=== PATIENT | male | born 1945 | race Caucasian/White ===

== ENCOUNTER → 2024-01-24 | Outpatient (CLI) | payer MEDICARE, BC, OTHER, SELFPAY ==
--- NOTE | 2024-01-24 13:00 | XR_ITS ---
Examination: CT chest, without intravenous contrast. Sagittal and coronal 2-D reconstructions. Exam date and time: January 24, 2024 1226 hours INDICATIONS: CT chest September 26, 2023 subcentimeter pulmonary nodules CTDI:vol (mGy) 14.9 DLP: (mGycm) 574 Technique: Multiple 3.0 mm axial sections of the chest to been obtained. Bone and lung density settings are obtained. Sagittal and coronal 2-D reconstructions have been obtained. Low dose protocols were performed. One or more of the following dose reduction techniques were used; automated exposure control, adjustment of the mA and/or KV according to patient size, use of iterative reconstruction technique. Findings: Thoracic aortic calcification no aneurysmal dilatation Prosthetic aortic cage Mild enlargement cardiac contour No paratracheal tracheobronchial or bronchopulmonary adenopathy No change in subcentimeter bilateral pulmonary nodules, no new pulmonary nodules No pneumonia or pulmonary edema No visualized liver or splenic lesion Absent gallbladder No pancreatic mass 21 mm indeterminate left adrenal nodule IMPRESSION: Stable bilateral subcentimeter pulmonary nodules, no new pulmonary nodules 21 mm indeterminate left adrenal mass, recommend 6 month follow-up CT scanning abdomen postcontrast
== END | disposition home or self-care (01) ==
LOC: CCTX 12:10
PROVIDERS: PCP Nurse Practitioner Family; Referring Provider Nurse Practitioner Family; Visit Provider Nurse Practitioner Family
DX: R91.8 Other nonspecific abnormal finding of lung field (principal)
CPT/HCPCS: 71250

== ENCOUNTER 2024-02-12 07:30 | Emergency (ER) | payer MEDICARE, BC, OTHER, SELFPAY ==
[2024-02-12 07:35] VITALS: BP 169/70; PULSE 90; RESP 18; TEMP 37; O2SAT 97
[2024-02-12 07:37] VITALS: BMI 31.1
--- NOTE | 2024-02-12 08:03 | XR_ITS ---
Examination: CT brain head without contrast. 2-D sagittal coronal reconstructions Date and time of exam:February 12, 2024 0832 hrs. Indications: Patient fell today with injury to the back of the head, head pain CTDI: vol (mGy):57.9 DLP: (mGycm):1269 Technique: Multiple CT axial sections of the brain have been obtained, 5 mm slice thickness. Contrast has not been administered. 2-D sagittal, coronal reconstructions have been obtained Low dose protocols were performed. One or more of the following dose reduction techniques were used; automated exposure control, adjustment of the mA and/or KV according to patient size, use of iterative reconstruction technique. Findings: No significant ventricular enlargement. Intra-axial or extra-axial hemorrhage density is not seen. No mass effect or midline shift Basal cisterns are not remarkable. Fourth ventricle is midline. Cranial vault intact. Impression: Negative for acute hemorrhage, mass effect or midline shift
--- NOTE | 2024-02-12 08:03 | XR_ITS ---
Examination: CT cervical spine without contrast 2-D sagittal reconstructions 2-D coronal reconstructions 3-D reconstructions. Exam date and time:February 12, 2024 at 0832 hrs. Indications: Patient fell this morning with injury to the neck, neck pain CTDI:vol (mGy) 10 DLP: (mGycm) 217 Technique: Multiple 2 mm axial sections of the cervical spine have been obtained. The coronal and sagittal reconstructions have been obtained. 3-D reconstructions have been obtained. Low dose protocols were performed. One or more of the following dose reduction techniques were used; automated exposure control, adjustment of the mA and/or KV according to patient size, use of iterative reconstruction technique. Findings: Axial sections demonstrate intact base of the skull. Extensive cervical fusion with satisfactory alignment C1 exhibit satisfactory relationship to the odontoid. No acute cervical vertebral body fracture seen. Alignment posterior spinous processes satisfactory. Impression: No acute cervical fracture.
[2024-02-12 08:31] LABS: Basophils # (Auto) 0.1 Thou/mm3 (0.0-0.2); Basophils % (Auto) 1 % (0-2.5); Eosinophils # (Auto) 0.2 Thou/mm3 (0.0-0.5); Eosinophils % (Auto) 2 % (0-10); Hematocrit 33.8 % (41.0-53.0); Hemoglobin 10.8 g/dL (13.5-16.0); Immature Granulocytes % (Auto) 0 % (0-0); Immature Granulocytes Auto 0.04 Thou/mm3 (0.00-0.00); Lymphocytes # (Auto) 2.4 Thou/mm3 (1.0-4.8); Lymphocytes % (Auto) 25 % (10-50); Mean Corpuscular Hemoglobin 26.8 pg (25.0-35.0); Mean Corpuscular Volume 84 fL (80-100); Monocytes # (Auto) 0.7 Thou/mm3 (0.0-0.8); Monocytes % (Auto) 7 % (0-12); Neutrophils # (Auto) 6.1 Thou/mm3 (1.8-7.7); Neutrophils % (Auto) 65 % (37-80); Nucleated Red Blood Cell % 0 /100 WBC (0); Platelet Count 158 Thou/mm3 (140-440); RDW Standard Deviation 42.9 fL (35.1-43.9); Red Blood Count 4.03 Miln/mm3 (4.50-5.90); White Blood Count 9.5 Thou/mm3 (3.8-10.6)
[2024-02-12 08:55] VITALS: BP 165/74; PULSE 87; RESP 16; TEMP 36.3; O2SAT 98
[2024-02-12 09:01] LABS: Alanine Aminotransferase 9 U/L (10-49); Albumin, Serum 4.2 gm/dL (3.4-4.8); Albumin/Globulin Ratio 1.8 (1.2-2.2); Alkaline Phosphatase 109 U/L (46-116); Anion Gap 8 (7-16); Aspartate Amino Transferase < 8 U/L (0-34); BUN/Creatinine Ratio 18 Ratio (12-20); Bilirubin,Total 0.4 mg/dL (0.3-1.2); Blood Urea Nitrogen 21 mg/dL (9-23); Calcium 8.8 mg/dL (8.3-10.6); Calcium (Corrected) 8.8 mg/dL (8.5-10.1); Carbon Dioxide 28.1 mMol/L (20.0-31.0); Chloride 104 mMol/L (98-107); Creatinine (Component) 1.2 mg/dL (0.6-1.3); Estimated Creatinine Clearance 64.4 mL/min (>60); Globulin 2.3 gm/dL (2.3-3.5); Glucose 275 mg/dL (74-106); Osmolality,Calculated 292 (275-295); Potassium 4.3 mMol/L (3.4-5.1); Sodium 140 mMol/L (136-145); Total Protein 6.5 gm/dL (5.7-8.2); eGFR > 60 See Note
[2024-02-12 12:23] VITALS: BP 189/81; PULSE 79; RESP 19; TEMP 36.4; O2SAT 96
--- NOTE | 2024-02-12 12:54 | PD.EDADULT ---
ED General RME/HPI General Chief complaint: Fall Stated complaint: FALL WITH NECK PAIN X 0600 Time Seen by Provider: 02/12/24 07:47 Arrival date/time: 02/12/24 07:30 RME / HPI RME / HPI narrative: Discharge the patient presented to the emergency department complaining of rolling out of bed this morning. No LOC. No headache. He has chronic neck pain secondary to spinal fusion years ago. No chest pain. No abdominal pain. No vomiting. No diarrhea. No abnormal bleeding. And no painful hips Related Data Home Medications ?Medication ?Instructions ?Recorded ?Confirmed gabapentin 300 mg capsule 300 mg PO TID ##60 10/10/13 08/02/23 allopurinol 100 mg tablet 100 mg PO QDAY Gout 05/02/18 08/02/23 ropinirole 0.5 mg tablet 0.5 mg PO QDAY 07/15/18 08/02/23 sitagliptin phosphate 100 mg 100 mg PO QDAY 03/10/21 08/02/23 tablet (Januvia) duloxetine 30 mg capsule,delayed 30 mg PO BID 01/11/22 08/02/23 release pantoprazole 40 mg tablet,delayed 40 mg PO QDAY 01/11/22 08/02/23 release atorvastatin 80 mg tablet 80 mg PO QDAY 04/16/22 08/02/23 metoprolol succinate 50 mg capsule 100 mg PO QDAY 06/04/22 08/02/23 sprinkle, ext. release 24 hr apixaban 5 mg tablet (Eliquis) 5 mg PO BID 08/19/22 08/02/23 folic acid 1 mg tablet 1 mg PO QDAY 08/19/22 08/02/23 trospium 20 mg tablet 20 mg PO BID 08/19/22 08/02/23 insulin glargine 100 unit/mL (3 8 unit subcut HS 01/01/23 08/02/23 mL) subcutaneous pen (Lantus Solostar U-100 Insulin) Previous Rx's ?Medication ?Instructions ?Recorded metformin 1,000 mg tablet 1,000 mg PO BID 30 days #60 tabs 08/20/22 midodrine 5 mg tablet 5 mg PO TID PRN SBP<100 30 days 08/20/22 #90 tabs sacubitril 24 mg-valsartan 26 mg 0.5 tab PO BID 30 days #15 tabs 08/20/22 tablet (Entresto) Allergies Allergy/AdvReac Type Severity Reaction Status Date / Time empagliflozin Allergy Intermediate rash Verified 08/02/23 14:02 [From Jardiance] Penicillins Allergy Unknown Verified 08/02/23 14:02 Review of Systems Review of Systems Narrative Review of Systems: REVIEW OF SYSTEM: GEN:? negative except mentioned in HPI HEENT:? negative except mentioned in HPI NECK:? negative except mentioned in HPI PULM:? negative except mentioned in HPI CARD:? negative except mentioned in HPI GI:? negative except mentioned in HPI MUSCULO/SKET: negative except mentioned in HPI SKIN:? negative except mentioned in HPI NEURO:? negative except mentioned in HPI PSYCH:? negative except mentioned in HPI Past Medical History Past Medical History NEUROLOGIC: Positive Dementia and Alzheimer's Disease; Negative Neurological Disorders, Seizures or Migraine CARDIAC: Positive Heart Murmur, Coronary Artery Disease, Atherosclerotic Heart Disease, Peripheral Vascular Disease, Hypercholesterolemia, Valvular Heart Disease and Hypertension; Negative Congestive Heart Failure RESPIRATORY: Positive Asthma, Tuberculosis and Sleep Apnea; Negative Chronic Obstructive Pulmonary Disease (COPD), Emphysema or Pneumonia GASTROINTESTINAL: Positive Gastrointestinal Disorders, Gall Bladder Disease, Hiatal Hernia, Gastroesophageal Reflux Disease and Obesity; Negative Cirrhosis or Hemorrhoids GENITOURINARY: Positive Genitourinary Disorders, Kidney Stones and Prostate Cancer; Negative Renal Disease MUSCULOSKELETAL: Positive Musculoskeletal Disorders, Arthritis, Gout and Fibromyalgia ENT: Positive Cataracts, Blind and Macular Degeneration; Negative Glaucoma ENDOCRINE: Positive Endocrine Disorders and Diabetes Mellitus Type 2; Negative Diabetes Mellitus Type 1 HEMATOLOGIC: Positive Clotting Problems; Negative Blood Disorders or Sickle Cell Disease PSYCHO/SOCIAL: Positive Depression and Anxiety OTHER HISTORY: Positive Hospitalization, Chicken Pox, Measles, Cancer and Prostate Cancer; Negative Autoimmune Disease, Blood Transfusions, MRSA, VRSA or Vancomycin-Resistant Enterococci Family History FAMILY HISTORY: Positive Family Cardiac Disorders and Family Cancer; Negative Family Psychiatric Problems, Family Respiratory Disorders, Family Gastrointestinal Problems, Family Surgery or Family Anesthesia Reaction Surgical History SURGICAL: Positive Cardiac Surgery, Coronary Artery Bypass Graft, Valve Replacement, Cardiac Catheterization, Pacemaker, Auto Implanted Cardiovert Defib, Abdominal Surgery and Bowel Surgery Social History SMOKING STATUS: Former smoker SECOND HAND EXPOSURE: No SUBSTANCE USE: does not use OCCUPATION: [employer] ED Exam Narrative Physical exam: Aaox4. No acute distress O2 saturation is normal Heent:? perra. Eomi. No icteric. Neck: full rom.? No mass.? No jvd.? No lymphadenopathy Lungs:? clear, full, equal Heart:? s1s2.? Rrr.? No murmur, gallop or rub. Abd: soft, nondistended, nontender, no mass, no rebound or guarding, no flank tender.? No incarcerated? hernia Ext:? full rom.? No deformity.? Normal csm. Hips are normal. Back examinations: Full range of motion. No deformity. No tenderness. No ecchymosis. No crepitus. Neuro:?? intact cn2 to 12.? No facial droop.? No slurred speech.? No focal deficit.? Moves all 4ext Skin:? no rash.? No cellulitis.? No lesion.? No laceration Psychiatrical: no suicidal.? No homicidal.? No delusion.? No hallucinating Course Quality Measures none Orders Category Date Time Status Saline [Insert IV] STAT Care 02/12/24 08:[address] cervical spine wo con Stat Exams 02/12/24 08:[address] head/brain wo con Stat Exams 02/12/24 08:03 Completed CBC Stat Lab 02/12/24 08:21 Completed CMP [Comprehensive Metabolic Panel] Stat Lab 02/12/24 08:21 Completed Vital Signs Vital signs: Vital Signs Temperature 98.6 F 02/12/24 07:35 Pulse Rate 90 02/12/24 07:35 Respiratory Rate 18 02/12/24 07:35 Blood Pressure 169/70 H 02/12/24 07:35 Pulse Oximetry (%) 97 02/12/24 07:35 Oxygen Delivery Method Room Air 02/12/24 07:35 [facility] Patient data External records reviewed:: [facility] previous records Clinical information provided by:: patient Social determinants that could affect healthcare access:: none Patient has the following chronic illnesses:: Bedridden to wheelchair How is presenting disease/condition affected by chronic disease/condition?: caused by Evaluation data The following diagnostics were reviewed and interpreted by me:: lab results and radiology exam(s) Lab and/or radiology exams considered but not ordered:: None Interpretation Summary: See [facility] Medications Medications considered but not ordered:: None Medication administrations:: See [facility] Consultations Consultation(s) initiated? (list below): No Diagnosis Differential Diagnosis ED Complaint MDM: Fall. Syncope. LOC. Fractured hips Most likely diagnosis given after review of the tests above:: Fall., Mechanical Admission Indicated Admission indicated?: not indicated Explain why admission is indicated or not indicated:: Patient doing well. No fracture bone. No bleeding. Admission Request Was there a request for admission?: No Disposition Plan Disposition Plan: Discharge Discharge Attestation Discharge Attestation: The patient and all family members were given an opportunity to ask questions and understood the discharge instructions. Discharge instructions specifically effects, indications for sooner follow up or return to the emergency department, and the expected course of current diagnosis. Patient condition: Stable Medical Decision Making MDM Narrative MDM Narrative: CBC unremarkable. CMP remarkable for a blood sugar of 275. The patient is diabetic. CT head was reviewed by and interpreted by me: No bleed. No mass. No shifting. No swelling. Normal ventricle. Normal skull. CT cervical spine was reviewed by and interpreted by me as follow: No fracture. No dislocation. Hardware from previous neck surgery are present. Severe arthritis. [address] [place] [address] [facility] Report Signed Patient: IVAN GARCÍA. Record#: [id number] Birthdate: 1945 Age/Sex: 78 / M Location: [facility] Attending Dr: Ordering Physician: Maurice Anderson MD Date of Service: 02/12/24 Procedure(s): CT head/brain wo con Accession Number(s): [id number] cc: Anibal Blum MD; Maurice Anderson MD~ Examination: CT brain head without contrast. 2-D sagittal coronal reconstructions Date and time of exam:February 12, 2024 0832 hrs. Indications: Patient fell today with injury to the back of the head, head pain CTDI: vol (mGy):57.9 DLP: (mGycm):1269 Technique: Multiple CT axial sections of the brain have been obtained, 5 mm slice thickness. Contrast has not been administered. 2-D sagittal, coronal reconstructions have been obtained Low dose protocols were performed. One or more of the following dose reduction techniques were used; automated exposure control, adjustment of the mA and/or KV according to patient size, use of iterative reconstruction technique. Findings: No significant ventricular enlargement. Intra-axial or extra-axial hemorrhage density is not seen. No mass effect or midline shift Basal cisterns are not remarkable. Fourth ventricle is midline. Cranial vault intact. Impression: Negative for acute hemorrhage, mass effect or midline shift Dictated By: Anibal Blum MD Signed By: <Electronically signed by Anibal Blum MD in OV> 02/12/24 0845 DD/ 3 TD/TT: 02/12/24843 Line Palletizer: REYES [facility] [address] [place] [address] [facility] Report Signed Patient: IVAN GARCÍA Record#: [id number] Birthdate: 1945 Age/Sex: 78 / M Location: [facility] Attending Dr: Ordering Physician: Maurice Anderson MD Date of Service: 02/12/24 Procedure(s): CT cervical spine wo con Accession Number(s): [id number] cc: Anibal Blum MD; Maurice Anderson MD~ Examination: CT cervical spine without contrast 2-D sagittal reconstructions 2-D coronal reconstructions 3-D reconstructions. Exam date and time:February 12, 2024 at 0832 hrs. Indications: Patient fell this morning with injury to the neck, neck pain CTDI:vol (mGy) 10 DLP: (mGycm) 217 Technique: Multiple 2 mm axial sections of the cervical spine have been obtained. The coronal and sagittal reconstructions have been obtained. 3-D reconstructions have been obtained. Low dose protocols were performed. One or more of the following dose reduction techniques were used; automated exposure control, adjustment of the mA and/or KV according to patient size, use of iterative reconstruction technique. Findings: Axial sections demonstrate intact base of the skull. Extensive cervical fusion with satisfactory alignment C1 exhibit satisfactory relationship to the odontoid. No acute cervical vertebral body fracture seen. Alignment posterior spinous processes satisfactory. Impression: No acute cervical fracture. Dictated By: Anibal Blum MD Signed By: <Electronically signed by Anibal Blum MD in OV> 02/12/24 0844 DD/ TD/TT: 02/12/2443 Line Palletizer: REYES Patient have no new neurological deficit. The patient is chronically bedridden to wheelchair. Differential Diagnosis Differential Diagnosis: Fall. Syncope. LOC. Fractured hips Lab Data 02/12/24 08:21 02/12/24 08:21 Labs: Lab Results 02/12/24 Range/Units 08:21 WBC 9.5 (3.8-10.6) Thou/mm3 RBC 4.03 L (4.50-5.90) Miln/mm3 Hgb 10.8 L (13.5-16.0) g/dL Hct 33.8 L (41.0-53.0) % MCV 84 (80-100) fL MCH 26.8 (25.0-35.0) pg MCHC 32.0 (31.0-37.0) g/dl RDW Std Deviation 42.9 (35.1-43.9) fL Plt Count 158 (140-440) Thou/mm3 Neut % (Auto) 65 (37-80) % Lymph % (Auto) 25 (10-50) % [place] % (Auto) 7 (0-12) % Eos % (Auto) 2 (0-10) % Baso % (Auto) 1 (0-2.5) % Neut # (Auto) 6.1 (1.8-7.7) Thou/mm3 Lymph # (Auto) 2.4 (1.0-4.8) Thou/mm3 [place] # (Auto) 0.7 (0.0-0.8) Thou/mm3 Eos # (Auto) 0.2 (0.0-0.5) Thou/mm3 Baso # (Auto) 0.1 (0.0-0.2) Thou/mm3 Immature Gran # (Auto) 0.04 H (0.00-0.00) Thou/mm3 Absolute Nucleated RBC 0.00 (0.00-0.00) Thou/mm3 Immature Gran % 0 (0-0) % Nucleated RBC % 0 (0) /100 WBC Sodium 140 (136-145) mMol/L Potassium 4.3 (3.4-5.1) mMol/L Chloride 104 (98-107) mMol/L Carbon Dioxide 28.1 (20.0-31.0) mMol/L Anion Gap 8 (7-16) BUN 21 (9-23) mg/dL Creatinine 1.2 (0.6-1.3) mg/dL Estim Creat Clear Calc 64.4 (>60) mL/min eGFR > 60 (60 - ) See Note BUN/Creatinine Ratio 18 (12-20) Ratio Glucose 275 H (74-106) mg/dL Calculated Osmolality 292 (275-295) Calcium 8.8 (8.3-10.6) mg/dL Corrected Calcium 8.8 (8.5-10.1) mg/dL Total Bilirubin 0.4 (0.3-1.2) mg/dL AST < 8 (0-34) U/L ALT 9 L (10-49) U/L Alkaline Phosphatase 109 (46-116) U/L Total Protein 6.5 (5.7-8.2) gm/dL Albumin 4.2 (3.4-4.8) gm/dL Globulin 2.3 (2.3-3.5) gm/dL Albumin/Globulin Ratio 1.8 (1.2-2.2) Discharge Plan Plan Patient Disposition: HOME (Self Care) Disposition Comment: Stable to go home Prescriptions/Referrals Prescriptions/Med Rec: No Action ropinirole 0.5 mg tablet 0.5 mg PO QDAY gabapentin 300 MG capsule 300 mg PO TID Qty: 60 allopurinol 100 mg tablet 100 mg PO QDAY Patient Comments: TK 1 T PO QD Januvia 100 mg tablet 100 mg PO QDAY Patient Comments: TAKE 1 TABLET BY MOUTH EVERY DAY atorvastatin 80 mg Tablet 80 mg PO QDAY metoprolol succinate 50 mg Capsule,Sprinkle,Er 24hr 100 mg PO QDAY insulin glargine [Lantus Solostar U-100 Insulin] 100 unit/mL (3 mL) insulin pen 8 unit SUBCUT HS Patient Comments: ADMINISTER 55 UNITS UNDER THE SKIN DAILY pantoprazole 40 mg tablet,delayed release (DR/EC) 40 mg PO QDAY Patient Comments: TAKE 1 TABLET BY MOUTH EVERY DAY duloxetine 30 mg capsule,delayed release(DR/EC) 30 mg PO BID Patient Comments: TAKE 1 CAPSULE BY MOUTH FOR ONE WEEK THEN TWICE DAILY trospium 20 mg Tablet 20 mg PO BID Eliquis 5 mg tablet 5 mg PO BID Patient Comments: TAKE 1 TABLET BY MOUTH TWICE DAILY folic acid 1 mg Tablet 1 mg PO QDAY midodrine 5 mg Tablet 5 mg PO TID PRN (Reason: SBP<100) 30 Days Qty: 90 0RF Rx Instructions: do not give last dose of day after 6PM or within 4 hrs of bedtime Entresto 24-26 mg Tablet 0.5 tab PO BID 30 Days Qty: 15 0RF metformin 1,000 mg tablet 1,000 mg PO BID 30 Days Qty: 60 0RF Referrals: Gladis Shipman WINDOW MACHINE OPERATOR [Primary Care Provider] - In 1 week Problem List Clinical Impression: Diabetes, Fall Patient/Caregiver Discharge Instructions Education Materials: Fall Prevention Assessing Risk, ED Diet: Diabetes Additional Instructions: Please follow-up with your medical doctor in 3 days. Return to the emergency department if any problem. Print Language: Persian Stand Alone Forms: Ofe Award Info., Patient Portal Info Letter
[2024-02-12 14:25] VITALS: BP 170/71; PULSE 76; RESP 18; TEMP 36.4; O2SAT 98
== END 2024-02-12 14:57 | disposition home or self-care (01) ==
PROVIDERS: Emergency Provider Emergency Medicine; PCP Nurse Practitioner Family; Referring Provider Emergency Medicine
DX: S19.9XXA Unspecified injury of neck, initial encounter (principal); S09.90XA Unspecified injury of head, initial encounter; E11.51 Type 2 diabetes mellitus with diabetic peripheral angiopathy without gangrene; E11.36 Type 2 diabetes mellitus with diabetic cataract; M19.90 Unspecified osteoarthritis, unspecified site; W06.XXXA Fall from bed, initial encounter; Z79.84 Long term (current) use of oral hypoglycemic drugs; Z79.4 Long term (current) use of insulin
CPT/HCPCS: 36415; 70450; 72125; 80053; 85025; 99284

== ENCOUNTER 2024-04-30 11:05 | Day surgery (SDC) | payer MEDICARE, BC, OTHER, SELFPAY ==
--- NOTE | 2024-04-27 10:57 | EKG_ITS ---
[facility] Test Date: 2024-04-27 Pat Name: IVAN GARCÍA Department: Room: - Gender: Male Rn Intern: RT STUDENT : 1945 Requested By: Jaimee Villa Order Number: [id number] Reading MD: Jaimee Villa Measurements Intervals Murray Rate: 70 P: 63 ND: 198 QRS: -37 QRSD: 161 T: 99 QT: 449 QTc: 486 Interpretive Statements ELECTRONIC VENTRICULAR PACEMAKER ABNORMAL RHYTHM ECG WARNING: DATA QUALITY MAY AFFECT INTERPRETATION Compared to ECG 10/04/2023 19:45:49 No significant changes /store/S0/[id number]
[2024-04-27 11:17] LABS: Partial Thromboplastin Time 29.5 Seconds (22.0-36.0); Prothrombin Time 11.4 Seconds (9.0-12.2)
[2024-04-27 11:43] LABS: Alanine Aminotransferase 12 U/L (10-49); Albumin, Serum 4.1 gm/dL (3.4-4.8); Albumin/Globulin Ratio 1.6 (1.2-2.2); Alkaline Phosphatase 109 U/L (46-116); Anion Gap 6 (7-16); Aspartate Amino Transferase 11 U/L (0-34); BUN/Creatinine Ratio 18 Ratio (12-20); Bilirubin,Total 0.5 mg/dL (0.3-1.2); Blood Urea Nitrogen 16 mg/dL (9-23); Calcium 9.3 mg/dL (8.3-10.6); Calcium (Corrected) 9.3 mg/dL (8.5-10.1); Carbon Dioxide 26.7 mMol/L (20.0-31.0); Chloride 107 mMol/L (98-107); Creatinine (Component) 0.9 mg/dL (0.6-1.3); Globulin 2.5 gm/dL (2.3-3.5); Glucose 279 mg/dL (74-106); Osmolality,Calculated 290 (275-295); Potassium 4.7 mMol/L (3.4-5.1); Sodium 140 mMol/L (136-145); Total Protein 6.6 gm/dL (5.7-8.2); eGFR > 60 See Note
[2024-04-30 11:53] VITALS: BMI 31.8
[2024-04-30 11:55] VITALS: BP 167/76; PULSE 72; RESP 18; TEMP 36.7; O2SAT 95
[2024-04-30 12:01] VITALS: TEMP 36.7
[2024-04-30] MEDS: Vancomycin Inj 1,000 MG in SODIUM CHLORIDE 0.9% 500 ML 500 ML 300 MG IV (12:30)
[2024-04-30] MEDS: RINGERS LACTATED 1000 ML 1,000 ML 125 ML IV (12:30)
[2024-04-30 14:15] VITALS: BP 95/57; PULSE 89; RESP 16; TEMP 37.2; O2SAT 91
[2024-04-30 14:25] VITALS: BP 100/58; PULSE 87; RESP 16; O2SAT 93
[2024-04-30 14:35] VITALS: BP 109/61; PULSE 85; RESP 19; O2SAT 93
[2024-04-30 14:45] VITALS: BP 150/71; PULSE 81; RESP 19; O2SAT 92
== END 2024-04-30 15:20 | disposition home or self-care (01) ==
PROVIDERS: PCP Nurse Practitioner Family; Referring Provider Specialist; Visit Provider Specialist
PROC: 0DBE8ZX Excision of Large Intestine, Via Natural or Artificial Opening Endoscopic, Diagnostic (ICD-10-PCS; CPT 45380; principal; 2024-04-30 13:15)
DX: K64.9 Unspecified hemorrhoids (principal); K57.30 Diverticulosis of large intestine without perforation or abscess without bleeding; Z01.810 Encounter for preprocedural cardiovascular examination
CPT/HCPCS: 45378; 36415; 80053; 85610; 85730; 93005; J3371; J7040; J7120

== ENCOUNTER → 2024-07-03 | Outpatient (BNVA) | payer MEDICARE, BC, OTHER, SELFPAY | END | disposition home or self-care (01) | PROVIDERS: PCP Nurse Practitioner Family; Referring Provider Nurse Practitioner Family; Visit Provider Urology | DX: C61 Malignant neoplasm of prostate (principal); N39.46 Mixed incontinence; F03.90 Unspecified dementia, unspecified severity, without behavioral disturbance, psychotic disturbance, mood disturbance, and anxiety; Z99.3 Dependence on wheelchair; I11.0 Hypertensive heart disease with heart failure; I50.9 Heart failure, unspecified; E11.9 Type 2 diabetes mellitus without complications; I25.10 Atherosclerotic heart disease of native coronary artery without angina pectoris; Z95.5 Presence of coronary angioplasty implant and graft; Z87.891 Personal history of nicotine dependence; E78.00 Pure hypercholesterolemia, unspecified; K21.9 Gastro-esophageal reflux disease without esophagitis; Z95.0 Presence of cardiac pacemaker | CPT/HCPCS: 99212; G0463 ==

== ENCOUNTER 2024-07-27 20:37 | Inpatient (IN) | payer OTHER, SELFPAY ==
[2024-07-27 20:38] VITALS: BP 128/69; PULSE 88; RESP 22; TEMP 36.7; O2SAT 92
[2024-07-27 20:39] VITALS: O2SAT 93
--- NOTE | 2024-07-27 20:55 | PD.EDSOB ---
ED SOB =RME/HPI General Chief Complaint: Shortness of Breath/Dyspnea Stated Complaint: SOB Time Seen by Provider: 07/27/24 21:45 Arrival date/time: 07/27/24 20:37 RME / HPI RME / HPI Narrative: This section includes all my notes and documentations, including HPI, PE, and ED course. Julio Edmonds MD HPI: 79 y/o male with Hx of Pacemaker, Dementia, Alzheimer's Disease, Heart Murmur, Coronary Artery Disease, Atherosclerotic Heart Disease, Peripheral Vascular Disease, Valvular Heart Disease, Hypertension, Asthma, Tuberculosis, and Prostate Cancer BIBA from [facility] c/o shortness of breath and hypoxia just prior to arrival. Neb treatment given by EMS. Patient reports no fever or chest pain or cough. But history from the patient may be inaccurate due to severe dementia. ROS: Unable to obtain from the patient due to dementia. Physical Exam: General: Alert. In moderate respiratory distress. Hypoxia noted. Eyes: Conjunctivae and lids clear. ENT: No nasal congestion. Neck: Supple. No JVD. Heart: RRR. Lungs: Moderate respiratory distress. Moderately decreased air movement with severe rales. Abdomen: Soft with diffuse tenderness, difficult to localize. Normal bowel sounds. No distension. No rebound or guarding. Back: No CVA tenderness. Skin: Warm and dry. Neuro: Alert and oriented X 1. I reviewed EMS and assisted notes. I reviewed all diagnostic test results. My interpretation of the EKG: Paced rhythm (87 bpm) with no ST-T changes. My interpretation of the chest x-ray is increased vascular congestion. My review of the Gall Bladder US report is NAD. My review of the Abdomen/Pelvis CT report is distended bladder. My review of the Chest CTA report is: Prominent vascular congestion. Bibasilar pneumonia. Blood tests and urine tests remarkable for WBC 25, ESR 32, D-dimer 1050, Cr 5.8, LA 4.9, Mg 1.4, CRP 2.4, BNP 167. ABG showed pH 7.29, pCO2 24, pHCO3 12. COVID/influenza negative. At this point, diagnoses include Acute Renal Failure, Pneumonia, Acute Respiratory Failure with Hypoxia, Acute CHF, Hypomagnesemia. Treatment here included Oxygen, Rocephin, Lasix, Morphine, topical nitroglycerin, and MgSO4 2 gram IV. Significant improvement not noted. I discussed the case with our Dermatology Specialist, Dr. Meyers. About the presentation and exam and diagnostics and treatments here. And need of further care in the hospital. Recommend admission for further care. I discussed the case with our hospitalist. About the presentation and exam and diagnostics and treatments here. And need of further care in the hospital. Will accept the patient. Julio Edmonds MD Related Data Home Medications ?Medication ?Instructions ?Recorded ?Confirmed gabapentin 300 mg capsule 300 mg PO TID ##60 10/10/13 07/20/24 allopurinol 100 mg tablet 100 mg PO QDAY Gout 05/02/18 07/20/24 ropinirole 0.5 mg tablet 0.5 mg PO QDAY 07/15/18 07/20/24 duloxetine 30 mg capsule,delayed 30 mg PO BID 01/11/22 07/20/24 release pantoprazole 40 mg tablet,delayed 40 mg PO QDAY 01/11/22 07/20/24 release atorvastatin 80 mg tablet 80 mg PO QDAY 04/16/22 07/20/24 apixaban 5 mg tablet (Eliquis) 5 mg PO BID 08/19/22 07/20/24 folic acid 1 mg tablet 1 mg PO QDAY 08/19/22 07/20/24 trospium 20 mg tablet 20 mg PO BID 08/19/22 07/20/24 insulin glargine 100 unit/mL (3 22 unit subcut HS 01/01/23 07/20/24 mL) subcutaneous pen (Lantus Solostar U-100 Insulin) insulin lispro 100 unit/mL 1 sliding scale dose subcut 04/30/24 07/20/24 subcutaneous pen USEASDIRECTD melatonin 3 mg capsule 6 mg PO QDAY 04/30/24 07/20/24 memantine 5 mg tablet 5 mg PO BID 04/30/24 07/20/24 metoprolol succinate 100 mg 100 mg PO QDAY 04/30/24 07/20/24 capsule sprinkle, ext. release 24 hr mirabegron 50 mg tablet,extended 50 mg PO QDAY 04/30/24 07/20/24 release 24 hr (Myrbetriq) metoprolol succinate 50 mg 100 mg PO .i tab daily Hypertension 07/20/24 07/20/24 tablet,extended release 24 hr Previous Rx's ?Medication ?Instructions ?Recorded metformin 1,000 mg tablet 1,000 mg PO BID 30 days #60 tabs 08/20/22 midodrine 5 mg tablet 5 mg PO TID PRN SBP<100 30 days 08/20/22 #90 tabs sacubitril 24 mg-valsartan 26 mg 0.5 tab PO BID 30 days #15 tabs 08/20/22 tablet (Entresto) Allergies Allergy/AdvReac Type Severity Reaction Status Date / Time empagliflozin (From Allergy Intermediate rash Verified 07/03/24 10:28 Jardiance) Penicillins Allergy Unknown Verified 07/03/24 10:28 Review of Systems Review of Systems Systems Reviewed: All systems reviewed, normal except as documented Past Medical History Past Medical History NEUROLOGIC: Positive Dementia and Alzheimer's Disease CARDIAC: Positive Heart Murmur, Coronary Artery Disease, Atherosclerotic Heart Disease, Peripheral Vascular Disease, Hypercholesterolemia, Valvular Heart Disease and Hypertension RESPIRATORY: Positive Asthma, Tuberculosis and Sleep Apnea GASTROINTESTINAL: Positive Gastrointestinal Disorders, Hiatal Hernia, Gastroesophageal Reflux Disease and Obesity GENITOURINARY: Positive Genitourinary Disorders, Kidney Stones and Prostate Cancer MUSCULOSKELETAL: Positive Musculoskeletal Disorders, Arthritis, Gout and Fibromyalgia ENT: Positive Cataracts, Blind and Macular Degeneration ENDOCRINE: Positive Endocrine Disorders and Diabetes Mellitus Type 2 HEMATOLOGIC: Positive Clotting Problems PSYCHO/SOCIAL: Positive Depression and Anxiety OTHER HISTORY: Positive Hospitalization, Anesthesia Reactions (waking up aggressive fighting the staff), Chicken Pox, Measles, Cancer and Prostate Cancer Family History FAMILY HISTORY: Positive Family Cardiac Disorders and Family Cancer Surgical History SURGICAL: Positive Cardiac Surgery, Coronary Artery Bypass Graft, Valve Replacement, Cardiac Catheterization, Pacemaker, Auto Implanted Cardiovert Defib, Abdominal Surgery and Bowel Surgery ED Exam Narrative Physical exam: Refer to HPI above Course Course Course Narrative: CXR is ordered for determining the etiology of shortness of breath. Quality Measures none Orders Category Date Time Status Bedside COVID-19 Antigen Test NOW Care 07/27/24 20:55 Active Bedside Influenza A&B Antigen Test NOW Care 07/27/24 20:55 Completed COVID-19 Screening Questionnaire NOW Care 07/28/24 00:[address] Screening NOW Care 07/27/24 20:57 Active Decision to Admit X1 Care 07/28/24 00:19 Completed EKG (ED ONLY) *Do not use* NOW Care 07/27/24 20:57 Completed Ruth to Onida Routine Care 07/28/24 00:41 Ordered Saline [Insert IV] NOW Care 07/27/24 20:55 Active Straight [In and Out Catheter] X1 Care 07/27/24 20:55 Completed Consult to Nephrology Stat Cons 07/27/24 23:[address] abdomen pelvis w con Stat Exams 07/27/24 20:[address] angio chest Stat Exams 07/27/24 20:57 Completed EKG (ED Only) Stat Exams 07/27/24 20:57 Ordered US gall bladder Stat Exams 07/27/24 20:57 Completed XR chest 1V portable Stat Exams 07/27/24 20:57 Completed ABG [Arterial Blood Gas] Stat Lab 07/27/24 23:05 Completed Amylase Stat Lab 07/27/24 22:05 Completed BNP [B-Type Natriuretic Peptide] Stat Lab 07/27/24 22:05 Completed Bilirubin,Direct Stat Lab 07/27/24 22:05 Completed Blood Culture (Lab) Stat Lab 07/27/24 22:04 Received CBC Stat Lab 07/27/24 22:05 Completed CMP [Comprehensive Metabolic Panel] Stat Lab 07/27/24 22:05 Completed CRP [C-Reactive Protein] Stat Lab 07/27/24 22:05 Completed D-Dimer Stat Lab 07/27/24 22:05 Completed ESR [Sed Rate (ESR)] Stat Lab 07/27/24 22:05 Completed Free T4 (Free Thyroxine) Stat Lab 07/27/24 22:05 Completed Lactate (Lactic Acid) Stat Lab 07/27/24 22:00 Completed Lipase Stat Lab 07/27/24 22:05 Completed Magnesium Stat Lab 07/27/24 22:05 Completed PT [Prothrombin Time with INR] Stat Lab 07/27/24 22:05 Completed PTT [Partial Thromboplastin Time] Stat Lab 07/27/24 22:05 Completed Procalcitonin Stat Lab 07/27/24 22:05 Completed TSH [Thyroid Stimulating Hormone] Stat Lab 07/27/24 22:05 Completed Troponin I Stat Lab 07/27/24 22:05 Completed UA, C/S IF [Urinalysis, C/S if Indicated] Stat Lab 07/27/24 23:07 Completed Furosemide Inj [Lasix Inj] Med 07/27/24 20:55 Discontinued 40 mg IVP X1 ONE Magnesium Sulfate 2 GM Ivpb [Magnesium Sulfate Ivpb] Med 07/27/24 23:28 Discontinued 2 gm in 50 ml IV X1 Morphine Inj Med 07/27/24 20:55 Discontinued 2 mg IVP X1 ONE Nitroglycerin Oint 2% [Nitro-paste Oint 2%] Med 07/27/24 20:55 Discontinued 1 inch TOP X1 ONE cefTRIAXone/D5w 1gm IV premix [Rocephin/D5w 1gm IV Med 07/27/24 20:55 Discontinued premix] 1 gm in 50 ml IV X1 BiPAP / CPAP NOW RT 07/27/24 20:55 Active Vital Signs Vital signs: Vital Signs Temperature 98.1 F 07/27/24 20:38 Pulse Rate 88 07/27/24 20:38 Respiratory Rate 22 H 07/27/24 20:38 Blood Pressure 128/69 07/27/24 20:38 Pulse Oximetry (%) 92 L 07/27/24 20:38 Oxygen Delivery Method Aerosol Mask 07/27/24 20:38 Shortness of Breath / Dyspnea MDM Narrative MDM Narrative:: Scribe Attestation: Radha Ross, rinku scribing for and in the presence of Dr. Edmonds. Provider Notation: Although this document has been carefully reviewed, there may still be some phonetic and other typographical errors.? These errors are purely grammatical due to imperfections in the software program and should not be construed in any way to? compromise the substance of the patient's medical care during this visit. 79 y/o male with Hx of Pacemaker, Dementia, Alzheimer's Disease, Heart Murmur, Coronary Artery Disease, Atherosclerotic Heart Disease, Peripheral Vascular Disease, Valvular Heart Disease, Hypertension, Asthma, Tuberculosis, and Prostate Cancer BIBA from [facility] c/o shortness of breath and low O2 sats x approximately 1 hour ago. Patient was reported to have O2 sats in the 80's, then up as high as 93% with O2 treatment via non-rebreather mask. Denies cough or abdominal pain. Patient is allergic to Penicillin. No other complaints. Patient data External records reviewed:: [facility] previous records (Reviewed prior ED records from 07/21/24. Patient was seen for Fall.), EMS form and Longterm records Clinical information provided by:: patient and EMS Social determinants that could affect healthcare access:: housing (SNF) Patient has the following chronic illnesses:: Dementia, Alzheimer's Disease, Heart Murmur, Coronary Artery Disease, Atherosclerotic Heart Disease, Peripheral Vascular Disease, Hypercholesterolemia, Valvular Heart Disease, Hypertension, Asthma, Tuberculosis, Sleep Apnea, Hiatal Hernia, Gastroesophageal Reflux Disease, Obesity, Kidney Stones, Prostate Cancer, Arthritis, Gout, Fibromyalgia, Cataracts, Blind, Macular Degeneration, Diabetes Mellitus Type 2, Clotting, Depression and Anxiety How is presenting disease/condition affected by chronic disease/condition?: exacerbated by Evaluation data The following diagnostics were reviewed and interpreted by me:: EKG tracing(s) (My interpretation of the EKG: Paced rhythm (87 bpm) with no ST-T changes. Julio Edmonds MD) Lab and/or radiology exams considered but not ordered:: None Interpretation Summary: I reviewed all diagnostic test results. My interpretation of the EKG: Paced rhythm (87 bpm) with no ST-T changes. My interpretation of the chest x-ray is increased vascular congestion. My review of the Gall Bladder US report is NAD. My review of the Abdomen/Pelvis CT report is distended bladder. My review of the Chest CTA report is: Prominent vascular congestion. Bibasilar pneumonia. Blood tests and urine tests remarkable for WBC 25, ESR 32, D-dimer 1050, Cr 5.8, LA 4.9, Mg 1.4, CRP 2.4, BNP 167. ABG showed pH 7.29, pCO2 24, pHCO3 12. COVID/influenza negative. Medications / Prescriptions Medications or Prescriptions considered but not ordered:: None Medication administrations:: Medication Administration History Acetaminophen (Acetaminophen 325 Mg Tablet) 650 mg PO Q6H PRN PRN Reason: Fever >100.4 or pain Stop: 08/27/24 01:00 Albuterol/Ipratropium (Albuterol/Ipratropium (Duoneb) Rt Ivanna 3 Ml Nebu) 3 ml INH Q2HR PRN PRN Reason: SHORTNESS OF BREATH OR WHEEZE Stop: 08/27/24 02:26 Dextrose (Dextrose 50%-Water Inj 50 Ml Syringe) 25 ml IV Q15MIN PRN PRN Reason: BG 50-70 responsive npo pt Stop: 08/27/24 01:13 Dextrose (Dextrose 50%-Water Inj 50 Ml Syringe) 50 ml IV Q15MIN PRN PRN Reason: BG <50 OR BG <70 & pt unresponsive Stop: 08/27/24 01:13 Docusate Sodium (Docusate Sod 100 Mg Capsule) 100 mg PO QDAY PRN; Protocol PRN Reason: CONSTIPATION Stop: 08/27/24 01:00 Glucagon (Glucagon Inj 1 Mg Vial) 1 mg IM Q15MIN PRN PRN Reason: BG <70, and no IV access Lactated Ringer's (Lactated Ringers) 1,000 mls @ 75 mls/hr IV .[id number] ONE Stop: 07/28/24 14:22 Last Admin: 07/28/24 01:53 Dose: 75 mls/hr Documented By: DANNI Ceftriaxone Sodium 1 gm/ (Sodium Chloride) 50 mls @ 100 mls/hr IV QDAY CARLEEN Stop: 08/04/24 08:59 Insulin Human Lispro (Insulin Lispro (Admelog) 1 Unit/0.01 Ml Unit) 0 unit SC AC [facility]; Protocol Stop: 08/27/24 07:29 Ondansetron HCl (Ondansetron Inj 2 Mg/Ml Inj 2 Ml) 4 mg IVP Q6H PRN; Protocol PRN Reason: NAUSEA OR VOMITING Stop: 08/27/24 01:00 Pharmacy Consult (Pharmacy Renal Dose Adjustment 1 Ea) 1 each XX PRN PRN PRN Reason: CONSULT Stop: 08/27/24 01:05 Sennosides (Senna Tablet) 1 tab PO QDAY PRN; Protocol PRN Reason: constipation Stop: 08/27/24 01:00 Discontinued Medications Furosemide (Furosemide Inj 10 Mg/Ml 4ml Vial) 40 mg IVP X1 ONE Stop: 07/27/24 20:56 Last Admin: 07/27/24 22:03 Dose: 40 mg Documented By: EE Ceftriaxone Sodium/Dextrose (Rocephin/D5w 1gm Iv Premix) 1 gm in 50 mls @ 100 mls/hr IV X1 ONE Stop: 07/27/24 21:24 Last Infusion: 07/27/24 22:35 Dose: Infused Documented By: Admin: 07/27/24 22:05 Dose: 100 mls/hr Documented By: DANNI Magnesium Sulfate (Magnesium Sulfate Ivpb) 2 gm in 50 mls @ 25 mls/hr IV X1 ONE Stop: 07/28/24 01:27 Last Infusion: 07/28/24 02:53 Dose: Infused Documented By: Admin: 07/28/24 00:24 Dose: 25 mls/hr Documented By: EE Sodium Chloride (Ns) 500 mls @ 999 mls/hr IV .Q31M ONE Stop: 07/28/24 01:50 Last Infusion: 07/28/24 02:10 Dose: Infused Documented By: Admin: 07/28/24 01:30 Dose: 999 mls/hr Documented By: EE Sodium Chloride (Ns) 500 mls @ 999 mls/hr IV .Q31M ONE Stop: 07/28/24 02:28 Last Infusion: 07/28/24 03:50 Dose: Infused Documented By: Admin: 07/28/24 02:53 Dose: 999 mls/hr Documented By: EE Morphine Sulfate (Morphine Sulf Inj 10 Mg/Ml Vial) 2 mg IVP X1 ONE Stop: 07/27/24 20:56 Last Admin: 07/27/24 22:03 Dose: 2 mg Documented By: DANNI Nitroglycerin (Nitroglycerin Oint 2% 1 Inch Packet) 1 inch TOP X1 ONE Stop: 07/27/24 20:56 Last Admin: 07/27/24 22:04 Dose: 1 inch Documented By: DANNI Treatment here from me included Oxygen, Rocephin, Lasix, Morphine, topical nitroglycerin, and MgSO4 2 gram IV. Consultations Consultation(s) initiated? (list below): Yes Consultation #1 (Physician, Specialty, Details): I discussed the case with our Dermatology Specialist, Dr. Meyers. About the presentation and exam and diagnostics and treatments here. And need of further care in the hospital. Recommended admission for further care. Time: 23:53 Diagnosis Shortness of Breath Differential Diagnosis: acute exacerbation of chronic obstructive airways disease, congestive heart failure, community acquired pneumonia, asthma with exacerbation, pulmonary embolism and other (CA, UTI, sepsis, renal failure) Most likely diagnosis given after review of the tests above:: Acute Renal Failure, Pneumonia, Acute Respiratory Failure with Hypoxia, Acute CHF. Admission Indicated Admission indicated?: indicated Explain why admission is indicated or not indicated:: Acute Renal Failure, Acute Respiratory Failure with Hypoxia Admission Request Was there a request for admission?: Yes Admission Attestation Admission request attestation: Discussed case with Hospitalist service regarding admission. Discussed patients ED course, exam findings, labs, and radiology results. The Hospitalist [agrees] to accept the patient for admission. Disposition Plan Disposition Plan: Admit Critical Care Time Critical Care Time Critical Care Time: Yes Total Critical Care Time (min.): 42 Attestation: Julio Edmonds MD Discharge Plan Plan Patient Disposition: Admit Acute Care w/in Hospital Problem List Clinical Impression: Acute respiratory failure with hypoxia, Pneumonia, Acute CHF, Acute renal failure, Hypomagnesemia
--- NOTE | 2024-07-27 20:57 | XR_ITS ---
Examination: CTA chest with intravenous contrast 2-D reconstructions 3-D reconstructions, vascular Date and time of exam: July 27, 2024 at 16 hours INDICATIONS: Chest pain shortness of breath this week CTDI: vol (mGy) 101 DLP: (mGycm) 2007 and 68 Technique: Multiple axial sections of the thorax have been obtained. 3 mm slice thickness, from below the hemidiaphragms to above the apices of the lungs. Mediastinal and lung density settings have been obtained. 2-D sagittal and coronal reconstructions. 3-D angiographic renderings, 3-D volume renderings, 3D post processing, vascular maximum intensity projections obtained. Contrast administered is 95 cc Isovue-370. Low dose protocols were performed. One or more of the following dose reduction techniques were used; automated exposure control, adjustment of the mA and/or KV according to patient size, use of iterative reconstruction technique. Findings: No thoracic aortic aneurysm dilatation No pulmonary artery filling defects Heavy calcification left anterior descending coronary artery Prominent vascular congestion Bibasilar pneumonia Minimal bilateral pleural disease IMPRESSION: Negative for pulmonary artery emboli Prominent vascular congestion Bibasilar pneumonia with minimal bilateral pleural disease
--- NOTE | 2024-07-27 20:57 | XR_ITS ---
Examination: CT abdomen with intravenous contrast CT pelvis with intravenous contrast 2-D coronal reconstructions 2-D sagittal reconstructions Date and time of exam:July 27, 2024 11:16 PM INDICATIONS: Shortness of breath today. CTDI: vol (mGy) 101 DLP: (mGycm) 2768 Technique: Multiple axial sections of the abdomen and pelvis have been obtained. 64 slice high-resolution scanner used. 3 mm axial sections have been obtained, post intravenous injection 95 cc Isovue 370 2-D sagittal, coronal reconstructions obtained. Low dose protocols were performed. One or more of the following dose reduction techniques were used; automated exposure control, adjustment of the mA and/or KV according to patient size, use of iterative reconstruction technique. Findings: No focal liver or splenic lesions Absent gallbladder No common bile duct stones No pancreatic or adrenal mass Aorta normal size Mild bilateral hydronephrosis which may relate to distended urinary bladder No bowel obstruction Normal appendix No diverticulitis The urinary bladder is distended, artifacts are generated from the patient's left hip arthroplasty TURP type defect in the prostate Prominent degenerative changes thoracic and lumbar spine with extensive lumbar fusion Urinary Ruth catheter projects in the patient's urethra, junction penile and prostatic urethra IMPRESSION: Mild bilateral hydronephrosis, likely related to distended urinary bladder Normal appendix No bowel obstruction No diverticulitis Prostate is difficult to visualize because of artifact from the patient's left hip arthroplasty The patient's urinary Ruth catheter balloon projects in the urethra at the junction of the penile and prostatic urethra
--- NOTE | 2024-07-27 20:57 | XR_ITS ---
Examination: Abdomen sonogram, Limited Date and time of exam: July 27, 2024 2126 hours INDICATIONS: Right upper abdomen tenderness today Technique: Real-time brito scale transabdominal sonographic images of the upper abdomen obtained. Findings: Absent gallbladder Normal common bile duct Normal pancreatic head 3.4 cm Liver 14.3 cm fatty infiltration lobular contour Normal little finger portal venous flow Patent IVC IMPRESSION: Absent gallbladder Normal common bile duct Fatty liver
--- NOTE | 2024-07-27 20:57 | XR_ITS ---
Examination: AP chest single view Technique one AP portable upright chest single view Date and time: 10/27/2024 2142 hours INDICATIONS: Shortness of breath chest pain today FINDINGS: Mild prominence left ventricle Aortic valve replacement Cardiac leads satisfactory position Mild vascular congestion No pneumonia or pulmonary edema IMPRESSION: Mild vascular congestion
[2024-07-27 22:03] VITALS: BP 125/63; PULSE 86
[2024-07-27] MEDS: FUROSEMIDE INJ 10 MG/ML 4ML VIAL 40 MG IVP (22:03)
[2024-07-27] MEDS: MORPHINE SULF INJ 10 MG/ML VIAL 2 MG IVP (22:03)
[2024-07-27 22:04] VITALS: BP 125/63; PULSE 86
[2024-07-27] MEDS: NITROGLYCERIN OINT 2% 1 INCH PACKET TOP (22:04)
[2024-07-27] MEDS: cefTRIAXone/D5w 1gm IV premix 1 GM/50 ML BAG IV (22:05)
[2024-07-27 22:24] LABS: Basophils # (Auto) 0.1 Thou/mm3 (0.0-0.2); Basophils % (Auto) 0 % (0-2.5); Eosinophils % (Auto) 0 % (0-10); Hematocrit 43.1 % (41.0-53.0); Hemoglobin 14.7 g/dL (13.5-16.0); Immature Granulocytes % (Auto) 1 % (0-0); Immature Granulocytes Auto 0.14 Thou/mm3 (0.00-0.00); Lymphocytes # (Auto) 2.4 Thou/mm3 (1.0-4.8); Lymphocytes % (Auto) 10 % (10-50); Mean Corpuscular HGB Conc 34.1 g/dl (31.0-37.0); Mean Corpuscular Hemoglobin 27.9 pg (25.0-35.0); Mean Corpuscular Volume 82 fL (80-100); Monocytes # (Auto) 1.4 Thou/mm3 (0.0-0.8); Monocytes % (Auto) 6 % (0-12); Neutrophils % (Auto) 84 % (37-80); Nucleated Red Blood Cell % 0 /100 WBC (0); Platelet Count 240 Thou/mm3 (140-440); RDW Standard Deviation 46.1 fL (35.1-43.9); Red Blood Count 5.27 Miln/mm3 (4.50-5.90)
[2024-07-27 22:34] LABS: Lactate (Lactic Acid) 4.9 mMol/L (0.4-2.0)
[2024-07-27 22:35] LABS: Sed Rate (ESR) 32 mm/hr (0-20)
[2024-07-27 22:44] LABS: D-Dimer 1050 ng/mL (<600)
[2024-07-27 22:58] LABS: B-Type Natriuretic Peptide 167 pg/mL (0-100)
[2024-07-27 23:17] LABS: Base Excess -13 (-3-3); HCO3 12 mEq/L (20-26); Inspired O2, VO2 Liters 10 L/min; Inspired Oxygen, FIO2 21 %; O2 Saturation 95 % (91-98); PCO2 24 mmHg (32.0-48.0); PO2 80 mmHg (83-108); pH, Arterial 7.29 (7.35-7.45)
[2024-07-27 23:18] LABS: Collection Type, Urine Clean Catch
[2024-07-27 23:18] LABS: Allen Test Performed/OK; Puncture Site Left Radial
[2024-07-27 23:19] LABS: Anion Gap 23 (7-16); Blood Urea Nitrogen 79 mg/dL (9-23); Chloride 106 mMol/L (98-107); Creatinine (Component) 5.8 mg/dL (0.6-1.3); Potassium 4.4 mMol/L (3.4-5.1); Sodium 143 mMol/L (136-145)
[2024-07-27 23:20] LABS: Alanine Aminotransferase 7 U/L (10-49); Albumin, Serum 4.1 gm/dL (3.4-4.8); Albumin/Globulin Ratio 1.5 (1.2-2.2); Alkaline Phosphatase 110 U/L (46-116); Amylase < 20 U/L (30-118); Aspartate Amino Transferase 11 U/L (0-34); BUN/Creatinine Ratio 14 Ratio (12-20); Bilirubin,Direct 0.2 mg/dL (0.0-0.3); Bilirubin,Total 0.6 mg/dL (0.3-1.2); C-Reactive Protein 2.4 mg/dL (0.0-0.9); Calcium 8.3 mg/dL (8.3-10.6); Calcium (Corrected) 8.3 mg/dL (8.5-10.1); Free T4 (Free Thyroxine) 1.48 ng/dL (0.89-1.76); Globulin 2.7 gm/dL (2.3-3.5); Glucose 152 mg/dL (74-106); Lipase 23 U/L (12-53); Magnesium 1.4 mg/dL (1.6-2.6); Osmolality,Calculated 311 (275-295); Procalcitonin 0.63 ng/ml (0.0-0.49); Thyroid Stimulating Hormone 1.24 uIU/mL (0.55-4.78); Total Protein 6.8 gm/dL (5.7-8.2); Troponin I 0.043 ng/mL (0.0-0.045); eGFR 9 See Note
[2024-07-27 23:22] LABS: Carbon Dioxide 14.4 mMol/L (20.0-31.0)
[2024-07-27 23:28] LABS: INR 1.2 (0.9-1.3); Partial Thromboplastin Time 32.2 Seconds (22.0-36.0); Prothrombin Time 12.6 Seconds (9.0-12.2)
[2024-07-27 23:30] LABS: Bilirubin,Urine Negative (Negative); Blood,Urine Negative (Negative); Clarity,Urine Clear (Clear/Hazy); Color,Urine Yellow (Lt Yel-Yel); Culture Indicated,Urine Not Indicated; Glucose, Urine Negative (Negative); Ketones,Urine Negative (Negative); Leukocyte Esterase,Urine Negative (Negative); Nitrite,Urine Negative (Negative); Protein,Urine Trace (Neg - Trace); RBC,Urine 1 /hpf (0-3); Specific Gravity,Urine 1.018 (1.001-1.035); Squamous Epithelial Cell,Urine 5 /hpf (0-5); Urobilinogen,Urine Negative mg/dL (0.0-1.0); WBC,Urine 1 /hpf (0-5)
[2024-07-28] VITALS (42 sets, daily range): BP systolic 59–139; BP diastolic 32–76; PULSE 64–93; RESP 16–88; TEMP 36–37.2; O2SAT 74–100; BMI 30.5
[2024-07-28] MEDS: Magnesium Sulfate 2 GM Ivpb 2 GM/50 ML BAG IV (00:24)
[2024-07-28 01:14] LABS: Reflex Lactate? Y
[2024-07-28] MEDS: SODIUM CHLORIDE 0.9% 500 ML 500 ML 999 ML IV ×2 (01:30→02:53)
[2024-07-28 01:38] LABS: Lactate (Lactic Acid) 5.3 mMol/L (0.4-2.0)
--- NOTE | 2024-07-28 01:49 | PC.NURSE ---
CALLED DR. DEL ANGEL PATIENT BP IS 72/39 AFTER 500 LR BOLUS.
[2024-07-28] MEDS: RINGERS LACTATED 1000 ML 1,000 ML 75 ML IV (01:53)
--- NOTE | 2024-07-28 02:00 | PD.RESHP ---
Documentation for date of: 07/28/24 [facility] History of Present Illness Chief complaint: Hypoxia History of present illness: 79 y/o M with PMHx significant for Alzheimer's dementia, CAD, CHF, PVD, hypertension, asthma, prostate cancer, diabetes presents from [facility] with chief complaint of hypoxia. Patient is a poor historian, history taken from chart review and EMS. Patient was in usual state of health when he was noted to be hypoxic, reportedly complaining of shortness of breath. Saturations low as 80s, needed to be placed on nonrebreather mask. Patient denied fever, chills, chest pain, nausea, vomiting, shortness of breath. However patient did endorse abdominal pain, was noted to have suprapubic mass/tenderness. Ruth catheter was placed with 1 L dark urine immediately drained. ED COURSE: Labs significant for: WBC 25, hemoglobin 14.7, BUN 79, creatinine 5.8, EGFR 9, lactic acid 4.9 up trended to 5.3. Magnesium 1.4. Troponin negative, CRP 2.4, Pro-Rey 0.63. BNP 167. Anion gap 23. ABG showed pH 7.29, pCO2 24, bicarb 12. Imaging significant for: CT A/P showing mild bilateral hydronephrosis, bladder distention. CTA chest showed vascular congestion, bilateral pneumonia. Patient received Lasix 40 x 1, nitroglycerin, Rocephin in the ED. Patient had decrease in blood pressure, received multiple small boluses due to concern for CHF with improvement in blood pressure. Nephrology is consulted for acute renal failure, recommend admission, will evaluate for possible dialysis tomorrow. PMH: Alzheimer's dementia, coronary artery disease, CHF, PVD, hypertension, asthma, prostate cancer, diabetes PSH: Radical prostatectomy, left hip arthroplasty SH: Unobtainable Allergies:?Jardiance, penicillins Medications: Allopurinol, atorvastatin, duloxetine, Eliquis, Entresto, gabapentin, insulin, memantine, metformin, metoprolol succinate, midodrine, ropinirole, trospium Review of Systems Review of Systems Systems Reviewed: All systems reviewed, normal except as documented Past Medical History Past Medical History Comments PMH COMMENT: PMH: Alzheimer's dementia, coronary artery disease, CHF, PVD, hypertension, asthma, prostate cancer, diabetes PSH: Radical prostatectomy, left hip arthroplasty SH: Unobtainable Allergies:?Jardiance, penicillins Medications: Allopurinol, atorvastatin, duloxetine, Eliquis, Entresto, gabapentin, insulin, memantine, metformin, metoprolol succinate, midodrine, ropinirole, trospium Exam Vital Signs Temp Pulse Resp BP Pulse Ox O2 Del Method O2 Flow Rate 98.9 F 71 21 H 91/39 L 93 L Oxy Mask 4 07/28/24 01:00 07/28/24 01:32 07/28/24 01:32 07/28/24 01:26 07/28/24 01:32 07/28/24 01:26 07/28/24 01:32 Narrative Exam PE: Gen: Well-developed and well-nourished. Lethargic. HEENT: NCAT, PERRLA, EOMI, anicteric conjunctivae. Dry mucous membranes. CVS: Paced rhythm. Resp: Bibasilar rhonchi, mild. No crackles. Abd: soft, non-tender, non-distended. BS+ in all 4 quadrants. MSK: Good ROM in BUE & BLE. No edema or rash. Neuro: CN II-XII grossly intact. Strength 5/5 in BUE & BLE. A&O x 1. Lethargic. Results: Labs 07/27/24 22:05 07/27/24 22:05 Labs: Short CBC 07/27/24 Range/Units 22:05 WBC 25.0 H (3.8-10.6) Thou/mm3 Hgb 14.7 (13.5-16.0) g/dL Hct 43.1 (41.0-53.0) % Plt Count 240 D (140-440) Thou/mm3 BMP 07/27/24 22:05 Sodium 143 Potassium 4.4 Chloride 106 Carbon Dioxide 14.4 L* BUN 79 H Creatinine 5.8 H* Glucose 152 H Calcium 8.3 Cardiac Enzymes 07/27/24 Range/Units 22:05 Troponin I 0.043 (0.0-0.045) ng/mL Liver Function 07/27/24 Range/Units 22:05 Total Bilirubin 0.6 (0.3-1.2) mg/dL Direct Bilirubin 0.2 (0.0-0.3) mg/dL AST 11 (0-34) U/L ALT 7 L (10-49) U/L Alkaline Phosphatase 110 (46-116) U/L Albumin 4.1 (3.4-4.8) gm/dL Urine 07/27/24 Range/Units 23:07 Urine Color Yellow (Lt Yel-Yel) Urine Clarity Clear (Clear/Hazy) Urine pH 5.0 (5.0-7.0) Ur Specific [place] 1.018 (1.001-1.035) Urine Protein Trace (Neg - Trace) Urine Glucose (UA) Negative (Negative) ABG Interpretation ABG results: 07/27/24 23:05 ABG pH 7.29 L ABG pCO2 24 L ABG pO2 80 L ABG HCO3 12 L ABG O2 Saturation 95 ABG Base Excess -13 L Quality Measures Quality Measures VTE prophylaxis Advance care planning discussed with:: patient Medications Home Medications and Allergies Home Medications ?Medication ?Instructions ?Recorded ?Confirmed ?Type gabapentin 300 mg capsule 300 mg PO TID ##60 10/10/13 07/20/24 History allopurinol 100 mg tablet 100 mg PO QDAY Gout 05/02/18 07/20/24 History ropinirole 0.5 mg tablet 0.5 mg PO QDAY 07/15/18 07/20/24 History duloxetine 30 mg capsule,delayed 30 mg PO BID 01/11/22 07/20/24 History release pantoprazole 40 mg tablet,delayed 40 mg PO QDAY 01/11/22 07/20/24 History release atorvastatin 80 mg tablet 80 mg PO QDAY 04/16/22 07/20/24 History apixaban 5 mg tablet (Eliquis) 5 mg PO BID 08/19/22 07/20/24 History folic acid 1 mg tablet 1 mg PO QDAY 08/19/22 07/20/24 History trospium 20 mg tablet 20 mg PO BID 08/19/22 07/20/24 History insulin glargine 100 unit/mL (3 22 unit subcut HS 01/01/23 07/20/24 History mL) subcutaneous pen (Lantus Solostar U-100 Insulin) insulin lispro 100 unit/mL 1 sliding scale dose subcut 04/30/24 07/20/24 History subcutaneous pen USEASDIRECTD melatonin 3 mg capsule 6 mg PO QDAY 04/30/24 07/20/24 History memantine 5 mg tablet 5 mg PO BID 04/30/24 07/20/24 History metoprolol succinate 100 mg 100 mg PO QDAY 04/30/24 07/20/24 History capsule sprinkle, ext. release 24 hr mirabegron 50 mg tablet,extended 50 mg PO QDAY 04/30/24 07/20/24 History release 24 hr (Myrbetriq) metoprolol succinate 50 mg 100 mg PO .i tab daily Hypertension 07/20/24 07/20/24 History tablet,extended release 24 hr Allergies Allergy/AdvReac Type Severity Reaction Status Date / Time empagliflozin (From Allergy Intermediate rash Verified 07/03/24 10:28 Jardiance) Penicillins Allergy Unknown Verified 07/03/24 10:28 Visit Medications Acetaminophen (Acetaminophen 325 Mg Tablet) 650 mg PO Q6H PRN PRN Reason: Fever >100.4 or pain Stop: 08/27/24 01:00 Dextrose (Dextrose 50%-Water Inj 50 Ml Syringe) 25 ml IV Q15MIN PRN PRN Reason: BG 50-70 responsive npo pt Stop: 08/27/24 01:13 Dextrose (Dextrose 50%-Water Inj 50 Ml Syringe) 50 ml IV Q15MIN PRN PRN Reason: BG <50 OR BG <70 & pt unresponsive Stop: 08/27/24 01:13 Docusate Sodium (Docusate Sod 100 Mg Capsule) 100 mg PO QDAY PRN; Protocol PRN Reason: CONSTIPATION Stop: 08/27/24 01:00 Glucagon (Glucagon Inj 1 Mg Vial) 1 mg IM Q15MIN PRN PRN Reason: BG <70, and no IV access Lactated Ringer's (Lactated Ringers) 1,000 mls @ 75 mls/hr IV .[id number] ONE Stop: 07/28/24 14:22 Last Admin: 07/28/24 01:53 Dose: 75 mls/hr Ceftriaxone Sodium 1 gm/ (Sodium Chloride) 50 mls @ 100 mls/hr IV QDAY CARLEEN Stop: 08/04/24 08:59 Sodium Chloride (Ns) 500 mls @ 999 mls/hr IV .Q31M ONE Stop: 07/28/24 02:28 Insulin Human Lispro (Insulin Lispro (Admelog) 1 Unit/0.01 Ml Unit) 0 unit SC AC CARLEEN; Protocol Stop: 08/27/24 07:29 Ondansetron HCl (Ondansetron Inj 2 Mg/Ml Inj 2 Ml) 4 mg IVP Q6H PRN; Protocol PRN Reason: NAUSEA OR VOMITING Stop: 08/27/24 01:00 Pharmacy Consult (Pharmacy Renal Dose Adjustment 1 Ea) 1 each XX PRN PRN PRN Reason: CONSULT Stop: 08/27/24 01:05 Sennosides (Senna Tablet) 1 tab PO QDAY PRN; Protocol PRN Reason: constipation Stop: 08/27/24 01:00 Discontinued Medications Furosemide (Furosemide Inj 10 Mg/Ml 4ml Vial) 40 mg IVP X1 ONE Stop: 07/27/24 20:56 Last Admin: 07/27/24 22:03 Dose: 40 mg Ceftriaxone Sodium/Dextrose (Rocephin/D5w 1gm Iv Premix) 1 gm in 50 mls @ 100 mls/hr IV X1 ONE Stop: 07/27/24 21:24 Last Infusion: 07/27/24 22:35 Dose: Infused Magnesium Sulfate (Magnesium Sulfate Ivpb) 2 gm in 50 mls @ 25 mls/hr IV X1 ONE Stop: 07/28/24 01:27 Last Admin: 07/28/24 00:24 Dose: 25 mls/hr Sodium Chloride (Ns) 500 mls @ 999 mls/hr IV .Q31M ONE Stop: 07/28/24 01:50 Last Admin: 07/28/24 01:30 Dose: 999 mls/hr Morphine Sulfate (Morphine Sulf Inj 10 Mg/Ml Vial) 2 mg IVP X1 ONE Stop: 07/27/24 20:56 Last Admin: 07/27/24 22:03 Dose: 2 mg Nitroglycerin (Nitroglycerin Oint 2% 1 Inch Packet) 1 inch TOP X1 ONE Stop: 07/27/24 20:56 Last Admin: 07/27/24 22:04 Dose: 1 inch Assessment & Plan Plan 79 y/o M with PMHx significant for Alzheimer's dementia, CAD, CHF, PVD, hypertension, asthma, prostate cancer, diabetes presents from [facility] with chief complaint of hypoxia, admitted for acute renal failure. #Acute renal failure #High anion gap metabolic acidosis with respiratory alkalosis #Lactic acidosis Patient found on presentation to have BUN 79, creatinine 5.8, EGFR 9. Lactic acid 4.9. ABG showed pH 7.29, pCO2 24, bicarb 12. Patient is no history of chronic kidney disease, previous renal function WNL. Patient appears to be dehydrated on exam, no edema, no crackles in lungs, dry mucous membrane. Patient received 40 mg Lasix x [address] A/P showed distended bladder with mild bilateral hydronephrosis. Patient received Ruth catheter, put out 1 L of dark urine. Nephrology consulted, recommended admission, will eval for potential dialysis tomorrow. Patient given 500 mL bolus normal saline, x 2. - Trend lactate - IVF: LR at 75 mL/h x 1 L - Renally dose meds - Strict I's and O's - Daily renal function - Avoid nephrotoxins - Nephrology consulted, appreciate recommendations #Acute hypoxic respiratory failure, resolved #Community-acquired pneumonia #Asthma Patient presented with complaint of hypoxia, saturation as low as 80% at the [facility]. Patient needing nonrebreather, at time exam had been titrated down to 4 L via nonrebreather, saturating 95% and above. Will maintain nonrebreather because patient is a mouth breather. CTA chest showed bilateral pneumonia. On exam bibasilar rhonchi. Patient has history of asthma. Patient denies shortness of breath, cough, chest pain, fever, chills. WBC 25, Pro-Rey 0.63. - Titrate O2 as tolerated - Rocephin 1 g IV daily (started 07/27) - DuoNebs as needed #CHF, patient history Patient has history of CHF. Received Lasix 40 mg IV in the ED. Patient appears clinically dry on exam, dry mucous membranes, no crackles or JVD, no edema. Patient appears to be low on fluid, receiving maintenance fluids as above. Echo in 2021 showed ejection fraction 25-30%. - IVF as above - Strict I's and O's - Med rec's pending, consider resuming home meds as appropriate #Diabetes, patient history Patient history of diabetes. A1c 8.4% as of February 2023. - ISS - A1c pending, follow-up #HTN, patient history #CAD, patient history #PVD, patient history #Alzheimer's dementia, patient history Patient has history as stated. Med rec's pending. Patient hypotensive after receiving nitroglycerin and Lasix in the ED, current receiving IVF as above. Holding hypertensive meds. - Hold hypertensive meds due to soft BP - Consider resuming meds as appropriate following med rec DVT prophylaxis: SCDs GI prophylaxis: None Diet: Cardiac, renal Lines: Peripheral IV Code status: Full code Attending Provider Attestation/Addendum I have examined the patient, reviewed labs and imaging findings, discussed the case with the resident(s), and reviewed entered orders. I agree with the plan of care as outlined in this note, with these additional summaries/recommendations: After examination of the patient and review of the clinical data, I feel that this patient needs admission to the hospital for further treatment and evaluation. Patient is a 79-year-old male with a medical history of dementia, sleep apnea, gout, Prostate cancer s/p radical prostatectomy, HFrEF (EF 25-30%), CAD, aortic stenosis status post TAVR followed by Dr. Eason, PAD, diabetes mellitus type 2, and primary hypertension who presents to [facility] emergency department with chief complaint of shortness of breath. Patient seen at bedside. He does have underlying dementia although he appears to have acute encephalopathy at this time. Most likely secondary to acute urinary retention and possibly infectious component from pneumonia. Patient diagnosed with acute renal failure. On admission creatinine 5.8 and BUN 79 with renal function within normal limits 8 days ago. Most likely etiology is postrenal from prostate disease and BL minimal hydronephrosis noted on CT. Follows urology Dr. Funes. Ruth catheter was placed in the ED with immediate return of large volume dark yellow urine approximately 500 to 600 cc. We will continue Ruth catheter and monitor urine output closely. Nephrology consulted, recommendations appreciated. Patient unfortunately was suspected of having CHF exacerbation in the ED and received Lasix although he appears clinically dry to me. Patient also diagnosed with acute hypoxic respiratory failure likely secondary to bibasilar pneumonia. Start IV antibiotics and follow-up cultures. Significant lactic acidosis present with LA 4.9 on admission. We will attempt to give cautious fluids given patient's underlying history of severe CHF. Continue fluids and trend lactic acid. Patient does not appear to be in CHF exacerbation and has developed hypotension in the ED and we will hold goal-directed medical therapy for now and resume when able. Start insulin sliding scale for diabetes mellitus type 2 with Accu-Cheks. Target blood sugar of 140-180 while hospitalized. Patient has sleep apnea and order CPAP at night. Hypomagnesia and hypocalcemia present, replacement given and repeat level in AM. Please see residents note for additional details of management. Dr. Lucas MD
[2024-07-28 03:55] LABS: Lactate (Lactic Acid) 4.7 mMol/L (0.4-2.0)
[2024-07-28 04:32] LABS: Reflex Lactate? Y
--- NOTE | 2024-07-28 06:47 | PC.NURSE ---
Med rec pending [facility] to fax med list.
[2024-07-28 06:52] LABS: Reflex Lactate? Y
[2024-07-28 07:39] LABS: Lactic Acid, 3 HR 5.9 mMol/L (0.4-2.0)
[2024-07-28 07:56] LABS: Basophils # (Auto) 0.1 Thou/mm3 (0.0-0.2); Basophils % (Auto) 0 % (0-2.5); Eosinophils % (Auto) 0 % (0-10); Hematocrit 36.9 % (41.0-53.0); Immature Granulocytes % (Auto) 1 % (0-0); Immature Granulocytes Auto 0.13 Thou/mm3 (0.00-0.00); Lymphocytes # (Auto) 2.9 Thou/mm3 (1.0-4.8); Lymphocytes % (Auto) 13 % (10-50); Mean Corpuscular HGB Conc 32.5 g/dl (31.0-37.0); Mean Corpuscular Hemoglobin 28.2 pg (25.0-35.0); Mean Corpuscular Volume 87 fL (80-100); Monocytes # (Auto) 1.5 Thou/mm3 (0.0-0.8); Monocytes % (Auto) 7 % (0-12); Neutrophils # (Auto) 17.8 Thou/mm3 (1.8-7.7); Neutrophils % (Auto) 79 % (37-80); Nucleated Red Blood Cell % 0 /100 WBC (0); Platelet Count 193 Thou/mm3 (140-440); RDW Standard Deviation 48.2 fL (35.1-43.9); Red Blood Count 4.26 Miln/mm3 (4.50-5.90); White Blood Count 22.4 Thou/mm3 (3.8-10.6)
[2024-07-28 08:12] LABS: Alanine Aminotransferase < 7 U/L (10-49); Albumin, Serum 3.4 gm/dL (3.4-4.8); Albumin/Globulin Ratio 1.5 (1.2-2.2); Alkaline Phosphatase 88 U/L (46-116); Anion Gap 22 (7-16); Aspartate Amino Transferase 11 U/L (0-34); BUN/Creatinine Ratio 13 Ratio (12-20); Bilirubin,Total 0.3 mg/dL (0.3-1.2); Blood Urea Nitrogen 85 mg/dL (9-23); Calcium 7.4 mg/dL (8.3-10.6); Calcium (Corrected) 7.9 mg/dL (8.5-10.1); Chloride 108 mMol/L (98-107); Creatinine (Component) 6.4 mg/dL (0.6-1.3); Estimated Creatinine Clearance 11.8 mL/min (>60); Globulin 2.2 gm/dL (2.3-3.5); Glucose 134 mg/dL (74-106); Osmolality,Calculated 314 (275-295); Potassium 5.2 mMol/L (3.4-5.1); Sodium 144 mMol/L (136-145); Total Protein 5.6 gm/dL (5.7-8.2); eGFR 8 See Note
[2024-07-28 08:13] LABS: Carbon Dioxide 14.2 mMol/L (20.0-31.0); Phosphorous 10.2 mg/dL (2.4-5.1)
[2024-07-28 08:21] LABS: Glucose Estimated Average 169 mg/dL (80-131); Hemoglobin A1C 7.5 % Hgb (4.8-6.0)
[2024-07-28] MEDS: cefTRIAXone/D5w 1gm IV premix 1 GM/50 ML BAG IV (09:31)
--- NOTE | 2024-07-28 09:33 | ECHO_ITS ---
Transthoracic Echo Report Ht (in): 72 Wt (lb): 225 Exam Location: Echo Lab Status: Inpatient Nurse Practitioner Physician Assistant: Lou Roth Indications: Procedure Performed: BP: 177 / 55 HR: 92 Technical Quality: Technically difficult study MEASUREMENTS (Male / Female) Normal Values 2D ECHO LV Diastolic Diameter PLAX 6.0 cm 4.2 - 5.9 / 3.9 - 5.3 cm LV Systolic Diameter PLAX 3.8 cm IVS Diastolic Thickness 1.0 cm 0.6 - 1.0 / 0.6 - 0.9 cm LVPW Diastolic Thickness 1.0 cm 0.6 - 1.0 / 0.6 - 0.9 cm LV Relative Wall Thickness 0.3 LA Systolic Diameter LX 3.3 cm 3.0 - 4.0 / 2.7 - 3.8 cm LV Ejection Fraction MOD BP 35.7 % >= 55 % LV Cardiac Index MOD BP 1970.5 cm?/min?m? LV Ejection Fraction MOD 4C 33.5 % LV Cardiac Index MOD 4C 1618.8 cm?/min?m? LV Ejection Fraction 4C AL 34.9 % LV Cardiac Index 4C AL 1741.7 cm?/min?m? LV Ejection Fraction MOD 2C 42.0 % LV Cardiac Index MOD 2C 2486.1 cm?/min?m? LV Ejection Fraction 2C AL 43.2 % LV Cardiac Index 2C AL 2583.9 cm?/min?m? LA Volume Index 19.9 cm?/m? 16 - 28 cm?/m? M-MODE Aortic Root Diameter MM 2.0 cm LA Systolic Diameter MM 3.7 cm LA Ao Ratio MM 1.9 AV Cusp Separation MM 1.6 cm DOPPLER AV Peak Velocity 366.7 cm/s AV Peak Gradient 53.8 mmHg AV Mean Gradient 26.0 mmHg AV Velocity Time Integral 71.3 cm AI Peak Velocity 176.0 cm/s AI Peak Gradient 12.4 mmHg AI Pressure Half Time 523.0 ms LVOT Peak Velocity 156.0 cm/s LVOT Peak Gradient 9.7 mmHg LVOT Velocity Time Integral 28.5 cm MV Area PHT 4.8 cm? Mitral E Point Velocity 66.9 cm/s Mitral A Point Velocity 102.0 cm/s Mitral E to A Ratio 0.7 LV E' Lateral Velocity 5.9 cm/s Mitral E to LV E' Lateral Ratio 11.4 LV E' Septal Velocity 6.4 cm/s Mitral E to LV E' Septal Ratio 10.4 TR Peak Velocity 243.0 cm/s TR Peak Gradient 23.6 mmHg PV Peak Velocity 141.0 cm/s PV Peak Gradient 8.0 mmHg FINDINGS Left Ventricle Normal left ventricular size, wall thickness. Normal left ventricular diastolic filling pattern for age. The ejection fraction is visually estimated at 40-45%. Global left ventricular systolic function is mildly decreased. There is grade I diastolic dysfunction of the left ventricle (impaired relaxation pattern). Right Ventricle The right ventricle is normal in size and systolic function. Left Atrium The left atrium is normal by two-dimensional, color flow and Doppler imaging with no structural abnormalities, no thrombus formation present. Right Atrium The right atrium is normal by two-dimensional imaging, color flow and Doppler imaging with no structural abnormalities, no thrombus formation present. Atrial Septum The interatrial septum appears normal with no evidence of a shunt. Aorta The aorta is normal by two-dimensional, color flow and Doppler interrogation. Mitral Valve The mitral valve is normal by two-dimensional, color flow and Doppler interrogation. Trace mitral regurgitation. Aortic Valve Mild aortic valve regurgitation. Moderate aortic valve stenosis. Mild thickening of the aortic valve leaflets. Tricuspid Valve The tricuspid valve is normal by two-dimensional, color flow and Doppler interrogation. There is trace tricuspid valve regurgitation. Pulmonic Valve The pulmonic valve is not well visualized. There is no significant pulmonic valve regurgitation. Vessels The pulmonary artery appears normal. The inferior vena cava pulmonary and hepatic veins appear normal. Pericardium The pericardium is normal by two-dimensional imaging. There is no significant pericardial effusion. CONCLUSIONS Indication: hx of HFrEF Normal LV size, wall thickness. Estimated EF 40-45%. Global LV systolic function is mildly decreased. Diastolic dysfunction present but cannot grade. The RV is normal in size and systolic function. Pacer wire noted in RV and RA Normal functioning Bioprostehtic arotic valve. Max PG is 22 mm hg. V max is 3.1 m/s Consider Patinet prosthesis mismatch. Trace MR and mild TR. Trace AI. Zacarias Reyez (Electronically Signed) Final Date: 29 July 2024 13:56
--- NOTE | 2024-07-28 09:51 | ESPR_ITS ---
Documentation for date of: 07/28/24 Subjective Subjective Interval history: Patient examined at bedside today. No acute overnight events. Patient reports that he is doing okay. Patient's family says that he has a special procedure called AUS in which he needs for him to pee. Does not see a medical records manager before this. Has a pacemaker as well. No complaints at this time. Exam Vital Signs Temp Pulse Resp BP Pulse Ox O2 Del Method O2 Flow Rate 97.8 F 64 19 108/52 L 96 Nasal Cannula 11 07/28/24 08:00 07/28/24 08:00 07/28/24 08:00 07/28/24 08:00 07/28/24 08:00 07/28/24 08:00 07/28/24 08:00 Narrative Exam GENERAL APPEARANCE: Patient currently seen medical floor. On nasal mask. Mild shortness of breath noted NECK: Neck supple, no JVD or bruit CARDIOVASCULAR: Heart regular, no murmurs LUNGS/CHEST: Chest clear to auscultation. No rales, rhonchi, wheezing ABDOMEN: Soft, nontender, nondistended. No masses. Normal bowel sounds. EXTREMITIES: No edema, clubbing or cyanosis. SKIN: Skin exam normal without any rashes MUSCULOSKELETAL: in bed NEUROLOGICAL : Able to move his extremities, patient has memory lapses. Objective Labs 07/28/24 07:24 07/28/24 13:02 Labs: Laboratory Results - last 24 hr 07/27/24 07/27/24 07/27/24 22:00 22:05 23:05 WBC 25.0 H RBC 5.27 Hgb 14.7 Hct 43.1 MCV 82 MCH 27.9 MCHC 34.1 RDW Std Deviation 46.1 H Plt Count 240 D Neut % (Auto) 84 H Lymph % (Auto) 10 [place] % (Auto) 6 Eos % (Auto) 0 Baso % (Auto) 0 Neut # (Auto) 21.0 H Lymph # (Auto) 2.4 [place] # (Auto) 1.4 H Eos # (Auto) 0.0 Baso # (Auto) 0.1 Immature Gran # (Auto) 0.14 H Absolute Nucleated RBC 0.00 Immature Gran % 1 H Nucleated RBC % 0 ESR 32 H PT 12.6 H INR 1.2 APTT 32.2 D-Dimer 1050 H Puncture Site Left Radial ABG pH 7.29 L ABG pCO2 24 L ABG pO2 80 L ABG HCO3 12 L ABG O2 Saturation 95 ABG Base Excess -13 L Oxygen Liter Flow 10 FiO2 21 Sodium 143 Potassium 4.4 Chloride 106 Carbon Dioxide 14.4 L* Anion Gap 23 H BUN 79 H Creatinine 5.8 H* Estim Creat Clear Calc Not Performed. eGFR 9 L* BUN/Creatinine Ratio [address] Glu mg/dL Hemoglobin A1c Calculated Osmolality 311 H Lactic Acid 4.9 H* Calcium 8.3 Corrected Calcium 8.3 L Phosphorus Magnesium 1.4 L Total Bilirubin 0.6 Direct Bilirubin 0.2 AST 11 ALT 7 L Alkaline Phosphatase 110 Troponin I 0.043 C-Reactive Prot, Quant 2.4 H B-Natriuretic Peptide 167 H Total Protein 6.8 Albumin 4.1 Globulin 2.7 Albumin/Globulin Ratio 1.5 Amylase < 20 L Lipase 23 Procalcitonin 0.63 H TSH 1.24 Free T4 1.48 Ur Collection Type Urine Color Urine Clarity Urine pH Ur Specific [place] Urine Protein Urine Glucose (UA) Urine Ketones Urine Blood Urine Nitrite Urine Bilirubin Urine Urobilinogen (Auto) Ur Leukocyte Esterase Urine RBC Urine WBC Ur Squamous Epith Cells Urine Bacteria Ur Culture Indicated? 07/27/24 07/28/24 07/28/24 23:07 01:30 03:47 WBC RBC Hgb Hct MCV MCH MCHC RDW Std Deviation Plt Count Neut % (Auto) Lymph % (Auto) [place] % (Auto) Eos % (Auto) Baso % (Auto) Neut # (Auto) Lymph # (Auto) [place] # (Auto) Eos # (Auto) Baso # (Auto) Immature Gran # (Auto) Absolute Nucleated RBC Immature Gran % Nucleated RBC % ESR PT INR APTT D-Dimer Puncture Site ABG pH ABG pCO2 ABG pO2 ABG HCO3 ABG O2 Saturation ABG Base Excess Oxygen Liter Flow FiO2 Sodium Potassium Chloride Carbon Dioxide Anion Gap BUN Creatinine Estim Creat Clear Calc eGFR BUN/Creatinine Ratio Glucose Estimated Ave Glu mg/dL Hemoglobin A1c Calculated Osmolality Lactic Acid 5.3 H* 4.7 H* Calcium Corrected Calcium Phosphorus Magnesium Total Bilirubin Direct Bilirubin AST ALT Alkaline Phosphatase Troponin I C-Reactive Prot, Quant B-Natriuretic Peptide Total Protein Albumin Globulin Albumin/Globulin Ratio Amylase Lipase Procalcitonin TSH Free T4 Ur Collection Type Clean Catch Urine Color Yellow Urine Clarity Clear Urine pH 5.0 Ur Specific [place] 1.018 Urine Protein Trace Urine Glucose (UA) Negative Urine Ketones Negative Urine Blood Negative Urine Nitrite Negative Urine Bilirubin Negative Urine Urobilinogen (Auto) Negative Ur Leukocyte Esterase Negative Urine RBC 1 Urine WBC 1 Ur Squamous Epith Cells 5 Urine Bacteria None Ur Culture Indicated? Not Indicated 07/28/24 07:24 WBC 22.4 H RBC 4.26 L Hgb 12.0 L D Hct 36.9 L MCV 87 MCH 28.2 MCHC 32.5 RDW Std Deviation 48.2 H Plt Count 193 D Neut % (Auto) 79 Lymph % (Auto) 13 [place] % (Auto) 7 Eos % (Auto) 0 Baso % (Auto) 0 Neut # (Auto) 17.8 H Lymph # (Auto) 2.9 [place] # (Auto) 1.5 H Eos # (Auto) 0.0 Baso # (Auto) 0.1 Immature Gran # (Auto) 0.13 H Absolute Nucleated RBC 0.00 Immature Gran % 1 H Nucleated RBC % 0 ESR PT INR APTT D-Dimer Puncture Site ABG pH ABG pCO2 ABG pO2 ABG HCO3 ABG O2 Saturation ABG Base Excess Oxygen Liter Flow FiO2 Sodium 144 Potassium 5.2 H D Chloride 108 H Carbon Dioxide 14.2 L* Anion Gap 22 H BUN 85 H Creatinine 6.4 H* D Estim Creat Clear Calc 11.8 L eGFR 8 L* BUN/Creatinine Ratio [address]ucose [address] Glu mg/dL 169 H Hemoglobin A1c 7.5 H Calculated Osmolality 314 H Lactic Acid 5.9 H* Calcium 7.4 L Corrected Calcium 7.9 L Phosphorus 10.2 H Magnesium 2.0 Total Bilirubin 0.3 Direct Bilirubin AST 11 ALT < 7 L Alkaline Phosphatase 88 D Troponin I C-Reactive Prot, Quant B-Natriuretic Peptide Total Protein 5.6 L Albumin 3.4 D Globulin 2.2 L Albumin/Globulin Ratio 1.5 Amylase Lipase Procalcitonin TSH Free T4 Ur Collection Type Urine Color Urine Clarity Urine pH Ur Specific [place] Urine Protein Urine Glucose (UA) Urine Ketones Urine Blood Urine Nitrite Urine Bilirubin Urine Urobilinogen (Auto) Ur Leukocyte Esterase Urine RBC Urine WBC Ur Squamous Epith Cells Urine Bacteria Ur Culture Indicated? ABG Interpretation ABG results: 07/27/24 23:05 ABG pH 7.29 L ABG pCO2 24 L ABG pO2 80 L ABG HCO3 12 L ABG O2 Saturation 95 ABG Base Excess -13 L Quality Measures Quality Measures VTE prophylaxis Advance care planning discussed with:: patient Assessment & Plan Assessment Current Active Medications: Generic Name Dose Route Start Last Admin Trade Name Tu PRN Reason Stop Dose Admin Acetaminophen 650 mg 07/28/24 01:01 Acetaminophen 325 Mg Tablet PO 08/27/24 01:00 Q6H PRN Fever >100.4 or pain Albuterol/Ipratropium 3 ml 07/28/24 02:27 Albuterol/Ipratropium (Duoneb) Rt Ivanna 3 Ml Nebu INH 08/27/24 02:26 Q2HR PRN SHORTNESS OF BREATH OR WHEEZE Dextrose 25 ml 07/28/24 01:14 Dextrose 50%-Water Inj 50 Ml Syringe IV 08/27/24 01:13 Q15MIN PRN BG 50-70 responsive npo pt Dextrose 50 ml 07/28/24 01:14 Dextrose 50%-Water Inj 50 Ml Syringe IV 08/27/24 01:13 Q15MIN PRN BG <50 OR BG <70 & pt unresponsive Docusate Sodium 100 mg 07/28/24 01:01 Docusate Sod 100 Mg Capsule PO 08/27/24 01:00 QDAY PRN CONSTIPATION Protocol Glucagon 1 mg 07/28/24 01:14 Glucagon Inj 1 Mg Vial IM Q15MIN PRN BG <70, and no IV access Ceftriaxone Sodium/Dextrose 1 gm in 50 mls @ 100 mls/hr 07/28/24 09:30 07/28/24 09:31 Rocephin/D5w 1gm Iv Premix IV 08/04/24 08:59 100 mls/hr QDAY CARLEEN Administration Sodium Chloride 1,000 mls @ 75 mls/hr 07/28/24 09:30 Ns IV 08/27/24 09:29 .[id number] [facility] Insulin Human Lispro 0 unit 07/28/24 07:30 07/28/24 07:30 Insulin Lispro (Admelog) 1 Unit/0.01 Ml Unit SC 08/27/24 07:29 Not Given AC [facility] Protocol Ondansetron HCl 4 mg 07/28/24 01:01 Ondansetron Inj 2 Mg/Ml Inj 2 Ml IVP 08/27/24 01:00 Q6H PRN NAUSEA OR VOMITING Protocol Pharmacy Consult 1 each 07/28/24 01:06 Pharmacy Renal Dose Adjustment 1 Ea XX 08/27/24 01:05 PRN PRN CONSULT Sennosides 1 tab 07/28/24 01:01 Senna Tablet PO 08/27/24 01:00 QDAY PRN constipation Protocol Plan Assessment 79 y/o M with PMHx significant for Alzheimer's dementia, CAD, CHF, PVD, hypertension, asthma, prostate cancer, diabetes presents from skilled nursing with chief complaint of hypoxia, admitted for acute renal failure. #Acute renal failure #Postobstructive uropathy #High anion gap metabolic acidosis with respiratory alkalosis #Lactic acidosis #Electrolyte abnormalities Multifactorial for renal failure including urinary retention, receiving contrast from CTA, infectious (ATN) Patient could have had urinary retention 4 days now and could have continued to take metformin which could have precipitated worsening lactic acidosis BUN/creatinine of 84 and 6.6 respectively, potassium 5.6, bicarb 13, GFR 8, phosphorus 10.2, calcium 7.8 Patient has multiple electrolyte derangements Was giving patient bicarb drip per nephrology recommendations, however based on repeat renal panel patient will need dialysis that may be temporary or permanent There was concern for patient not being able to have Ruth, however we spoke with Dr. Funes who had said it is okay for patient to have Ruth in acute renal failure and urinary retention Plan: - Nephrology consulted, appreciate recs ? Urology consulted, appreciate recs ? Temporary dialysis catheter try flow to be put in by ICU team and dialysis after ? Bicarb drip - Trend lactate q6h - Renally dose meds - Strict I's and O's - Daily renal function - Avoid nephrotoxins ? Insulin 5 units IV, Xopenex 1.25 mg x 1, D50 100 mL x 1, D50 50 mg x 1 ? Follow-up ABG #Acute hypoxic respiratory failure, resolved #Community-acquired pneumonia #Hx of Asthma Patient presented with complaint of hypoxia, saturation as low as 80% at the SNF. Patient needing nonrebreather, at time exam had been titrated down to 4 L via nonrebreather, saturating 95% and above. Will maintain nonrebreather because patient is a mouth breather. CTA chest showed bilateral pneumonia. On exam bibasilar rhonchi. Patient has history of asthma. Patient denies shortness of breath, cough, chest pain, fever, chills Plan: - Rocephin 1 g IV daily (started 07/27) - DuoNebs as needed ? Wean down oxygen as tolerated #Hx of HFrEF with EF 25%, and wall motion abnormalities #Hx of Defibrillator Will need to monitor ins and outs due to patient being in acute renal failure and also has heart failure Plan: ? Echo ? Consider cardiology consult - Strict I's and O's - Hold on fluid restriction due to acute renal failure #Diabetes, patient history A1c 7.5 on admission Plan: ? Sliding scale insulin ? Hypoglycemic protocol in place ? Blood sugar checks with meals #HTN, patient history #CAD, patient history #PVD, patient history #Alzheimer's dementia, patient history #Health Maintenance Disposition: Telemetry DVT prophylaxis: SCDs GI prophylaxis: Protonix Diet: NPO, will need speech therapy CODE STATUS: Full Patient seen and care discussed with my attending physician, Dr. Matilde Davis, PGY-1 Attending Provider Attestation/Addendum I reviewed labs, imaging, EKG, home medications and prior available records. Face to face evaluation was performed by me. I have personally examined the patient and discussed assessment and plan with the IM team. I reviewed the resident note and agree with the plan with exceptions as below. Acute kidney injury Acute urinary retention Acute hypoxic respiratory failure Bilateral pneumonia Acute hypotension Lactic acidosis Metabolic acidosis Hyperkalemia Etiology of the [place] is multifactorial in setting of urinary retention, acute hypotension causing intrinsic damage versus contrast-induced versus hypoxia Consulted nephrology Started bicarbonate drip Ordered IV fluids Ordered echocardiogram Ordered renal ultrasound Repeat ABG in the afternoon Status post Ruth catheter insertion. Family mentioned that they were told he should not have a Ruth catheter however we discussed the case with his urologist Dr. Funes who gave the okay to continue Ruth catheter and will see the patient on Tuesday. Monitor I's and O's Monitor kidney function. Avoid nephrotoxins. Renally dosed medications PM update: Rapid response was called for acute hypoxia. Checked the pulse oximeter and oxygen improved. Nevertheless, ordered ABG to be drawn earlier. Ordered repeat chest x-ray. Held IV fluids. May resume fluids if chest x-ray is not showing any congestion.
--- NOTE | 2024-07-28 10:18 | XR_ITS ---
Examination: Retroperitoneal ultrasound, complete Technique: Multiple high resolution grayscale images of the retroperitoneum obtained, including kidneys and bladder. Exam date and time:July 28, 2024, 1031 hrs. Indications: Acute renal insufficiency on laboratory examination this morning Findings: Right kidney 12.1 cm cortex 2.8 cm Multiple renal calculi, the largest 6 mm in the mid kidney Left kidney 12.6 cm renal cortex 3.1 cm Multiple renal calculi, the largest in the mid kidney 5 mm Minimal left hydronephrosis Urinary bladder contracted around a Ruth catheter Impression: Bilateral renal calculi Minimal left hydronephrosis
--- NOTE | 2024-07-28 10:21 | PD.NEPHCONS ---
History of Present Illness Data of Consult Consult date: 07/28/24 Requesting Physician: Juan Alberto Zavala MD Primary Care Provider: DESIREE Brady Consult Narrative Reason for consult: Acute renal failure, metabolic acidosis History of present illness: Patient poor historian. Got information from chart review and his at bedside. Medical team at bedside. Ms. Leblanc is a 79-year-old gentleman with a past medical history significant for Alzheimer's dementia, coronary artery disease, congestive heart failure, peripheral vascular disease, hypertension, history of prostate cancer, diabetes, asthma has been residing at the [facility] transitional care was brought to the emergency department as he was noted to be short of breath and hypoxic with a low oxygenation. Patient was placed on oxygen mask. patient denied fever, chills, chest pain, nausea, vomiting, shortness of breath. However patient did endorse abdominal pain, was noted to have suprapubic mass/tenderness. In the emergency department Ruth catheter was placed with 1 L dark urine immediately drained. ED COURSE: Labs significant for: WBC 25, hemoglobin 14.7, BUN 79, creatinine 5.8, EGFR 9, lactic acid 4.9 up trended to 5.3. Magnesium 1.4. Troponin negative, CRP 2.4, Pro-Rey 0.63. BNP 167. Anion gap 23. ABG showed pH 7.29, pCO2 24, bicarb 12. Imaging significant for: CT A/P showing mild bilateral hydronephrosis, bladder distention. CTA chest with contrast showed no PE, showed vascular congestion, bilateral pneumonia. Patient received Lasix 40 x 1, nitroglycerin, Rocephin in the ED. Patient had decrease in blood pressure, received multiple small boluses due to concern for CHF with improvement in blood pressure. Nephrology was consulted for acute renal failure, need for dialysis. PMH: Alzheimer's dementia, coronary artery disease, CHF, PVD, hypertension, asthma, prostate cancer, diabetes PSH: Radical prostatectomy, left hip arthroplasty Allergies:?Jardiance, penicillins Medications: Rehab medications-allopurinol, atorvastatin, duloxetine, Eliquis, Entresto, gabapentin, insulin, memantine, metformin, metoprolol succinate, midodrine, ropinirole, trospium 07/28/2024 patient currently seen medical floor. On nasal mask. at bedside. He has dementia and is unable to give me enough information. Denies any chest pain, nausea, vomiting. Complaining of shortness of breath cc:: cc: Juan Alberto Zavala MD Review of Systems Review of Systems Narrative Review of Systems: Limited due to his mentation. Seems to have some confusion from the dementia. Past Medical History Past Medical History NEUROLOGIC: Positive Dementia and Alzheimer's Disease; Negative Neurological Disorders, Seizures or Migraine CARDIAC: Positive Cardiac Disorders, Heart Murmur, Coronary Artery Disease, Atherosclerotic Heart Disease, Peripheral Vascular Disease, Hypercholesterolemia, Valvular Heart Disease and Hypertension; Negative Congestive Heart Failure RESPIRATORY: Positive Asthma, Tuberculosis and Sleep Apnea; Negative Chronic Obstructive Pulmonary Disease (COPD), Emphysema or Pneumonia GASTROINTESTINAL: Positive Gastrointestinal Disorders, Gall Bladder Disease, Hiatal Hernia, Gastroesophageal Reflux Disease and Obesity; Negative Cirrhosis or Hemorrhoids GENITOURINARY: Positive Genitourinary Disorders, Kidney Stones and Prostate Cancer; Negative Renal Disease MUSCULOSKELETAL: Positive Musculoskeletal Disorders, Arthritis, Gout and Fibromyalgia ENT: Positive Cataracts, Blind and Macular Degeneration; Negative Glaucoma ENDOCRINE: Positive Endocrine Disorders and Diabetes Mellitus Type 2; Negative Diabetes Mellitus Type 1 HEMATOLOGIC: Positive Clotting Problems; Negative Blood Disorders or Sickle Cell Disease PSYCHO/SOCIAL: Positive Depression and Anxiety OTHER HISTORY: Positive Hospitalization, Anesthesia Reactions, Chicken Pox, Measles, Cancer and Prostate Cancer; Negative Autoimmune Disease, Blood Transfusions, MRSA, VRSA or Vancomycin-Resistant Enterococci Family History FAMILY HISTORY: Positive Family Cardiac Disorders and Family Cancer; Negative Family Psychiatric Problems, Family Respiratory Disorders, Family Gastrointestinal Problems, Family Surgery or Family Anesthesia Reaction Surgical History SURGICAL: Positive Cardiac Surgery, Coronary Artery Bypass Graft, Valve Replacement, Cardiac Catheterization, Pacemaker, Auto Implanted Cardiovert Defib, Abdominal Surgery and Bowel Surgery Social History SMOKING STATUS: Unknown if ever smoked SECOND HAND EXPOSURE: No SUBSTANCE USE: does not use OCCUPATION: [employer] Past Medical History Comments PMH COMMENT: PMH: Alzheimer's dementia, coronary artery disease, CHF, PVD, hypertension, asthma, prostate cancer, diabetes PSH: Radical prostatectomy, left hip arthroplasty SH: Unobtainable Allergies:?Jardiance, penicillins Medications: Allopurinol, atorvastatin, duloxetine, Eliquis, Entresto, gabapentin, insulin, memantine, metformin, metoprolol succinate, midodrine, ropinirole, trospium Meds Home Medications and Allergies Home Medications ?Medication ?Instructions ?Recorded ?Confirmed ?Type gabapentin 300 mg capsule 300 mg PO TID ##60 10/10/13 07/28/24 History allopurinol 100 mg tablet 100 mg PO QDAY Gout 05/02/18 07/28/24 History ropinirole 0.5 mg tablet 0.5 mg PO QDAY 07/15/18 07/28/24 History duloxetine 30 mg capsule,delayed 30 mg PO BID 01/11/22 07/28/24 History release pantoprazole 40 mg tablet,delayed 40 mg PO QDAY 01/11/22 07/28/24 History release atorvastatin 80 mg tablet 80 mg PO QDAY 04/16/22 07/28/24 History apixaban 5 mg tablet (Eliquis) 5 mg PO BID 08/19/22 07/28/24 History folic acid 1 mg tablet 1 mg PO QDAY 08/19/22 07/28/24 History trospium 20 mg tablet 20 mg PO BID 08/19/22 07/28/24 History insulin lispro 100 unit/mL 1 sliding scale dose subcut 04/30/24 07/28/24 History subcutaneous pen USEASDIRECTD melatonin 3 mg capsule 6 mg PO HS 04/30/24 07/28/24 History memantine 5 mg tablet 5 mg PO BID 04/30/24 07/28/24 History metoprolol succinate 100 mg 100 mg PO QDAY 04/30/24 07/28/24 History capsule sprinkle, ext. release 24 hr mirabegron 50 mg tablet,extended 50 mg PO QDAY 04/30/24 07/28/24 History release 24 hr (Myrbetriq) metoprolol succinate 50 mg 50 mg PO .i tab daily Hypertension 07/20/24 07/28/24 History tablet,extended release 24 hr bisacodyl 10 mg rectal suppository 10 mg [place] DAILY PRN constipation 07/28/24 07/28/24 History magnesium hydroxide 400 mg/5 mL 30 ml PO .Q3Day PRN constipation 07/28/24 07/28/24 History oral suspension (Milk of Magnesia) Allergies Allergy/AdvReac Type Severity Reaction Status Date / Time empagliflozin (From Allergy Intermediate rash Verified 07/03/24 10:28 Jardiance) Penicillins Allergy Unknown Verified 07/03/24 10:28 Exam Vital Signs Temp Pulse Resp BP Pulse Ox O2 Del Method O2 Flow Rate 36.6 C 64 19 108/52 L 96 Nasal Cannula 11 07/28/24 08:00 07/28/24 08:00 07/28/24 08:00 07/28/24 08:00 07/28/24 08:00 07/28/24 08:00 07/28/24 08:00 Narrative Exam GENERAL APPEARANCE: Patient currently seen medical floor. On nasal mask. Mild shortness of breath noted NECK: Neck supple, no JVD or bruit CARDIOVASCULAR: Heart regular, no murmurs LUNGS/CHEST: Chest clear to auscultation. No rales, rhonchi, wheezing ABDOMEN: Soft, nontender, nondistended. No masses. Normal bowel sounds. EXTREMITIES: No edema, clubbing or cyanosis. SKIN: Skin exam normal without any rashes MUSCULOSKELETAL: in bed NEUROLOGICAL : Able to move his extremities, patient has memory lapses. Results Labs 07/29/24 04:40 07/29/24 06:00 Labs: Short CBC 07/27/24 07/28/24 Range/Units 22:05 07:24 WBC 25.0 H 22.4 H (3.8-10.6) Thou/mm3 Hgb 14.7 12.0 L D (13.5-16.0) g/dL Hct 43.1 36.9 L (41.0-53.0) % Plt Count 240 D 193 D (140-440) Thou/mm3 BMP 07/27/24 07/28/24 22:05 07:24 Sodium 143 144 Potassium 4.4 5.2 H D Chloride 106 108 H Carbon Dioxide 14.4 L* 14.2 L* BUN 79 H 85 H Creatinine 5.8 H* 6.4 H* D Glucose 152 H 134 H Calcium 8.3 7.4 L Cardiac Enzymes 07/27/24 Range/Units 22:05 Troponin I 0.043 (0.0-0.045) ng/mL Liver Function 07/27/24 07/28/24 Range/Units 22:05 07:24 Total Bilirubin 0.6 0.3 (0.3-1.2) mg/dL Direct Bilirubin 0.2 (0.0-0.3) mg/dL AST 11 11 (0-34) U/L ALT 7 L < 7 L (10-49) U/L Alkaline Phosphatase 110 88 D (46-116) U/L Albumin 4.1 3.4 D (3.4-4.8) gm/dL Urine 07/27/24 Range/Units 23:07 Urine Color Yellow (Lt Yel-Yel) Urine Clarity Clear (Clear/Hazy) Urine pH 5.0 (5.0-7.0) Ur Specific [place] 1.018 (1.001-1.035) Urine Protein Trace (Neg - Trace) Urine Glucose (UA) Negative (Negative) ABG Interpretation ABG results: 07/27/24 23:05 ABG pH 7.29 L ABG pCO2 24 L ABG pO2 80 L ABG HCO3 12 L ABG O2 Saturation 95 ABG Base Excess -13 L Assessment & Plan Assessment and plan (1) Acute renal failure: Status: Acute Assessment and plan: Acute renal failure multifactorial-in the emergency department upon insertion of Ruth catheter 1 L of urine was obtained. CT showed moderate hydronephrosis probably related to the enlarged prostate.Patient also noted to have significant hypotension on admission systolic blood pressure less than 70. Was given fluids. Also received a CT chest with contrast last night. Urine output minimal. Did talk to the -explained that patient currently seems to be in acute kidney injury and might need dialysis. wanted him to have all aggressive measures including dialysis if indicated. (2) Acute respiratory failure with hypoxia: Status: Acute Assessment and plan: Currently on mask (3) Pneumonia: Status: Acute Assessment and plan: CT showed mild fluid overload and pneumonia (4) Hypomagnesemia: Status: Acute Assessment and plan: Replace magnesium (5) Metabolic acidosis: Status: Acute Assessment and plan: Patient with severe metabolic acidosis and worsening shortness of breath as the day progressed. (6) Acute hyperkalemia: Status: Acute Assessment and plan: Hyperkalemia noted from underlying renal failure. Additional Assessment & Plan Additional Plan: After I saw the patient-he decompensated respiratory roberts. Was transferred to telemetry. Spoke to ICU team that patient needs dialysis. Dialysis catheter placed by ICU team. Patient on dialysis. Tolerating dialysis without any problems. Hemodialysis for 2.5 hours, 2K, 40 bicarb ultrafiltration 0 L, Epogen 6000, no heparin ordered. Plan of care discussed with the dialysis nurse. Please see dialysis flowsheet for further details. Care discussed with primary team Thank you Boby for allowing me to participate in the care of Mr. Gilmore
[2024-07-28] MEDS: RINGERS LACTATED 1000 ML 500 ML 999 ML IV (10:53)
[2024-07-28] MEDS: ALBUTEROL/IPRATROPIUM (Duoneb) RT SOL 3 ML NEBU INH (10:56)
[2024-07-28] MEDS: Sodium Bicarb 8.4% 50ml Vial* 88.23 MEQ in DEXTROSE 5%-WATER 500 ML 100 MEQ IV ×2 (11:39→17:57)
[2024-07-28 13:15] LABS: Lactate (Lactic Acid) 5.8 mMol/L (0.4-2.0)
--- NOTE | 2024-07-28 13:25 | PC.NURSE ---
1338 informed daughter the doctors were going to come talk with them regarding her father's care. [address] Clayton, Ryan, and Parker regarding pt's sphincter and asked about the pt having a tse catheter. I informed them that the pt sees Dr. Funes at his clinic and may need to be consulted. Dr. Clayton states they will come speak to the family. 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 She states Dr. Funes referred him to a doctor at [facility] and that's where he had surgery
--- NOTE | 2024-07-28 13:45 | PC.NURSE ---
Ryan Lopez and Parker at bedside speaking with Marisabel and daughter Cecile regarding pt's care.
[2024-07-28 13:48] LABS: Alanine Aminotransferase < 7 U/L (10-49); Albumin, Serum 3.4 gm/dL (3.4-4.8); Albumin/Globulin Ratio 1.5 (1.2-2.2); Alkaline Phosphatase 87 U/L (46-116); Anion Gap 25 (7-16); Aspartate Amino Transferase 15 U/L (0-34); BUN/Creatinine Ratio 13 Ratio (12-20); Bilirubin,Total 0.2 mg/dL (0.3-1.2); Blood Urea Nitrogen 84 mg/dL (9-23); Calcium 7.3 mg/dL (8.3-10.6); Calcium (Corrected) 7.8 mg/dL (8.5-10.1); Chloride 106 mMol/L (98-107); Creatinine (Component) 6.6 mg/dL (0.6-1.3); Estimated Creatinine Clearance 11.4 mL/min (>60); Globulin 2.3 gm/dL (2.3-3.5); Glucose 118 mg/dL (74-106); Osmolality,Calculated 313 (275-295); Potassium 5.6 mMol/L (3.4-5.1); Sodium 144 mMol/L (136-145); Total Protein 5.7 gm/dL (5.7-8.2); eGFR 8 See Note
[2024-07-28 13:50] LABS: Carbon Dioxide 13.4 mMol/L (20.0-31.0)
--- NOTE | 2024-07-28 14:29 | XR_ITS ---
Examination: AP chest single view Technique one AP portable semiupright chest single view Date and time: July 28, 2024, 1458 hrs. Comparison July 27, 2024 Indications: Coughing congestion today. Findings: Mild enlargement cardiac contour Moderate vascular congestion. No aspiration pneumonia. Cardiac leads satisfactory position Moderate osteopenia Impression: Moderate vascular congestion No aspiration pneumonia
--- NOTE | 2024-07-28 15:10 | PD.RESEVENT ---
Documentation for date of: 07/28/24 Event Note Event Note: Rapid response was called for patient at approximately 2:30 PM for an evaluation of hypoxia, oxygen saturation readings at 84. Patient was already on oxygen and had oxygen increased. Pulse oximeter location had been changed to the ear, and patient had increasing saturation to 99%. Oxygen was down titrated and patient continued to stay around 99%. Patient was at his baseline, however seemed a bit lethargic, lungs seem clear of crackles at this time. Due to concern for aspiration, chest x-ray was ordered in addition to ABG. We also ordered a BMP and patient was found to have worsening hyperkalemia in which we will address it with regular insulin 5 units IV in addition to breathing treatments and D50 150 mL. Will continue with bicarb drip and patient was upgraded to telemetry. Patient also had corrected calcium 7.8 in which we addressed this with 1 g IV calcium gluconate. We also put patient strict n.p.o.
[2024-07-28 15:11] LABS: Allen Test Performed/OK; Base Excess -14 (-3-3); HCO3 12 mEq/L (20-26); Inspired O2, VO2 Liters 10 L/min; Inspired Oxygen, FIO2 21 %; O2 Saturation 97 % (91-98); PCO2 28 mmHg (32.0-48.0); PO2 96 mmHg (83-108); Puncture Site Right Brachial; pH, Arterial 7.24 (7.35-7.45)
[2024-07-28 15:46] LABS: B-Type Natriuretic Peptide 150 pg/mL (0-100)
[2024-07-28] MEDS: LEVALBUTEROL RT 1.25 MG/0.5 ML NEBU INH (15:51)
[2024-07-28] MEDS: SODIUM CHLORIDE RT SOL 0.9% 3 ML NEBU INH (15:51)
[2024-07-28 16:10] LABS: Reflex Lactate? Y
[2024-07-28] MEDS: INSULIN HUM REGULAR 1 UNIT/0.01 ML (PER UNIT) 5 UNIT IV (16:12)
[2024-07-28] MEDS: CALCIUM GLUC/NS 1000MG IVPB 1,000 MG/50 ML BAG 50 MG IV (16:12)
[2024-07-28] MEDS: DEXTROSE 50%-WATER INJ 50 ML SYRINGE 100 ML IV (16:12)
--- NOTE | 2024-07-28 17:01 | XR_ITS ---
Examination: AP chest single view Technique 1 portable semiupright AP chest single view Date and time: July 28, 2024, 1743 hours Comparison July 28, 2024 1456 hours INDICATIONS: Post line placement today, shortness of breath coughing congestion FINDINGS: Right internal jugular tri flow catheter tip SVC satisfactory position Aortic valve replacement Mild enlargement cardiac contour. Moderate vascular congestion Cardiac leads satisfactory position. No pneumonia IMPRESSION: Right internal jugular tri flow catheter tip SVC satisfactory position, no pneumothorax
[2024-07-28 17:05] LABS: Albumin, Serum 3.2 gm/dL (3.4-4.8); Anion Gap 23 (7-16); BUN/Creatinine Ratio 11 Ratio (12-20); Blood Urea Nitrogen 75 mg/dL (9-23); Calcium 7.2 mg/dL (8.3-10.6); Calcium (Corrected) 7.8 mg/dL (8.5-10.1); Chloride 100 mMol/L (98-107); Creatinine (Component) 6.8 mg/dL (0.6-1.3); Estimated Creatinine Clearance 11.1 mL/min (>60); Glucose 380 mg/dL (74-106); Osmolality,Calculated 310 (275-295); Potassium 4.3 mMol/L (3.4-5.1); Sodium 136 mMol/L (136-145); eGFR 8 See Note
[2024-07-28 17:11] LABS: Lactic Acid, 3 HR 6.2 mMol/L (0.4-2.0)
[2024-07-28 17:14] LABS: Carbon Dioxide 12.7 mMol/L (20.0-31.0)
--- NOTE | 2024-07-28 17:24 | PD.RESPROC ---
Procedures Procedure Date / Time 07/28/24 1724 Central Line Placement Right IJ: Indication(s): other (Tri flow for HD) Informed consent obtained: obtained from surrogate decision maker Time out done, and the following verified: correct patient, side and site, procedure and patient position Patient placed on monitor/pulse ox: Yes Hand Hygiene: scrub, soap & water and alcohol-based hand rub Max Sterile Barrier Techniques used: cap, mask, sterile gown, sterile gloves and sterile full body drape Central line prep: Povidone-Iodine 1%, Chlorhexidine scrub and sterile drapes applied Local anesthesia used: lidocaine 1% Amount of anesthesia used (mL): 3 Ultrasound used for placement: Yes Sterile Technique if Ultrasound used, including sterile gel: yes Central line lumen inserted: triple Post procedure: sutured in place, good blood return, all ports aspirated, flushed, capped and sterile dressing applied Post procedure x-ray: tip of catheter in good position and no pneumothorax seen Patient tolerated procedure: well and no complications EBL(ml): 1 Complications: none Procedure comment: Procedure was done at bedside and patient tolerated the procedure well. There was no complications and the line was confirmed through x-ray without any pneumothorax. Mandatory to use.
[2024-07-28] MEDS: ALBUMIN HUMAN 25% IVPB 25 GM/100 ML BTL IV (18:50)
[2024-07-28 19:14] LABS: Lactate (Lactic Acid) 5.6 mMol/L (0.4-2.0)
[2024-07-28 20:13] LABS: Phosphorous 9.9 mg/dL (2.4-5.1)
[2024-07-28] MEDS: HEPARIN SOD INJ 1000 UNIT/ML VIAL 10 ML 2600 UNIT INDWELLCAT (21:25)
[2024-07-28 22:10] LABS: Reflex Lactate? Y
[2024-07-28 22:36] LABS: Lactic Acid, 3 HR 6.6 mMol/L (0.4-2.0)
[2024-07-28 23:03] LABS: Anion Gap 22 (7-16); BUN/Creatinine Ratio 13 Ratio (12-20); Blood Urea Nitrogen 71 mg/dL (9-23); Calcium 8.2 mg/dL (8.3-10.6); Carbon Dioxide 19.1 mMol/L (20.0-31.0); Chloride 105 mMol/L (98-107); Creatinine (Component) 5.3 mg/dL (0.6-1.3); Estimated Creatinine Clearance 14.2 mL/min (>60); Glucose 92 mg/dL (74-106); Osmolality,Calculated 311 (275-295); Potassium 3.8 mMol/L (3.4-5.1); Sodium 146 mMol/L (136-145); eGFR 10 See Note
[2024-07-29] VITALS (11 sets, daily range): BP systolic 108–157; BP diastolic 51–79; PULSE 75–93; RESP 13–21; TEMP 36.2–36.6; O2SAT 91–98; BMI 30.5
[2024-07-29] MEDS: Sodium Bicarb 8.4% 50ml Vial* 88.23 MEQ in DEXTROSE 5%-WATER 500 ML 100 MEQ IV ×3 (00:40→14:11)
[2024-07-29 01:42] LABS: Lactate (Lactic Acid) 5.6 mMol/L (0.4-2.0)
[2024-07-29 04:21] LABS: Reflex Lactate? Y
[2024-07-29 04:41] LABS: Base Excess -1 (-3-3); HCO3 24 mEq/L (20-26); Inspired Oxygen, FIO2 8 %; O2 Saturation 95 % (91-98); PCO2 37 mmHg (32.0-48.0); PO2 69 mmHg (83-108); pH, Arterial 7.41 (7.35-7.45)
[2024-07-29 04:48] LABS: Allen Test Performed/OK; Puncture Site Left Radial
[2024-07-29 06:00] LABS: Basophils # (Auto) 0.1 Thou/mm3 (0.0-0.2); Basophils % (Auto) 1 % (0-2.5); Eosinophils # (Auto) 0.1 Thou/mm3 (0.0-0.5); Eosinophils % (Auto) 1 % (0-10); Hematocrit 32.7 % (41.0-53.0); Hemoglobin 10.7 g/dL (13.5-16.0); Immature Granulocytes % (Auto) 1 % (0-0); Immature Granulocytes Auto 0.06 Thou/mm3 (0.00-0.00); Lymphocytes # (Auto) 2.1 Thou/mm3 (1.0-4.8); Lymphocytes % (Auto) 16 % (10-50); Mean Corpuscular HGB Conc 32.7 g/dl (31.0-37.0); Mean Corpuscular Hemoglobin 28.2 pg (25.0-35.0); Mean Corpuscular Volume 86 fL (80-100); Monocytes # (Auto) 1.1 Thou/mm3 (0.0-0.8); Monocytes % (Auto) 8 % (0-12); Neutrophils # (Auto) 9.8 Thou/mm3 (1.8-7.7); Neutrophils % (Auto) 74 % (37-80); Nucleated Red Blood Cell % 0 /100 WBC (0); Platelet Count 108 Thou/mm3 (140-440); RDW Standard Deviation 48.4 fL (35.1-43.9); Red Blood Count 3.79 Miln/mm3 (4.50-5.90); White Blood Count 13.2 Thou/mm3 (3.8-10.6)
[2024-07-29 06:21] LABS: Lactic Acid, 3 HR 3.8 mMol/L (0.4-2.0)
[2024-07-29 07:54] LABS: Alanine Aminotransferase < 7 U/L (10-49); Albumin, Serum 3.1 gm/dL (3.4-4.8); Albumin/Globulin Ratio 1.7 (1.2-2.2); Alkaline Phosphatase 73 U/L (46-116); Anion Gap 18 (7-16); Aspartate Amino Transferase 11 U/L (0-34); BUN/Creatinine Ratio 12 Ratio (12-20); Bilirubin,Total 0.4 mg/dL (0.3-1.2); Blood Urea Nitrogen 65 mg/dL (9-23); Calcium 7.6 mg/dL (8.3-10.6); Calcium (Corrected) 8.3 mg/dL (8.5-10.1); Carbon Dioxide 23.8 mMol/L (20.0-31.0); Chloride 102 mMol/L (98-107); Creatinine (Component) 5.6 mg/dL (0.6-1.3); Estimated Creatinine Clearance 13.4 mL/min (>60); Globulin 1.8 gm/dL (2.3-3.5); Glucose 142 mg/dL (74-106); Osmolality,Calculated 307 (275-295); Phosphorous 6.3 mg/dL (2.4-5.1); Potassium 3.6 mMol/L (3.4-5.1); Sodium 144 mMol/L (136-145); Total Protein 4.9 gm/dL (5.7-8.2); eGFR 10 See Note
[2024-07-29] MEDS: PANTOPRAZOLE INJ 40 MG VIAL IVP (09:27)
[2024-07-29] MEDS: cefTRIAXone/D5w 1gm IV premix 1 GM/50 ML BAG IV (09:28)
--- NOTE | 2024-07-29 10:09 | PC.SS ---
ASW met with Team B and per their report, pending change on his metabolic acid. At this time, there is no d/c date for this pt. Pt also needs and initial assessment; ASW will complete the initial.
[2024-07-29] MEDS: FUROSEMIDE INJ 10 MG/ML 4ML VIAL 40 MG IVP ×2 (10:45→16:14)
--- NOTE | 2024-07-29 11:16 | PC.SS ---
Addendum entered by Krista Winslow 07/29/24 15:26: Per rounding notes, pt is acute kidney failure, pending recs at this time. Original Note: YVONNE Rafat Winslow completed a face to face initial assessment with pts Brayan at bedside Room 268. Pt was present but was in and out of sleep. Pts daughter Berhane was also present. Pts provided all information regarding the pts assessment. Pt resides at a SNF [facility]. Pts is the decision maker, Brayan Noriega [phone]. Pt PCP is Dr. Eder Clark and sees the specialist Dr. Wil Eason, Dr. Funes, Dr. Villa and sees other [facility] is a [place]. Pt is bed bound. However, pts reported that prior to coming into [facility], pt was able to ambulate using his wheel chair and does not do his won ADLs. Pt does not use O2. Pt is a new dialysis pt and will need chair time established upon d/c. There is a Power of Rn Social Work which lists the pts as POA. Upon d/c pt will need EMS transportation to return to SNF. Pt is dx with dementia, per , so there are times when he is able to communicate with memory and times there is not. Per pts , pt gets agitated quickly and does not like to be at the SNF but there are no other care providers at home. Pts confirmed all demographics and insurance information. Needs: Possible chair time with dialysis as pt is a new dialysis pt. Decision maker: Brayan [place]oke, . [phone] Power of Rn Social Work: Brayan Noriega, . [phone] DME: pt uses a wheel chair. Pt will return to [facility] upon d/c.
[2024-07-29] MEDS: INSULIN LISPRO (AdmeLOG) 1 UNIT/0.01 ML UNIT SC ×2 (11:40→17:36)
--- NOTE | 2024-07-29 14:32 | ESPR_ITS ---
<Statement entered by Felicia Dowell MD - 07/30/24 15:37> Patient was seen and examined by me personally. I have directly supervised and reviewed documentation by the team resident and agree with its findings with any exceptions or additional findings as below. Plan of care was discussed with the attending, Dr. Arzola. New Team B assuming care starting today 07/29/2024. Mr. Noriega is a 79-year-old male who initially presented to the ED from SNF with hypoxia. Patient was found to have acute renal failure with BUN 79, creatinine 5.8, GFR 9 while previous labs had indicated normal renal function just 1 week prior. Patient suspected to have hypotension-related ischemia in combination with possible obstructive uropathy initially leading to ATN. Nephrology is consulted and following. Patient received first session of dialysis yesterday and tolerated well. However he did not have much urine output overnight, less than 100 ml. Discussed with Nephrology and two doses of Lasix 40 mg IV were given today, will assess urine output. Will also plan for next dialysis session tomorrow. Felicia Dowell, PGY-2 Documentation for date of: 07/29/24 Subjective Subjective Interval history: 07/29: No acute overnight events reported. Patient seen and examined at bedside this morning. Family is at bedside and is updated on the plan of care. Patient is currently saturating 98% on 5 L oxygen via nasal cannula, vitals are stable. Patient endorses to feeling much better and states him improvement in his shortness of breath. Patient denies chest pain or palpitations or abdominal pain. Lab findings include WBC downtrending to 13.2, anion gap 18, bicarb 23.8, creatinine 5.6, GFR 10 , lactic acid down trended to 3.8 ABGs are within normal limits. Patient underwent urgent dialysis session last night and no fluid was removed. This morning patient produced 60 cc of urine output a trial of Lasix was given and patient produced over 100 cc of urine within 1 hour therefore we will schedule another Lasix for 4 PM. Per nephrology recommendation, will schedule dialysis tomorrow in the morning and will continue to monitor urine output and renal function. Will continue Rocephin for community-acquired pneumonia. Patient has no other complaints. Exam Vital Signs Temp Pulse Resp BP Pulse Ox O2 Del Method O2 Flow Rate 97.8 F 81 21 H 133/55 H 96 Nasal Cannula 5 07/29/24 12:00 07/29/24 12:00 07/29/24 12:00 07/29/24 12:00 07/29/24 12:00 07/29/24 12:00 07/29/24 12:00 Narrative Exam GENERAL: Elderly male, saturating via NC, not in acute distress NEURO: no focal motor or sensory neurological deficits noted, Pt has hx of Alzheimer therefore unable to asses remainder HEENT: Atraumatic, Normocephalic. mucous membranes moist. Eyes open, symmetrical, & clear HEART: paced rhythm, no murmurs heard LUNGS: Clear to auscultation with no wheezing or crackles. ABDOMEN: soft, non-distended, non-tender, bowel sounds heard, no guarding or rebound tenderness SKIN: No Rash or ecchymoses EXTREMITIES: No edema, tenderness, able to move all 4 extremities, pedal pulses palpated Objective Labs 07/31/24 07:17 07/31/24 07:17 Labs: Laboratory Results - last 24 hr 07/28/24 07/28/24 07/28/24 07:24 15:03 16:35 WBC RBC Hgb Hct MCV MCH MCHC RDW Std Deviation Plt Count Neut % (Auto) Lymph % (Auto) [place] % (Auto) Eos % (Auto) Baso % (Auto) Neut # (Auto) Lymph # (Auto) [place] # (Auto) Eos # (Auto) Baso # (Auto) Immature Gran # (Auto) Absolute Nucleated RBC Immature Gran % Nucleated RBC % Puncture Site Right Brachial ABG pH 7.24 L ABG pCO2 28 L ABG pO2 96 ABG HCO3 12 L ABG O2 Saturation 97 ABG Base Excess -14 L Oxygen Liter Flow 10 FiO2 21 Sodium 136 Potassium 4.3 D Chloride 100 Carbon Dioxide 12.7 L* Anion Gap 23 H BUN 75 H Creatinine 6.8 H* Estim Creat Clear Calc 11.1 L eGFR 8 L* BUN/Creatinine Ratio 11 L Glucose 380 H D Calculated Osmolality 310 H Lactic Acid 6.2 H* Calcium 7.2 L Corrected Calcium 7.8 L Phosphorus 9.9 H Total Bilirubin AST ALT Alkaline Phosphatase B-Natriuretic Peptide 150 H Total Protein Albumin 3.2 L Globulin Albumin/Globulin Ratio 07/28/24 07/28/24 07/29/24 19:06 22:15 01:00 WBC RBC Hgb Hct MCV MCH MCHC RDW Std Deviation Plt Count Neut % (Auto) Lymph % (Auto) [place] % (Auto) Eos % (Auto) Baso % (Auto) Neut # (Auto) Lymph # (Auto) [place] # (Auto) Eos # (Auto) Baso # (Auto) Immature Gran # (Auto) Absolute Nucleated RBC Immature Gran % Nucleated RBC % Puncture Site ABG pH ABG pCO2 ABG pO2 ABG HCO3 ABG O2 Saturation ABG Base Excess Oxygen Liter Flow FiO2 Sodium 146 H D Potassium 3.8 D Chloride 105 Carbon Dioxide 19.1 L Anion Gap 22 H BUN 71 H Creatinine 5.3 H* D Estim Creat Clear Calc 14.2 L eGFR 10 L* BUN/Creatinine Ratio 13 Glucose 92 D Calculated Osmolality 311 H Lactic Acid 5.6 H* 6.6 H* 5.6 H* Calcium 8.2 L Corrected Calcium Phosphorus Total Bilirubin AST ALT Alkaline Phosphatase B-Natriuretic Peptide Total Protein Albumin Globulin Albumin/Globulin Ratio 07/29/24 07/29/24 07/29/24 04:34 04:40 06:00 WBC 13.2 H D RBC 3.79 L Hgb 10.7 L Hct 32.7 L MCV 86 MCH 28.2 MCHC 32.7 RDW Std Deviation 48.4 H Plt Count 108 L D Neut % (Auto) 74 Lymph % (Auto) 16 [place] % (Auto) 8 Eos % (Auto) 1 Baso % (Auto) 1 Neut # (Auto) 9.8 H Lymph # (Auto) 2.1 [place] # (Auto) 1.1 H Eos # (Auto) 0.1 Baso # (Auto) 0.1 Immature Gran # (Auto) 0.06 H Absolute Nucleated RBC 0.00 Immature Gran % 1 H Nucleated RBC % 0 Puncture Site Left Radial ABG pH 7.41 D ABG pCO2 37 ABG pO2 69 L D ABG HCO3 24 ABG O2 Saturation 95 ABG Base Excess -1 Oxygen Liter Flow FiO2 8 Sodium 144 Potassium 3.6 Chloride 102 Carbon Dioxide 23.8 Anion Gap 18 H BUN 65 H Creatinine 5.6 H* Estim Creat Clear Calc 13.4 L eGFR 10 L* BUN/Creatinine Ratio 12 Glucose 142 H D Calculated Osmolality 307 H Lactic Acid 3.8 H Calcium 7.6 L Corrected Calcium 8.3 L Phosphorus 6.3 H Total Bilirubin 0.4 AST 11 ALT < 7 L Alkaline Phosphatase 73 B-Natriuretic Peptide Total Protein 4.9 L Albumin 3.1 L Globulin 1.8 L Albumin/Globulin Ratio 1.7 ABG Interpretation ABG results: 07/27/24 07/28/24 07/29/24 23:05 15:03 04:34 ABG pH 7.29 L 7.24 L 7.41 D ABG pCO2 24 L 28 L 37 ABG pO2 80 L 96 69 L D ABG HCO3 12 L 12 L 24 ABG O2 Saturation 95 97 95 ABG Base Excess -13 L -14 L -1 Quality Measures Quality Measures VTE prophylaxis Advance care planning discussed with:: other Assessment & Plan Assessment Current Active Medications: Generic Name Dose Route Start Last Admin Trade Name Freq PRN Reason Stop Dose Admin Acetaminophen 650 mg 07/28/24 01:01 Acetaminophen 325 Mg Tablet PO 08/27/24 01:00 Q6H PRN Fever >100.4 or pain Albuterol/Ipratropium 3 ml 07/28/24 02:27 07/28/24 10:56 Albuterol/Ipratropium (Duoneb) Rt Ivanna 3 Ml Nebu INH 08/27/24 02:26 3 ml Q2HR PRN Administration SHORTNESS OF BREATH OR WHEEZE Dextrose 25 ml 07/28/24 01:14 Dextrose 50%-Water Inj 50 Ml Syringe IV 08/27/24 01:13 Q15MIN PRN BG 50-70 responsive npo pt Dextrose 50 ml 07/28/24 01:14 Dextrose 50%-Water Inj 50 Ml Syringe IV 08/27/24 01:13 Q15MIN PRN BG <50 OR BG <70 & pt unresponsive Docusate Sodium 100 mg 07/28/24 01:01 Docusate Sod 100 Mg Capsule PO 08/27/24 01:00 QDAY PRN CONSTIPATION Protocol Furosemide 40 mg 07/29/24 16:00 Furosemide Inj 10 Mg/Ml 4ml Vial IVP 07/29/24 16:01 X1 ONE Glucagon 1 mg 07/28/24 01:14 Glucagon Inj 1 Mg Vial IM Q15MIN PRN BG <70, and no IV access Heparin Sodium (Porcine) 2,600 unit 07/28/24 18:46 07/28/24 21:25 Heparin Sod Inj 1000 Unit/Ml Vial 10 Ml INDWELLCAT 08/11/24 18:45 2,600 unit X1 PRN Administration DIALYSIS Ceftriaxone Sodium/Dextrose 1 gm in 50 mls @ 100 mls/hr 07/28/24 09:30 07/29/24 09:28 Rocephin/D5w 1gm Iv Premix IV 08/04/24 08:59 100 mls/hr QDAY CARLEEN Administration Sodium Bicarbonate 88.23 meq/ 588.23 mls @ 100 mls/hr 07/28/24 10:18 07/29/24 14:11 Dextrose IV 08/27/24 10:17 100 mls/hr .[id number] CARLEEN Administration Albumin Human 25 gm in 100 mls @ 100 mls/min 07/28/24 18:46 07/28/24 18:50 Albuminar-25 Ivpb IV 100 mls/min PRN PRN Administration DIALYSIS Insulin Human Lispro 0 unit 07/29/24 00:00 07/29/24 11:40 Insulin Lispro (Admelog) 1 Unit/0.01 Ml Unit SC 08/28/24 00:00 2 unit Q6H CARLEEN Administration Protocol Ondansetron HCl 4 mg 07/28/24 01:01 Ondansetron Inj 2 Mg/Ml Inj 2 Ml IVP 08/27/24 01:00 Q6H PRN NAUSEA OR VOMITING Protocol Pantoprazole Sodium 40 mg 07/29/24 09:00 07/29/24 09:27 Pantoprazole Inj 40 Mg Vial IVP 08/28/24 08:59 40 mg QDAY CARLEEN Administration Pharmacy Consult 1 each 07/28/24 01:06 Pharmacy Renal Dose Adjustment 1 Ea XX 08/27/24 01:05 PRN PRN CONSULT Sennosides 1 tab 07/28/24 01:01 Senna Tablet PO 08/27/24 01:00 QDAY PRN constipation Protocol Sodium Chloride 3 ml 07/28/24 14:54 07/28/24 15:51 Sodium Chloride Rt Ivanna 0.9% 3 Ml Nebu INH 08/27/24 14:53 3 ml PRN PRN Administration SOLN Plan Mr. Noriega is a 79 y/o M with PMHx significant for Alzheimer's dementia, CAD, CHF, PVD, hypertension, asthma, prostate cancer, diabetes presents from shelter with chief complaint of hypoxia, admitted for acute renal failure. #Acute renal failure #Acute urinary retention in the setting of #Post-obstructive uropathy #High anion gap metabolic acidosis with respiratory alkalosis #Lactic acidosis #Electrolyte abnormalities Multifactorial for renal failure including urinary retention, receiving contrast from CTA, infectious (ATN) Patient could have had urinary retention 4 days now and could have continued to take metformin which could have precipitated worsening lactic acidosis BUN/creatinine of 84 and 6.6 respectively, potassium 5.6, bicarb 13, GFR 8, phosphorus 10.2, calcium 7.8 Patient has multiple electrolyte derangements Was giving patient bicarb drip per nephrology recommendations, however based on repeat renal panel patient will need dialysis that may be temporary or permanent There was concern for patient not being able to have Ruth, however we spoke with Dr. Funes who had said it is okay for patient to have Ruth in acute renal failure and urinary retention Plan: - Nephrology consulted and following ? Urology consulted, appreciate recs ? Temporary dialysis catheter try flow placed on 07/28 by ICU team and pt had a session of dialysis ? Continue Bicarb drip, stop as per nephrology recommendations - Trend lactate q6h - Renally dose meds and avoid nephrotoxins - Strict I's and O's - Daily renal function ? Insulin 5 units IV, Xopenex 1.25 mg x 1, D50 100 mL x 1, D50 50 mg x 1 ? Follow-up ABG - Trial of lasix 40mg BID given to measure urinary output #Acute hypoxic respiratory failure, improving #Community-acquired pneumonia #Hx of Asthma Patient presented with complaint of hypoxia, saturation as low as 80% at the SNF. Patient needing nonrebreather, at time exam had been titrated down to 4 L via nonrebreather, saturating 95% and above. Will maintain nonrebreather because patient is a mouth breather. CTA chest showed bilateral pneumonia. On exam bibasilar rhonchi. Patient has history of asthma. Patient denies shortness of breath, cough, chest pain, fever, chills Plan: - Rocephin 1 g IV daily (started 07/27) - DuoNebs as needed ? Wean down oxygen as tolerated #Hx of HFrEF with EF 40-45% #Hx of Defibrillator Will need to monitor ins and outs due to patient being in acute renal failure and also has heart failure Plan: ? Echo completed on 07/28 - Strict I's and O's -Will hold pt's home medications due to soft blood pressure. will resume when able - Hold on fluid restriction due to acute renal failure #Insulin dependent type 2 Diabetes A1c 7.5 on admission Plan: ? Sliding scale insulin ? Hypoglycemic protocol in place ? Blood sugar checks with meals #Hx of HTN #Hx of CAD #Hx of PVD #Hx of Alzheimer's dementia -On admission Pt's BP is within normal limits, therefore will hold resuming antihypertensives #Health Maintenance Disposition: Telemetry DVT prophylaxis: SCDs GI prophylaxis: Protonix Diet: Cardiac diet resumed CODE STATUS: Full Assessment and plan discussed with my senior resident Dr. Dowell & attending physician Dr. Ness Go (PGY-1)- Internal medicine resident Attending Provider Attestation/Addendum Face to face evaluation was performed by me. I have personally seen and examined the patient. I discussed the assessment and plan with the entire medicine team. I reviewed available medical records, imaging studies, laboratory results. 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 urology Dr. Funes History of gout Hyperlipidemia Chronic anticoagulation with Eliquis Lactic acidosis Type 2 diabetes with chronic insulin therapy Metabolic acidosis Acute encephalopathy metabolic from renal failure -Dialysis per nephrology, - We are trial of furosemide - Avoid nephrotoxic agents, stop metformin, use insulin for hyperglycemia -Lactic acidosis improved More than > 30 minutes spent on the encounter
--- NOTE | 2024-07-29 14:57 | PD.NEPHPROG ---
Documentation for date of: 07/29/24 Subjective Subjective Interval history: Patient poor historian. Got information from chart review and his at bedside. Medical team at bedside. Ms. Leblanc is a 79-year-old gentleman with a past medical history significant for Alzheimer's dementia, coronary artery disease, congestive heart failure, peripheral vascular disease, hypertension, history of prostate cancer, diabetes, asthma has been residing at the [facility] transitional care was brought to the emergency department as he was noted to be short of breath and hypoxic with a low oxygenation. Patient was placed on oxygen mask. patient denied fever, chills, chest pain, nausea, vomiting, shortness of breath. However patient did endorse abdominal pain, was noted to have suprapubic mass/tenderness. In the emergency department Ruth catheter was placed with 1 L dark urine immediately drained. ED COURSE: Labs significant for: WBC 25, hemoglobin 14.7, BUN 79, creatinine 5.8, EGFR 9, lactic acid 4.9 up trended to 5.3. Magnesium 1.4. Troponin negative, CRP 2.4, Pro-Rey 0.63. BNP 167. Anion gap 23. ABG showed pH 7.29, pCO2 24, bicarb 12. Imaging significant for: CT A/P showing mild bilateral hydronephrosis, bladder distention. CTA chest with contrast showed no PE, showed vascular congestion, bilateral pneumonia. Patient received Lasix 40 x 1, nitroglycerin, Rocephin in the ED. Patient had decrease in blood pressure, received multiple small boluses due to concern for CHF with improvement in blood pressure. Nephrology was consulted for acute renal failure, need for dialysis. PMH: Alzheimer's dementia, coronary artery disease, CHF, PVD, hypertension, asthma, prostate cancer, diabetes PSH: Radical prostatectomy, left hip arthroplasty Allergies:?Jardiance, penicillins Medications: Rehab medications-allopurinol, atorvastatin, duloxetine, Eliquis, Entresto, gabapentin, insulin, memantine, metformin, metoprolol succinate, midodrine, ropinirole, trospium 07/28/2024 patient currently seen medical floor. On nasal mask. at bedside. He has dementia and is unable to give me enough information. Denies any chest pain, nausea, vomiting. Complaining of shortness of breath 07/29/2024 patient currently seen in telemetry. On oxygen nasal cannula. Medications reviewed. Resting comfortably. Blood sugar 173. Blood pressure 138/68, heart rate 81. WBC 13.2, hemoglobin 10.7, platelets 108. ABG showing pH 7.41 [id number], pO2 69, bicarbonate 24. Sodium 144, potassium 3.6, bicarbonate 23.8, BUN 65, creatinine 5.6, GFR 10, lactic acid 3.8, calcium 8.3, phosphorus 6.3, LFTs normal, albumin 3.1. Chest x-ray done last evening showed that there is moderate vascular congestion. This morning patient received Lasix with good improvement in the urinary output. Will give another dose of Lasix at 4:00 today. Spoke to internal medicine nurse practitioner. Review of Systems Review of Systems Narrative Review of Systems: Limited as patient goes back to sleep quickly. Arousable. Exam Vital Signs Temp Pulse Resp BP Pulse Ox O2 Del Method O2 Flow Rate 36.6 C 81 18 138/68 H 94 L Nasal Cannula 4 07/29/24 12:00 07/29/24 16:14 07/29/24 16:02 07/29/24 16:14 07/29/24 16:02 07/29/24 12:00 07/29/24 16:02 Narrative Exam GENERAL APPEARANCE: Patient currently seen in telemetry.. Right IJ Vas-Cath NECK: Neck supple, no JVD or bruit CARDIOVASCULAR: Heart regular, no murmurs LUNGS/CHEST: Chest clear to auscultation. No rales, rhonchi, wheezing ABDOMEN: Soft, nontender, nondistended. No masses. Normal bowel sounds. EXTREMITIES: No edema, clubbing or cyanosis. SKIN: Skin exam normal without any rashes. Right IJ Vas-Cath MUSCULOSKELETAL: in bed NEUROLOGICAL : Able to move his extremities, patient has memory lapses. Objective Labs 07/29/24 04:40 07/29/24 06:00 Labs: Laboratory Results - last 24 hr 07/28/24 07/28/24 07/28/24 16:35 19:06 22:15 WBC RBC Hgb Hct MCV MCH MCHC RDW Std Deviation Plt Count Neut % (Auto) Lymph % (Auto) Wells % (Auto) Eos % (Auto) Baso % (Auto) Neut # (Auto) Lymph # (Auto) Wells # (Auto) Eos # (Auto) Baso # (Auto) Immature Gran # (Auto) Absolute Nucleated RBC Immature Gran % Nucleated RBC % Puncture Site ABG pH ABG pCO2 ABG pO2 ABG HCO3 ABG O2 Saturation ABG Base Excess FiO2 Sodium 136 146 H D Potassium 4.3 D 3.8 D Chloride 100 105 Carbon Dioxide 12.7 L* 19.1 L Anion Gap 23 H 22 H BUN 75 H 71 H Creatinine 6.8 H* 5.3 H* D Estim Creat Clear Calc 11.1 L 14.2 L eGFR 8 L* 10 L* BUN/Creatinine Ratio 11 L 13 Glucose 380 H D 92 D Calculated Osmolality 310 H 311 H Lactic Acid 6.2 H* 5.6 H* 6.6 H* Calcium 7.2 L 8.2 L Corrected Calcium 7.8 L Phosphorus 9.9 H Total Bilirubin AST ALT Alkaline Phosphatase Total Protein Albumin 3.2 L Globulin Albumin/Globulin Ratio 07/29/24 07/29/24 07/29/24 01:00 04:34 04:40 WBC 13.2 H D RBC 3.79 L Hgb 10.7 L Hct 32.7 L MCV 86 MCH 28.2 MCHC 32.7 RDW Std Deviation 48.4 H Plt Count 108 L D Neut % (Auto) 74 Lymph % (Auto) 16 Wells % (Auto) 8 Eos % (Auto) 1 Baso % (Auto) 1 Neut # (Auto) 9.8 H Lymph # (Auto) 2.1 Wells # (Auto) 1.1 H Eos # (Auto) 0.1 Baso # (Auto) 0.1 Immature Gran # (Auto) 0.06 H Absolute Nucleated RBC 0.00 Immature Gran % 1 H Nucleated RBC % 0 Puncture Site Left Radial ABG pH 7.41 D ABG pCO2 37 ABG pO2 69 L D ABG HCO3 24 ABG O2 Saturation 95 ABG Base Excess -1 FiO2 8 Sodium Potassium Chloride Carbon Dioxide Anion Gap BUN Creatinine Estim Creat Clear Calc eGFR BUN/Creatinine Ratio Glucose Calculated Osmolality Lactic Acid 5.6 H* Calcium Corrected Calcium Phosphorus Total Bilirubin AST ALT Alkaline Phosphatase Total Protein Albumin Globulin Albumin/Globulin Ratio 07/29/24 06:00 WBC RBC Hgb Hct MCV MCH MCHC RDW Std Deviation Plt Count Neut % (Auto) Lymph % (Auto) Wells % (Auto) Eos % (Auto) Baso % (Auto) Neut # (Auto) Lymph # (Auto) Wells # (Auto) Eos # (Auto) Baso # (Auto) Immature Gran # (Auto) Absolute Nucleated RBC Immature Gran % Nucleated RBC % Puncture Site ABG pH ABG pCO2 ABG pO2 ABG HCO3 ABG O2 Saturation ABG Base Excess FiO2 Sodium 144 Potassium 3.6 Chloride 102 Carbon Dioxide 23.8 Anion Gap 18 H BUN 65 H Creatinine 5.6 H* Estim Creat Clear Calc 13.4 L eGFR 10 L* BUN/Creatinine Ratio 12 Glucose 142 H D Calculated Osmolality 307 H Lactic Acid 3.8 H Calcium 7.6 L Corrected Calcium 8.3 L Phosphorus 6.3 H Total Bilirubin 0.4 AST 11 ALT < 7 L Alkaline Phosphatase 73 Total Protein 4.9 L Albumin 3.1 L Globulin 1.8 L Albumin/Globulin Ratio 1.7 ABG Interpretation ABG results: 07/27/24 07/28/24 07/29/24 23:05 15:03 04:34 ABG pH 7.29 L 7.24 L 7.41 D ABG pCO2 24 L 28 L 37 ABG pO2 80 L 96 69 L D ABG HCO3 12 L 12 L 24 ABG O2 Saturation 95 97 95 ABG Base Excess -13 L -14 L -1 Assessment & Plan Assessment and plan (1) Acute renal failure: Status: Acute Assessment and plan: Acute renal failure multifactorial-in the emergency department upon insertion of Ruth catheter 1 L of urine was obtained. CT showed moderate hydronephrosis probably related to the enlarged prostate.Patient also noted to have significant hypotension on admission systolic blood pressure less than 70. Was given fluids. Also received a CT chest with contrast last night. Urine output minimal. Did talk to the -explained that patient currently seems to be in acute kidney injury and might need dialysis. wanted him to have all aggressive measures including dialysis if indicated. 07/29/2024 patient received 1 dialysis session yesterday due to significant metabolic acidosis, hyperkalemia and worsening azotemia in the setting of shortness of breath. Today he seems to be resting comfortably. Did respond to Lasix with good urine output. Will give another dose of Lasix at 4 PM today. Hold dialysis today. (2) Acute respiratory failure with hypoxia: Status: Acute Assessment and plan: Currently on oxygen. Resting comfortably than yesterday. (3) Pneumonia: Status: Acute Assessment and plan: CT showed mild fluid overload and pneumonia (4) Hypomagnesemia: Status: Acute Assessment and plan: Replace magnesium (5) Metabolic acidosis: Status: Acute Assessment and plan: Marked improvement in metabolic acidosis with dialysis (6) Acute hyperkalemia: Status: Acute Assessment and plan: Hyperkalemia resolved. Additional Assessment & Plan Additional Plan: Next dialysis scheduled for tomorrow pending labs. Will keep him n.p.o. in case he needs a permacath. PPD ordered Thank you Boby for allowing me to participate in the care of Mr. Gilmore
[2024-07-29] MEDS: TUBERCULIN PPD INJ 5 UNIT/0.1 ML DOSE ID (17:46)
--- NOTE | 2024-07-29 21:00 | ESCONSULT_ITS ---
RE: IVAN GARCÍA : 1945 DATE OF CONSULTATION: 07/29/2024 CONSULTING PHYSICIANS: Hospitalization. REASON FOR CONSULTATION: Cardiovascular evaluation. The patient is known to me. He has a history of TAVR and congestive heart failure. HISTORY OF PRESENT ILLNESS: The patient is a 79-year-old male, very well known to me, has a longstanding history of mild coronary artery disease, severe peripheral arterial occlusive disease with history of severe aortic stenosis, underwent TAVR procedure, transcutaneous aortic valve replacement in 2021 and history of congestive heart failure with mild LV dysfunction. 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 Subsequently, ejection fraction improved to 45-50% range and also longstanding hypertension, prostate carcinoma, underwent treatment and diabetes and multiple medical issues. Recently has Alzheimer dementia, worsening. Presented to the hospital with repeated emergency room visits. The patient was unable to take care of him 07/19, 07/20, and 07/21, 4 days in a row in the emergency room. The patient subsequently was transferred to a intermediate facility for management. The patient's was unable to handle him at home. At that time, his renal function was completely normal. Except for dementia, there was no acute problems. For 6 days, he was in a nursing woman in the intermediate facility at [facility], was brought to the emergency room on 07/27/2024 with chief complaints of shortness and hypoxemia. Oxygen saturation apparently was dropping. The patient did not have any other symptoms. The patient's initial lab data showed acute renal failure. Creatinine already 5.8. Creatinine clearance was 9. Low BNP level, was dehydrated. BNP was 167 and lactic acid 4.9, pH 7.9, PCO2 of 24, bicarbonate was 12. For some unexplainable no clear medical reasons, the patient also underwent a CTA of the chest, which is inappropriate in my opinion. The patient did have CTA of the chest with contrast. As expected, it was negative for emboli. The patient definitely had acute renal failure, shortness of breath and somewhat hypoxemia, possible pneumonia. Admitted to the hospital with these diagnosis and now still in acute renal failure and creatinine continues to be high. Nephrology consult was obtained. Impression of the nephrology: Dr. Meyers is that the patient has acute renal failure, possibly due to obstructive uropathy. There was a Ruth catheter placed, 1 liter of urine was obtained. The CT also showed moderate hydronephrosis related to prostate enlargement. There was also definite hypovolemia hypotension and contrast did not help and the patient continued to worsen. Possibly will require temporary dialysis. The patient is clinically not in heart failure. I reviewed the CT scan that was read by Dr. Reyez. It shows a normally functioning prosthetic valve, mild stenosis, gradient, ejection fraction is 45-50%. The patient is clinically somewhat obtunded due to renal failure acidosis. He does not complain of any shortness of breath at this time. Oxygen saturation is fairly decent. MEDICATIONS: Medications at home, multiple medications. The patient's medication list includes gabapentin, allopurinol, duloxetine, pantoprazole, apixaban because of history of atrial fibrillation and folic acid 1 mg daily, insulin for diabetes mellitus, memantine 5 mg b.i.d., metoprolol succinate 100 mg daily. 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 Low ejection fraction improved to 50%, status post transcutaneous aortic valve replacement in 2021. SOCIAL HISTORY: The patient is , does not smoke, drink alcoholic beverages. FAMILY HISTORY: Noncontributory. PHYSICAL EXAMINATION: GENERAL: Well-nourished, acutely ill, chronically ill male, alert, awake and in no acute distress. VITAL SIGNS: Blood pressure 138/68 mmHg, pulse rate 80, respirations 20, , saturation 95% on 2L nasal cannula. HEENT: Head is atraumatic. NECK: Supple. No JVD. CHEST: Symmetrical. LUNGS: Decreased breath sounds. No rhonchi. HEART: S1 and S2 regular. ABDOMEN: Thin and soft. EXTREMITIES: No edema. AND RECTAL: Not performed. NEUROLOGIC: Normal. DIAGNOSTIC DATA: Electrocardiogram showed 100% pacemaker rhythm. IMPRESSION/ASSESSMENT: 1. Acute renal failure, possibly due to obstructive uropathy, clearly worsened by CT with contrast and presents with acute renal failure with using of contrast, nephropathy as well. 2. Status post transcutaneous aortic valve replacement. 3. Congestive heart failure, now appears to be clinically dry. 4. Definite hypotension, transient. 5. Acidosis due to acute renal failure. RECOMMENDATIONS: I agree with the hydrating the patient. No contraindication. Clinically, he is not in heart failure. Also, possibly temporary dialysis might be needed. Hopefully, the patient's renal failure is temporary due to obstructive uropathy and contrast nephropathy and may not require long-term dialysis, but clearly needs a temporary dialysis for now along with hydration as well. Clinically, he does not appear to be in heart failure and go ahead with hydrating the patient as tolerated clinically. Monitor for any volume overload. DT: 19:48:47 TT: 20:50:00 Ref: [id number] - TID: [id number]
[2024-07-30] VITALS (28 sets, daily range): BP systolic 135–201; BP diastolic 61–87; PULSE 70–112; RESP 15–21; TEMP 36.2–37.1; O2SAT 91–100; BMI 30.5; BMI 30.4
[2024-07-30 05:32] LABS: Basophils # (Auto) 0.1 Thou/mm3 (0.0-0.2); Basophils % (Auto) 0 % (0-2.5); Eosinophils # (Auto) 0.2 Thou/mm3 (0.0-0.5); Eosinophils % (Auto) 1 % (0-10); Hematocrit 31.3 % (41.0-53.0); Hemoglobin 10.9 g/dL (13.5-16.0); Immature Granulocytes % (Auto) 1 % (0-0); Immature Granulocytes Auto 0.06 Thou/mm3 (0.00-0.00); Lymphocytes # (Auto) 1.6 Thou/mm3 (1.0-4.8); Lymphocytes % (Auto) 13 % (10-50); Mean Corpuscular HGB Conc 34.8 g/dl (31.0-37.0); Mean Corpuscular Hemoglobin 28.2 pg (25.0-35.0); Mean Corpuscular Volume 81 fL (80-100); Monocytes # (Auto) 0.9 Thou/mm3 (0.0-0.8); Monocytes % (Auto) 8 % (0-12); Neutrophils # (Auto) 9.5 Thou/mm3 (1.8-7.7); Neutrophils % (Auto) 77 % (37-80); Nucleated Red Blood Cell % 0 /100 WBC (0); Platelet Count 141 Thou/mm3 (140-440); Red Blood Count 3.86 Miln/mm3 (4.50-5.90); White Blood Count 12.3 Thou/mm3 (3.8-10.6)
[2024-07-30 06:17] LABS: Alanine Aminotransferase 7 U/L (10-49); Albumin, Serum 3.5 gm/dL (3.4-4.8); Albumin/Globulin Ratio 1.7 (1.2-2.2); Alkaline Phosphatase 87 U/L (46-116); Anion Gap 18 (7-16); Aspartate Amino Transferase 13 U/L (0-34); BUN/Creatinine Ratio 11 Ratio (12-20); Bilirubin,Total 0.5 mg/dL (0.3-1.2); Blood Urea Nitrogen 75 mg/dL (9-23); Calcium 7.4 mg/dL (8.3-10.6); Calcium (Corrected) 7.8 mg/dL (8.5-10.1); Carbon Dioxide 28.7 mMol/L (20.0-31.0); Chloride 97 mMol/L (98-107); Creatinine (Component) 6.6 mg/dL (0.6-1.3); Estimated Creatinine Clearance 11.4 mL/min (>60); Globulin 2.1 gm/dL (2.3-3.5); Glucose 158 mg/dL (74-106); Magnesium 1.7 mg/dL (1.6-2.6); Osmolality,Calculated 312 (275-295); Phosphorous 6.3 mg/dL (2.4-5.1); Potassium 3.7 mMol/L (3.4-5.1); Sodium 144 mMol/L (136-145); Total Protein 5.6 gm/dL (5.7-8.2); eGFR 8 See Note
--- NOTE | 2024-07-30 08:00 | XR_ITS ---
Venous access removal temporary dialysis catheter Permanent tunneled dialysis catheter insertion, percutaneous Fluoroscopy AP chest, portable, single view. Date and time of procedure: July 30, 2024 1203 hours INDICATIONS: Renal failure patient, need for long-term dialysis with permanent tunneled dialysis catheter Informed consent provided Technique: A timeout was completed verifying correct patient, procedure, site, positioning, and special equipment if applicable. The patient was placed in a dependent position appropriate for dialysis catheter placement based on the vein to be cannulated. The patient'sright neck was prepped and draped in sterile fashion. Maximum Sterile Barrier Technique used including cap, mask, sterile gown, sterile gloves, and sterile full body drape. Local anesthesia obtained with 1% lidocaine. 0.35 wire guide is introduced through the temporary dialysis catheter into the inferior vena cava Successful removal of the temporary dialysis catheter over the wire guide Subcutaneous tunnel formed in the upper chest. Permanent tunneled dialysis catheter placed in the subcutaneous tunnel. Dilators were introduced over the J-wire guide. Tunneled dialysis catheter is introduced through a dilator with venous sheath into the superior vena cava under fluoroscopic guidance. The catheter is sutured in place to the skin and a sterile dressing applied. Perfusion to the extremity distal to the point of catheter insertion is checked and found to be adequate Attending radiologist was present for the entire procedure Estimated blood loss2 cc. The patient tolerated the procedure well and there were no complications Impression: Successful venous assess removal temporary dialysis catheter Successful permanent tunneled dialysis catheter insertion, percutaneous Fluoroscopy 0.2 minute radiation dose 1.88 milligray 1 spot fluoroscopic chest film. AP chest performed at completion procedure demonstrates satisfactory position dialysis catheter. May use dialysis catheter.
[2024-07-30 08:39] LABS: INR 1.1 (0.9-1.3); Prothrombin Time 11.9 Seconds (9.0-12.2)
--- NOTE | 2024-07-30 08:57 | PC.SS ---
Update: Patient receiving IV antibiotics. Labs continue to be monitored.
--- NOTE | 2024-07-30 08:58 | PC.SS ---
Patient will need outpatient chair time established. PROPERTY CLAIMS ADJUSTER confirmed with bedside nurse that TB and Hep panel have been ordered. Human Resources Support Specialist will be Dr. Meyesr.
--- NOTE | 2024-07-30 09:29 | PD.RESPRO ---
Documentation for date of: 07/30/24 Subjective Subjective Interval history: Interval history: Patient poor historian. Got information from chart review and his at bedside. Medical team at bedside. Ms. Leblanc is a 79-year-old gentleman with a past medical history significant for Alzheimer's dementia, coronary artery disease, congestive heart failure, peripheral vascular disease, hypertension, history of prostate cancer, diabetes, asthma has been residing at the [facility] transitional care was brought to the emergency department as he was noted to be short of breath and hypoxic with a low oxygenation. Patient was placed on oxygen mask. patient denied fever, chills, chest pain, nausea, vomiting, shortness of breath. However patient did endorse abdominal pain, was noted to have suprapubic mass/tenderness. In the emergency department Ruth catheter was placed with 1 L dark urine immediately drained. ED COURSE: Labs significant for: WBC 25, hemoglobin 14.7, BUN 79, creatinine 5.8, EGFR 9, lactic acid 4.9 up trended to 5.3. Magnesium 1.4. Troponin negative, CRP 2.4, Pro-Rey 0.63. BNP 167. Anion gap 23. ABG showed pH 7.29, pCO2 24, bicarb 12. Imaging significant for: CT A/P showing mild bilateral hydronephrosis, bladder distention. CTA chest with contrast showed no PE, showed vascular congestion, bilateral pneumonia. Patient received Lasix 40 x 1, nitroglycerin, Rocephin in the ED. Patient had decrease in blood pressure, received multiple small boluses due to concern for CHF with improvement in blood pressure. Nephrology was consulted for acute renal failure, need for dialysis. PMH: Alzheimer's dementia, coronary artery disease, CHF, PVD, hypertension, asthma, prostate cancer, diabetes PSH: Radical prostatectomy, left hip arthroplasty Allergies: Jardiance, penicillins Medications: Rehab medications-allopurinol, atorvastatin, duloxetine, Eliquis, Entresto, gabapentin, insulin, memantine, metformin, metoprolol succinate, midodrine, ropinirole, trospium 07/28/2024 patient currently seen medical floor. On nasal mask. at bedside. He has dementia and is unable to give me enough information. Denies any chest pain, nausea, vomiting. Complaining of shortness of breath 07/29/2024 patient currently seen in telemetry. On oxygen nasal cannula. Medications reviewed. Resting comfortably. Blood sugar 173. Blood pressure 138/68, heart rate 81. WBC 13.2, hemoglobin 10.7, platelets 108. ABG showing pH 7.41 [id number], pO2 69, bicarbonate 24. Sodium 144, potassium 3.6, bicarbonate 23.8, BUN 65, creatinine 5.6, GFR 10, lactic acid 3.8, calcium 8.3, phosphorus 6.3, LFTs normal, albumin 3.1. Chest x-ray done last evening showed that there is moderate vascular congestion. This morning patient received Lasix with good improvement in the urinary output. Will give another dose of Lasix at 4:00 today. Spoke to social media intern. 07/30/2024 patient currently seen during hemodialysis, resting comfortably, but somnolent, arousable on verbal stimulus, reported no acute symptoms. Net urine output -2500 overnight, after Lasix challenge yesterday, but noted worsening BUN and creatinine compared to yesterday. Continue with hemodialysis, likely ATN secondary to contrast-induced nephropathy. Recommend continuing Ruth's catheter to relieve obstructive symptoms, follow urology recommendations regarding Ruth's cath. Sodium 144, potassium 3.7, BUN 75, creatinine 6.6. Exam Vital Signs Temp Pulse Resp BP Pulse Ox O2 Del Method O2 Flow Rate 98.6 F 88 18 180/78 H 92 L Nasal Cannula 1 07/30/24 07:38 07/30/24 09:15 07/30/24 07:38 07/30/24 09:15 07/30/24 07:38 07/30/24 04:00 07/30/24 07:38 Narrative Exam GENERAL APPEARANCE: Patient currently seen in dialysis. Right IJ Vas-Cath NECK: Neck supple, no JVD or bruit CARDIOVASCULAR: Heart regular, no murmurs LUNGS/CHEST: Chest clear to auscultation. No rales, rhonchi, wheezing ABDOMEN: Soft, nontender, nondistended. No masses. Normal bowel sounds. EXTREMITIES: No edema, clubbing or cyanosis. SKIN: Skin exam normal without any rashes. Right IJ Vas-Cath NEUROLOGICAL : Able to move his extremities, patient has memory lapses. Objective Labs 07/30/24 05:09 07/30/24 05:09 Labs: Laboratory Results - last 24 hr 07/30/24 05:09 WBC 12.3 H RBC 3.86 L Hgb 10.9 L Hct 31.3 L MCV 81 MCH 28.2 MCHC 34.8 RDW Std Deviation 45.0 H Plt Count 141 D Neut % (Auto) 77 Lymph % (Auto) 13 [place] % (Auto) 8 Eos % (Auto) 1 Baso % (Auto) 0 Neut # (Auto) 9.5 H Lymph # (Auto) 1.6 [place] # (Auto) 0.9 H Eos # (Auto) 0.2 Baso # (Auto) 0.1 Immature Gran # (Auto) 0.06 H Absolute Nucleated RBC 0.00 Immature Gran % 1 H Nucleated RBC % 0 PT 11.9 INR 1.1 Sodium 144 Potassium 3.7 Chloride 97 L Carbon Dioxide 28.7 Anion Gap 18 H BUN 75 H Creatinine 6.6 H* D Estim Creat Clear Calc 11.4 L eGFR 8 L* BUN/Creatinine Ratio 11 L Glucose 158 H Calculated Osmolality 312 H Calcium 7.4 L Corrected Calcium 7.8 L Phosphorus 6.3 H Magnesium 1.7 Total Bilirubin 0.5 AST 13 ALT 7 L Alkaline Phosphatase 87 Total Protein 5.6 L Albumin 3.5 Globulin 2.1 L Albumin/Globulin Ratio 1.7 ABG Interpretation ABG results: 07/27/24 07/28/24 07/29/24 23:05 15:03 04:34 ABG pH 7.29 L 7.24 L 7.41 D ABG pCO2 24 L 28 L 37 ABG pO2 80 L 96 69 L D ABG HCO3 12 L 12 L 24 ABG O2 Saturation 95 97 95 ABG Base Excess -13 L -14 L -1 Quality Measures Quality Measures VTE prophylaxis Advance care planning discussed with:: patient Assessment & Plan Assessment Current Active Medications: Generic Name Dose Route Start Last Admin Trade Name Freq PRN Reason Stop Dose Admin Acetaminophen 650 mg 07/28/24 01:01 Acetaminophen 325 Mg Tablet PO 08/27/24 01:00 Q6H PRN Fever >100.4 or pain Albuterol/Ipratropium 3 ml 07/28/24 02:27 07/28/24 10:56 Albuterol/Ipratropium (Duoneb) Rt Ivanna 3 Ml Nebu INH 08/27/24 02:26 3 ml Q2HR PRN Administration SHORTNESS OF BREATH OR WHEEZE Dextrose 25 ml 07/28/24 01:14 Dextrose 50%-Water Inj 50 Ml Syringe IV 08/27/24 01:13 Q15MIN PRN BG 50-70 responsive npo pt Dextrose 50 ml 07/28/24 01:14 Dextrose 50%-Water Inj 50 Ml Syringe IV 08/27/24 01:13 Q15MIN PRN BG <50 OR BG <70 & pt unresponsive Docusate Sodium 100 mg 07/28/24 01:01 Docusate Sod 100 Mg Capsule PO 08/27/24 01:00 QDAY PRN CONSTIPATION Protocol Epoetin Serg 10,000 unit 07/30/24 10:00 Epoetin Serg-Epbx Inj 10,000 Unit/Ml Vial (Esrd) SC 07/30/24 10:01 X1 ONE Glucagon 1 mg 07/28/24 01:14 Glucagon Inj 1 Mg Vial IM Q15MIN PRN BG <70, and no IV access Heparin Sodium (Porcine) 2,600 unit 07/28/24 18:46 07/28/24 21:25 Heparin Sod Inj 1000 Unit/Ml Vial 10 Ml INDWELLCAT 08/11/24 18:45 2,600 unit X1 PRN Administration DIALYSIS Ceftriaxone Sodium/Dextrose 1 gm in 50 mls @ 100 mls/hr 07/28/24 09:30 07/29/24 09:58 Rocephin/D5w 1gm Iv Premix IV 08/04/24 08:59 Infused QDAY [facility] Infusion Albumin Human 25 gm in 100 mls @ 100 mls/min 07/28/24 18:46 07/28/24 18:50 Albuminar-25 Ivpb IV 100 mls/min PRN PRN Administration DIALYSIS Insulin Human Lispro 0 unit 07/29/24 00:00 07/30/24 05:14 Insulin Lispro (Admelog) 1 Unit/0.01 Ml Unit SC 08/28/24 00:00 Not Given Q6H [facility] Protocol Ondansetron HCl 4 mg 07/28/24 01:01 Ondansetron Inj 2 Mg/Ml Inj 2 Ml IVP 08/27/24 01:00 Q6H PRN NAUSEA OR VOMITING Protocol Pantoprazole Sodium 40 mg 07/29/24 09:00 07/29/24 09:27 Pantoprazole Inj 40 Mg Vial IVP 08/28/24 08:59 40 mg QDAY CARLEEN Administration Pharmacy Consult 1 each 07/28/24 01:06 Pharmacy Renal Dose Adjustment 1 Ea XX 08/27/24 01:05 PRN PRN CONSULT Sennosides 1 tab 07/30/24 11:00 Senna Tablet PO 08/29/24 10:59 QDAY [facility] Protocol Sevelamer Carbonate 800 mg 07/30/24 11:00 Sevelamer Carbonate 800 Mg Tablet PO 07/30/24 11:01 X1 ONE Sodium Chloride 3 ml 07/28/24 14:54 07/28/24 15:51 Sodium Chloride Rt Ivanna 0.9% 3 Ml Nebu INH 08/27/24 14:53 3 ml PRN PRN Administration SOLN Plan (1) Acute renal failure: Likely ATN secondary to contrast induced nephropathy Status: Acute Assessment and plan: Acute renal failure multifactorial-in the emergency department upon insertion of Ruth catheter 1 L of urine was obtained. CT showed moderate hydronephrosis probably related to the enlarged prostate.Patient also noted to have significant hypotension on admission systolic blood pressure less than 70. Was given fluids. Also received a CT chest with contrast last night. Urine output minimal. Did talk to the -explained that patient currently seems to be in acute kidney injury and might need dialysis. wanted him to have all aggressive measures including dialysis if indicated. 07/30/2024 patient currently seen during hemodialysis, resting comfortably, but somnolent, arousable on verbal stimulus, reported no acute symptoms. Net urine output -2500 overnight, after Lasix challenge yesterday, but noted worsening BUN and creatinine compared to yesterday. Continue with hemodialysis, likely ATN secondary to contrast-induced nephropathy. Recommend continuing Ruth's catheter to relieve obstructive symptoms, follow urology recommendations regarding Ruth's cath. (2) Acute respiratory failure with hypoxia: Status: Acute Assessment and plan: Currently on oxygen. Resting comfortably than yesterday. (3) Pneumonia: Status: Acute Assessment and plan: CT showed mild fluid overload and pneumonia (4) Hypomagnesemia: Status: Acute Assessment and plan: Replace magnesium (5) Metabolic acidosis: Status: Acute Assessment and plan: Marked improvement in metabolic acidosis with dialysis (6) Acute hyperkalemia: Status: Acute Assessment and plan: Hyperkalemia resolved. Plan of care discussed with Dr Luigi Youssef pgy2 Attending Provider Attestation/Addendum Patient seen and examined with resident physician Dr. Youssef. Note reviewed, agree with findings and recommendations. Patient agreed for dialysis catheter placement. Had dialysis catheter placed by Dr. Parker. Patient currently seen on dialysis. Tolerating dialysis without any problems. Hemodialysis for 3 hours, blood flow 200, 2K, ultrafiltration 1 L, Epogen 6000, no heparin ordered. Plan of care discussed with the dialysis nurse. Please see dialysis flowsheet for further details. Patient needs outpatient dialysis arrangements. PPD, PermCath ordered. Currently seems to be in [place]/ATN Pending [facility] consultation regarding his urethral sphincter and need for intermittent cath/Ruth.
[2024-07-30 10:38] LABS: Hepatitis A Antibody IgM Non Reactive (Non React); Hepatitis B Core Antibody IgM Non Reactive (Non React); Hepatitis B Surface Antigen Non Reactive (Non React); Hepatitis C Antibody Non Reactive (Non React)
[2024-07-30 10:42] LABS: Prothrombin Time 11.4 Seconds (9.0-12.2)
[2024-07-30] MEDS: EPOETIN ALFA-EPBX INJ 10,000 UNIT/ML VIAL (ESRD) 10000 UNIT SC (10:45)
[2024-07-30] MEDS: HEPARIN SOD INJ 1000 UNIT/ML VIAL 10 ML 2600 UNIT INDWELLCAT (10:59)
[2024-07-30] MEDS: PANTOPRAZOLE INJ 40 MG VIAL IVP (11:21)
[2024-07-30] MEDS: cefTRIAXone/D5w 1gm IV premix 1 GM/50 ML BAG IV (11:22)
[2024-07-30] MEDS: SEVELAMER CARBONATE 800 MG TABLET PO (11:22)
[2024-07-30] MEDS: SENNA TABLET 1 TAB PO (11:22)
[2024-07-30] MEDS: allopurinoL 100 MG TABLET PO (11:23)
[2024-07-30] MEDS: HEPARIN SOD LOCK SYR 100 UNIT/ML 500 UNIT STFIELD (12:30)
[2024-07-30] MEDS: fentaNYL CIT INJ 50 mCg/ML AMP 2ML IVP (12:50)
[2024-07-30] MEDS: LIDOCAINE INJ PF 1% 5 ML VIAL 9 ML INFL (12:50)
[2024-07-30] MEDS: HEPARIN SOD INJ 1000 UNIT/ML VIAL 3500 UNIT INDWELLCAT (13:10)
--- NOTE | 2024-07-30 14:33 | ESPR_ITS ---
<Statement entered by Felicia Dowell MD - 07/31/24 02:24> Patient was seen and examined by me personally. I have directly supervised and reviewed documentation by the team resident and agree with its findings with any exceptions or additional findings as below. Plan of care was discussed with the attending, Dr. Arzola. Mr. Noriega is a 79-year-old male who initially presented to the ED from SNF with hypoxia. Patient was found to have acute renal failure with BUN 79, creatinine 5.8, GFR 9 while previous labs had indicated normal renal function just 1 week prior. Patient produced more than 2L output following the Lasix administration total 80 mg yesterday which is promising. Expect ATN to improve, however recommends further dialysis for now per Nephrology. Patient will have another 1L removed in dialysis today. Plan for 3rd dialysis session tomorrow and outpatient dialysis chair to be set up. Perm cath was placed today. Felicia Dowell, PGY-2 Documentation for date of: 07/30/24 Subjective Subjective Interval history: no acute overnight events reported. Pt is seen and examined at bedside. Pt is oriented to self and place. Pt underwent dialysis this morning with 2L removal. Pt received 80mg of lasix total yesterday and produce over 200L of urine. Since shift change today Pt produce 1200 cc of urine without lasix. Pt also underwent permanent dialysis cath place today for out patient dialysis until kidney functions improves. Will resume patient's home allopurinol for gout. Vitals are after dialysis is stable and labs are reviewed WBC is downtrending to 12.3, hemoglobin is stable at 10.9, bicarb 28.7, anion gap is 18, BUN 75, creatinine 6.6, GFR 8, phosphorus 6.3 and sevelamir is given. Pt endorses to improvement of his symptoms hwoever he continues to have some SOB, denies chest pain, or palpitaitons. Pt has no other complaints, pending outpatient dialysis chair and urology recommendation regarding tse cath. Exam Vital Signs Temp Pulse Resp BP Pulse Ox O2 Del Method O2 Flow Rate 98.0 F 96 20 163/77 H 100 Nasal Cannula 4 07/30/24 10:36 07/30/24 13:10 07/30/24 13:10 07/30/24 13:10 07/30/24 13:10 07/30/24 13:10 07/30/24 13:10 Narrative Exam GENERAL: Elderly male, saturating via NC, not in acute distress NEURO: no focal motor or sensory neurological deficits noted, Pt has hx of Alzheimer therefore unable to asses remainder HEENT: Atraumatic, Normocephalic. mucous membranes moist. Eyes open, symmetrical, & clear HEART: paced rhythm, no murmurs heard LUNGS: Clear to auscultation with no wheezing or crackles. ABDOMEN: soft, non-distended, non-tender, bowel sounds heard, no guarding or rebound tenderness SKIN: No Rash or ecchymoses EXTREMITIES: No edema, tenderness, able to move all 4 extremities, pedal pulses palpated Objective Labs 07/31/24 07:17 07/31/24 07:17 Labs: Laboratory Results - last 24 hr 07/30/24 07/30/24 05:09 10:19 WBC 12.3 H RBC 3.86 L Hgb 10.9 L Hct 31.3 L MCV 81 MCH 28.2 MCHC 34.8 RDW Std Deviation 45.0 H Plt Count 141 D Neut % (Auto) 77 Lymph % (Auto) 13 [place] % (Auto) 8 Eos % (Auto) 1 Baso % (Auto) 0 Neut # (Auto) 9.5 H Lymph # (Auto) 1.6 [place] # (Auto) 0.9 H Eos # (Auto) 0.2 Baso # (Auto) 0.1 Immature Gran # (Auto) 0.06 H Absolute Nucleated RBC 0.00 Immature Gran % 1 H Nucleated RBC % 0 PT 11.9 11.4 INR 1.1 1.0 Sodium 144 Potassium 3.7 Chloride 97 L Carbon Dioxide 28.7 Anion Gap 18 H BUN 75 H Creatinine 6.6 H* D Estim Creat Clear Calc 11.4 L eGFR 8 L* BUN/Creatinine Ratio 11 L Glucose 158 H Calculated Osmolality 312 H Calcium 7.4 L Corrected Calcium 7.8 L Phosphorus 6.3 H Magnesium 1.7 Total Bilirubin 0.5 AST 13 ALT 7 L Alkaline Phosphatase 87 Total Protein 5.6 L Albumin 3.5 Globulin 2.1 L Albumin/Globulin Ratio 1.7 Hepatitis A IgM Ab Non Reactive Hep Bs Antigen Non Reactive Hep B Core IgM Ab Non Reactive Hepatitis C Antibody Non Reactive ABG Interpretation ABG results: 07/27/24 07/28/24 07/29/24 23:05 15:03 04:34 ABG pH 7.29 L 7.24 L 7.41 D ABG pCO2 24 L 28 L 37 ABG pO2 80 L 96 69 L D ABG HCO3 12 L 12 L 24 ABG O2 Saturation 95 97 95 ABG Base Excess -13 L -14 L -1 Quality Measures Quality Measures VTE prophylaxis Advance care planning discussed with:: other Assessment & Plan Assessment Current Active Medications: Generic Name Dose Route Start Last Admin Trade Name Freq PRN Reason Stop Dose Admin Acetaminophen 650 mg 07/28/24 01:01 Acetaminophen 325 Mg Tablet PO 08/27/24 01:00 Q6H PRN Fever >100.4 or pain Albuterol/Ipratropium 3 ml 07/28/24 02:27 07/28/24 10:56 Albuterol/Ipratropium (Duoneb) Rt Ivanna 3 Ml Nebu INH 08/27/24 02:26 3 ml Q2HR PRN Administration SHORTNESS OF BREATH OR WHEEZE Allopurinol 100 mg 07/30/24 10:15 07/30/24 11:23 Allopurinol 100 Mg Tablet PO 08/29/24 10:14 100 mg QDAY CARLEEN Administration Dextrose 25 ml 07/28/24 01:14 Dextrose 50%-Water Inj 50 Ml Syringe IV 08/27/24 01:13 Q15MIN PRN BG 50-70 responsive npo pt Dextrose 50 ml 07/28/24 01:14 Dextrose 50%-Water Inj 50 Ml Syringe IV 08/27/24 01:13 Q15MIN PRN BG <50 OR BG <70 & pt unresponsive Docusate Sodium 100 mg 07/28/24 01:01 Docusate Sod 100 Mg Capsule PO 08/27/24 01:00 QDAY PRN CONSTIPATION Protocol Glucagon 1 mg 07/28/24 01:14 Glucagon Inj 1 Mg Vial IM Q15MIN PRN BG <70, and no IV access Heparin Sodium (Porcine) 2,600 unit 07/28/24 18:46 07/30/24 10:59 Heparin Sod Inj 1000 Unit/Ml Vial 10 Ml INDWELLCAT 08/11/24 18:45 2,600 unit X1 PRN Administration DIALYSIS Ceftriaxone Sodium/Dextrose 1 gm in 50 mls @ 100 mls/hr 07/28/24 09:30 07/30/24 11:52 Rocephin/D5w 1gm Iv Premix IV 08/04/24 08:59 Infused QDAY [facility] Infusion Albumin Human 25 gm in 100 mls @ 100 mls/min 07/28/24 18:46 07/28/24 18:50 Albuminar-25 Ivpb IV 100 mls/min PRN PRN Administration DIALYSIS Insulin Human Lispro 0 unit 07/29/24 00:00 07/30/24 11:24 Insulin Lispro (Admelog) 1 Unit/0.01 Ml Unit SC 08/28/24 00:00 Not Given Q6H [facility] Protocol Ondansetron HCl 4 mg 07/28/24 01:01 Ondansetron Inj 2 Mg/Ml Inj 2 Ml IVP 08/27/24 01:00 Q6H PRN NAUSEA OR VOMITING Protocol Pantoprazole Sodium 40 mg 07/29/24 09:00 07/30/24 11:21 Pantoprazole Inj 40 Mg Vial IVP 08/28/24 08:59 40 mg QDAY CARLEEN Administration Pharmacy Consult 1 each 07/28/24 01:06 Pharmacy Renal Dose Adjustment 1 Ea XX 08/27/24 01:05 PRN PRN CONSULT Sennosides 1 tab 07/30/24 11:00 07/30/24 11:22 Senna Tablet PO 08/29/24 10:59 1 tab QDAY CARLEEN Administration Protocol Sodium Chloride 3 ml 07/28/24 14:54 07/28/24 15:51 Sodium Chloride Rt Ivanna 0.9% 3 Ml Nebu INH 08/27/24 14:53 3 ml PRN PRN Administration SOLN Plan Mr. Noriega is a 79 y/o M with PMHx significant for Alzheimer's dementia, CAD, CHF, PVD, hypertension, asthma, prostate cancer, diabetes presents from correction with chief complaint of hypoxia, admitted for acute renal failure. #ATN most likely #Acute renal failure 2/2 #obstructive uropathy and contrast nephropathy #High anion gap metabolic acidosis with respiratory alkalosis- resolved #Lactic acidosis- improved #Electrolyte abnormalities Multifactorial for renal failure including urinary retention, receiving contrast from CTA, infectious (ATN) Patient could have had urinary retention 4 days now and could have continued to take metformin which could have precipitated worsening lactic acidosis BUN/creatinine of 84 and 6.6 respectively, potassium 5.6, bicarb 13, GFR 8, phosphorus 10.2, calcium 7.8 Patient has multiple electrolyte derangements Was giving patient bicarb drip per nephrology recommendations, however based on repeat renal panel patient will need dialysis that may be temporary or permanent There was concern for patient not being able to have Tse, however we spoke with Dr. Funes who had said it is okay for patient to have Tse in acute renal failure and urinary retention Plan: - Nephrology consulted and following ? Urology consulted, appreciate recs regarding tse catheter that was placed during hospitalization. ? Temporary dialysis catheter try flow placed on 07/28 by ICU team and pt had a session of dialysis - Permanent dialysis cath placed on 07/30, pending outpatient dialysis chair ? Pt was started on bicarb drip for metabolic acidosis which has since resolved and discontinued the bicarb drip - Trend lactate q6h - Renally dose meds and avoid nephrotoxins - Strict I's and O's - Daily renal function ? Insulin 5 units IV, Xopenex 1.25 mg x 1, D50 100 mL x 1, D50 50 mg x 1 - Trial of lasix 40mg BID given to measure urinary output on 07/29 #Acute hypoxic respiratory failure, improving #Community-acquired pneumonia #Hx of Asthma Patient presented with complaint of hypoxia, saturation as low as 80% at the SNF. Patient needing nonrebreather, at time exam had been titrated down to 4 L via nonrebreather, saturating 95% and above. Will maintain nonrebreather because patient is a mouth breather. CTA chest showed bilateral pneumonia. On exam bibasilar rhonchi. Patient has history of asthma. Patient denies shortness of breath, cough, chest pain, fever, chills Plan: - Rocephin 1 g IV daily (started 07/27- 07/31) - DuoNebs as needed ? Wean down oxygen as tolerated #Hx of HFrEF with EF 40-45% #Hx of Defibrillator #S/p transcutaneous aortic valve replacement -Patient underwent ICD, [employer]ORER [employer]ELINES, cardiac resynchronization therapy, defibrillator implantation [place] [address] Eason Plan: ? Echo completed on 07/28 - Strict I's and O's -Will hold pt's home medications ( Entresto and metoprolol) due to soft blood pressure and acute renal failure. will resume when able - Food Processing Chemist Dr. Eason is consulted, and following the case #Insulin dependent type 2 Diabetes A1c 7.5 on admission Plan: ? Sliding scale insulin ? Hypoglycemic protocol in place ? Blood sugar checks with meals -Will discontinue pt's home metformin on discharge due to pt's ARF #Hx of HTN #Hx of CAD #Hx of PVD #Hx of Alzheimer's dementia -On admission Pt's BP is within normal limits, therefore will hold resuming antihypertensives #Health Maintenance Disposition: Telemetry DVT prophylaxis: SCDs GI prophylaxis: Protonix Diet: Cardiac diet resumed CODE STATUS: Full Assessment and plan discussed with my senior resident Dr. Dowell & attending physician Dr. Ness Go (PGY-1)- Internal medicine resident Attending Provider Attestation/Addendum Face to face evaluation was performed by me. I have personally seen and examined the patient. I discussed the assessment and plan with the entire medicine team. I reviewed available medical records, imaging studies, laboratory results. 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 urology Dr. Funes History of gout Hyperlipidemia Chronic anticoagulation with Eliquis Lactic acidosis Type 2 diabetes with chronic insulin therapy Metabolic acidosis Acute encephalopathy metabolic from renal failure Lower lobe community-acquired pneumonia bilateral suspect bacterial gram- negative cocci - Continue antibiotics as ordered -Dialysis per nephrology, - We are trial of furosemide - Avoid nephrotoxic agents, stop metformin, use insulin for hyperglycemia -Lactic acidosis improved More than > 30 minutes spent on the encounter
--- NOTE | 2024-07-30 15:40 | PC.SS ---
Rounding Note: Plan is for patient to obtain perm cath today. Patient will require outpatient dialysis.
[2024-07-30] MEDS: INSULIN LISPRO (AdmeLOG) 1 UNIT/0.01 ML UNIT SC ×2 (17:01→21:13)
--- NOTE | 2024-07-30 23:20 | ESPR_ITS ---
RE: MYNOR GARCÍA : 1945 DATE OF SERVICE: 07/30/2024 SUBJECTIVE: Mynor García is well known to me with longstanding history of CAD, hypertension, aortic valve replacement, TAVR procedure, and [employer] defibrillator implantation, admitted to the hospital with acute renal failure, possible obstructive uropathy, Ruth catheter, improved but still creatinine has not improved. Permcath was placed. The patient has been dialyzing. Nephrology is following patient. The patient has clinically definitely improved. His mental status has improved. does not appear to be complaining of shortness of breath or chest pain. PHYSICAL EXAMINATION: Vital Signs: Shows his vital sign remains stable. Blood pressure 141/69, pulse rate 90, respiratory rate 18, temperature 97.6, and 4 L of nasal cannula, saturating well. Head: Atraumatic. Neck: Supple. Mild JVD. Chest: Symmetrical. Lungs: No rales or rhonchi. Heart: S1 and S2 distant. Abdomen: Thin and soft. Extremities: Mild edema. LABORATORY DATA: White count is 12.3 and hemoglobin 10.9. The chemistry panel shows creatinine went up 6.6, BUN is 75, continues to go up and patient is undergoing dialysis. The LFTs are normal. Lactic acid has come down nicely to 3.8 now, which is encouraging. Chest x-ray was performed yesterday. Today, patient had PermCath placed. IMPRESSION: 1. Acute renal failure, possibly obstructive uropathy with acute kidney injury, requiring dialysis temporary. 2. Congestive heart failure with mild left ventricular dysfunction, well- compensated ejection fraction of 45%-50%. 3. Status post cardiac resynchronization therapy defibrillator implantation. 4. Status post transcatheter aortic valve replacement procedure, stable. 5. Obstructive uropathy secondary to prostate problem. The patient apparently had issue of self-control valve mechanism, which was not used, now has a Ruth catheter, which is a problem. Urologist was consulted. I would like to thank for referring this patient here for cardiac evaluation. We will continue to monitor the patient. DT: 21:43:05 TT: 23:02:00 Ref: [id number] - TID: [id number]
[2024-07-31] VITALS (9 sets, daily range): BP systolic 119–160; BP diastolic 47–79; PULSE 76–102; RESP 15–27; TEMP 36.1–36.5; O2SAT 92–98
[2024-07-31] MEDS: INSULIN LISPRO (AdmeLOG) 1 UNIT/0.01 ML UNIT SC ×4 (07:22→20:31)
--- NOTE | 2024-07-31 07:28 | PC.SS ---
Update: DONKEY ENGINE FIRER/FIREMAN informed by bedside nurse that patient is scheduled to complete 3rd session of dialysis today. TB results to be read later this afternoon. Chair time pending.
[2024-07-31] MEDS: allopurinoL 100 MG TABLET PO (08:12)
[2024-07-31] MEDS: cefTRIAXone/D5w 1gm IV premix 1 GM/50 ML BAG IV (08:12)
[2024-07-31] MEDS: PANTOPRAZOLE 40 MG TABLET PO (08:12)
[2024-07-31] MEDS: SENNA TABLET 1 TAB PO (08:13)
[2024-07-31 08:19] LABS: Basophils # (Auto) 0.1 Thou/mm3 (0.0-0.2); Basophils % (Auto) 1 % (0-2.5); Eosinophils # (Auto) 0.2 Thou/mm3 (0.0-0.5); Eosinophils % (Auto) 2 % (0-10); Hematocrit 34.9 % (41.0-53.0); Immature Granulocytes % (Auto) 1 % (0-0); Immature Granulocytes Auto 0.05 Thou/mm3 (0.00-0.00); Lymphocytes # (Auto) 1.5 Thou/mm3 (1.0-4.8); Lymphocytes % (Auto) 15 % (10-50); Mean Corpuscular HGB Conc 34.4 g/dl (31.0-37.0); Mean Corpuscular Hemoglobin 28.1 pg (25.0-35.0); Mean Corpuscular Volume 82 fL (80-100); Monocytes # (Auto) 0.8 Thou/mm3 (0.0-0.8); Monocytes % (Auto) 8 % (0-12); Neutrophils # (Auto) 7.7 Thou/mm3 (1.8-7.7); Neutrophils % (Auto) 75 % (37-80); Nucleated Red Blood Cell % 0 /100 WBC (0); Platelet Count 153 Thou/mm3 (140-440); RDW Standard Deviation 44.7 fL (35.1-43.9); Red Blood Count 4.27 Miln/mm3 (4.50-5.90); White Blood Count 10.3 Thou/mm3 (3.8-10.6)
[2024-07-31 08:20] LABS: Albumin, Serum 3.8 gm/dL (3.4-4.8); Anion Gap 16 (7-16); BUN/Creatinine Ratio 10 Ratio (12-20); Blood Urea Nitrogen 47 mg/dL (9-23); Calcium 8.1 mg/dL (8.3-10.6); Calcium (Corrected) 8.3 mg/dL (8.5-10.1); Chloride 100 mMol/L (98-107); Creatinine (Component) 4.8 mg/dL (0.6-1.3); Estimated Creatinine Clearance 15.7 mL/min (>60); Glucose 173 mg/dL (74-106); Osmolality,Calculated 303 (275-295); Phosphorous 3.8 mg/dL (2.4-5.1); Potassium 3.4 mMol/L (3.4-5.1); Sodium 144 mMol/L (136-145); eGFR 12 See Note
[2024-07-31] MEDS: DOCUSATE SOD 100 MG CAPSULE PO (08:23)
--- NOTE | 2024-07-31 08:25 | PC.SS ---
TRANSPORTATION SOLUTIONS MANAGER contacted [facility] Eileen to confirm that patient will be new outpatient dialysis patient. [facility] staff, Nohemy; confirmed that Dr. Meyers provided update regarding patient. TRANSPORTATION SOLUTIONS MANAGER informed that [facility] dialysis center will need to confirm that dialysis center can accept the patient for services based on insurance coverage. TRANSPORTATION SOLUTIONS MANAGER relayed to [facility] staff that patient is from [facility] and preferred schedule is M,W,F if patient meets criteria for acceptance to [facility] dialysis center. TRANSPORTATION SOLUTIONS MANAGER to be provided update once obtained.
--- NOTE | 2024-07-31 08:35 | PC.SS ---
Updated clinicals submitted to [facility] on [facility]. [facility] staff, Mary; informed that patient is pending outpatient dialysis schedule with [facility] ([facility]). Dr. Meyers radio electrician.
--- NOTE | 2024-07-31 09:31 | PC.SS ---
Update: Patient will require out patient dialysis schedule upon discharge.
--- NOTE | 2024-07-31 11:03 | PD.RESPRO ---
Documentation for date of: 07/31/24 Subjective Subjective Interval history: Interval history: Patient poor historian. Got information from chart review and his at bedside. Medical team at bedside. Ms. Leblanc is a 79-year-old gentleman with a past medical history significant for Alzheimer's dementia, coronary artery disease, congestive heart failure, peripheral vascular disease, hypertension, history of prostate cancer, diabetes, asthma has been residing at the [facility] transitional care was brought to the emergency department as he was noted to be short of breath and hypoxic with a low oxygenation. Patient was placed on oxygen mask. patient denied fever, chills, chest pain, nausea, vomiting, shortness of breath. However patient did endorse abdominal pain, was noted to have suprapubic mass/tenderness. In the emergency department Ruth catheter was placed with 1 L dark urine immediately drained. ED COURSE: Labs significant for: WBC 25, hemoglobin 14.7, BUN 79, creatinine 5.8, EGFR 9, lactic acid 4.9 up trended to 5.3. Magnesium 1.4. Troponin negative, CRP 2.4, Pro-Rey 0.63. BNP 167. Anion gap 23. ABG showed pH 7.29, pCO2 24, bicarb 12. Imaging significant for: CT A/P showing mild bilateral hydronephrosis, bladder distention. CTA chest with contrast showed no PE, showed vascular congestion, bilateral pneumonia. Patient received Lasix 40 x 1, nitroglycerin, Rocephin in the ED. Patient had decrease in blood pressure, received multiple small boluses due to concern for CHF with improvement in blood pressure. Nephrology was consulted for acute renal failure, need for dialysis. PMH: Alzheimer's dementia, coronary artery disease, CHF, PVD, hypertension, asthma, prostate cancer, diabetes PSH: Radical prostatectomy, left hip arthroplasty Allergies: Jardiance, penicillins Medications: Rehab medications-allopurinol, atorvastatin, duloxetine, Eliquis, Entresto, gabapentin, insulin, memantine, metformin, metoprolol succinate, midodrine, ropinirole, trospium 07/28/2024 patient currently seen medical floor. On nasal mask. at bedside. He has dementia and is unable to give me enough information. Denies any chest pain, nausea, vomiting. Complaining of shortness of breath 07/29/2024 patient currently seen in telemetry. On oxygen nasal cannula. Medications reviewed. Resting comfortably. Blood sugar 173. Blood pressure 138/68, heart rate 81. WBC 13.2, hemoglobin 10.7, platelets 108. ABG showing pH 7.41 [id number], pO2 69, bicarbonate 24. Sodium 144, potassium 3.6, bicarbonate 23.8, BUN 65, creatinine 5.6, GFR 10, lactic acid 3.8, calcium 8.3, phosphorus 6.3, LFTs normal, albumin 3.1. Chest x-ray done last evening showed that there is moderate vascular congestion. This morning patient received Lasix with good improvement in the urinary output. Will give another dose of Lasix at 4:00 today. Spoke to chief of internal medicine. 07/30/2024 patient currently seen during hemodialysis, resting comfortably, but somnolent, arousable on verbal stimulus, reported no acute symptoms. Net urine output -2500 overnight, after Lasix challenge yesterday, but noted worsening BUN and creatinine compared to yesterday. Continue with hemodialysis, likely ATN secondary to contrast-induced nephropathy. Recommend continuing Ruth's catheter to relieve obstructive symptoms, follow urology recommendations regarding Ruth's cath. Sodium 144, potassium 3.7, BUN 75, creatinine 6.6. 07/31/2024: Patient seen and examined at bedside this morning. No acute overnight events. Patient appears to be hard of hearing. Has excellent urine output, >2 L, therefore we will hold off on hemodialysis today. Vitals stable, labs reviewed. Leukocytosis resolved, hemoglobin improved to 12. CHEM panel showing improvement in renal function. Exam Vital Signs Temp Pulse Resp BP Pulse Ox O2 Del Method O2 Flow Rate 97.4 F 97 21 H 151/75 H 98 Nasal Cannula 1 07/31/24 08:00 07/31/24 08:00 07/31/24 08:00 07/31/24 08:00 07/31/24 08:00 07/31/24 08:00 07/31/24 08:00 Narrative Exam GENERAL APPEARANCE: Patient currently seen in dialysis. Right IJ Vas-Cath NECK: Neck supple, no JVD or bruit CARDIOVASCULAR: Heart regular, no murmurs LUNGS/CHEST: Chest clear to auscultation. No rales, rhonchi, wheezing ABDOMEN: Soft, nontender, nondistended. No masses. Normal bowel sounds. EXTREMITIES: No edema, clubbing or cyanosis. SKIN: Skin exam normal without any rashes. Right IJ Vas-Cath NEUROLOGICAL : Able to move his extremities, patient has memory lapses. Objective Labs 08/01/24 04:50 07/31/24 07:17 Labs: Laboratory Results - last 24 hr 07/31/24 07:17 WBC 10.3 RBC 4.27 L Hgb 12.0 L Hct 34.9 L MCV 82 MCH 28.1 MCHC 34.4 RDW Std Deviation 44.7 H Plt Count 153 Neut % (Auto) 75 Lymph % (Auto) 15 [place] % (Auto) 8 Eos % (Auto) 2 Baso % (Auto) 1 Neut # (Auto) 7.7 Lymph # (Auto) 1.5 [place] # (Auto) 0.8 Eos # (Auto) 0.2 Baso # (Auto) 0.1 Immature Gran # (Auto) 0.05 H Absolute Nucleated RBC 0.00 Immature Gran % 1 H Nucleated RBC % 0 Sodium 144 Potassium 3.4 Chloride 100 Carbon Dioxide 28.0 Anion Gap 16 BUN 47 H Creatinine 4.8 H* D Estim Creat Clear Calc 15.7 L eGFR 12 L* BUN/Creatinine Ratio 10 L Glucose 173 H Calculated Osmolality 303 H Calcium 8.1 L Corrected Calcium 8.3 L Phosphorus 3.8 Albumin 3.8 ABG Interpretation ABG results: 07/27/24 07/28/24 07/29/24 23:05 15:03 04:34 ABG pH 7.29 L 7.24 L 7.41 D ABG pCO2 24 L 28 L 37 ABG pO2 80 L 96 69 L D ABG HCO3 12 L 12 L 24 ABG O2 Saturation 95 97 95 ABG Base Excess -13 L -14 L -1 Quality Measures Quality Measures VTE prophylaxis Advance care planning discussed with:: patient Assessment & Plan Assessment Current Active Medications: Generic Name Dose Route Start Last Admin Trade Name Freq PRN Reason Stop Dose Admin Acetaminophen 650 mg 07/28/24 01:01 Acetaminophen 325 Mg Tablet PO 08/27/24 01:00 Q6H PRN Fever >100.4 or pain Albuterol/Ipratropium 3 ml 07/28/24 02:27 07/28/24 10:56 Albuterol/Ipratropium (Duoneb) Rt Ivanna 3 Ml Nebu INH 08/27/24 02:26 3 ml Q2HR PRN Administration SHORTNESS OF BREATH OR WHEEZE Allopurinol 100 mg 07/30/24 10:15 07/31/24 08:12 Allopurinol 100 Mg Tablet PO 08/29/24 10:14 100 mg QDAY CARLEEN Administration Apixaban 5 mg 07/31/24 11:00 Apixaban 2.5 Mg Tablet PO 08/30/24 10:59 BID CARLEEN Dextrose 25 ml 07/28/24 01:14 Dextrose 50%-Water Inj 50 Ml Syringe IV 08/27/24 01:13 Q15MIN PRN BG 50-70 responsive npo pt Dextrose 50 ml 07/28/24 01:14 Dextrose 50%-Water Inj 50 Ml Syringe IV 08/27/24 01:13 Q15MIN PRN BG <50 OR BG <70 & pt unresponsive Docusate Sodium 100 mg 07/28/24 01:01 07/31/24 08:23 Docusate Sod 100 Mg Capsule PO 08/27/24 01:00 100 mg QDAY PRN Administration CONSTIPATION Protocol Glucagon 1 mg 07/28/24 01:14 Glucagon Inj 1 Mg Vial IM Q15MIN PRN BG <70, and no IV access Heparin Sodium (Porcine) 2,600 unit 07/28/24 18:46 07/30/24 10:59 Heparin Sod Inj 1000 Unit/Ml Vial 10 Ml INDWELLCAT 08/11/24 18:45 2,600 unit X1 PRN Administration DIALYSIS Ceftriaxone Sodium/Dextrose 1 gm in 50 mls @ 100 mls/hr 07/28/24 09:30 07/31/24 08:12 Rocephin/D5w 1gm Iv Premix IV 08/04/24 08:59 100 mls/hr QDAY CARLEEN Administration Albumin Human 25 gm in 100 mls @ 100 mls/min 07/28/24 18:46 07/28/24 18:50 Albuminar-25 Ivpb IV 100 mls/min PRN PRN Administration DIALYSIS Insulin Human Lispro 0 unit 07/30/24 17:00 07/31/24 07:22 Insulin Lispro (Admelog) 1 Unit/0.01 Ml Unit SC 08/29/24 16:59 2 unit ACHS CARLEEN Administration Protocol Ondansetron HCl 4 mg 07/28/24 01:01 Ondansetron Inj 2 Mg/Ml Inj 2 Ml IVP 08/27/24 01:00 Q6H PRN NAUSEA OR VOMITING Protocol Pantoprazole Sodium 40 mg 07/31/24 09:00 07/31/24 08:12 Pantoprazole 40 Mg Tablet PO 08/30/24 08:59 40 mg QDAY CARLEEN Administration Protocol Pharmacy Consult 1 each 07/28/24 01:06 Pharmacy Renal Dose Adjustment 1 Ea XX 08/27/24 01:05 PRN PRN CONSULT Sennosides 1 tab 07/30/24 11:00 07/31/24 08:13 Senna Tablet PO 08/29/24 10:59 1 tab QDAY CARLEEN Administration Protocol Sodium Chloride 3 ml 07/28/24 14:54 07/28/24 15:51 Sodium Chloride Rt Ivanna 0.9% 3 Ml Nebu INH 08/27/24 14:53 3 ml PRN PRN Administration SOLN Plan #Acute renal failure #ATN versus obstructive uropathy Dialysis catheter placed, renal function improving Excellent urine output, >2L Continue Ruth for possible obstruction Urology consulted Hepatitis panel negative, PPD pending read #Acute hypoxic respiratory failure, likely secondary to CAP Continue antibiotics as per primary team Wean O2 as tolerated #Electrolyte abn Replete as needed #h/o TAVR Cardio following, consider resuming home AC #H/o T2DM SSI, accuchecks Patient seen and care discussed with my attending Dr. Meyers. Dre Garcia MD PGY-3 Attending Provider Attestation/Addendum Patient seen and examined with resident physician Dr. Garcia. Note reviewed, agree with findings and recommendations. Making good urine- Patient in ATN- polyuric phase. Hope will have renal recovery. If no improvement-- Patient needs outpatient dialysis arrangements. PPD neg. S/p RIJ PermCath. Currently seems to be in [place]/ATN Pending [facility] consultation regarding his urethral sphincter and need for intermittent cath/Ruth. Next HD in am pending labs. still with confusion/ dementia.
[2024-07-31] MEDS: CALCIUM CARBONATE 600 MG TABLET PO (11:37)
[2024-07-31] MEDS: APIXABAN 2.5 MG TABLET 5 MG PO ×2 (11:37→20:31)
--- NOTE | 2024-07-31 14:21 | ESPR_ITS ---
<Statement entered by Felicia Dowell MD - 07/31/24 16:20> Patient was seen and examined by me personally. I have directly supervised and reviewed documentation by the team resident and agree with its findings with any exceptions or additional findings as below. Plan of care was discussed with the attending, Dr. Estevez. Felicia Dowell, PGY-2 Documentation for date of: 07/31/24 Subjective Subjective Interval history: No acute overnight events reported. Patient seen and examined at bedside side this morning. Patient is alert and oriented x 3. Patient is complaining of pain in his buttocks but denies any chest pain palpitation or shortness of breath. Patient is currently saturating on room air blood pressure is stable. Patient is BUN is downtrending 47 creatinine is 4.8 and GFR is 12. Patient will undergo dialysis tomorrow. Due to softer blood pressure we will continue to hold patient's Entresto and resume when able. Per chart review being patient has history of A-fib rate controlled therefore will resume patient's home Eliquis. Patient had 1200 cc of urine output without diuretics. Clinically patient is exhibiting signs of movement will continue to monitor. Patient has no other complaints. Exam Vital Signs Temp Pulse Resp BP Pulse Ox O2 Del Method O2 Flow Rate 97.2 F 85 21 H 125/47 L 93 L Nasal Cannula 1 07/31/24 12:00 07/31/24 12:07/31/24 12:07/31/24 12:00 07/31/24 12:00 07/31/24 12:00 07/31/24 12:00 Narrative Exam GENERAL: Elderly male, saturating on room air, not in acute distress NEURO: no focal motor or sensory neurological deficits noted, Pt has hx of Alzheimer therefore unable to asses remainder HEENT: Atraumatic, Normocephalic. mucous membranes moist. Eyes open, symmetrical, & clear HEART: no murmurs heard, WIPING RAG WASHER-D device on L upper chest LUNGS: Clear to auscultation with no wheezing or crackles. ABDOMEN: soft, non-distended, non-tender, bowel sounds heard, no guarding or rebound tenderness SKIN: No Rash or ecchymoses EXTREMITIES: No edema, tenderness, able to move all 4 extremities, pedal pulses palpated Objective Labs 07/31/24 07:17 07/31/24 07:17 Labs: Laboratory Results - last 24 hr 07/31/24 07:17 WBC 10.3 RBC 4.27 L Hgb 12.0 L Hct 34.9 L MCV 82 MCH 28.1 MCHC 34.4 RDW Std Deviation 44.7 H Plt Count 153 Neut % (Auto) 75 Lymph % (Auto) 15 [place] % (Auto) 8 Eos % (Auto) 2 Baso % (Auto) 1 Neut # (Auto) 7.7 Lymph # (Auto) 1.5 [place] # (Auto) 0.8 Eos # (Auto) 0.2 Baso # (Auto) 0.1 Immature Gran # (Auto) 0.05 H Absolute Nucleated RBC 0.00 Immature Gran % 1 H Nucleated RBC % 0 Sodium 144 Potassium 3.4 Chloride 100 Carbon Dioxide 28.0 Anion Gap 16 BUN 47 H Creatinine 4.8 H* D Estim Creat Clear Calc 15.7 L eGFR 12 L* BUN/Creatinine Ratio 10 L Glucose 173 H Calculated Osmolality 303 H Calcium 8.1 L Corrected Calcium 8.3 L Phosphorus 3.8 Albumin 3.8 ABG Interpretation ABG results: 07/27/24 07/28/24 07/29/24 23:05 15:03 04:34 ABG pH 7.29 L 7.24 L 7.41 D ABG pCO2 24 L 28 L 37 ABG pO2 80 L 96 69 L D ABG HCO3 12 L 12 L 24 ABG O2 Saturation 95 97 95 ABG Base Excess -13 L -14 L -1 Quality Measures Quality Measures VTE prophylaxis Advance care planning discussed with:: other Assessment & Plan Assessment Current Active Medications: Generic Name Dose Route Start Last Admin Trade Name Freq PRN Reason Stop Dose Admin Acetaminophen 650 mg 07/28/24 01:01 Acetaminophen 325 Mg Tablet PO 08/27/24 01:00 Q6H PRN Fever >100.4 or pain Albuterol/Ipratropium 3 ml 07/28/24 02:27 07/28/24 10:56 Albuterol/Ipratropium (Duoneb) Rt Ivanna 3 Ml Nebu INH 08/27/24 02:26 3 ml Q2HR PRN Administration SHORTNESS OF BREATH OR WHEEZE Allopurinol 100 mg 07/30/24 10:15 07/31/24 08:12 Allopurinol 100 Mg Tablet PO 08/29/24 10:14 100 mg QDAY CARLEEN Administration Apixaban 5 mg 07/31/24 11:00 07/31/24 11:37 Apixaban 2.5 Mg Tablet PO 08/30/24 10:59 5 mg BID CARLEEN Administration Atorvastatin Calcium 80 mg 07/31/24 21:00 Atorvastatin Calcium 20 Mg Tablet PO 08/30/24 20:59 HS CARLEEN Dextrose 25 ml 07/28/24 01:14 Dextrose 50%-Water Inj 50 Ml Syringe IV 08/27/24 01:13 Q15MIN PRN BG 50-70 responsive npo pt Dextrose 50 ml 07/28/24 01:14 Dextrose 50%-Water Inj 50 Ml Syringe IV 08/27/24 01:13 Q15MIN PRN BG <50 OR BG <70 & pt unresponsive Docusate Sodium 100 mg 07/28/24 01:01 07/31/24 08:23 Docusate Sod 100 Mg Capsule PO 08/27/24 01:00 100 mg QDAY PRN Administration CONSTIPATION Protocol Glucagon 1 mg 07/28/24 01:14 Glucagon Inj 1 Mg Vial IM Q15MIN PRN BG <70, and no IV access Heparin Sodium (Porcine) 2,600 unit 07/28/24 18:46 07/30/24 10:59 Heparin Sod Inj 1000 Unit/Ml Vial 10 Ml INDWELLCAT 08/11/24 18:45 2,600 unit X1 PRN Administration DIALYSIS Ceftriaxone Sodium/Dextrose 1 gm in 50 mls @ 100 mls/hr 07/28/24 09:30 07/31/24 08:12 Rocephin/D5w 1gm Iv Premix IV 08/04/24 08:59 100 mls/hr QDAY CARLEEN Administration Albumin Human 25 gm in 100 mls @ 100 mls/min 07/28/24 18:46 07/28/24 18:50 Albuminar-25 Ivpb IV 100 mls/min PRN PRN Administration DIALYSIS Insulin Human Lispro 0 unit 07/30/24 17:00 07/31/24 11:44 Insulin Lispro (Admelog) 1 Unit/0.01 Ml Unit SC 08/29/24 16:59 3 unit ACHS CARLEEN Administration Protocol Memantine 5 mg 07/31/24 14:00 Memantine Hcl 5 Mg Tablet PO 08/30/24 13:59 BID CARLEEN Ondansetron HCl 4 mg 07/28/24 01:01 Ondansetron Inj 2 Mg/Ml Inj 2 Ml IVP 08/27/24 01:00 Q6H PRN NAUSEA OR VOMITING Protocol Pantoprazole Sodium 40 mg 07/31/24 09:00 07/31/24 08:12 Pantoprazole 40 Mg Tablet PO 08/30/24 08:59 40 mg QDAY CARLEEN Administration Protocol Pharmacy Consult 1 each 07/28/24 01:06 Pharmacy Renal Dose Adjustment 1 Ea XX 08/27/24 01:05 PRN PRN CONSULT Ropinirole HCl 0.5 mg 07/31/24 14:00 Ropinirole Hcl 0.25 Mg Tablet PO 08/30/24 13:59 QDAY CARLEEN Sennosides 1 tab 07/30/24 11:00 07/31/24 08:13 Senna Tablet PO 08/29/24 10:59 1 tab QDAY CARLEEN Administration Protocol Sodium Chloride 3 ml 07/28/24 14:54 07/28/24 15:51 Sodium Chloride Rt Ivanna 0.9% 3 Ml Nebu INH 08/27/24 14:53 3 ml PRN PRN Administration SOLN Plan Mr. Noriega is a 79 y/o M with PMHx significant for Alzheimer's dementia, CAD, CHF, PVD, hypertension, asthma, prostate cancer, diabetes presents from skilled nursing with chief complaint of hypoxia, admitted for acute renal failure. #ATN most likely #Acute renal failure 2/2 #obstructive uropathy and contrast nephropathy #High anion gap metabolic acidosis with respiratory alkalosis- resolved #Lactic acidosis- improved #Electrolyte abnormalities Multifactorial for renal failure including urinary retention, receiving contrast from CTA, infectious (ATN) Patient could have had urinary retention 4 days now and could have continued to take metformin which could have precipitated worsening lactic acidosis BUN/creatinine of 84 and 6.6 respectively, potassium 5.6, bicarb 13, GFR 8, phosphorus 10.2, calcium 7.8 Patient has multiple electrolyte derangements Was giving patient bicarb drip per nephrology recommendations, however based on repeat renal panel patient will need dialysis that may be temporary or permanent There was concern for patient not being able to have Tse, however we spoke with Dr. Funes who had said it is okay for patient to have Tse in acute renal failure and urinary retention Plan: - Nephrology consulted and following ? Urology consulted, appreciate recs regarding tse catheter that was placed during hospitalization. ? Temporary dialysis catheter try flow placed on 07/28 by ICU team and pt had a session of dialysis - Permanent dialysis cath placed on 07/30, pending outpatient dialysis chair ? Pt was started on bicarb drip for metabolic acidosis which has since resolved and discontinued the bicarb drip - Trend lactate q6h - Renally dose meds and avoid nephrotoxins - Strict I's and O's - Daily renal function ? Insulin 5 units IV, Xopenex 1.25 mg x 1, D50 100 mL x 1, D50 50 mg x 1 - Trial of lasix 40mg BID given to measure urinary output on 07/29 #Acute hypoxic respiratory failure, improving #Community-acquired pneumonia #Hx of Asthma Patient presented with complaint of hypoxia, saturation as low as 80% at the SNF. Patient needing nonrebreather, at time exam had been titrated down to 4 L via nonrebreather, saturating 95% and above. Will maintain nonrebreather because patient is a mouth breather. CTA chest showed bilateral pneumonia. On exam bibasilar rhonchi. Patient has history of asthma. Patient denies shortness of breath, cough, chest pain, fever, chills Plan: - Rocephin 1 g IV daily (started 07/27- 07/31) - DuoNebs as needed ? Wean down oxygen as tolerated #Hx of HFrEF with EF 40-45% #Hx of Defibrillator #S/p transcutaneous aortic valve replacement -Patient underwent ICD, WIPING RAG WASHER, cardiac resynchronization therapy, defibrillator [place] [address] Eason Plan: ? Echo completed on 07/28 - Strict I's and O's -Will hold pt's home medications (Entresto and metoprolol) due to soft blood pressure and acute renal failure. will resume when able - Tennis Coach Dr. Eason is consulted, and following the case #Insulin dependent type 2 Diabetes A1c 7.5 on admission Plan: ? Sliding scale insulin ? Hypoglycemic protocol in place ? Blood sugar checks with meals -Will discontinue pt's home metformin on discharge due to pt's ARF #Hx. of A-fib -Per chart review of junior manufacturing engineer notes, Pt has history of a -fib and has been rate controlled and on anticoagulation since 2022, therefore will resume Pt's home eliquis. #Hx of HTN #Hx of CAD #Hx of PVD #Hx of Alzheimer's dementia -On admission Pt's BP is within normal limits, therefore will hold resuming antihypertensives -Resumed pt's home atorvastatin and memantine #Health Maintenance Disposition: Telemetry DVT prophylaxis: SCDs, pt's home eliquis is resumed GI prophylaxis: Protonix Diet: Cardiac diet resumed CODE STATUS: Full Assessment and plan discussed with my senior resident Dr. Dowell & attending physician Dr. Zenaida oG (PGY-1)- Internal medicine resident Attending Provider Attestation/Addendum I attest that I was physically present for the evaluation, physical examination, lab and imaging review of the patient with the residents. I discussed the case with the residents and agree with the findings and plans of care as documented above. At bedside today, patient appears comfortable, complains of pain around his buttock but denies any other complaints. Patient underwent hemodialysis yesterday, nephrology following closely, appreciate recommendations. Continues to have good urinary output. Patient found to have history of A-fib, we will resume his Eliquis. Also resumed his home memantine, ropinirole. Blood pressure is soft this afternoon, we will monitor closely and resume his antihypertensives slowly. Patient had urinary retention on presentation, awaiting urology recommendation. Margaret Estevez MD
--- NOTE | 2024-07-31 14:32 | PC.SS ---
Rounding Note: Patient will require outpatient dialysis schedule. PT evaluation is pending.
[2024-07-31] MEDS: rOPINIRole HCL 0.25 MG TABLET 0.5 MG PO (16:38)
[2024-07-31] MEDS: MEMANTINE HCL 5 MG TABLET PO ×2 (16:38→20:31)
[2024-07-31] MEDS: ATORVASTATIN CALCIUM 20 MG TABLET 80 MG PO (20:30)
[2024-08-01] VITALS (9 sets, daily range): BP systolic 110–172; BP diastolic 74–91; PULSE 83–121; RESP 14–24; TEMP 36.1–36.6; O2SAT 92–97; BMI 12.0
--- NOTE | 2024-08-01 02:34 | ESPR_ITS ---
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 He is getting dialysis. Renal function is slightly improving since the dialysis is being performed. Clinically, he is feeling better. Not complaining of any chest pain or shortness of breath. Still somewhat confused. OBJECTIVE: Vital Signs: Blood pressure 160/70, pulse rate is 80, respirations 18, temperature normal. Neck: Supple. No JVD. Lungs: Decreased breath sounds. No rales or rhonchi. Heart: S1, S2 regular, distant. Abdomen: Thin and soft. Extremities: No edema. Genitourinary and Rectal: Not performed. LABORATORY DATA: White count has come down to normal, 10,000. Chemistry panel showed creatinine of 4.8, coming down; the BUN is 47. Creatinine clearance is 12. The patient did have urine output with the diuretics as well, which is a good sign. The patient does have a history of atrial fibrillation , rate controlled well. The patient has atrial fibrillation, that is why he has been on Eliquis. IMPRESSION: 1. Acute renal failure, improving gradually, possibly due to a combination of obstructive uropathy. 2. Atrial fibrillation. 3. Congestive heart failure, well compensated. Cardiac resynchronization therapy defibrillator implantation in situ. 4. Status post transcutaneous aortic valve replacement. RECOMMENDATIONS: Recommended to continue Eliquis at 2.5 mg dosage twice daily because of renal insufficiency for now. When the renal function becomes normal, we will go back to 5 mg dosage. The patient is also receiving antibiotic therapy. From a cardiovascular point of view, he continues to be stable. No evidence of volume overload or heart failure at this point. DT: 23:41:54 TT: 00:07:00 Ref: [id number] - TID: [id number]
[2024-08-01 05:36] LABS: Basophils # (Auto) 0.1 Thou/mm3 (0.0-0.2); Basophils % (Auto) 1 % (0-2.5); Eosinophils # (Auto) 0.4 Thou/mm3 (0.0-0.5); Eosinophils % (Auto) 3 % (0-10); Hematocrit 34.5 % (41.0-53.0); Hemoglobin 11.7 g/dL (13.5-16.0); Immature Granulocytes % (Auto) 1 % (0-0); Immature Granulocytes Auto 0.08 Thou/mm3 (0.00-0.00); Lymphocytes # (Auto) 1.8 Thou/mm3 (1.0-4.8); Lymphocytes % (Auto) 16 % (10-50); Mean Corpuscular HGB Conc 33.9 g/dl (31.0-37.0); Mean Corpuscular Hemoglobin 28.2 pg (25.0-35.0); Mean Corpuscular Volume 83 fL (80-100); Monocytes # (Auto) 0.9 Thou/mm3 (0.0-0.8); Monocytes % (Auto) 8 % (0-12); Neutrophils # (Auto) 8.1 Thou/mm3 (1.8-7.7); Neutrophils % (Auto) 71 % (37-80); Nucleated Red Blood Cell % 0 /100 WBC (0); Platelet Count 179 Thou/mm3 (140-440); RDW Standard Deviation 45.7 fL (35.1-43.9); Red Blood Count 4.15 Miln/mm3 (4.50-5.90); White Blood Count 11.3 Thou/mm3 (3.8-10.6)
[2024-08-01 06:37] LABS: Alanine Aminotransferase 8 U/L (10-49); Albumin, Serum 3.8 gm/dL (3.4-4.8); Albumin/Globulin Ratio 1.6 (1.2-2.2); Alkaline Phosphatase 99 U/L (46-116); Anion Gap 17 (7-16); Aspartate Amino Transferase 15 U/L (0-34); BUN/Creatinine Ratio 11 Ratio (12-20); Bilirubin,Total 0.5 mg/dL (0.3-1.2); Blood Urea Nitrogen 48 mg/dL (9-23); Calcium 8.2 mg/dL (8.3-10.6); Calcium (Corrected) 8.4 mg/dL (8.5-10.1); Carbon Dioxide 26.9 mMol/L (20.0-31.0); Chloride 101 mMol/L (98-107); Creatinine (Component) 4.2 mg/dL (0.6-1.3); Estimated Creatinine Clearance 18.1 mL/min (>60); Globulin 2.4 gm/dL (2.3-3.5); Glucose 185 mg/dL (74-106); Magnesium 1.6 mg/dL (1.6-2.6); Osmolality,Calculated 306 (275-295); Sodium 145 mMol/L (136-145); Total Protein 6.2 gm/dL (5.7-8.2); eGFR 14 See Note
--- NOTE | 2024-08-01 07:09 | PD.RESPRO ---
Documentation for date of: 08/01/24 Subjective Subjective Interval history: Interval history: Patient poor historian. Got information from chart review and his at bedside. Medical team at bedside. Ms. Leblanc is a 79-year-old gentleman with a past medical history significant for Alzheimer's dementia, coronary artery disease, congestive heart failure, peripheral vascular disease, hypertension, history of prostate cancer, diabetes, asthma has been residing at the [facility] transitional care was brought to the emergency department as he was noted to be short of breath and hypoxic with a low oxygenation. Patient was placed on oxygen mask. patient denied fever, chills, chest pain, nausea, vomiting, shortness of breath. However patient did endorse abdominal pain, was noted to have suprapubic mass/tenderness. In the emergency department Ruth catheter was placed with 1 L dark urine immediately drained. ED COURSE: Labs significant for: WBC 25, hemoglobin 14.7, BUN 79, creatinine 5.8, EGFR 9, lactic acid 4.9 up trended to 5.3. Magnesium 1.4. Troponin negative, CRP 2.4, Pro-Rey 0.63. BNP 167. Anion gap 23. ABG showed pH 7.29, pCO2 24, bicarb 12. Imaging significant for: CT A/P showing mild bilateral hydronephrosis, bladder distention. CTA chest with contrast showed no PE, showed vascular congestion, bilateral pneumonia. Patient received Lasix 40 x 1, nitroglycerin, Rocephin in the ED. Patient had decrease in blood pressure, received multiple small boluses due to concern for CHF with improvement in blood pressure. Nephrology was consulted for acute renal failure, need for dialysis. PMH: Alzheimer's dementia, coronary artery disease, CHF, PVD, hypertension, asthma, prostate cancer, diabetes PSH: Radical prostatectomy, left hip arthroplasty Allergies: Jardiance, penicillins Medications: Rehab medications-allopurinol, atorvastatin, duloxetine, Eliquis, Entresto, gabapentin, insulin, memantine, metformin, metoprolol succinate, midodrine, ropinirole, trospium 07/28/2024 patient currently seen medical floor. On nasal mask. at bedside. He has dementia and is unable to give me enough information. Denies any chest pain, nausea, vomiting. Complaining of shortness of breath 07/29/2024 patient currently seen in telemetry. On oxygen nasal cannula. Medications reviewed. Resting comfortably. Blood sugar 173. Blood pressure 138/68, heart rate 81. WBC 13.2, hemoglobin 10.7, platelets 108. ABG showing pH 7.41 [id number], pO2 69, bicarbonate 24. Sodium 144, potassium 3.6, bicarbonate 23.8, BUN 65, creatinine 5.6, GFR 10, lactic acid 3.8, calcium 8.3, phosphorus 6.3, LFTs normal, albumin 3.1. Chest x-ray done last evening showed that there is moderate vascular congestion. This morning patient received Lasix with good improvement in the urinary output. Will give another dose of Lasix at 4:00 today. Spoke to program management intern. 07/30/2024 patient currently seen during hemodialysis, resting comfortably, but somnolent, arousable on verbal stimulus, reported no acute symptoms. Net urine output -2500 overnight, after Lasix challenge yesterday, but noted worsening BUN and creatinine compared to yesterday. Continue with hemodialysis, likely ATN secondary to contrast-induced nephropathy. Recommend continuing Ruth's catheter to relieve obstructive symptoms, follow urology recommendations regarding Ruth's cath. Sodium 144, potassium 3.7, BUN 75, creatinine 6.6. 07/31/2024: Patient seen and examined at bedside this morning. No acute overnight events. Patient appears to be hard of hearing. Has excellent urine output, >2 L, therefore we will hold off on hemodialysis today. Vitals stable, labs reviewed. Leukocytosis resolved, hemoglobin improved to 12. CHEM panel showing improvement in renal function. 08/01/2024: Patient seen and examined at bedside. No acute overnight events. Vitals stable, labs reviewed. Potassium 3.0, Creatinine improving to 4.2. Patient appears to be in diuretic/polyuric phase of ATN and had 1.8L urine output. He clinically appears dry therefore will give 1L half NS. Continue to monitor urine output and renal function. Exam Vital Signs Temp Pulse Resp BP Pulse Ox O2 Del Method O2 Flow Rate 97.2 F 95 19 162/78 H 93 L Nasal Cannula 1 08/01/24 04:00 08/01/24 04:00 08/01/24 04:00 08/01/24 04:00 08/01/24 04:00 08/01/24 04:00 08/01/24 04:00 Narrative Exam GENERAL APPEARANCE: Right IJ Vas-Cath NECK: Neck supple, no JVD or bruit CARDIOVASCULAR: Heart regular, no murmurs LUNGS/CHEST: Chest clear to auscultation. No rales, rhonchi, wheezing ABDOMEN: Soft, nontender, nondistended. No masses. Normal bowel sounds. EXTREMITIES: No edema, clubbing or cyanosis. SKIN: Skin exam normal without any rashes. NEUROLOGICAL : Able to move his extremities, patient has memory lapses Objective Labs 08/01/24 04:50 08/01/24 04:50 Labs: Laboratory Results - last 24 hr 07/31/24 08/01/24 07:17 04:50 WBC 10.3 11.3 H RBC 4.27 L 4.15 L Hgb 12.0 L 11.7 L Hct 34.9 L 34.5 L MCV 82 83 MCH 28.1 28.2 MCHC 34.4 33.9 RDW Std Deviation 44.7 H 45.7 H Plt Count 153 179 Neut % (Auto) 75 71 Lymph % (Auto) 15 16 Dillon % (Auto) 8 8 Eos % (Auto) 2 3 Baso % (Auto) 1 1 Neut # (Auto) 7.7 8.1 H Lymph # (Auto) 1.5 1.8 Dillon # (Auto) 0.8 0.9 H Eos # (Auto) 0.2 0.4 Baso # (Auto) 0.1 0.1 Immature Gran # (Auto) 0.05 H 0.08 H Absolute Nucleated RBC 0.00 0.00 Immature Gran % 1 H 1 H Nucleated RBC % 0 0 Sodium 144 145 Potassium 3.4 3.0 L Chloride 100 101 Carbon Dioxide 28.0 26.9 Anion Gap 16 17 H BUN 47 H 48 H Creatinine 4.8 H* D 4.2 H* D Estim Creat Clear Calc 15.7 L 18.1 L eGFR 12 L* 14 L* BUN/Creatinine Ratio 10 L 11 L Glucose 173 H 185 H Calculated Osmolality 303 H 306 H Calcium 8.1 L 8.2 L Corrected Calcium 8.3 L 8.4 L Phosphorus 3.8 Magnesium 1.6 Total Bilirubin 0.5 AST 15 ALT 8 L Alkaline Phosphatase 99 Total Protein 6.2 Albumin 3.8 3.8 Globulin 2.4 Albumin/Globulin Ratio 1.6 ABG Interpretation ABG results: 07/27/24 07/28/24 07/29/24 23:05 15:03 04:34 ABG pH 7.29 L 7.24 L 7.41 D ABG pCO2 24 L 28 L 37 ABG pO2 80 L 96 69 L D ABG HCO3 12 L 12 L 24 ABG O2 Saturation 95 97 95 ABG Base Excess -13 L -14 L -1 Quality Measures Quality Measures VTE prophylaxis Advance care planning discussed with:: patient Assessment & Plan Assessment Current Active Medications: Generic Name Dose Route Start Last Admin Trade Name Freq PRN Reason Stop Dose Admin Acetaminophen 650 mg 07/28/24 01:01 Acetaminophen 325 Mg Tablet PO 08/27/24 01:00 Q6H PRN Fever >100.4 or pain Albuterol/Ipratropium 3 ml 07/28/24 02:27 07/28/24 10:56 Albuterol/Ipratropium (Duoneb) Rt Ivanna 3 Ml Nebu INH 08/27/24 02:26 3 ml Q2HR PRN Administration SHORTNESS OF BREATH OR WHEEZE Allopurinol 100 mg 07/30/24 10:15 07/31/24 08:12 Allopurinol 100 Mg Tablet PO 08/29/24 10:14 100 mg QDAY CARLEEN Administration Apixaban 2.5 mg 08/01/24 09:00 Apixaban 2.5 Mg Tablet PO 08/31/24 08:59 BID CARLEEN Atorvastatin Calcium 80 mg 07/31/24 21:00 07/31/24 20:30 Atorvastatin Calcium 20 Mg Tablet PO 08/30/24 20:59 80 mg HS CARLEEN Administration Dextrose 25 ml 07/28/24 01:14 Dextrose 50%-Water Inj 50 Ml Syringe IV 08/27/24 01:13 Q15MIN PRN BG 50-70 responsive npo pt Dextrose 50 ml 07/28/24 01:14 Dextrose 50%-Water Inj 50 Ml Syringe IV 08/27/24 01:13 Q15MIN PRN BG <50 OR BG <70 & pt unresponsive Docusate Sodium 100 mg 07/28/24 01:01 07/31/24 08:23 Docusate Sod 100 Mg Capsule PO 08/27/24 01:00 100 mg QDAY PRN Administration CONSTIPATION Protocol Glucagon 1 mg 07/28/24 01:14 Glucagon Inj 1 Mg Vial IM Q15MIN PRN BG <70, and no IV access Heparin Sodium (Porcine) 2,600 unit 07/28/24 18:46 07/30/24 10:59 Heparin Sod Inj 1000 Unit/Ml Vial 10 Ml INDWELLCAT 08/11/24 18:45 2,600 unit X1 PRN Administration DIALYSIS Ceftriaxone Sodium/Dextrose 1 gm in 50 mls @ 100 mls/hr 07/28/24 09:30 07/31/24 19:12 Rocephin/D5w 1gm Iv Premix IV 08/04/24 08:59 Infused QDAY CARLEEN Infusion Albumin Human 25 gm in 100 mls @ 100 mls/min 07/28/24 18:46 07/31/24 19:13 Albuminar-25 Ivpb IV Infused PRN PRN Infusion DIALYSIS Insulin Human Lispro 0 unit 07/30/24 17:00 07/31/24 20:31 Insulin Lispro (Admelog) 1 Unit/0.01 Ml Unit SC 08/29/24 16:59 3 unit ACHS CARLEEN Administration Protocol Memantine 5 mg 07/31/24 14:00 07/31/24 20:31 Memantine Hcl 5 Mg Tablet PO 08/30/24 13:59 5 mg BID CARLEEN Administration Ondansetron HCl 4 mg 07/28/24 01:01 Ondansetron Inj 2 Mg/Ml Inj 2 Ml IVP 08/27/24 01:00 Q6H PRN NAUSEA OR VOMITING Protocol Pantoprazole Sodium 40 mg 07/31/24 09:00 07/31/24 08:12 Pantoprazole 40 Mg Tablet PO 08/30/24 08:59 40 mg QDAY CARLEEN Administration Protocol Pharmacy Consult 1 each 07/28/24 01:06 Pharmacy Renal Dose Adjustment 1 Ea XX 08/27/24 01:05 PRN PRN CONSULT Ropinirole HCl 0.5 mg 07/31/24 14:00 07/31/24 16:38 Ropinirole Hcl 0.25 Mg Tablet PO 08/30/24 13:59 0.5 mg QDAY CARLEEN Administration Sennosides 1 tab 07/30/24 11:00 07/31/24 08:13 Senna Tablet PO 08/29/24 10:59 1 tab QDAY CARLEEN Administration Protocol Sodium Chloride 3 ml 07/28/24 14:54 07/28/24 15:51 Sodium Chloride Rt Ivanna 0.9% 3 Ml Nebu INH 08/27/24 14:53 3 ml PRN PRN Administration SOLN Plan #Acute renal failure #ATN versus obstructive uropathy Dialysis catheter placed, renal function improving--no need for dialysis today. Excellent urine output, 1.8L Continue Ruth for possible obstruction Urology consulted, recommendation made to continue Ruth and change in 1 month Hepatitis panel negative, PPD negative => kidneys appear to be recovering 1L half NS ordered #Acute hypoxic respiratory failure, likely secondary to CAP Continue antibiotics as per primary team Wean O2 as tolerated #Electrolyte abn Replete as needed #h/o TAVR Cardio following, consider resuming home AC #H/o T2DM SSI, accuchecks Patient seen and care discussed with my attending Dr. Meyers. Dre Garcia MD PGY-3 Attending Provider Attestation/Addendum Patient seen and examined with resident physician Dr. Garcia. Note reviewed, agree with findings and recommendations. Patient still having memory lapses from the dementia. However he needs more than 1.8 L of urine. Suspect patient in polyuric phase of ATN. Hold off on dialysis today. If clinically stable and the creatinine improving will plan for discharging in a.m. after dialysis catheter is removed. Plan of care discussed with primary team. Gentle IV fluids given as patient seems to be clinically dehydrated.
--- NOTE | 2024-08-01 07:21 | UCCONSULT_ITS ---
RE: IVAN GARCÍA : 1945 DATE OF CONSULTATION: 07/31/2024 CHIEF COMPLAINT: 1. Acute renal failure. 2. Acute hypoxic respiratory failure, resolved. 3. Community acquired pneumonia. 4. Congestive heart failure. 5. Diabetes by history. 6. Hypertension. 7. Coronary artery disease. 8. Alzheimer's dementia. 9. Prostate cancer status post robotic assisted radical prostatectomy, bilateral pelvic lymph node dissection. 10. Had urinary incontinence, had placement of AUS. Because of dementia, the patient is unable to open and close it. 11. Urinary retention, leading to acute kidney injury. HISTORY OF PRESENT ILLNESS: This is a 79-year-old gentleman. He has past medical history significant for Alzheimer's dementia, coronary artery disease, congestive heart failure. In the past, the patient was diagnosed with prostate cancer, had robotic-assisted radical prostatectomy and bilateral pelvic lymph node dissection. Subsequently, he had urinary incontinence, had placement of artificial urinary sphincter. The patient did well, but because of dementia, he is unable to open the valve of the AUS. The patient went into urinary retention and went to the emergency room. He had placement of a Ruth catheter with large residual urine. I reviewed his notes and in the ED course, WBC is 25, hemoglobin is 14.7, BUN is 79, creatinine is 5.8, GFR is 9, lactic acid is 4.9. CT scan showed mild bilateral hydronephrosis, bladder distention, bilateral pneumonia. Past medical history, family history, review of the system, and personal history, please refer to patient's history form dated 07/28/2024. REVIEW OF SYSTEMS: All system reviewed, normal except as documented. PHYSICAL EXAMINATION: General condition is satisfactory. The patient is not in acute distress. He is lying comfortably on the bed. His temperature is 98.9 Fahrenheit, pulse 71, respirations 21, blood pressure 91/39, and he is being followed by production pattern maker and hospitalist, pulse oximetry is 93. RECOMMENDATION: I talked to the patient and he was able to understand and his and daughter. Recommendation at this time is to continue with catheter drainage and leave the catheter for a month and then replacement of the catheter. It can be done by visiting nurse if possible. If not, then I will change his catheter. I am afraid because of his dementia, he is unable to manipulate AUS. He may be a catheter dependent. All above issues were discussed with the patient and his and daughter in detail. I answered their questions to their satisfaction. DT: 15:13:50 TT: 22:41:00 Ref: [id number] - TID: [id number]
[2024-08-01] MEDS: INSULIN LISPRO (AdmeLOG) 1 UNIT/0.01 ML UNIT SC ×4 (08:09→20:43)
[2024-08-01] MEDS: cefTRIAXone/D5w 1gm IV premix 1 GM/50 ML BAG IV (09:52)
[2024-08-01] MEDS: rOPINIRole HCL 0.25 MG TABLET 0.5 MG PO (10:04)
[2024-08-01] MEDS: PANTOPRAZOLE 40 MG TABLET PO (10:04)
[2024-08-01] MEDS: APIXABAN 2.5 MG TABLET PO ×2 (10:04→20:36)
[2024-08-01] MEDS: MEMANTINE HCL 5 MG TABLET PO ×2 (10:04→20:35)
[2024-08-01] MEDS: SENNA TABLET 1 TAB PO (10:04)
[2024-08-01] MEDS: allopurinoL 100 MG TABLET PO (10:04)
--- NOTE | 2024-08-01 10:11 | XR_ITS ---
Examination: Video esophagram Modified barium swallow Fluoroscopy 59 spot fluoroscopic films of the soft tissue lateral neck with the patient's swallowing Date and time: August 01, 2024 1103 hours INDICATIONS: Coughing with eating months TECHNIQUE AND FINDINGS: Patient swallowed multiple barium mixtures including thin barium, nectar, pudding barium Pharyngeal dysmotility Prominent pooling in the vallecular region Silent aspiration with thin barium administration Fluoroscopy 30 seconds 59 spot fluoroscopic films soft tissue neck IMPRESSION: Silent aspiration with thin barium administration
[2024-08-01] MEDS: SODIUM CHLORIDE 0.45 % 1,000 ML 100 ML IV (10:19)
[2024-08-01] MEDS: Magnesium Sulfate 4 GM Ivpb 4 GM/50 ML BAG IV (10:19)
--- NOTE | 2024-08-01 10:51 | PC.SS ---
PT note submitted to ST via [facility].
--- NOTE | 2024-08-01 10:57 | PC.SS ---
DISTRIBUTOR CLEANER received phone call from [facility] staff stating that patient is in possession of AUS device. SNF staff requesting that AUS device be de-activated. SNF staff informed DISTRIBUTOR CLEANER per patient's spouse, AUS device is not functioning. DISTRIBUTOR CLEANER updated bedside nurse.
[2024-08-01] MEDS: SACUBITRIL 24 MG/VALSARTAN 26 MG TABLET 0.5 TAB PO ×2 (12:10→20:35)
--- NOTE | 2024-08-01 12:20 | PC.SS ---
FILM SPLICER informed by bedside nurse that patient will not require outpatient dialysis. Bedside nurse received confirmation from Dr. Meyers.
[2024-08-01] MEDS: POTASSIUM CHLORIDE 10% 20 MEQ/15 ML UDC 40 MEQ PO (14:13)
--- NOTE | 2024-08-01 14:16 | ESPR_ITS ---
<Statement entered by Kavitha Johnston MD - 08/02/24 07:14> I agree with plan and examination findings on this note , I have personally seen and examined patient. Labs and imaging reviewed. Kavitha Johnston PGY3 Documentation for date of: 08/01/24 Subjective Subjective Interval history: No acute overnight events reported. Patient seen and examined at bedside this morning. Patient is net -450 with total output of 1860. Patient's kidney function continues to improve with creatinine down trended to 4.2, BUN 48 GFR 28 and anion gap 17. As per nephrology recommendation we will skip dialysis today and continue to monitor renal function tomorrow as patient may no longer need outpatient dialysis as his kidney function is improving. Videofluoroscopy is done today to assess for dysphagia which showed silent aspiration with thin barium therefore diet is changed dysphagia 3 with mildly thick level 2. As per urologist, patient will be discharged with the Ruth catheter and will remain for at least a month and reevaluation will be done with him outpatient. Upon discharge will also discontinue metformin. Will resumed pt's home entresto today and continue to monitor blood pressure. Pt has no other complains, saturating on room air. denies SOB, chest pain or palpitations. Exam Vital Signs Temp Pulse Resp BP Pulse Ox O2 Del Method O2 Flow Rate 97.9 F 103 H 24 H 110/86 H 93 L Room Air 1 08/01/24 12:08/01/24 12:08/01/24 12:08/01/24 12:08/01/24 12:08/01/24 12:08/01/24 08:12 Narrative Exam GENERAL: Elderly male, saturating on room air, not in acute distress NEURO: no focal motor or sensory neurological deficits noted, Pt has hx of Alzheimer therefore unable to asses remainder HEENT: Atraumatic, Normocephalic. mucous membranes moist. Eyes open, symmetrical, & clear HEART: no murmurs heard, OUTPATIENT COORDINATOR-D device on L upper chest LUNGS: Clear to auscultation with no wheezing or crackles. ABDOMEN: soft, non-distended, non-tender, bowel sounds heard, no guarding or rebound tenderness SKIN: No Rash or ecchymoses EXTREMITIES: No edema, tenderness, able to move all 4 extremities, pedal pulses palpated Objective Labs 08/02/24 04:27 08/02/24 04:27 Labs: Laboratory Results - last 24 hr 08/01/24 04:50 WBC 11.3 H RBC 4.15 L Hgb 11.7 L Hct 34.5 L MCV 83 MCH 28.2 MCHC 33.9 RDW Std Deviation 45.7 H Plt Count 179 Neut % (Auto) 71 Lymph % (Auto) 16 [place] % (Auto) 8 Eos % (Auto) 3 Baso % (Auto) 1 Neut # (Auto) 8.1 H Lymph # (Auto) 1.8 [place] # (Auto) 0.9 H Eos # (Auto) 0.4 Baso # (Auto) 0.1 Immature Gran # (Auto) 0.08 H Absolute Nucleated RBC 0.00 Immature Gran % 1 H Nucleated RBC % 0 Sodium 145 Potassium 3.0 L Chloride 101 Carbon Dioxide 26.9 Anion Gap 17 H BUN 48 H Creatinine 4.2 H* D Estim Creat Clear Calc 18.1 L eGFR 14 L* BUN/Creatinine Ratio 11 L Glucose 185 H Calculated Osmolality 306 H Calcium 8.2 L Corrected Calcium 8.4 L Magnesium 1.6 Total Bilirubin 0.5 AST 15 ALT 8 L Alkaline Phosphatase 99 Total Protein 6.2 Albumin 3.8 Globulin 2.4 Albumin/Globulin Ratio 1.6 ABG Interpretation ABG results: 07/27/24 07/28/24 07/29/24 23:05 15:03 04:34 ABG pH 7.29 L 7.24 L 7.41 D ABG pCO2 24 L 28 L 37 ABG pO2 80 L 96 69 L D ABG HCO3 12 L 12 L 24 ABG O2 Saturation 95 97 95 ABG Base Excess -13 L -14 L -1 Quality Measures Quality Measures VTE prophylaxis Advance care planning discussed with:: significant other Assessment & Plan Assessment Current Active Medications: Generic Name Dose Route Start Last Admin Trade Name Freq PRN Reason Stop Dose Admin Acetaminophen 650 mg 07/28/24 01:01 Acetaminophen 325 Mg Tablet PO 08/27/24 01:00 Q6H PRN Fever >100.4 or pain Albuterol/Ipratropium 3 ml 07/28/24 02:27 07/28/24 10:56 Albuterol/Ipratropium (Duoneb) Rt Ivanna 3 Ml Nebu INH 08/27/24 02:26 3 ml Q2HR PRN Administration SHORTNESS OF BREATH OR WHEEZE Allopurinol 100 mg 07/30/24 10:15 08/01/24 10:04 Allopurinol 100 Mg Tablet PO 08/29/24 10:14 100 mg QDAY CARLEEN Administration Apixaban 2.5 mg 08/01/24 09:00 08/01/24 10:04 Apixaban 2.5 Mg Tablet PO 08/31/24 08:59 2.5 mg BID CARLEEN Administration Atorvastatin Calcium 80 mg 07/31/24 21:00 07/31/24 20:30 Atorvastatin Calcium 20 Mg Tablet PO 08/30/24 20:59 80 mg HS CARLEEN Administration Dextrose 25 ml 07/28/24 01:14 Dextrose 50%-Water Inj 50 Ml Syringe IV 08/27/24 01:13 Q15MIN PRN BG 50-70 responsive npo pt Dextrose 50 ml 07/28/24 01:14 Dextrose 50%-Water Inj 50 Ml Syringe IV 08/27/24 01:13 Q15MIN PRN BG <50 OR BG <70 & pt unresponsive Docusate Sodium 100 mg 07/28/24 01:01 07/31/24 08:23 Docusate Sod 100 Mg Capsule PO 08/27/24 01:00 100 mg QDAY PRN Administration CONSTIPATION Protocol Glucagon 1 mg 07/28/24 01:14 Glucagon Inj 1 Mg Vial IM Q15MIN PRN BG <70, and no IV access Heparin Sodium (Porcine) 2,600 unit 07/28/24 18:46 07/30/24 10:59 Heparin Sod Inj 1000 Unit/Ml Vial 10 Ml INDWELLCAT 08/11/24 18:45 2,600 unit X1 PRN Administration DIALYSIS Ceftriaxone Sodium/Dextrose 1 gm in 50 mls @ 100 mls/hr 07/28/24 09:30 08/01/24 09:52 Rocephin/D5w 1gm Iv Premix IV 08/04/24 08:59 100 mls/hr QDAY CARLEEN Administration Albumin Human 25 gm in 100 mls @ 100 mls/min 07/28/24 18:46 07/31/24 19:13 Albuminar-25 Ivpb IV Infused PRN PRN Infusion DIALYSIS Sodium Chloride 1,000 mls @ 100 mls/hr 08/01/24 08:46 08/01/24 10:19 Ns 0.45% IV 08/01/24 18:45 100 mls/hr .Q10H ONE Administration Insulin Human Lispro 0 unit 07/30/24 17:00 08/01/24 11:51 Insulin Lispro (Admelog) 1 Unit/0.01 Ml Unit SC 08/29/24 16:59 3 unit ACHS CARLEEN Administration Protocol Memantine 5 mg 07/31/24 14:00 08/01/24 10:04 Memantine Hcl 5 Mg Tablet PO 08/30/24 13:59 5 mg BID CARLEEN Administration Ondansetron HCl 4 mg 07/28/24 01:01 Ondansetron Inj 2 Mg/Ml Inj 2 Ml IVP 08/27/24 01:00 Q6H PRN NAUSEA OR VOMITING Protocol Pantoprazole Sodium 40 mg 07/31/24 09:00 08/01/24 10:04 Pantoprazole 40 Mg Tablet PO 08/30/24 08:59 40 mg QDAY CARLEEN Administration Protocol Pharmacy Consult 1 each 07/28/24 01:06 Pharmacy Renal Dose Adjustment 1 Ea XX 08/27/24 01:05 PRN PRN CONSULT Ropinirole HCl 0.5 mg 07/31/24 14:00 08/01/24 10:04 Ropinirole Hcl 0.25 Mg Tablet PO 08/30/24 13:59 0.5 mg QDAY CARLEEN Administration Sacubitril/Valsartan 0.5 tab 08/01/24 10:15 08/01/24 12:10 Sacubitril 24 Mg/Valsartan 26 Mg Tablet PO 08/31/24 10:14 0.5 tab BID CARLEEN Administration Sennosides 1 tab 07/30/24 11:00 08/01/24 10:04 Senna Tablet PO 08/29/24 10:59 1 tab QDAY CARLEEN Administration Protocol Sodium Chloride 3 ml 07/28/24 14:54 07/28/24 15:51 Sodium Chloride Rt Ivanna 0.9% 3 Ml Nebu INH 08/27/24 14:53 3 ml PRN PRN Administration SOLN Plan Mr. Noriega is a 79 y/o M with PMHx significant for Alzheimer's dementia, CAD, CHF, PVD, hypertension, asthma, prostate cancer, diabetes presents from custodial with chief complaint of hypoxia, admitted for acute renal failure. #ATN most likely -improving #Acute renal failure 2/2 #obstructive uropathy and contrast nephropathy #High anion gap metabolic acidosis with respiratory alkalosis- resolved #Lactic acidosis- resolved #Electrolyte abnormalities Multifactorial for renal failure including urinary retention, receiving contrast from CTA, infectious (ATN) Patient could have had urinary retention 4 days now and could have continued to take metformin which could have precipitated worsening lactic acidosis BUN/creatinine of 84 and 6.6 respectively, potassium 5.6, bicarb 13, GFR 8, phosphorus 10.2, calcium 7.8 Patient has multiple electrolyte derangements Was giving patient bicarb drip per nephrology recommendations, however based on repeat renal panel patient will need dialysis that may be temporary or permanent There was concern for patient not being able to have Ruth, however we spoke with Dr. Funes who had said it is okay for patient to have Ruth in acute renal failure and urinary retention Plan: - Nephrology consulted and following ? Urology consulted, appreciate recs ? Temporary dialysis catheter try flow placed on 07/28 by ICU team and pt had a session of dialysis - Permanent dialysis cath placed on 07/30 ? Pt was started on bicarb drip for metabolic acidosis which has since resolved and discontinued the bicarb drip - Renally dose meds and avoid nephrotoxins -Patient will also need metformin to be discontinued upon discharge - Strict I's and O's - Daily renal function - Trial of lasix 40mg BID given to measure urinary output on 07/29 -Per urology recommendation patient will need to be discharged with the Ruth and keep Ruth for approximately 1 month and then follow-up with the urologist outpatient on decision to remove. #Acute hypoxic respiratory failure, improving #Community-acquired pneumonia #Hx of Asthma Patient presented with complaint of hypoxia, saturation as low as 80% at the SNF. Patient needing nonrebreather, at time exam had been titrated down to 4 L via nonrebreather, saturating 95% and above. Will maintain nonrebreather because patient is a mouth breather. CTA chest showed bilateral pneumonia. On exam bibasilar rhonchi. Patient has history of asthma. Patient denies shortness of breath, cough, chest pain, fever, chills Plan: - Rocephin 1 g IV daily (started 07/27- 08/02) - DuoNebs as needed ? Wean down oxygen as tolerated #Hx of HFrEF with EF 40-45% #Hx of Defibrillator #S/p transcutaneous aortic valve replacement -Patient underwent TAVR, ICD, OUTPATIENT COORDINATOR, cardiac resynchronization therapy, defibrillator [place] [address] Eason Plan: -Echo completed on 07/28 -Strict I's and O's -Resumed home medications Entresto and metoprolol -Dr. Eason is consulted, and following the case #Insulin dependent type 2 Diabetes A1c 7.5 on admission Plan: ? Sliding scale insulin ? Hypoglycemic protocol in place ? Blood sugar checks with meals -Will discontinue pt's home metformin on discharge due to pt's ARF #Hx. of A-fib -Per chart review of inspection manager notes, Pt has history of a -fib and has been rate controlled and on anticoagulation since 2022, therefore will resume Pt's home eliquis. #Hx of HTN #Hx of CAD #Hx of PVD #Hx of Alzheimer's dementia -On admission Pt's BP is within normal limits, therefore will hold resuming antihypertensives -Resumed pt's home atorvastatin and memantine #Health Maintenance Disposition: Telemetry DVT prophylaxis: SCDs, pt's home eliquis is resumed GI prophylaxis: Protonix Diet: Cardiac diet resumed CODE STATUS: Full Assessment and plan discussed with my senior resident Dr. Johnston & attending physician Dr. Zenaida Go (PGY-1)- Internal medicine resident Attending Provider Attestation/Addendum I attest that I was physically present for the evaluation, physical examination, lab and imaging review of the patient with the residents. I discussed the case with the residents and agree with the findings and plans of care as documented above. At bedside today, patient continues to be confused but appears comfortable. Denies any complaints. Has a good urinary output with negative fluid balance. Kidney function is improving, BUN/creatinine of 48/4.2. Discussed with nephrology, we will skip dialysis today and monitor his renal panel closely. If patient continues to have good urinary output with improvement in his kidney function, may not need outpatient hemodialysis. Underwent speech therapy evaluation this morning, was found to have aspiration risk and underwent. Evaluation which showed silent aspiration and patient was recommended to have dysphagia 3 diet. Urology following closely, recommended to continue Ruth on discharge, appreciate recommendations. Continues to be on IV Rocephin for community-acquired pneumonia, saturating well on 1 to 2 L nasal cannula. Anticipate discharge in 24 to 48 hours, if kidney function continues to improve without hemodialysis. Margaret Estevez MD
--- NOTE | 2024-08-01 15:29 | PC.SS ---
Rounding Note: Plan is to continue to monitor kidney function. SNF authorization pending.
[2024-08-01] MEDS: METOPROLOL SUCCINATE XL 25 MG TABCR 50 MG PO (17:45)
[2024-08-01] MEDS: ATORVASTATIN CALCIUM 20 MG TABLET 80 MG PO (20:34)
--- NOTE | 2024-08-01 23:23 | ESPR_ITS ---
RE: MYNOR GARCÍA : 1945 DATE OF SERVICE: 08/01/2024 SUBJECTIVE: Mynor García appears to be doing a little better today. He is still having dialysis. Shortness of breath is improved. No chest pain. His EKG on the monitor does show paced with sinus rhythm with now 100% pacing. He has no orthopnea or PND. Does not complain of any other issues. The patient was seen by urologist, Dr. Funes because of the issues with the Ruth catheter. Dr. Funes recommended that he leave the catheter in for a month or so. The patient has automatic urinary flow valve, unable to now control because of dementia. The patient's other findings include renal failure. The creatinine is improving, though creatinine clearance still at 14, creatinine is 4.2, potassium 3 being replaced. Liver function tests are normal. Sugar is 185. OBJECTIVE: General: Alert, awake, still somewhat confused . Vital Signs: Blood pressure 120/70, pulse rate is 80, respirations 18, temperature normal, saturation 93% on room air. HEENT: Head is atraumatic. Neck: Supple. No JVD. Chest: Symmetrical. Lungs: Decreased breath sounds. No rales or rhonchi. Heart: S1 and S2 regular, distant. Abdomen: Thin and soft. Extremities: No edema. Genitourinary and Rectal: Not performed. Neurologic: Normal. LABORATORY DATA: Electrocardiogram showed 100% pacing rhythm and possibly sinus rhythm. ASSESSMENT: 1. Chronic systolic heart failure, EF of 45% to 50%, well-compensated. 2. Acute renal failure secondary to obstructive uropathy and possible contrast nephropathy. 3. Dementia. 4. Nonischemic cardiomyopathy. 5. Peripheral arterial occlusive disease. PLAN: Continue the dialysis needs per nephrology. The patient is clearly doing much better, but not fully back to his normal self. 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 Condition remains much more stable, but the patient may require definite temporary dialysis for an extended period of time. Already has the condom catheter in place. DT: 22:48:38 TT: 23:07:00 Ref: [id number] - TID: [id number]
[2024-08-02] VITALS (9 sets, daily range): BP systolic 147–179; BP diastolic 68–89; PULSE 77–96; RESP 15–19; TEMP 36.1–36.8; O2SAT 90–96
[2024-08-02] MEDS: LACTULOSE SYRUP 20 GM/30 ML UDC PO (01:04)
[2024-08-02 06:00] LABS: Alanine Aminotransferase 14 U/L (10-49); Albumin, Serum 3.9 gm/dL (3.4-4.8); Albumin/Globulin Ratio 1.7 (1.2-2.2); Alkaline Phosphatase 117 U/L (46-116); Anion Gap 16 (7-16); Aspartate Amino Transferase 26 U/L (0-34); BUN/Creatinine Ratio 14 Ratio (12-20); Bilirubin,Total 0.6 mg/dL (0.3-1.2); Blood Urea Nitrogen 43 mg/dL (9-23); Calcium 8.3 mg/dL (8.3-10.6); Calcium (Corrected) 8.4 mg/dL (8.5-10.1); Carbon Dioxide 25.4 mMol/L (20.0-31.0); Chloride 105 mMol/L (98-107); Estimated Creatinine Clearance 25.2 mL/min (>60); Globulin 2.3 gm/dL (2.3-3.5); Glucose 204 mg/dL (74-106); Magnesium 2.3 mg/dL (1.6-2.6); Osmolality,Calculated 307 (275-295); Potassium 3.6 mMol/L (3.4-5.1); Sodium 146 mMol/L (136-145); Total Protein 6.2 gm/dL (5.7-8.2); eGFR 21 See Note
[2024-08-02 06:05] LABS: Basophils # (Auto) 0.1 Thou/mm3 (0.0-0.2); Basophils % (Auto) 1 % (0-2.5); Eosinophils # (Auto) 0.3 Thou/mm3 (0.0-0.5); Eosinophils % (Auto) 3 % (0-10); Hematocrit 39.9 % (41.0-53.0); Hemoglobin 13.4 g/dL (13.5-16.0); Immature Granulocytes % (Auto) 1 % (0-0); Immature Granulocytes Auto 0.09 Thou/mm3 (0.00-0.00); Lymphocytes # (Auto) 1.7 Thou/mm3 (1.0-4.8); Lymphocytes % (Auto) 16 % (10-50); Mean Corpuscular HGB Conc 33.6 g/dl (31.0-37.0); Mean Corpuscular Hemoglobin 27.6 pg (25.0-35.0); Mean Corpuscular Volume 82 fL (80-100); Monocytes # (Auto) 0.9 Thou/mm3 (0.0-0.8); Monocytes % (Auto) 8 % (0-12); Neutrophils # (Auto) 7.9 Thou/mm3 (1.8-7.7); Neutrophils % (Auto) 73 % (37-80); Nucleated Red Blood Cell % 0 /100 WBC (0); Platelet Count 214 Thou/mm3 (140-440); Red Blood Count 4.86 Miln/mm3 (4.50-5.90)
[2024-08-02] MEDS: INSULIN LISPRO (AdmeLOG) 1 UNIT/0.01 ML UNIT SC ×3 (07:35→16:36)
[2024-08-02] MEDS: APIXABAN 2.5 MG TABLET PO (08:28)
[2024-08-02] MEDS: MEMANTINE HCL 5 MG TABLET PO (08:28)
[2024-08-02] MEDS: allopurinoL 100 MG TABLET PO (08:28)
[2024-08-02] MEDS: PANTOPRAZOLE 40 MG TABLET PO (08:28)
[2024-08-02] MEDS: SENNA TABLET 1 TAB PO (08:28)
[2024-08-02] MEDS: METOPROLOL SUCCINATE XL 25 MG TABCR 50 MG PO (08:29)
[2024-08-02] MEDS: rOPINIRole HCL 0.25 MG TABLET 0.5 MG PO (08:30)
[2024-08-02] MEDS: cefTRIAXone/D5w 1gm IV premix 1 GM/50 ML BAG IV (08:30)
[2024-08-02] MEDS: SACUBITRIL 24 MG/VALSARTAN 26 MG TABLET 0.5 TAB PO (08:30)
[2024-08-02] MEDS: SODIUM CHLORIDE 0.45 % 1,000 ML 125 ML IV (08:31)
--- NOTE | 2024-08-02 08:40 | PC.SS ---
SLEEVE PRESSER OPERATOR confirmed with Dr. Meyers that the patient will not require outpatient dialysis services. Plan will be to remove dialysis catheter.
--- NOTE | 2024-08-02 08:58 | PD.RESPRO ---
Documentation for date of: 08/02/24 Subjective Subjective Interval history: Interval history: Patient poor historian. Got information from chart review and his at bedside. Medical team at bedside. Mr. Leblanc is a 79-year-old gentleman with a past medical history significant for Alzheimer's dementia, coronary artery disease, congestive heart failure, peripheral vascular disease, hypertension, history of prostate cancer, diabetes, asthma has been residing at the [facility] transitional care was brought to the emergency department as he was noted to be short of breath and hypoxic with a low oxygenation. Patient was placed on oxygen mask. patient denied fever, chills, chest pain, nausea, vomiting, shortness of breath. However patient did endorse abdominal pain, was noted to have suprapubic mass/tenderness. In the emergency department Ruth catheter was placed with 1 L dark urine immediately drained. ED COURSE: Labs significant for: WBC 25, hemoglobin 14.7, BUN 79, creatinine 5.8, EGFR 9, lactic acid 4.9 up trended to 5.3. Magnesium 1.4. Troponin negative, CRP 2.4, Pro-Rey 0.63. BNP 167. Anion gap 23. ABG showed pH 7.29, pCO2 24, bicarb 12. Imaging significant for: CT A/P showing mild bilateral hydronephrosis, bladder distention. CTA chest with contrast showed no PE, showed vascular congestion, bilateral pneumonia. Patient received Lasix 40 x 1, nitroglycerin, Rocephin in the ED. Patient had decrease in blood pressure, received multiple small boluses due to concern for CHF with improvement in blood pressure. Nephrology was consulted for acute renal failure, need for dialysis. PMH: Alzheimer's dementia, coronary artery disease, CHF, PVD, hypertension, asthma, prostate cancer, diabetes PSH: Radical prostatectomy, left hip arthroplasty Allergies: Jardiance, penicillins Medications: Rehab medications-allopurinol, atorvastatin, duloxetine, Eliquis, Entresto, gabapentin, insulin, memantine, metformin, metoprolol succinate, midodrine, ropinirole, trospium 07/28/2024 patient currently seen medical floor. On nasal mask. at bedside. He has dementia and is unable to give me enough information. Denies any chest pain, nausea, vomiting. Complaining of shortness of breath 07/29/2024 patient currently seen in telemetry. On oxygen nasal cannula. Medications reviewed. Resting comfortably. Blood sugar 173. Blood pressure 138/68, heart rate 81. WBC 13.2, hemoglobin 10.7, platelets 108. ABG showing pH 7.41 [id number], pO2 69, bicarbonate 24. Sodium 144, potassium 3.6, bicarbonate 23.8, BUN 65, creatinine 5.6, GFR 10, lactic acid 3.8, calcium 8.3, phosphorus 6.3, LFTs normal, albumin 3.1. Chest x-ray done last evening showed that there is moderate vascular congestion. This morning patient received Lasix with good improvement in the urinary output. Will give another dose of Lasix at 4:00 today. Spoke to undergraduate intern. 07/30/2024 patient currently seen during hemodialysis, resting comfortably, but somnolent, arousable on verbal stimulus, reported no acute symptoms. Net urine output -2500 overnight, after Lasix challenge yesterday, but noted worsening BUN and creatinine compared to yesterday. Continue with hemodialysis, likely ATN secondary to contrast-induced nephropathy. Recommend continuing Ruth's catheter to relieve obstructive symptoms, follow urology recommendations regarding Ruth's cath. Sodium 144, potassium 3.7, BUN 75, creatinine 6.6. 07/31/2024: Patient seen and examined at bedside this morning. No acute overnight events. Patient appears to be hard of hearing. Has excellent urine output, >2 L, therefore we will hold off on hemodialysis today. Vitals stable, labs reviewed. Leukocytosis resolved, hemoglobin improved to 12. CHEM panel showing improvement in renal function. 08/01/2024: Patient seen and examined at bedside. No acute overnight events. Vitals stable, labs reviewed. Potassium 3.0, Creatinine improving to 4.2. Patient appears to be in diuretic/polyuric phase of ATN and had 1.8L urine output. He clinically appears dry therefore will give 1L half NS. Continue to monitor urine output and renal function. 08/02/2024: Patient seen and examined at bedside this morning. No acute overnight events. Patient continues to make excellent urine output, 2.1 L with net -1.28 L. Vitals significant for hypertension. Labs significant for sodium 146, creatinine improving to 3.0, hyperglycemia 204. Patient has no acute complaints and is pleasantly confused. He answers all questions appropriately. From nephrology standpoint, patient's kidney function has improved significantly. He appears dry, therefore will give 1 L half NS. His tunneled dialysis catheter can be removed by IR. Would recommend for patient to have a renal panel within 1 week of discharge. Exam Vital Signs Temp Pulse Resp BP Pulse Ox O2 Del Method O2 Flow Rate 97.2 F 83 15 179/89 H 94 L Room Air 2 08/02/24 08:00 08/02/24 08:29 08/02/24 08:00 08/02/24 08:29 08/02/24 08:00 08/02/24 08:00 08/02/24 04:00 Narrative Exam GENERAL APPEARANCE: Right IJ Vas-Cath NECK: Neck supple, no JVD or bruit CARDIOVASCULAR: Heart regular, no murmurs LUNGS/CHEST: Chest clear to auscultation. No rales, rhonchi, wheezing ABDOMEN: Soft, nontender, nondistended. No masses. Normal bowel sounds. EXTREMITIES: No edema, clubbing or cyanosis. SKIN: Skin exam normal without any rashes. NEUROLOGICAL : Able to move his extremities, patient has memory lapses Objective Labs 08/02/24 04:27 08/02/24 04:27 Labs: Laboratory Results - last 24 hr 08/02/24 04:27 WBC 11.0 H RBC 4.86 Hgb 13.4 L Hct 39.9 L MCV 82 MCH 27.6 MCHC 33.6 RDW Std Deviation 44.0 H Plt Count 214 D Neut % (Auto) 73 Lymph % (Auto) 16 Rains % (Auto) 8 Eos % (Auto) 3 Baso % (Auto) 1 Neut # (Auto) 7.9 H Lymph # (Auto) 1.7 Rains # (Auto) 0.9 H Eos # (Auto) 0.3 Baso # (Auto) 0.1 Immature Gran # (Auto) 0.09 H Absolute Nucleated RBC 0.00 Immature Gran % 1 H Nucleated RBC % 0 Sodium 146 H Potassium 3.6 D Chloride 105 Carbon Dioxide 25.4 Anion Gap 16 BUN 43 H Creatinine 3.0 H D Estim Creat Clear Calc 25.2 L eGFR 21 L BUN/Creatinine Ratio 14 Glucose 204 H Calculated Osmolality 307 H Calcium 8.3 Corrected Calcium 8.4 L Magnesium 2.3 Total Bilirubin 0.6 AST 26 ALT 14 Alkaline Phosphatase 117 H Total Protein 6.2 Albumin 3.9 Globulin 2.3 Albumin/Globulin Ratio 1.7 ABG Interpretation ABG results: 07/27/24 07/28/24 07/29/24 23:05 15:03 04:34 ABG pH 7.29 L 7.24 L 7.41 D ABG pCO2 24 L 28 L 37 ABG pO2 80 L 96 69 L D ABG HCO3 12 L 12 L 24 ABG O2 Saturation 95 97 95 ABG Base Excess -13 L -14 L -1 Quality Measures Quality Measures VTE prophylaxis Advance care planning discussed with:: patient Assessment & Plan Assessment Current Active Medications: Generic Name Dose Route Start Last Admin Trade Name Freq PRN Reason Stop Dose Admin Acetaminophen 650 mg 07/28/24 01:01 Acetaminophen 325 Mg Tablet PO 08/27/24 01:00 Q6H PRN Fever >100.4 or pain Albuterol/Ipratropium 3 ml 07/28/24 02:27 07/28/24 10:56 Albuterol/Ipratropium (Duoneb) Rt Ivanna 3 Ml Nebu INH 08/27/24 02:26 3 ml Q2HR PRN Administration SHORTNESS OF BREATH OR WHEEZE Allopurinol 100 mg 08/02/24 07:40 08/02/24 08:28 Allopurinol 100 Mg Tablet PO 08/29/24 07:39 100 mg QDAY CARLEEN Administration Apixaban 2.5 mg 08/01/24 09:00 08/02/24 08:28 Apixaban 2.5 Mg Tablet PO 08/31/24 08:59 2.5 mg BID CARLEEN Administration Atorvastatin Calcium 80 mg 07/31/24 21:00 08/01/24 20:34 Atorvastatin Calcium 20 Mg Tablet PO 08/30/24 20:59 80 mg HS CARLEEN Administration Dextrose 25 ml 07/28/24 01:14 Dextrose 50%-Water Inj 50 Ml Syringe IV 08/27/24 01:13 Q15MIN PRN BG 50-70 responsive npo pt Dextrose 50 ml 07/28/24 01:14 Dextrose 50%-Water Inj 50 Ml Syringe IV 08/27/24 01:13 Q15MIN PRN BG <50 OR BG <70 & pt unresponsive Docusate Sodium 100 mg 07/28/24 01:01 07/31/24 08:23 Docusate Sod 100 Mg Capsule PO 08/27/24 01:00 100 mg QDAY PRN Administration CONSTIPATION Protocol Glucagon 1 mg 07/28/24 01:14 Glucagon Inj 1 Mg Vial IM Q15MIN PRN BG <70, and no IV access Heparin Sodium (Porcine) 2,600 unit 07/28/24 18:46 07/30/24 10:59 Heparin Sod Inj 1000 Unit/Ml Vial 10 Ml INDWELLCAT 08/11/24 18:45 2,600 unit X1 PRN Administration DIALYSIS Albumin Human 25 gm in 100 mls @ 100 mls/min 07/28/24 18:46 07/31/24 19:13 Albuminar-25 Ivpb IV Infused PRN PRN Infusion DIALYSIS Ceftriaxone Sodium/Dextrose 1 gm in 50 mls @ 100 mls/hr 08/02/24 07:38 08/02/24 08:30 Rocephin/D5w 1gm Iv Premix IV 08/04/24 07:37 100 mls/hr QDAY CARLEEN Administration Sodium Chloride 1,000 mls @ 125 mls/hr 08/02/24 08:05 08/02/24 08:31 Ns 0.45% IV 08/02/24 16:04 125 mls/hr .Q8H ONE Administration Insulin Human Lispro 0 unit 07/30/24 17:00 08/02/24 07:35 Insulin Lispro (Admelog) 1 Unit/0.01 Ml Unit SC 08/29/24 16:59 3 unit ACHS CARLEEN Administration Protocol Memantine 5 mg 07/31/24 14:00 08/02/24 08:28 Memantine Hcl 5 Mg Tablet PO 08/30/24 13:59 5 mg BID CARLEEN Administration Metoprolol Succinate 50 mg 08/02/24 07:38 08/02/24 08:29 Metoprolol Succinate Xl 25 Mg Tabcr PO 08/31/24 07:37 50 mg DAILY CARLEEN Administration Midodrine 5 mg 08/01/24 15:16 Midodrine 5 Mg Tablet PO 08/31/24 15:15 TID PRN SBP<100 Ondansetron HCl 4 mg 07/28/24 01:01 Ondansetron Inj 2 Mg/Ml Inj 2 Ml IVP 08/27/24 01:00 Q6H PRN NAUSEA OR VOMITING Protocol Pantoprazole Sodium 40 mg 07/31/24 09:00 08/02/24 08:28 Pantoprazole 40 Mg Tablet PO 08/30/24 08:59 40 mg QDAY CARLEEN Administration Protocol Pharmacy Consult 1 each 07/28/24 01:06 Pharmacy Renal Dose Adjustment 1 Ea XX 08/27/24 01:05 PRN PRN CONSULT Ropinirole HCl 0.5 mg 07/31/24 14:00 08/02/24 08:30 Ropinirole Hcl 0.25 Mg Tablet PO 08/30/24 13:59 0.5 mg QDAY CARLEEN Administration Sacubitril/Valsartan 0.5 tab 08/02/24 07:38 08/02/24 08:30 Sacubitril 24 Mg/Valsartan 26 Mg Tablet PO 08/31/24 07:37 0.5 tab BID CARLEEN Administration Protocol Sennosides 1 tab 08/02/24 07:38 08/02/24 08:28 Senna Tablet PO 08/29/24 07:37 1 tab QDAY CARLEEN Administration Protocol Sodium Chloride 3 ml 07/28/24 14:54 07/28/24 15:51 Sodium Chloride Rt Ivanna 0.9% 3 Ml Nebu INH 08/27/24 14:53 3 ml PRN PRN Administration SOLN Plan #Acute renal failure, improving #ATN versus obstructive uropathy Excellent urine output, 2.1L; net -1.28L; Cr 3.0, improving => ok to remove tunneled dialysis catheter Continue Ruth for possible obstruction and change in 1 month, per urology recs 1L half NS ordered, and encouraged patient to increase free water intake Repeat renal panel next week #Acute hypoxic respiratory failure, likely secondary to CAP Continue antibiotics as per primary team Wean O2 as tolerated #Electrolyte abn Replete as needed #h/o TAVR Cardio following, consider resuming home AC #H/o T2DM SSI, accuchecks Patient seen and care discussed with my attending Dr. Meyers. Dre Garcia MD PGY-3 Attending Provider Attestation/Addendum Patient seen and examined with resident physician Dr. Garcia. Note reviewed, agree with findings and recommendations. Patient presented with significant shortness of breath and fluid overload. Patient currently seen in telemetry. More alert and awake. Good urinary output. Creatinine improved to 3.0. Renal roberts stable for discharge once the dialysis catheter is removed. Spoke to primary team.
--- NOTE | 2024-08-02 10:10 | PC.SS ---
ELÍAS confirmed with [facility] staff, Genie Roldan; that authorization has been obtained for patient to return to SNF upon medical clearance. Hold on patient's bed expires today.
[2024-08-02 10:59] LABS: INR 1.1 (0.9-1.3); Partial Thromboplastin Time 37.6 Seconds (22.0-36.0); Prothrombin Time 12.3 Seconds (9.0-12.2)
[2024-08-02] MEDS: INSULIN GLARGINE (Lantus) 5 UNIT/0.05 ML (PER 5 UNITS) 10 UNIT SC (12:39)
--- NOTE | 2024-08-02 12:57 | PC.SS ---
Update: Patient will remain in possession of dialysis catheter. Plan will be for patient to have catheter remove on outpatient basis.
--- NOTE | 2024-08-02 13:11 | PC.NURSE ---
notified rosalba adler of postpond procedure due to eliquis taken today per md saul orders. per rosalba adler patient getting discharged and most likely schedule procedure out patient.
--- NOTE | 2024-08-02 15:16 | PC.SS ---
DOCK OPERATOR submitted physician order to radiology to schedule outpatient appointment for removal of patient's dialysis catheter. Order submitted via e-mail to fuse coiler (ext [id number]). Appointment tentatively scheduled for 11:00 am on TuesdayAugust 06. Radiology will confirm appointment with [facility].
--- NOTE | 2024-08-02 15:47 | PC.SS ---
PROPOSAL REP contacted patient's spouse to relay that patient has discharge orders. Plan is for the patient to return to [facility]. PROPOSAL REP discussed patient's lack of coverage for ambulance transport. Spouse informed PROPOSAL REP of kinjal to cover cost $320.00 + $15.00 per mile. Patient will require gurney transport. PROPOSAL REP attempted to utilize [facility]. [facility] unable to fill request for today's discharge. PROPOSAL REP to obtain [facility] for transport.
--- NOTE | 2024-08-02 16:30 | PC.SS ---
[facility] morton. Ambulance transport scheduled for 06:30 pm today. PAINTER TOUCH UP notified bedside nurse, patient's spouse and SNF. [place] [facility] to transport.
--- NOTE | 2024-08-02 18:24 | ESDS_ITS ---
Planned Discharge Date 08/02/24 DS: Providers Provider Date of admission: 07/28/24 01:01 Primary care physician: DESIREE Brady Admitting Provider: Juan Alberto Zavala MD Attending Provider on Admission: Margarte Estevez MD Consults: 07/27/24 23:52 Consult to Nephrology Stat Comment: renal failure Consulting Provider: Chely Meyers 07/28/24 09:42 Consult to Nephrology Stat Comment: ARF Consulting Provider: Chely Meyers 07/28/24 13:51 Consult to Urology Routine Comment: AUD, Has [place] and Urinary retension Consulting Provider: Tg Funes 07/28/24 14:29 Referral Speech Therapy Routine Comment: 07/30/24 07:44 Consult to Cardiology Routine Comment: Consulting Provider: Wil Eason 07/30/24 08:00 Referral Discharge Planning Stat Comment: op dialysis at [facility] 07/31/24 09:56 Referral Physical Therapy Routine Comment: Physician Instructions: 07/31/24 19:43 Referral Wound Care Routine Comment: DTI to buttock 07/31/24 19:44 Referral Nutritional Services Routine Comment: Wound to buttocks Attending Provider on DC: Qamar Go MD Discharging Provider: Qamar Go MD DS: Diagnosis Problem List Completed Was Problem List Reviewed/Reconciled?: Yes Hospital Course Hospital Course Hospital course: Mr. Noriega is a 79-year-old male with past medical history significant for Alzheimer's dementia, coronary artery disease, congestive heart failure, peripheral vascular disease, hypertension, history of prostate cancer, diabetes, asthma has been residing at the [facility] transitional care presented to [facility] ED after SNF staff noted patient has shortness of breath and hypoxia with low oxygen saturation as well as abdominal pain, In the ED Pt was noted to have suprapubic mass/tenderness and imaging showed urinary retention, Tse catheter was placed with 1 L dark urine immediately drained. In the ED Bicarb was 14.4, creatinine 5.8, GFR 9, lactic acid 4.9. IN the ED pt underwent chest CTA showed Prominent vascular congestion, Bibasilar pneumonia with minimal bilateral pleural disease. Pt was admitted to the hospital for management of acute renal failure in the setting of obstructive uropathy and contrast nephropathy. Valuation Consultant and Earth Science Technician were consulted for their recommendations during pt's hospital stay. Pt continued to received IV antibiotics for the pneumonia, urologist Dr. Funes was consulted for further recommendations as pt has an artificial urinary sphincter which is self control, due to worsening dementia pt did not manually control it leading to urinary retention. Therefore a Tse catheter was placed in the ED. During hospitalization the first few days pt has worsening anion gap metabolic acidosis with worsening kidney function, as well as anuric therefore decision to start dialysis was made. Pt's underwent permanent tunnelled dialysis cath placement and had 4 dialysis sessions with significant improvement of kidney function and improvement in significant urine production. Pt was gradually started improving, however mentation remained at baseline exhibiting signs of worsening dementia. Pt always could recall his name, date of and place, however other details of his life remained unknown to him. Pt is hemodynalically stable, with significant improvement in kidney function. As per nephrology recommendations pt no longer needs dialysis therefore an appointment is scheduled outpatient TuesdayAugust 06 to remove tunneled dialysis cath. As per urology recommendation, tse cath may stay for 1 month and follow up with urologist on decision to remove. As per theater set production designer recommendations meds are resumed with exception of eliquis is resumed at a lower dose due to kidney function, Pt will need to repeat renal panel in 1 week and follow up with theater set production designer to review medications and doses. Pt is stable and at his baseline mentation to be discharged to SNF. Discharge Recommendations -Follow-up outpatient with your primary care within 1 week after discharge -Follow-up with your theater set production designer within 1 week after discharge -Follow-up with urologist Dr. Funes outpatient for further recommendation regarding your Tse catheter, urologist recommends to continue Tse for 1 month and follow-up with the urologist on decision when to remove the Tse catheter -Due to your acute renal failure during hospitalization we have discontinued your home metformin -Follow-up a renal panel within 1 week after discharge -Follow-up with engineer intern Dr. Meyers 1 week after discharge -Hold Eliquis for 3 days (Tuesday, Tuesday, Tuesday) and may resume Eliquis 2.5 mg twice daily after removing tunneled dialysis catheter on August 06. -Continue taking all your other medications as directed -If your symptoms return or worsen please promptly return to the ED Hospitalization Diagnosis #ATN most likely -improving #Acute renal failure 2/2 #obstructive uropathy and contrast nephropathy #High anion gap metabolic acidosis with respiratory alkalosis- resolved #Lactic acidosis- resolved #Electrolyte abnormalities #Acute hypoxic respiratory failure, improving #Community-acquired pneumonia #Hx of Asthma #Hx of HFrEF with EF 40-45% #Hx of Defibrillator #S/p transcutaneous aortic valve replacement #Insulin dependent type 2 Diabetes #Hx. of A-fib #Hx of HTN #Hx of CAD #Hx of PVD #Hx of Alzheimer's dementia Assessment and plan discussed with my attending physician Dr. Zenaida Go (PGY-1)- Internal medicine resident Time Spent with Patient Time attestation: Total time spent providing and/or coordinating discharge services: Time spent: Greater than 30 minutes Exam Vital Signs Temp Pulse Resp BP Pulse Ox O2 Del Method O2 Flow Rate 98.3 F 82 19 154/73 H 93 L Room Air 2 08/02/24 16:00 08/02/24 16:20 08/02/24 16:00 08/02/24 16:00 08/02/24 16:00 08/02/24 16:00 08/02/24 14:34 Discharge Plan Plan Patient Disposition: Xfer Skilled [facility] (SNF) Patient condition on transfer: Stable Care Plan Goals: -Follow-up outpatient with your primary care within 1 week after discharge -Follow-up with your theater set production designer within 1 week after discharge -Follow-up with urologist Dr. Funes outpatient for further recommendation regarding your Tse catheter, urologist recommends to continue Tse for 1 month and follow-up with the urologist on decision when to remove the Tse catheter -Due to your acute renal failure during hospitalization we have discontinued your home metformin -Follow-up a renal panel within 1 week after discharge -Follow-up with engineer intern Dr. Meyers 1 week after discharge -Hold Eliquis for 3 days (Tuesday, Tuesday, Tuesday) and may resume Eliquis 2.5 mg twice daily after removing tunneled dialysis catheter on Tuesday, August 06. -Continue taking all your other medications as directed -If your symptoms return or worsen please promptly return to the ED Prescriptions/Referrals Prescriptions/Med Rec: New Eliquis 2.5 mg Tablet 2.5 mg PO BID 30 Days Qty: 60 0RF Continued ropinirole 0.5 mg tablet 0.5 mg PO QDAY gabapentin 300 MG capsule 300 mg PO TID Qty: 60 allopurinol 100 mg tablet 100 mg PO QDAY Patient Comments: TK 1 T PO QD atorvastatin 80 mg Tablet 80 mg PO QDAY metoprolol succinate 50 mg tablet extended release 24 hr 50 mg PO .i tab daily Patient Comments: TAKE 1 TABLET BY MOUTH DAILY Hold if SBP <100 or pulse <60 pantoprazole 40 mg tablet,delayed release (DR/EC) 40 mg PO QDAY Patient Comments: TAKE 1 TABLET BY MOUTH EVERY DAY duloxetine 30 mg capsule,delayed release(DR/EC) 30 mg PO BID Patient Comments: TAKE 1 CAPSULE BY MOUTH FOR ONE WEEK THEN TWICE DAILY trospium 20 mg Tablet 20 mg PO BID folic acid 1 mg Tablet 1 mg PO QDAY midodrine 5 mg Tablet 5 mg PO TID PRN (Reason: SBP<100) 30 Days Qty: 90 0RF Rx Instructions: do not give last dose of day after 6PM or within 4 hrs of bedtime Entresto 24-26 mg Tablet 0.5 tab PO BID 30 Days Qty: 15 0RF mirabegron [Myrbetriq] 50 mg tablet extended release 24 hr 50 mg PO QDAY memantine 5 mg tablet 5 mg PO BID insulin lispro 100 unit/mL insulin pen 1 sliding scale dose subcut USEASDIRECTD melatonin 3 mg capsule 6 mg PO HS bisacodyl 10 mg suppository 10 mg ND DAILY PRN (Reason: constipation) Patient Comments: INSERT ONE SUPPOSITORY RECTALLY ONCE DAILY NEEDED FOR CONSTIPATION Rx Instructions: give if MOM is ineffective magnesium hydroxide [Milk of Magnesia] 400 mg/5 mL suspension 30 ml PO .Q3Day PRN (Reason: constipation) Rx Instructions: if no BM for 3 days trazodone 50 mg tablet 50 mg PO .at bedtime quetiapine 50 mg tablet 50 mg PO BID Discontinued Eliquis 5 mg tablet 5 mg PO BID Patient Comments: TAKE 1 TABLET BY MOUTH TWICE DAILY metformin 1,000 mg tablet 1,000 mg PO BID 30 Days Qty: 60 0RF metoprolol succinate 100 mg capsule,sprinkle,ER 24hr 100 mg PO QDAY Referrals: Sonja Clark, MANAGER INVENTORY CONTROL [Primary Care Provider] - Patient/Caregiver Discharge Instructions Education Materials: Kidney Failure Self Care Print Language: [place] Stand Alone Forms: Ofe Award Info., Patient Portal Info Letter Discharge Order Discharge Orders: Discharge (Routine); Ordered 08/02/24 Ordered By: Felicia Dowell Quality Discharge Quality Measures VTE prophylaxis Attestestation MD Attestation I attest that I was physically present for the evaluation, physical examination, lab and imaging review of the patient with the residents. I discussed the case with the residents and agree with the findings and plans of care as documented above. Margaret Estevez MD
--- NOTE | 2024-08-03 00:18 | ESPR_ITS ---
RE: IVAN GARCÍA : 1945 DATE OF SERVICE: 08/02/2024 HISTORY OF PRESENT ILLNESS: The patient is doing much better, not having shortness of breath. Renal function improving, still undergoing dialysis. The patient is planned to have a discharge today, but overall condition remains stable. Discussed with the resident team and okay to discharge the patient home on medical management. Clinically he is _ stable. PHYSICAL EXAMINATION: Vital Signs: Blood pressure 150/70. Pulse rate is 82. Neck: Supple. No JVD. Lungs: Decreased breath sounds. No rales or rhonchi. Heart: Sounds regular. 2/6 systole murmur is heard. _. Abdomen: Thin and soft. Extremities: No edema. LABORATORY DATA: Showed hemoglobin 13.4, white count 11,000. Chemistry panel showed creatinine is coming down to 3.0, BUN is 43, which is encouraging possibly obstructive uropathy. ASSESSMENT: 1. Acute renal failure secondary obstructive uropathy, prostate issues, on Ruth catheter. 2. Congestive heart failure HFrEF is well compensated. 3. Atrial fibrillation, paroxysmal episode. 4. DUMP ATTENDANT defibrillator Continue medical management. . I will keep a regular followup appointment in my office. DT: 22:55:41 TT: 00:05:00 Ref: [id number] - TID: [id number] MTDD
== END 2024-08-02 18:33 | disposition skilled nursing facility (03) | DRG 673 ==
LOC: SERX 07-28 02:22 → SERHOLD 07-28 02:34 → S3NX 07-28 05:44 → S2NX 07-28 15:18
PROVIDERS: Internal Medicine; Radiology Diagnostic Radiology; Student in an Organized Health Care Education/Training Program; Admitting Provider Student in an Organized Health Care Education/Training Program; Emergency Provider Emergency Medicine; PCP Nurse Practitioner Family; Visit Provider Student in an Organized Health Care Education/Training Program
DX: N17.0 Acute kidney failure with tubular necrosis (principal); G93.41 Metabolic encephalopathy; J18.9 Pneumonia, unspecified organism; J96.01 Acute respiratory failure with hypoxia; I50.22 Chronic systolic (congestive) heart failure; G93.40 Encephalopathy, unspecified; E87.4 Mixed disorder of acid-base balance; G30.9 Alzheimer's disease, unspecified; N13.30 Unspecified hydronephrosis; F02.80 Dementia in other diseases classified elsewhere, unspecified severity, without behavioral disturbance, psychotic disturbance, mood disturbance, and anxiety; Z85.46 Personal history of malignant neoplasm of prostate; I11.0 Hypertensive heart disease with heart failure; J45.909 Unspecified asthma, uncomplicated; I25.10 Atherosclerotic heart disease of native coronary artery without angina pectoris; Z96.642 Presence of left artificial hip joint; E83.51 Hypocalcemia; E83.42 Hypomagnesemia; E86.0 Dehydration; E86.1 Hypovolemia; I95.89 Other hypotension; E11.51 Type 2 diabetes mellitus with diabetic peripheral angiopathy without gangrene; N14.11 Contrast-induced nephropathy; T50.8X5A Adverse effect of diagnostic agents, initial encounter; E87.5 Hyperkalemia; G47.30 Sleep apnea, unspecified; I48.0 Paroxysmal atrial fibrillation; M10.9 Gout, unspecified; Z79.01 Long term (current) use of anticoagulants; Z87.442 Personal history of urinary calculi; Z88.0 Allergy status to penicillin; Z90.79 Acquired absence of other genital organ(s); Z95.2 Presence of prosthetic heart valve; Z95.810 Presence of automatic (implantable) cardiac defibrillator; Z99.2 Dependence on renal dialysis; Z79.4 Long term (current) use of insulin
CPT/HCPCS: 36415; 36600; 71045; 71275; 74177; 74230; 76705; 76770; 76937; 77001; 80048; 80053; 80069; 80074; 81001; 82150; 82248; 82803; 83036; 83605; 83690; 83735; 83880; 84100; 84145; 84439; 84443; 84484; 85025; 85379; 85610; 85652; 85730; 86140; 86580; 87040; 87081; 87400; 87811; 92526; 92610; 93005; 93306; 94640; 94664; 96361; 96365; 96366; 96367; 96375; 97162; 99291; A4314; A4649; A9270; C1750; C1894; J0613; J0696; J1642; J1643; J1815; J1938; J2270; J2470; J3010; J3475; J3490; J7030; J7040; J7050; J7060; J7120; P9047; Q5105; Q9967

== ENCOUNTER → 2024-08-06 | Outpatient (CLI) | payer MEDICARE, BC, OTHER, SELFPAY ==
--- NOTE | 2024-08-06 11:00 | XR_ITS ---
Examination: IR venous access removal permanent tunneled dialysis catheter Exam date and time: August 07, 2019 5:11 AM INDICATIONS: No longer needed for dialysis TECHNIQUE AND FINDINGS: Informed consent provided. Timeout performed. Skin prepped over the entrance site of the right internal jugular permanent tunneled dialysis catheter and sterile drape applied hand hygiene 1% lidocaine administered for local anesthesia Careful dissection around the permanent tunneled dialysis catheter was successful removal Estimated blood loss 0 cc Patient instable condition at completion procedure IMPRESSION: Successful IR venous access removal permanent tunneled dialysis catheter
== END | disposition home or self-care (01) ==
PROVIDERS: PCP Nurse Practitioner Family; Referring Provider Student in an Organized Health Care Education/Training Program; Visit Provider Student in an Organized Health Care Education/Training Program
DX: N17.0 Acute kidney failure with tubular necrosis (principal)
CPT/HCPCS: 32552; 77001; A4649

== ENCOUNTER 2024-08-13 08:02 | Inpatient (IN) | payer OTHER, SELFPAY ==
[2024-08-13] VITALS (100 sets, daily range): BP systolic 53–178; BP diastolic 39–103; PULSE 62–130; RESP 7–43; TEMP 36.6–38.8; O2SAT 80–100; BMI 28.5
--- NOTE | 2024-08-13 08:05 | PC.NURSE ---
FROM [facility] TRANSITIONAL CARE BY AMBULANCE WITH C/O AMS. UNKNOWN LAST WELL PER STAFF
--- NOTE | 2024-08-13 08:18 | PD.EDAMS ---
Altered Mental Status RME/HPI General Chief Complaint: Altered Mental Status Stated Complaint: AMS Time Seen by Provider: 08/13/24 08:16 Arrival date/time: 08/13/24 08:02 Limitations: no limitations RME / HPI RME / HPI narrative: 79 year old male with history of Alzheimer's, dementia, CAD, HFrEF 45-50% (06/2024), hypertension, diabetes, asthma, prostate cancer, fibromyalgia presents to the ED BIBA from [facility] for evaluation of altered mental status. According to medics, halfway staff reported the patient was last seen at baseline around 6 PM yesterday and was noted to be combative overnight. This morning, he was altered and unresponsive, prehospital BS 84, and hypoxic 87% on 4L nasal cannula. Per halfway staff, his baseline GCS is 13/14. Related Data Home Medications ?Medication ?Instructions ?Recorded ?Confirmed gabapentin 300 mg capsule 300 mg PO TID ##60 10/10/13 08/13/24 allopurinol 100 mg tablet 100 mg PO QDAY Gout 05/02/18 08/13/24 ropinirole 0.5 mg tablet 0.5 mg PO QDAY 07/15/18 08/13/24 duloxetine 30 mg capsule,delayed 30 mg PO BID 01/11/22 08/13/24 release pantoprazole 40 mg tablet,delayed 40 mg PO QDAY 01/11/22 08/13/24 release atorvastatin 80 mg tablet 80 mg PO QDAY 04/16/22 08/13/24 folic acid 1 mg tablet 1 mg PO QDAY 08/19/22 08/13/24 trospium 20 mg tablet 20 mg PO BID 08/19/22 08/13/24 insulin lispro 100 unit/mL 1 sliding scale dose subcut 04/30/24 08/13/24 subcutaneous pen USEASDIRECTD melatonin 3 mg capsule 6 mg PO HS 04/30/24 08/13/24 memantine 5 mg tablet 5 mg PO BID 04/30/24 08/13/24 mirabegron 50 mg tablet,extended 50 mg PO QDAY 04/30/24 08/13/24 release 24 hr (Myrbetriq) bisacodyl 10 mg rectal suppository 10 mg [place] DAILY PRN constipation 07/28/24 08/13/24 magnesium hydroxide 400 mg/5 mL 30 ml PO .Q3Day PRN constipation 07/28/24 08/13/24 oral suspension (Milk of Magnesia) metformin 1,000 mg tablet 1,000 mg PO BID 08/13/24 08/13/24 metoprolol succinate 200 mg 200 mg PO QDAY 08/13/24 08/13/24 tablet,extended release 24 hr Previous Rx's ?Medication ?Instructions ?Recorded midodrine 5 mg tablet 5 mg PO TID PRN SBP<100 30 days 08/20/22 #90 tabs sacubitril 24 mg-valsartan 26 mg 0.5 tab PO BID 30 days #15 tabs 08/20/22 tablet (Entresto) apixaban 2.5 mg tablet (Eliquis) 2.5 mg PO BID 30 days #60 tabs 08/02/24 Allergies Allergy/AdvReac Type Severity Reaction Status Date / Time empagliflozin (From Allergy Severe rash Verified 08/13/24 08:44 Jardiance) Penicillins Allergy Severe Hives Verified 08/13/24 08:44 Review of Systems Review of Systems ROS Unobtainable: unobtainable due to mental status Past Medical History Past Medical History NEUROLOGIC: Positive Dementia and Alzheimer's Disease CARDIAC: Positive Cardiac Disorders, Heart Murmur, Coronary Artery Disease, Atherosclerotic Heart Disease, Peripheral Vascular Disease, Hypercholesterolemia, Valvular Heart Disease and Hypertension RESPIRATORY: Positive Asthma, Tuberculosis and Sleep Apnea GASTROINTESTINAL: Positive Gastrointestinal Disorders, Gall Bladder Disease, Hiatal Hernia, Gastroesophageal Reflux Disease and Obesity GENITOURINARY: Positive Kidney Stones and Prostate Cancer MUSCULOSKELETAL: Positive Musculoskeletal Disorders, Arthritis, Gout and Fibromyalgia ENT: Positive Cataracts, Blind and Macular Degeneration ENDOCRINE: Positive Endocrine Disorders and Diabetes Mellitus Type 2 HEMATOLOGIC: Positive Clotting Problems PSYCHO/SOCIAL: Positive Depression and Anxiety OTHER HISTORY: Positive Hospitalization, Anesthesia Reactions, Chicken Pox, Measles, Cancer and Prostate Cancer Family History FAMILY HISTORY: Positive Family Cardiac Disorders and Family Cancer Surgical History SURGICAL: Positive Cardiac Surgery, Coronary Artery Bypass Graft, Valve Replacement, Cardiac Catheterization, Pacemaker, Auto Implanted Cardiovert Defib, Abdominal Surgery and Bowel Surgery Social History SMOKING STATUS: Unknown if ever smoked SECOND HAND EXPOSURE: No SUBSTANCE USE: does not use 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 Exam General Limitations: Present no limitations General appearance: Present other (Obtunded, doesnt orientate to voice, opens eyes, minimal reaction to pain ) Head Head exam: Present atraumatic, normocephalic and normal inspection Eye Eye exam: Present normal appearance, PERRL, EOMI and other (Pupils equal 2.5mm each ) ENT ENT exam: Present normal exam, normal oropharynx and mucous membranes dry Neck Neck exam: Present normal inspection, full ROM and trachea midline Chest Chest inspection: Present normal inspection and symmetric chest wall rise Respiratory Respiratory exam: Present normal lung sounds bilaterally Cardiovascular Cardiovascular exam: Present regular rate, normal rhythm and other (distant heart sounds ) Abdominal Exam Abdominal exam: Present soft and normal bowel sounds Extremities Exam Extremities exam: Present normal inspection and other (moves all 4 extremities minimallly ) Back Exam Back exam: Present normal inspection and full ROM Neurological Exam Neurological exam: Present other (Obtunded, doesnt orientate to voice, minimally responsice to pain, minimally moves extremities, unable to further assess neuro exam. ) Psychiatric Psychiatric exam: Present normal affect and normal mood Skin Skin exam: Present warm, dry, intact and normal color Course Quality Measures Current suspected stage: septic shock (LA >4 and/or hypotension) IVF 30 ml/kg given for lactic acid >4 and/or hypotension: yes Vasopressors initiated: Yes Sepsis reassessment completed at (date): 08/13/24 Sepsis reassessment completed at (time): 10:23 Possible source: genitourinary Blood cultures ordered: completed in ED Antibiotic ordered: Yes Pertinent labs: 08/13/24 08:29 Lactic Acid 4.4 H* mMol/L (0.4-2.0) Procalcitonin 0.26 ng/ml (0.0-0.49) sepsis Orders Category Date Time Status 24 HR Medical Restraints Q2HR Care 08/13/24 12:39 Active Bedside COVID-19 Antigen Test NOW Care 08/13/24 09:08 Active Bedside Influenza A&B Antigen Test NOW Care 08/13/24 09:09 Completed Electrician Wiring STAT Care 08/13/24 08:16 Completed Continuous Pulse Oximetry STAT Care 08/13/24 08:16 Completed Decision to Admit X1 Care 08/13/24 11:41 Completed EKG (ED ONLY) *Do not use* NOW Care 08/13/24 08:16 Completed Emergency Titration Protocol Stat Care 08/13/24 10:44 Ordered Insert IV NOW Care 08/13/24 08:16 Completed NPO STAT Care 08/13/24 08:16 Completed Strict Intake and Output Routine Care 08/13/24 08:16 Ordered Urinary Catheter QS Care 08/13/24 08:52 Active Consult to Infectious Diseases Routine Cons 08/13/24 10:58 Ordered EKG (ED Only) Stat Exams 08/13/24 08:16 Ordered US renal BI Stat Exams 08/13/24 12:10 Ordered XR chest 1V SEPSIS PROTOCOL Stat Exams 08/13/24 08:19 Completed B-Type Natriuretic Peptide Stat Lab 08/13/24 08:29 Completed Blood Culture (Lab) Stat Lab 08/13/24 08:47 Received CBC Stat Lab 08/13/24 08:29 Completed Comprehensive Metabolic Panel Stat Lab 08/13/24 08:29 Completed Lactate (Lactic Acid) Stat Lab 08/13/24 08:29 Completed Lactic Acid, 3 HR Stat Lab 08/13/24 11:47 Ordered Lipase Stat Lab 08/13/24 08:29 Completed Magnesium Stat Lab 08/13/24 08:29 Completed Partial Thromboplastin Time Stat Lab 08/13/24 08:29 Completed Phosphorous Stat Lab 08/13/24 08:29 Completed Procalcitonin Stat Lab 08/13/24 08:29 Completed Prothrombin Time with INR Stat Lab 08/13/24 08:29 Completed Troponin I Stat Lab 08/13/24 08:29 Completed Urinalysis Stat Lab 08/13/24 10:47 Completed Urine Culture Stat Lab 08/13/24 10:47 Received Acetaminophen Ivpb [Ofirmev Inj] Med 08/13/24 08:20 Discontinued 1,000 mg in 100 ml IV X1 Albumin Human 25% Ivpb [Albuminar-25 Ivpb] Med 08/13/24 10:54 Discontinued 12.5 gm in 50 ml IV X1 DOPamine/D5w 400 MG IVPB [Intropin in D5w Ivpb] Med 08/13/24 10:54 Active 400 mg in 250 ml IV 5 mcg/kg/min Hydrocortisone Sod Succ Inj [SoluCORTEF Inj] Med 08/13/24 09:21 Discontinued 100 mg IV X1 ONE Meropenem Inj [Merrem Inj] 1,000 mg Med 08/13/24 10:55 Discontinued SODIUM CHLORIDE 0.9% (Popper) [Ns 0.9% (P)] 50 ml IV X1 Norepinephrine/D5W 8mg/250ml [Levophed in D5W 8mg/250ml Med 08/13/24 10:16 Discontinued ] 8 mg in 250 ml IV .STK-MED Norepinephrine/D5W 8mg/250ml [Levophed in D5W 8mg/250ml Med 08/13/24 10:22 Active ] 8 mg in 250 ml IV 0.05 mcg/kg/min Sodium Chloride 0.9% 1000 ml [Ns] 1,000 ml Med 08/13/24 10:30 Active IV 200 mls/hr Sodium Chloride 0.9% 1000 ml [Ns] 1,000 ml Med 08/13/24 08:22 Discontinued IV 999 mls/hr Sodium Chloride 0.9% 1000 ml [Ns] 1,000 ml Med 08/13/24 08:56 Discontinued IV 999 mls/hr Sodium Chloride 0.9% 1000 ml [Ns] 1,000 ml Med 08/13/24 09:38 Discontinued IV 999 mls/hr cefTRIAXone [Rocephin] 2 gm Med 08/13/24 08:20 Discontinued SODIUM CHLORIDE 0.9% (Popper) [Ns 0.9% (P)] 50 ml IV X1 Oxygen Delivery NOW RT 08/13/24 08:16 Completed Oxygen Delivery NOW RT 08/13/24 10:50 Active Vital Signs Vital signs: Vital Signs Temperature 102 F H 08/13/24 08:05 Pulse Rate 115 H 08/13/24 08:05 Respiratory Rate 26 H 08/13/24 08:05 Blood Pressure 85/54 L 08/13/24 08:05 Pulse Oximetry (%) 99 08/13/24 08:05 Oxygen Delivery Method Oxy Mask 08/13/24 08:05 Oxygen Flow Rate 15 08/13/24 08:05 Altered Mental Status MDM Narrative MDM Narrative:: Saira Ross am scribing for and in the presence of Dr. Kay. 79 year old male with history of Alzheimer's, dementia, CAD, HFrEF (EF 45?50% 06/2024), hypertension, diabetes, and prostate cancer, presented from [facility] with acute altered mental status. He was last seen at baseline the evening prior, with reports of combative behavior overnight and found unresponsive and hypoxic this morning. In the ED, he was hypotensive and met criteria for sepsis; sepsis alert was activated. Despite 3L of IV fluids, hypotension persisted, and he was started on Levophed. BP remained low initially but improved with up-titration. Given persistent hemodynamic instability and altered mentation, the patient was admitted to the ICU for further management. Patient data External records reviewed:: [facility] previous records, EMS form and [facility] records (I reviewed pmhx and medication list from [facility] ) Clinical information provided by:: EMS Social determinants that could affect healthcare access:: housing ([facility] resident ) Patient has the following chronic illnesses:: Alzheimer's, dementia, CAD, HFrEF 45-50% (06/2024), hypertension, diabetes, asthma, prostate cancer, fibromyalgia How is presenting disease/condition affected by chronic disease/condition?: exacerbated by Evaluation data The following diagnostics were reviewed and interpreted by me:: lab results, radiology exam(s) and EKG tracing(s) (08/13/2024 @ 08:17 AM. Atrial fibrillation with RVR, rate 103, left bundle branch block, QRS 182 ms, QT/QTc 421/480 ms. ) Lab and/or radiology exams considered but not ordered:: None Interpretation Summary: Ordering Physician: Carlos Kay MD Date of Service: 08/13/24 Procedure(s): XR chest 1V SEPSIS PROTOCOL Accession Number(s): [id number] cc: Carlos Kay MD; Anibal Blum MD; Nicholas Clark MD~ Examination: AP chest single view Technique one AP portable semiupright chest single view Date and time: August 13, 2024 0840 hours Comparison 10/28/2024 INDICATIONS: Altered mental status sepsis today. FINDINGS: Minor prominence of ventricle Aortic valve replacement No pneumonia or pulmonary edema. Cardiac leads satisfactory position IMPRESSION: No pneumonia or pulmonary edema Dictated By: Anibal Blum MD Signed By: <Electronically signed by Anibal Blum MD in OV> 08/13/24 0859 Medications / Prescriptions Medications or Prescriptions considered but not ordered:: None Medication administrations:: Medication Administration History Norepinephrine/Dextrose (Levophed In D5w 8mg/250ml) 8 mg in 250 mls @ 8.934 mls/hr IV .Q24H PRN; Protocol PRN Reason: PER PROTOCOL Stop: 09/12/24 10:21 Last Titration: 08/13/24 12:15 Dose: 0.36 mcg/kg/min, 64.328 mls/hr Documented By: Titration: 08/13/24 12:10 Dose: 0.38 mcg/kg/min, 67.901 mls/hr Documented By: Titration: 08/13/24 12:05 Dose: 0.38 mcg/kg/min, 67.901 mls/hr Documented By: Titration: 08/13/24 12:00 Dose: 0.36 mcg/kg/min, 64.328 mls/hr Documented By: Titration: 08/13/24 11:45 Dose: 0.38 mcg/kg/min, 67.901 mls/hr Documented By: Titration: 08/13/24 11:40 Dose: 0.38 mcg/kg/min, 67.901 mls/hr Documented By: Titration: 08/13/24 11:35 Dose: 0.38 mcg/kg/min, 67.901 mls/hr Documented By: Titration: 08/13/24 11:30 Dose: 0.4 mcg/kg/min, 71.475 mls/hr Documented By: Titration: 08/13/24 11:25 Dose: 0.42 mcg/kg/min, 75.049 mls/hr Documented By: Titration: 08/13/24 11:20 Dose: 0.44 mcg/kg/min, 78.623 mls/hr Documented By: Titration: 08/13/24 11:15 Dose: 0.46 mcg/kg/min, 82.196 mls/hr Documented By: Titration: 08/13/24 11:10 Dose: 0.48 mcg/kg/min, 85.77 mls/hr Documented By: Titration: 08/13/24 11:00 Dose: 0.5 mcg/kg/min, 89.344 mls/hr Documented By: Titration: 08/13/24 10:55 Dose: 0.5 mcg/kg/min, 89.344 mls/hr Documented By: Titration: 08/13/24 10:50 Dose: 0.5 mcg/kg/min, 89.344 mls/hr Documented By: Titration: 08/13/24 10:45 Dose: 0.33 mcg/kg/min, 58.967 mls/hr Documented By: Titration: 08/13/24 10:42 Dose: 0.22 mcg/kg/min, 39.311 mls/hr Documented By: Titration: 08/13/24 10:40 Dose: 0.11 mcg/kg/min, 19.656 mls/hr Documented By: Titration: 08/13/24 10:35 Dose: 0.09 mcg/kg/min, 16.082 mls/hr Documented By: Titration: 08/13/24 10:30 Dose: 0.07 mcg/kg/min, 12.508 mls/hr Documented By: Admin: 08/13/24 10:25 Dose: 0.05 mcg/kg/min, 8.934 mls/hr Documented By: [facility] Sodium Chloride (Ns) 1,000 mls @ 200 mls/hr IV .Q5H CARLEEN Stop: 09/12/24 10:29 Last Admin: 08/13/24 10:28 Dose: 200 mls/hr Documented By: [facility] Dopamine HCl/Dextrose (Intropin In D5w Ivpb) 400 mg in 250 mls @ 17.869 mls/hr IV .Q14H CARLEEN; Protocol Stop: 09/12/24 10:53 Discontinued Medications Hydrocortisone Sodium Succinate (Hydrocortisone Sod Succ Inj 100 Mg Vial) 100 mg IV X1 ONE Stop: 08/13/24 09:22 Last Admin: 08/13/24 09:25 Dose: 100 mg Documented By: [facility] Ceftriaxone Sodium 2 gm/ (Sodium Chloride) 50 mls @ 100 mls/hr IV X1 ONE Stop: 08/13/24 08:49 Last Infusion: 08/13/24 09:15 Dose: Infused Documented By: Admin: 08/13/24 08:34 Dose: 100 mls/hr Documented By: [facility] Acetaminophen (Ofirmev Inj) 1,000 mg in 100 mls @ 250 mls/hr IV X1 ONE Stop: 08/13/24 08:43 Last Infusion: 08/13/24 08:54 Dose: Infused Documented By: Admin: 08/13/24 08:34 Dose: 250 mls/hr Documented By: [facility] Sodium Chloride (Ns) 1,000 mls @ 999 mls/hr IV .Q1H1M ONE Stop: 08/13/24 09:22 Last Infusion: 08/13/24 09:31 Dose: Infused Documented By: [facility] Admin: 08/13/24 08:32 Dose: 999 mls/hr Documented By: [facility] Sodium Chloride (Ns) 1,000 mls @ 999 mls/hr IV .Q1H1M ONE Stop: 08/13/24 09:56 Last Infusion: 08/13/24 09:41 Dose: Infused Documented By: [facility] Admin: 08/13/24 08:58 Dose: 999 mls/hr Documented By: [facility] Sodium Chloride (Ns) 1,000 mls @ 999 mls/hr IV .Q1H1M ONE Stop: 08/13/24 10:38 Last Admin: 08/13/24 09:40 Dose: 999 mls/hr Documented By: [facility] Norepinephrine/Dextrose (Levophed In D5w 8mg/250ml) Confirm Administered Dose 8 mg in 250 mls @ ud IV .STK-MED ONE Stop: 08/13/24 10:17 Last Admin: 08/13/24 10:29 Dose: Not Given Documented By: [facility] Non-Admin Reason: Duplicate Medication on eMAR Albumin Human (Albuminar-25 Ivpb) 12.5 gm in 50 mls @ 50 mls/hr IV X1 ONE Stop: 08/13/24 11:53 Last Infusion: 08/13/24 11:26 Dose: Infused Documented By: [facility] Admin: 08/13/24 11:02 Dose: 50 mls/hr Documented By: [facility] Meropenem 1,000 mg/ Sodium (Chloride) 50 mls @ 100 mls/hr IV X1 ONE Stop: 08/13/24 10:56 Last Infusion: 08/13/24 11:59 Dose: Infused Documented By: [facility] Admin: 08/13/24 11:05 Dose: 100 mls/hr Documented By: [facility] See above Consultations Consultation(s) initiated? (list below): Yes Consultation #1 (Physician, Specialty, Details): I spoke with the scale installer Dr. Uriarte. Discussed patients PMHx, HPI, ED course, exam findings, labs, and radiology results. He accepts the patient for admission. Time: 11:40 Diagnosis Differential diagnosis altered mental status: altered mental status, dementia, hypoglycemia, hyponatremia, subarachnoid hemorrhage and sepsis Most likely diagnosis given after review of the tests above:: Sepsis UTI [place] Leukocytosis Admission Indicated Admission indicated?: indicated Admission Request Was there a request for admission?: Yes Admission Attestation Admission request attestation: Discussed case with [] from Hospitalist service regarding admission. Discussed patients ED course, exam findings, labs, and radiology results. The Hospitalist [agrees,declines] to accept the patient for admission. Disposition Plan Disposition Plan: Admit Critical Care Time Critical Care Time Critical Care Time: Yes Total Critical Care Time (min.): 90 Attestation: The high probability of sudden, clinically significant deterioration in the patient's condition required the highest level of my preparedness to intervene urgently. The services I provided to this patient were to treat and/or prevent clinically significant deterioration. Services included the following: chart data review, reviewing nursing notes and/or old charts, documentation time, benefits consultant collaboration regarding findings and treatment options, medication orders and management, direct patient care, vital sign assessments and ordering, interpreting and reviewing diagnostic studies and lab tests. Aggregate critical care time includes only time during which I was engaged in work directly related to the patient's care, as described above, whether at bedside or elsewhere in the Emergency Department. It did not include time spent performing other reported procedures or the services of residents, students, nurses or physician assistants. Discharge Plan Plan Patient Disposition: Admit Acute Care w/in Hospital Prescriptions/Referrals Prescriptions/Med Rec: No Action ropinirole 0.5 mg tablet 0.5 mg PO QDAY gabapentin 300 MG capsule 300 mg PO TID Qty: 60 allopurinol 100 mg tablet 100 mg PO QDAY Patient Comments: TK 1 T PO QD atorvastatin 80 mg Tablet 80 mg PO QDAY metformin 1,000 mg tablet 1,000 mg PO BID Patient Comments: TAKE 1 TABLET BY MOUTH TWICE DAILY WITH MEAL metoprolol succinate 200 mg tablet extended release 24 hr 200 mg PO QDAY pantoprazole 40 mg tablet,delayed release (DR/EC) 40 mg PO QDAY Patient Comments: TAKE 1 TABLET BY MOUTH EVERY DAY duloxetine 30 mg capsule,delayed release(DR/EC) 30 mg PO BID Patient Comments: TAKE 1 CAPSULE BY MOUTH FOR ONE WEEK THEN TWICE DAILY trospium 20 mg Tablet 20 mg PO BID folic acid 1 mg Tablet 1 mg PO QDAY midodrine 5 mg Tablet 5 mg PO TID PRN (Reason: SBP<100) 30 Days Qty: 90 0RF Rx Instructions: do not give last dose of day after 6PM or within 4 hrs of bedtime Entresto 24-26 mg Tablet 0.5 tab PO BID 30 Days Qty: 15 0RF mirabegron [Myrbetriq] 50 mg tablet extended release 24 hr 50 mg PO QDAY memantine 5 mg tablet 5 mg PO BID insulin lispro 100 unit/mL insulin pen 1 sliding scale dose subcut USEASDIRECTD melatonin 3 mg capsule 6 mg PO HS bisacodyl 10 mg suppository 10 mg [place] DAILY PRN (Reason: constipation) Patient Comments: INSERT ONE SUPPOSITORY RECTALLY ONCE DAILY NEEDED FOR CONSTIPATION Rx Instructions: give if MOM is ineffective magnesium hydroxide [Milk of Magnesia] 400 mg/5 mL suspension 30 ml PO .Q3Day PRN (Reason: constipation) Rx Instructions: if no BM for 3 days Eliquis 2.5 mg Tablet 2.5 mg PO BID 30 Days Qty: 60 0RF Referrals: Nicholas Clark MD [Primary Care Provider] - In 1 week Problem List Clinical Impression: Sepsis, [place] (acute kidney injury), Leukocytosis, UTI (urinary tract infection) Patient/Caregiver Discharge Instructions Print Language: Korean Stand Alone Forms: Ofe Award Info., Patient Portal Info Letter
[2024-08-13] MEDS: SODIUM CHLORIDE 0.9% 1000 ML 1,000 ML 999 ML IV ×3 (08:32→09:40)
[2024-08-13] MEDS: cefTRIAXone 2 GM in SODIUM CHLORIDE 0.9% (Popper) 50 ML IV (08:34)
[2024-08-13] MEDS: ACETAMINOPHEN IVPB 1,000 MG/100 ML VIAL 250 MG IV (08:34)
[2024-08-13 08:52] LABS: Basophils # (Auto) 0.1 Thou/mm3 (0.0-0.2); Basophils % (Auto) 1 % (0-2.5); Eosinophils % (Auto) 0 % (0-10); Hematocrit 43.1 % (41.0-53.0); Hemoglobin 13.9 g/dL (13.5-16.0); Immature Granulocytes % (Auto) 0 % (0-0); Immature Granulocytes Auto 0.05 Thou/mm3 (0.00-0.00); Lymphocytes # (Auto) 1.9 Thou/mm3 (1.0-4.8); Lymphocytes % (Auto) 12 % (10-50); Mean Corpuscular HGB Conc 32.3 g/dl (31.0-37.0); Mean Corpuscular Hemoglobin 28.5 pg (25.0-35.0); Mean Corpuscular Volume 89 fL (80-100); Monocytes # (Auto) 0.8 Thou/mm3 (0.0-0.8); Monocytes % (Auto) 5 % (0-12); Neutrophils # (Auto) 12.6 Thou/mm3 (1.8-7.7); Neutrophils % (Auto) 82 % (37-80); Nucleated Red Blood Cell % 0 /100 WBC (0); Platelet Count 188 Thou/mm3 (140-440); RDW Standard Deviation 53.1 fL (35.1-43.9); Red Blood Count 4.87 Miln/mm3 (4.50-5.90); White Blood Count 15.5 Thou/mm3 (3.8-10.6)
[2024-08-13 08:53] LABS: Lactate (Lactic Acid) 4.4 mMol/L (0.4-2.0)
--- NOTE | 2024-08-13 09:06 | PC.NURSE ---
UPON ARRIVAL PT INCONTINENT OF SMALL LIQUID BM. CLEANED AND LINEN CHANGED
--- NOTE | 2024-08-13 09:12 | PC.NURSE ---
DR. HUSAIN IN TO CHECK ON PT
[2024-08-13 09:22] LABS: Alanine Aminotransferase 24 U/L (10-49); Albumin/Globulin Ratio 1.3 (1.2-2.2); Alkaline Phosphatase 124 U/L (46-116); Anion Gap 17 (7-16); Aspartate Amino Transferase 20 U/L (0-34); BUN/Creatinine Ratio 15 Ratio (12-20); Bilirubin,Total 0.7 mg/dL (0.3-1.2); Blood Urea Nitrogen 50 mg/dL (9-23); Calcium 9.4 mg/dL (8.3-10.6); Calcium (Corrected) 9.4 mg/dL (8.5-10.1); Carbon Dioxide 19.3 mMol/L (20.0-31.0); Chloride 113 mMol/L (98-107); Creatinine (Component) 3.3 mg/dL (0.6-1.3); Estimated Creatinine Clearance 22.1 mL/min (>60); Glucose 174 mg/dL (74-106); Lipase 19 U/L (12-53); Magnesium 1.6 mg/dL (1.6-2.6); Osmolality,Calculated 313 (275-295); Phosphorous 6.3 mg/dL (2.4-5.1); Potassium 4.4 mMol/L (3.4-5.1); Procalcitonin 0.26 ng/ml (0.0-0.49); Sodium 149 mMol/L (136-145); Troponin I 0.037 ng/mL (0.0-0.045); eGFR 18 See Note
[2024-08-13] MEDS: HYDROCORTISONE SOD SUCC INJ 100 MG VIAL IV (09:25)
--- NOTE | 2024-08-13 09:30 | PC.NURSE ---
no urine output after 2 liters luiz and informed
--- NOTE | 2024-08-13 09:32 | PC.NURSE ---
at bedside and informed that pt very sick with sepsis. Told that nurse will tell MD that she is here
[2024-08-13 09:33] LABS: B-Type Natriuretic Peptide 94 pg/mL (0-100)
[2024-08-13 09:47] LABS: INR 1.3 (0.9-1.3); Partial Thromboplastin Time 27.3 Seconds (22.0-36.0)
--- NOTE | 2024-08-13 10:12 | PC.NURSE ---
FEW DROPS CLOUDY USINE IN CATHETER TUBING
[2024-08-13] MEDS: Norepinephrine/D5W 8mg/250ml 8 MG/250 ML BAG 8.934 MG IV (10:25)
[2024-08-13] MEDS: SODIUM CHLORIDE 0.9% 1000 ML 1,000 ML 200 ML IV (10:28)
--- NOTE | 2024-08-13 10:42 | PC.NURSE ---
DR. HUSAIN INFORMED ABOUT B/P AND IN ROOM TO TALK WITH FAMILY
[2024-08-13 10:50] LABS: Collection Type, Urine Clean Catch
--- NOTE | 2024-08-13 10:52 | PC.NURSE ---
DR. HUSAIN INFORMED THAT LEVOPHED NOW MAXED OUT
--- NOTE | 2024-08-13 10:54 | PC.NURSE ---
IV SITE LEFT FA WHERE LEVOPHED INFUSING WITHOUT REDNESS/SWELLING
--- NOTE | 2024-08-13 11:00 | PC.NURSE ---
BP UP AND DOPAMINE NOT STARTED YET
[2024-08-13] MEDS: ALBUMIN HUMAN 25% IVPB 12.5 GM/50 ML BTL IV (11:02)
[2024-08-13] MEDS: MEROPENEM INJ 1,000 MG in SODIUM CHLORIDE 0.9% (Popper) 50 ML 100 MG IV ×2 (11:05→21:47)
--- NOTE | 2024-08-13 11:14 | PC.NURSE ---
PT NOW MOVING LEGS AND ARMS. FAMILY STATING WHEN HE WAS HERE BEFORE HE PULLED OUT HIS BREATHING TUBE. WILL CONTINUE TO MONITOR PT
[2024-08-13 11:34] LABS: Bilirubin,Urine 1+ (Negative); Blood,Urine 3+ (Negative); Color,Urine Yellow (Lt Yel-Yel); Glucose, Urine Trace (Negative); Hyaline Casts,Urine < 1 /hpf (0-1); Ketones,Urine Negative (Negative); Leukocyte Esterase,Urine Positive (Negative); Nitrite,Urine Negative (Negative); Protein,Urine 1+ (Neg - Trace); RBC,Urine 252 /hpf (0-3); Specific Gravity,Urine 1.028 (1.001-1.035); Squamous Epithelial Cell,Urine 18 /hpf (0-5); Transitional Epi Cells,Urine 3 /hpf (0-5); Urobilinogen,Urine Negative mg/dL (0.0-1.0); WBC,Urine 146 /hpf (0-5)
--- NOTE | 2024-08-13 11:36 | PC.NURSE ---
pt has been in and out of a paced rhythm with occasional PVC'S AND ST SINCE ARRIVAL
[2024-08-13 11:46] LABS: Clarity,Urine Turbid (Clear/Hazy)
[2024-08-13 11:47] LABS: Reflex Lactate? Y
--- NOTE | 2024-08-13 11:53 | PC.NURSE ---
DR. HUSAIN INFORMED THAT UA RESULTS BACK. AWAITING WINDER HAND TO COME AND SEE PT. VERY SMALL ANT OF URINE IN CATHETER TUBING
--- NOTE | 2024-08-13 12:00 | PC.NURSE ---
DELAY IN TITRATION OF LEVOPHED DUE TO IN ROOM PUTTING IN CENTRAL LINE AND TOLD NURSE TO NOT TITRATE MED FOR NOW
--- NOTE | 2024-08-13 12:04 | PC.NURSE ---
LAB CAME TO DRAW BLOOD AND CAUSES IVL LEFT FOREARM TO INFILTRATE WHERE LEVOPHED WAS INFUSING
--- NOTE | 2024-08-13 12:10 | XR_ITS ---
Examination: Retroperitoneal ultrasound, complete Technique: Multiple high resolution grayscale images of the retroperitoneum obtained, including kidneys and bladder. Exam date and time:August 13, 2024 1458 hours INDICATIONS: Diagnosis prostate cancer post prostatectomy, history renal insufficiency minimal left hydronephrosis on ultrasound July 28, 2024 FINDINGS: Right kidney 10.9 cm renal cortex 2.1 cm Left kidney 11.7 cm cortex 1.2 cm Upper pole left renal cyst 15 mm Mild renal parenchymal scar formation Bladder not visualized IMPRESSION: Left renal cortical thinning Mild bilateral renal parenchymal scar formation No current hydronephrosis
--- NOTE | 2024-08-13 13:07 | PC.NURSE ---
still delayed with charting medication titration d/t md still in room
--- NOTE | 2024-08-13 13:39 | PD.RESCONSUL ---
HPI Data of Consult Consult date: 08/14/24 Primary Care Provider: Nicholas Clark MD Consult Narrative Reason for consult: [place] History of present illness: Limited HPI due to mental status. Most of the H&P completed with EMR review. Patient is a 79-year-old male with a past medical history of Alzheimer's dementia, history of prostate cancer status post radical prostatectomy status post AUS placement now with indwelling Ruth's catheter, CKD stage IV, obstructive uropathy, peripheral vascular disease, HFrEF, CAD, HTN, diabetes mellitus, anastomosis, who was brought in from rehab to emergency room for evaluation of altered mental status. This morning the patient was found to be hypoxic, and confused, saturating 87% on 4 L nasal cannula. The patient has a baseline GCS of 13/14, but was more agitated last night and this morning was found to be febrile and somnolent as well as hypoxic. In the ER, initial vitals Tmax 102F, pulse rate 115/min, respiratory 26/min, blood pressure 85/54, saturating 99% on 15 L oxy mask. Initial labs showed leukocytosis, [place], metabolic acidosis and lactic acidosis, hyperphosphatemia, urinalysis significant for UTI. WBC 15.5, hemoglobin 13.9, platelets 188, sodium 149, potassium 4.4, CO2 19.3, lactic acid 4.4, BUN 50, creatinine 3.3. Patient was diagnosed with septic shock given IV fluids per sepsis bolus, no improvement in blood pressure was noted, patient was starting on pressor support with Levophed and admitted to ICU for further management. Triple-lumen dialysis catheter was placed in anticipation of hemodialysis as well as central line access for pressors. Past medical history: As noted above cc:: cc: Review of Systems Review of Systems ROS Unobtainable: unobtainable due to mental status Past Medical History Past Medical History NEUROLOGIC: Positive Dementia and Alzheimer's Disease; Negative Neurological Disorders, Seizures or Migraine CARDIAC: Positive Cardiac Disorders, Heart Murmur, Coronary Artery Disease, Atherosclerotic Heart Disease, Peripheral Vascular Disease, Hypercholesterolemia, Valvular Heart Disease and Hypertension; Negative Congestive Heart Failure RESPIRATORY: Positive Asthma, Tuberculosis and Sleep Apnea; Negative Chronic Obstructive Pulmonary Disease (COPD), Emphysema or Pneumonia GASTROINTESTINAL: Positive Gastrointestinal Disorders, Gall Bladder Disease, Hiatal Hernia, Gastroesophageal Reflux Disease and Obesity; Negative Cirrhosis or Hemorrhoids GENITOURINARY: Positive Genitourinary Disorders, Kidney Stones and Prostate Cancer; Negative Renal Disease MUSCULOSKELETAL: Positive Musculoskeletal Disorders, Arthritis, Gout and Fibromyalgia ENT: Positive Cataracts, Blind and Macular Degeneration; Negative Glaucoma ENDOCRINE: Positive Endocrine Disorders and Diabetes Mellitus Type 2; Negative Diabetes Mellitus Type 1 HEMATOLOGIC: Positive Clotting Problems; Negative Blood Disorders or Sickle Cell Disease PSYCHO/SOCIAL: Positive Depression and Anxiety OTHER HISTORY: Positive Hospitalization, Anesthesia Reactions, Chicken Pox, Measles, Cancer and Prostate Cancer; Negative Autoimmune Disease, Blood Transfusions, MRSA, VRSA or Vancomycin-Resistant Enterococci Family History FAMILY HISTORY: Positive Family Cardiac Disorders and Family Cancer; Negative Family Psychiatric Problems, Family Respiratory Disorders, Family Gastrointestinal Problems, Family Surgery or Family Anesthesia Reaction Surgical History SURGICAL: Positive Cardiac Surgery, Coronary Artery Bypass Graft, Valve Replacement, Cardiac Catheterization, Pacemaker, Auto Implanted Cardiovert Defib, Abdominal Surgery and Bowel Surgery Social History SMOKING STATUS: Unknown if ever smoked SECOND HAND EXPOSURE: No SUBSTANCE USE: does not use OCCUPATION: [employer] Exam Vital Signs Temp Pulse Resp BP Pulse Ox O2 Del Method O2 Flow Rate 99.1 F 116 H 17 97/54 L 97 Oxy Mask 15 08/13/24 10:13 08/13/24 13:05 08/13/24 13:05 08/13/24 13:05 08/13/24 13:05 08/13/24 10:20 08/13/24 10:50 Narrative Exam GENERAL APPEARANCE: A&O x 0, arousable on noxious stimuli NECK: Neck supple, no JVD or bruit CARDIOVASCULAR: Heart regular, no murmurs LUNGS/CHEST: Positive bilateral basal rales, rhonchi, ABDOMEN: Soft, nontender, nondistended. No masses. Normal bowel sounds. EXTREMITIES: No edema, clubbing or cyanosis. SKIN: Skin exam normal without any rashes. NEUROLOGICAL : Unable to assess due to mental status Results Labs 08/14/24 04:45 08/14/24 15:38 Labs: Short CBC 08/13/24 Range/Units 08:29 WBC 15.5 H (3.8-10.6) Thou/mm3 Hgb 13.9 (13.5-16.0) g/dL Hct 43.1 (41.0-53.0) % Plt Count 188 (140-440) Thou/mm3 BMP 08/13/24 08:29 Sodium 149 H Potassium 4.4 Chloride 113 H Carbon Dioxide 19.3 L BUN 50 H Creatinine 3.3 H Glucose 174 H Calcium 9.4 Cardiac Enzymes 08/13/24 Range/Units 08:29 Troponin I 0.037 (0.0-0.045) ng/mL Liver Function 08/13/24 Range/Units 08:29 Total Bilirubin 0.7 (0.3-1.2) mg/dL AST 20 (0-34) U/L ALT 24 (10-49) U/L Alkaline Phosphatase 124 H (46-116) U/L Albumin 4.0 (3.4-4.8) gm/dL Urine 08/13/24 Range/Units 10:47 Urine Color Yellow (Lt Yel-Yel) Urine Clarity Turbid A (Clear/Hazy) Urine pH 5.0 (5.0-7.0) Ur Specific [place] 1.028 (1.001-1.035) Urine Protein 1+ A (Neg - Trace) Urine Glucose (UA) Trace (Negative) Quality Measures Quality Measures sepsis Current suspected stage: sepsis Possible source: genitourinary Blood cultures ordered: completed in ED Antibiotic ordered: Yes Advance care planning discussed with:: patient Medications Home Medications and Allergies Home Medications ?Medication ?Instructions ?Recorded ?Confirmed ?Type gabapentin 300 mg capsule 300 mg PO TID ##60 10/10/13 08/13/24 History allopurinol 100 mg tablet 100 mg PO QDAY Gout 05/02/18 08/13/24 History ropinirole 0.5 mg tablet 0.5 mg PO QDAY 07/15/18 08/13/24 History duloxetine 30 mg capsule,delayed 30 mg PO BID 01/11/22 08/13/24 History release pantoprazole 40 mg tablet,delayed 40 mg PO QDAY 01/11/22 08/13/24 History release atorvastatin 80 mg tablet 80 mg PO QDAY 04/16/22 08/13/24 History folic acid 1 mg tablet 1 mg PO QDAY 08/19/22 08/13/24 History trospium 20 mg tablet 20 mg PO BID 08/19/22 08/13/24 History insulin lispro 100 unit/mL 1 sliding scale dose subcut 04/30/24 08/13/24 History subcutaneous pen USEASDIRECTD melatonin 3 mg capsule 6 mg PO HS 04/30/24 08/13/24 History memantine 5 mg tablet 5 mg PO BID 04/30/24 08/13/24 History mirabegron 50 mg tablet,extended 50 mg PO QDAY 04/30/24 08/13/24 History release 24 hr (Myrbetriq) bisacodyl 10 mg rectal suppository 10 mg MD DAILY PRN constipation 07/28/24 08/13/24 History magnesium hydroxide 400 mg/5 mL 30 ml PO .Q3Day PRN constipation 07/28/24 08/13/24 History oral suspension (Milk of Magnesia) metformin 1,000 mg tablet 1,000 mg PO BID 08/13/24 08/13/24 History metoprolol succinate 200 mg 200 mg PO QDAY 08/13/24 08/13/24 History tablet,extended release 24 hr Allergies Allergy/AdvReac Type Severity Reaction Status Date / Time empagliflozin (From Allergy Severe rash Verified 08/13/24 08:44 Jardiance) Penicillins Allergy Severe Hives Verified 08/13/24 08:44 Visit Medications Acetaminophen (Acetaminophen 325 Mg Tablet) 1,000 mg PO Q6H PRN PRN Reason: Fever > 99.9 Stop: 09/12/24 13:30 Enoxaparin Sodium (Enoxaparin Sod Inj 40 Mg/0.4 Ml Syringe) 40 mg SC QDAY CARLEEN Stop: 08/28/24 08:59 Heparin Sodium (Beef Lung) (Heparin Sod Lock Syr 100 Unit/Ml) 500 unit IV X1 ONE Stop: 08/13/24 13:39 Heparin Sodium (Porcine) (Heparin Sod Inj 100 Unit/Ml Vial 30 Ml) 100 unit IV X1 ONE Stop: 08/13/24 13:39 Norepinephrine/Dextrose (Levophed In D5w 8mg/250ml) 8 mg in 250 mls @ 8.934 mls/hr IV .Q24H PRN; Protocol PRN Reason: PER PROTOCOL Stop: 09/12/24 10:21 Last Titration: 08/13/24 13:05 Dose: 0.36 mcg/kg/min, 64.328 mls/hr Sodium Chloride (Ns) 1,000 mls @ 200 mls/hr IV .Q5H CARLEEN Stop: 09/12/24 10:29 Last Admin: 08/13/24 10:28 Dose: 200 mls/hr Dopamine HCl/Dextrose (Intropin In D5w Ivpb) 400 mg in 250 mls @ 17.869 mls/hr IV .Q14H CARLEEN; Protocol Stop: 09/12/24 10:53 Lactated Ringer's (Lactated Ringers) 1,000 mls @ 200 mls/hr IV .Q5H CARLEEN Stop: 09/12/24 13:37 Meropenem 1,000 mg/ Sodium (Chloride) 50 mls @ 100 mls/hr IV Q8HR CARLEEN Stop: 08/20/24 13:59 Ondansetron HCl (Ondansetron Inj 2 Mg/Ml Inj 2 Ml) 4 mg IVP Q6H PRN; Protocol PRN Reason: NAUSEA OR VOMITING Stop: 09/12/24 13:30 Pantoprazole Sodium (Pantoprazole Inj 40 Mg Vial) 40 mg IVP QDAY CARLEEN Stop: 09/13/24 08:59 Discontinued Medications Hydrocortisone Sodium Succinate (Hydrocortisone Sod Succ Inj 100 Mg Vial) 100 mg IV X1 ONE Stop: 08/13/24 09:22 Last Admin: 08/13/24 09:25 Dose: 100 mg Ceftriaxone Sodium 2 gm/ (Sodium Chloride) 50 mls @ 100 mls/hr IV X1 ONE Stop: 08/13/24 08:49 Last Infusion: 08/13/24 09:15 Dose: Infused Acetaminophen (Ofirmev Inj) 1,000 mg in 100 mls @ 250 mls/hr IV X1 ONE Stop: 08/13/24 08:43 Last Infusion: 08/13/24 08:54 Dose: Infused Sodium Chloride (Ns) 1,000 mls @ 999 mls/hr IV .Q1H1M ONE Stop: 08/13/24 09:22 Last Infusion: 08/13/24 09:31 Dose: Infused Sodium Chloride (Ns) 1,000 mls @ 999 mls/hr IV .Q1H1M ONE Stop: 08/13/24 09:56 Last Infusion: 08/13/24 09:41 Dose: Infused Sodium Chloride (Ns) 1,000 mls @ 999 mls/hr IV .Q1H1M ONE Stop: 08/13/24 10:38 Last Admin: 08/13/24 09:40 Dose: 999 mls/hr Albumin Human (Albuminar-25 Ivpb) 12.5 gm in 50 mls @ 50 mls/hr IV X1 ONE Stop: 08/13/24 11:53 Last Infusion: 08/13/24 11:26 Dose: Infused Meropenem 1,000 mg/ Sodium (Chloride) 50 mls @ 100 mls/hr IV X1 ONE Stop: 08/13/24 10:56 Last Infusion: 08/13/24 11:59 Dose: Infused Assessment & Plan Plan #[place]/ATN in the setting of septic shock #UTI #CKD stage IV/obstructive nephropathy Patient was recently admitted to the hospital due to acute encephalopathy obstructive uropathy, as patient was not able to operate his AUS/artificial ureteral sphincter, leading to obstructive uropathy and acute on chronic kidney injury. After passing Ruth's catheter and relief of obstruction as well as couple sessions of hemodialysis, patient's renal function improved, adequate urine output, and mental status returned to baseline. Patient was discharged from the hospital with indwelling Ruth's catheter per urology recommendations. Now patient has similar presentation with acute encephalopathy and worsening kidney function in the setting of UTI. UTI leading to septic shock, requiring IV pressors, nonresponsive to fluid resuscitation. [place] likely secondary to acute tubular necrosis in the setting of septic shock. Triple-lumen dialysis catheter was placed in the femoral artery for central venous access as well as possible hemodialysis if needed. ? Continue antibiotics, renal dosing ? Avoid nephrotoxic agents ? Maintain MAP more than 65 for adequate renal perfusion ? Consider hemodialysis if no improvement in renal function #Acute hypoxic respiratory failure Chest x-ray shows vascular congestion, AHRF likely precipitated by volume overload. ? Strict intake and output ? Continue hemodialysis #Acute toxic encephalopathy ? Likely secondary to sepsis, management per primary team #History of Alzheimer's dementia #History of prostate cancer #History of atrial fibrillation #History of CHF ? Management per primary team Plan of care discussed with attending Dr. Luigi Youssef [id number] Attending Provider Attestation/Addendum Patient seen and examined with resident physician Dr. Youssef. Note reviewed, agree with findings and recommendations. Patient with altered mental status, [place]. Agree with continuing on IV fluids. No need for emergency dialysis. Thank you Dr. Uriarte for allowing me to participate in the care of Mr. Gilmore
--- NOTE | 2024-08-13 13:50 | XR_ITS ---
Examination: AP chest single view Technique one AP portable supine chest single view Date and time: August 13, 2024 1405 hours Comparison August 13, 2024 0840 hours INDICATIONS: Chest pain today. FINDINGS: Mild prominence left ventricle Moderate vascular congestion. No lobar pneumonia or pulmonary edema. Cardiac leads satisfactory position Aortic cage IMPRESSION: Moderate vascular congestion
[2024-08-13] MEDS: HEPARIN SOD LOCK SYR 100 UNIT/ML 500 UNIT IV (13:52)
[2024-08-13] MEDS: RINGERS LACTATED 1000 ML 1,000 ML 200 ML IV ×2 (13:54→20:10)
[2024-08-13 14:05] LABS: Lactic Acid, 3 HR 2.5 mMol/L (0.4-2.0)
--- NOTE | 2024-08-13 14:20 | PC.NURSE ---
INFORMED ICU THAT NURSE WILL HOLD TITRATING LEVOPHED DUE TO TAKING PT TO ICU NOW
[2024-08-13] MEDS: Norepinephrine/D5W 8mg/250ml 8 MG/250 ML BAG 53.606 MG IV (14:23)
--- NOTE | 2024-08-13 16:08 | PD.IDPROG ---
Subjective Subjective Interval history: asked to see for fever. if pt looks ok, then could be malignant given findings on imaging Exam Vital Signs Temp Pulse Resp BP Pulse Ox O2 Del Method O2 Flow Rate 98.5 F 102 H 18 77/63 L 98 Oxy Mask 10 08/13/24 14:30 08/13/24 15:01 08/13/24 15:01 08/13/24 15:01 08/13/24 15:01 08/13/24 14:30 08/13/24 14:30 Narrative Exam not seen today Objective - Internal Medicine Labs 08/13/24 08:29 08/13/24 08:29 Labs: Laboratory Results - last 24 hr 08/13/24 08/13/24 08/13/24 08:29 10:47 13:59 WBC 15.5 H RBC 4.87 Hgb 13.9 Hct 43.1 MCV 89 MCH 28.5 MCHC 32.3 RDW Std Deviation 53.1 H Plt Count 188 Neut % (Auto) 82 H Lymph % (Auto) 12 [place] % (Auto) 5 Eos % (Auto) 0 Baso % (Auto) 1 Neut # (Auto) 12.6 H Lymph # (Auto) 1.9 [place] # (Auto) 0.8 Eos # (Auto) 0.0 Baso # (Auto) 0.1 Immature Gran # (Auto) 0.05 H Absolute Nucleated RBC 0.00 Immature Gran % 0 Nucleated RBC % 0 PT 14.0 H INR 1.3 APTT 27.3 D Sodium 149 H Potassium 4.4 Chloride 113 H Carbon Dioxide 19.3 L Anion Gap 17 H BUN 50 H Creatinine 3.3 H Estim Creat Clear Calc 22.1 L eGFR 18 L BUN/Creatinine Ratio 15 Glucose 174 H Calculated Osmolality 313 H Lactic Acid 4.4 H* 2.5 H Calcium 9.4 Corrected Calcium 9.4 Phosphorus 6.3 H Magnesium 1.6 Total Bilirubin 0.7 AST 20 ALT 24 Alkaline Phosphatase 124 H Troponin I 0.037 B-Natriuretic Peptide 94 Total Protein 7.0 Albumin 4.0 Globulin 3.0 Albumin/Globulin Ratio 1.3 Lipase 19 Procalcitonin 0.26 Ur Collection Type Clean Catch Urine Color Yellow Urine Clarity Turbid A Urine pH 5.0 Ur Specific [place] 1.028 Urine Protein 1+ A Urine Glucose (UA) Trace Urine Ketones Negative Urine Blood 3+ A Urine Nitrite Negative Urine Bilirubin 1+ A Urine Urobilinogen (Auto) Negative Ur Leukocyte Esterase Positive Urine RBC 252 H Urine WBC 146 H Ur Squamous Epith Cells 18 H Ur Transition Epith Cell 3 Urine Bacteria None Hyaline Casts < 1 Assessment & Plan A&P Narrative haydee since 07/19. up lots since. fever. if bc neg, and fever persists, could be malignancy related. fevers more common with marrow tumors, but can occ be seen with solid tumors too hld dm II presumptive dementia based on home med list htn on empiric merrem per others presumably based on icu status will see wed pm Time Spent With Patient Time: Total time spent is greater than 50% in coordination of care (as documented) at patient's floor/unit and/or counseling patient:
--- NOTE | 2024-08-13 16:52 | ESHP_ITS ---
<Statement entered by Chasidy Uriarte MD - 08/14/24 08:47> TOTAL CC TIME: 65 MIN I saw and evaluated the patient. I reviewed the resident?s note and agree with findings and plan as documented in the resident?s note. Upon my evaluation, this patient had a high probability of imminent or life- threatening deterioration due to septic shock which required my direct attention, intervention, and personal management. This time is exclusive of time spent on procedures, which are documented separately if performed. Patient was seen and examined with the ICU team in the emergency department. Discussed case with the patient's and daughter at bedside. Patient was in severe septic shock, hypotension and high-dose Levophed through a peripheral IV line. Source of septic shock likely is due to urinary tract infection. Prior history of left mild hydronephrosis and nephrolithiasis. Repeat stat renal ultrasound failed to identify with progressive hydronephrosis. Patient was appropriately fluid resuscitated, lactic acid improved, placed on meropenem. Admitted to ICU for further care and monitoring. Follow-up all culture results. Concurrent pneumonia possible as well Documentation for date of: 08/13/24 HPI History of Present Illness Chief complaint: AMS History of present illness: HPI: Patient confused and majority of history obtained from family at bedside and chart review. Patient is a 79-year-old male past medical history significant for Alzheimer's, CAD s/p stents, PVD, primary hypertension, paroxysmal atrial fibrillation on Eliquis, history of TAVR, s/p ECONOMICS INSTRUCTOR D placement, heart failure reduced ejection fraction [40-45%] and ATN presented today with chief complaint of altered mental status. Patient is a resident [facility] Apparently earlier today at [facility] patient became confused, [baseline GCS 15?14] and less responsive and subsequently was B IBA to the emergency department. Patient had recent hospitalization from 07/28. Patient was treated for obstructive and contrast-induced nephropathy. Also treated with IV antibiotics for pneumonia. ED course: BP 85/54, pulse 115, RR 26, temp 102F, SpO2 99% on 15L OxyMask. WBC 15.5, CL 113, bicarb 19.3, BUN 5, CR 3.3. LA 4.4 downtrending 2.5. Phos 6.3, AG 17. Urinalysis leukocyte esterase positive. Chest x-ray showed moderate vascular congestion. In the ED patient received normal saline 4L IVF bolus, Tylenol IV x 1, hydrocortisone 100 Mg IV x 1, albumin 12.5 g x 1 and norepinephrine infusion. Patient will be admitted to ICU for vasopressors in setting of septic shock. Review of Systems Review of Systems ROS Unobtainable: unobtainable due to mental status Past Medical History Past Medical History Comments PMH COMMENT: Past medical history: Heart failure reduced ejection fraction [40/45%] S/p ECONOMICS INSTRUCTOR D placement History of TAVR IDDM type II Paroxysmal atrial fibrillation on Eliquis Primary hypertension History of coronary artery disease s/p stents History of PVD History of Alzheimer disease Medication list: Allopurinol 100 Mg p.o. daily Apixaban 2.5 Mg p.o. twice daily Atorvastatin 80 mg p.o. daily Bisacodyl 10 Mg p.o. daily as needed Duloxetine 30 Mg p.o. twice daily Entresto 0.5 tab p.o. twice daily Folic acid 1 Mg p.o. daily Gabapentin 100 Mg p.o. 3 times daily Lispro sliding scale Melatonin 6 Mg p.o. at bedtime Memantine 5 Mg p.o. twice daily Metformin 1 g p.o. twice daily Metoprolol succinate 200 Mg p.o. daily Midodrine 5 Mg p.o. 3 times daily as needed Mirabegron 50 Mg p.o. daily Pantoprazole 40 Mg p.o. daily Ropinirole 0.5 Mg p.o. daily Trospium 20 Mg p.o. twice daily Past surgical history: TAVR robotic assisted radical prostatectomy, bilateral pelvic lymph node Allergies: Empagliflozin - rash Penicillin - hives Social history: Lives at supportive condition. Baseline GCS 13/14 [E4, V3/4, M6] Family History: No Significant History Exam Vital Signs Temp Pulse Resp BP Pulse Ox O2 Del Method O2 Flow Rate 98.5 F 99 11 L 104/68 97 Oxy Mask 8 08/13/24 16:00 08/13/24 16:15 08/13/24 16:15 08/13/24 16:15 08/13/24 16:15 08/13/24 16:00 08/13/24 16:00 Narrative Exam Constitutional Oriented to self only HEENT Vision grossly intact. Patent nares. Trachea midline Respiratory Chest normal on inspection, ECONOMICS INSTRUCTOR-D noted left chest wall, and clear auscultation bilaterally on anterior lung crawford. Bilateral bibasilar crackles in posterior lung crawford. Cardiovascular S1 and S2 audible, RRR. No murmurs carotid bruit. No gross JVD. Abdominal Soft and non tender to palpation in all quadrants. BS + Genitourinary No bladder tenderness, no flank pain. Normal to palpation Musculoskeletal Extremities tone within normal limits. No LE edema. Neurological CN II - XII grossly intact. Extremity motor and sensation grossly intact. Skin Warm, dry and intact. Healed surgical scar over left knee Results: Labs 08/13/24 08:29 08/13/24 08:29 Labs: Short CBC 08/13/24 Range/Units 08:29 WBC 15.5 H (3.8-10.6) Thou/mm3 Hgb 13.9 (13.5-16.0) g/dL Hct 43.1 (41.0-53.0) % Plt Count 188 (140-440) Thou/mm3 BMP 08/13/24 08:29 Sodium 149 H Potassium 4.4 Chloride 113 H Carbon Dioxide 19.3 L BUN 50 H Creatinine 3.3 H Glucose 174 H Calcium 9.4 Cardiac Enzymes 08/13/24 Range/Units 08:29 Troponin I 0.037 (0.0-0.045) ng/mL Liver Function 08/13/24 Range/Units 08:29 Total Bilirubin 0.7 (0.3-1.2) mg/dL AST 20 (0-34) U/L ALT 24 (10-49) U/L Alkaline Phosphatase 124 H (46-116) U/L Albumin 4.0 (3.4-4.8) gm/dL Urine 08/13/24 Range/Units 10:47 Urine Color Yellow (Lt Yel-Yel) Urine Clarity Turbid A (Clear/Hazy) Urine pH 5.0 (5.0-7.0) Ur Specific [place] 1.028 (1.001-1.035) Urine Protein 1+ A (Neg - Trace) Urine Glucose (UA) Trace (Negative) Quality Measures Quality Measures sepsis Current suspected stage: septic shock (LA >4 and/or hypotension) IVF 30 ml/kg given for lactic acid >4 and/or hypotension: yes Vasopressors initiated: Yes Sepsis reassessment completed at (date): 08/13/24 Sepsis reassessment completed at (time): 17:56 Possible source: genitourinary Blood cultures ordered: completed in ED Antibiotic ordered: Yes Advance care planning discussed with:: spouse and child Medications Home Medications and Allergies Home Medications ?Medication ?Instructions ?Recorded ?Confirmed ?Type gabapentin 300 mg capsule 300 mg PO TID ##60 10/10/13 08/13/24 History allopurinol 100 mg tablet 100 mg PO QDAY Gout 05/02/18 08/13/24 History ropinirole 0.5 mg tablet 0.5 mg PO QDAY 07/15/1807/29 History duloxetine 30 mg capsule,delayed 30 mg PO BID 01/11/22 08/13/24 History release pantoprazole 40 mg tablet,delayed 40 mg PO QDAY 08/13/24 History release atorvastatin 80 mg tablet 80 mg PO QDAY 04/16/2208/13 History folic acid 1 mg tablet 1 mg PO QDAY 08/19/22 History trospium 20 mg tablet 20 mg PO BID 08/19/22 History insulin lispro 100 unit/mL 1 sliding scale dose subcut 04/30/24 08/13/24 History subcutaneous pen USEASDIRECTD melatonin 3 mg capsule 6 mg PO HS 04/30/24 08/13/24 History memantine 5 mg tablet 5 mg PO BID 04/30/24 5 History mirabegron 50 mg tablet,extended 50 mg PO QDAY 5 08/13/24 History release 24 hr (Myrbetriq) bisacodyl 10 mg rectal suppository 10 mg VT DAILY PRN constipation 07/28/24 08/13/24 History magnesium hydroxide 400 mg/5 mL 30 ml PO .Q3Day PRN co nstipation 07/28/24 08/13/24 History oral suspension (Milk of Magnesia) metformin 1,000 mg tablet 1,000 mg PO BID 08/13/24 History metoprolol succinate 200 mg 200 mg PO QDAY 08/13/24 History tablet,extended release 24 hr Allergies Allergy/AdvReac Type Severity Reaction Status Date / Time empagliflozin (From Allergy Severe rash Verified 08/13/24 08:44 Jardiance) Penicillins Allergy Severe Hives Verified 08/13/24 08:44 Visit Medications Acetaminophen (Acetaminophen 325 Mg Tablet) 1,000 mg PO Q6H PRN PRN Reason: Fever > 99.9 Stop: 09/12/24 13:30 Enoxaparin Sodium (Enoxaparin Sod Inj 30 Mg/0.3 Ml Syringe) 30 mg SC QDAY [facility] Stop: 08/28/24 08:59 Norepinephrine/Dextrose (Levophed In D5w 8mg/250ml) 8 mg in 250 mls @ 8.934 mls/hr IV .Q24H PRN; Protocol PRN Reason: PER PROTOCOL Stop: 09/12/24 10:21 Last Titration: 08/13/24 16:17 Dose: 0.3 mcg/kg/min, 53.606 mls/hr Dopamine HCl/Dextrose (Intropin In D5w Ivpb) 400 mg in 250 mls @ 17.869 mls/hr IV .Q14H CARLEEN; Protocol Stop: 09/12/24 10:53 Last Admin: 08/13/24 15:33 Dose: Not Given Lactated Ringer's (Lactated Ringers) 1,000 mls @ 200 mls/hr IV .Q5H [facility] Stop: 09/12/24 13:37 Last Admin: 08/13/24 13:54 Dose: 200 mls/hr Meropenem 1,000 mg/ Sodium (Chloride) 50 mls @ 100 mls/hr IV Q12HR [facility] Stop: 08/20/24 20:59 Ondansetron HCl (Ondansetron Inj 2 Mg/Ml Inj 2 Ml) 4 mg IVP Q6H PRN; Protocol PRN Reason: NAUSEA OR VOMITING Stop: 09/12/24 13:30 Pantoprazole Sodium (Pantoprazole Inj 40 Mg Vial) 40 mg IVP QDAY [facility] Stop: 09/13/24 08:59 Discontinued Medications Heparin Sodium (Beef Lung) (Heparin Sod Lock Syr 100 Unit/Ml) 500 unit IV X1 ONE Stop: 08/13/24 13:39 Last Admin: 08/13/24 13:52 Dose: 500 unit Heparin Sodium (Porcine) (Heparin Sod Inj 100 Unit/Ml Vial 30 Ml) 100 unit IV X1 ONE Stop: 08/13/24 13:39 Last Admin: 08/13/24 13:57 Dose: Not Given Hydrocortisone Sodium Succinate (Hydrocortisone Sod Succ Inj 100 Mg Vial) 100 mg IV X1 ONE Stop: 08/13/24 09:22 Last Admin: 08/13/24 09:25 Dose: 100 mg Ceftriaxone Sodium 2 gm/ (Sodium Chloride) 50 mls @ 100 mls/hr IV X1 ONE Stop: 08/13/24 08:49 Last Infusion: 08/13/24 09:15 Dose: Infused Acetaminophen (Ofirmev Inj) 1,000 mg in 100 mls @ 250 mls/hr IV X1 ONE Stop: 08/13/24 08:43 Last Infusion: 08/13/24 08:54 Dose: Infused Sodium Chloride (Ns) 1,000 mls @ 999 mls/hr IV .Q1H1M ONE Stop: 08/13/24 09:22 Last Infusion: 08/13/24 09:31 Dose: Infused Sodium Chloride (Ns) 1,000 mls @ 999 mls/hr IV .Q1H1M ONE Stop: 08/13/24 09:56 Last Infusion: 08/13/24 09:41 Dose: Infused Sodium Chloride (Ns) 1,000 mls @ 999 mls/hr IV .Q1H1M ONE Stop: 08/13/24 10:38 Last Admin: 08/13/24 09:40 Dose: 999 mls/hr Sodium Chloride (Ns) 1,000 mls @ 200 mls/hr IV .Q5H CARLEEN Stop: 09/12/24 10:29 Last Infusion: 08/13/24 13:54 Dose: 0 mls/hr Albumin Human (Albuminar-25 Ivpb) 12.5 gm in 50 mls @ 50 mls/hr IV X1 ONE Stop: 08/13/24 11:53 Last Infusion: 08/13/24 11:26 Dose: Infused Meropenem 1,000 mg/ Sodium (Chloride) 50 mls @ 100 mls/hr IV X1 ONE Stop: 08/13/24 10:56 Last Infusion: 08/13/24 11:59 Dose: Infused Assessment & Plan Plan Patient is a 79-year-old male past medical history significant for Alzheimer's, CAD s/p stents, PVD, primary hypertension, paroxysmal atrial fibrillation on Eliquis, history of TAVR, s/p ECONOMICS INSTRUCTOR D placement, heart failure reduced ejection fraction [40-45%] and ATN presented today with chief complaint of altered mental status. Patient will be admitted to ICU for vasopressors in setting of septic shock. NEURO Acute metabolic encephalopathy DDx: Sepsis, worsening alzeihmers Rx: Treat underlying cause Alzheimer's dementia Rx: Home medication memantine, Ropinirole on hold until patient passes swallow screen CVS Likely septic shock Dx: Patient's MAP <65 with temperature 102F on admission. Source unclear at this time. No pericardial effusion seen on bedside echo Rx: Norepinephrine infusion to titrate for MAP >65. Nicom and IVF bolus. Meropenem 1G IV twice daily Chronic systolic CHF with reduced EF [40 to 45%] Rx: GDMT on hold in setting of septic shock History of primary hypertension Antihypertensives on hold in setting of shock CAD and PVD s/p stents Apixaban on hold for now Paroxysmal A-fib on Eliquis Rx: Continue telemetry monitoring. Apixaban on hold for now due to possible deterioration and further invasive procedures PULM No acute problems GI/Hep Elevated ALP DDx: possible cholestasis Dx: ALP 124 Rx: Monitor CMP RENAL Acute tubular necrosis DDx: Contrast induced, obstructive Dx: CR 3.3 on admission Rx: Nephrology, Dr. Meyers consulted. Pending nephrology recommendations. Possible hemodialysis Lactic acidosis DDx: Likely type A secondary to shock Dx: LA 4.4 ->2.5 Rx: IVF bolus determined by nicom RRX: Continue to repeat nicom and repeat fluid boluses as necessary H/O urinarry incontinence Rx: value stream manager- tse catheter. Home medication trospium on hold for now HEME/ONC Leukocytosis DDx: Sepsis, UTI, bacteremia, IE Dx: WBC 15.5 Rx: Pending blood, urine cultures. TTE ordered. RRX: Follow cultures and TTE. ENDO Pbs-jrbynin-bficelirb diabetes mellitus type 2 [7.5%] Rx: SSI Q6 hourly . glargine 5U SC at bedtime. HLD Home medication Atorvastatin on hold until passes swallow screen ID Septic Shock secondary to unknown source Rx: Continue meropenem IV, no right infusion. RRX: Follow-up on blood, urine cultures. Follow-up on TTE MSK/DERM No active problems ICU Health maintenance: Dispo: Admit to ICU for vasopressors secondary to septic shock Diet: NPO DVT ppx: Enoxaparin 30mg SC daily GI ppx: Protonix 40mg qD IV lines: 2 pIV Central line: Left Femoral Arterial line: No Tse: Yes (started 08/13/24 Code status: FULL CODE Plan of care discussed with Attending Dr.Malli Braxton Tim MD PGY 1 Disclaimer: This note was dictated by speech recognition. Minor errors in supervisor typesetting may be present due to voice recognition software.
--- NOTE | 2024-08-13 16:53 | ESOP_ITS ---
<Statement entered by Chasidy Uriarte MD - 08/14/24 08:48> I was present for the entire duration of the procedure and was immediately available to provide assistance. A correction to the resident's note includes: Initial attempt was left IJ not right IJ. After aborting this procedure, the left femoral vein site was chosen and successfully cannulated using sterile technique. Postprocedure chest x-ray failed to identify any evidence of pneumothorax from the left IJ attempt. Procedures Procedure Date / Time 08/13/24 0829 Procedure Narrative Procedure Narrative: INDICATION: Septic shock requiring Norepinephrine infusion ATTENDING PHYSICIAN: Dr. Uriarte Ultrasound Used: Y/N CONSENT: Surrogate decision maker ; Daughter During the informed consent discussion regarding the procedure, or treatment, I explained the following to the patient/designee: a. Nature of the procedure or treatment and who will perform the procedure or treatment. b. Necessity for procedure and the possible benefits. c. Risks and complications (most common and serious). d. Alternative treatments and the risks, benefits and side effects of each (including no treatment). e. Likelihood of the patient achieving his/her goals without this procedure and surgery treatment. f. Problems that might occur during the recuperation. PROCEDURE SUMMARY: RIJ CVC was attempted, guidewire was unable to be advanced. The [facility] Central Line Insertion Practices form was completed by an independent observer (RN) starting with the first handwash prior to starting sterile technique. A time out was performed. My hands were washed immediately prior to the procedure. I wore a surgical cap, mask with protective eyewear, sterile gown and sterile gloves throughout the procedure. The LEFT inguinal region was prepped using chlorhexidine scrub and draped in sterile fashion using a full drape and sterile probe cover and sterile gel employed. The femoral pulse was identified. Anesthesia was achieved using 1% lidocaine. Using Ultrasound guidanc e throughout theprocedure, the introducer needle was inserted into the femoral vein. Venous blood was withdrawn. The syringe was removed and a guidewire was advanced into the introducer needle. A small incision was made at the skin surface with a scalpel and the introducer needle was exchanged for a dilator over the guidewire. After appropriate dilation was obtained, the dilator was exchanged over the wire for a dialysis catheter. The wire was removed and the catheter was sutured in place . A sterile sorbaview shield was placed over the catheter at the insertion site. The patient tolerated the procedure without any hemodynamic compromise. At time of procedure completion, all ports aspirated and flushed properly. Estimated blood loss is 5ml. Procedure Performed by Attending Physician Dr. Kalani Tim PGY 1
--- NOTE | 2024-08-13 16:53 | PD.RESPROC ---
Procedures Procedure Date / Time 08/13/24 7543
[2024-08-13] MEDS: RINGERS LACTATED 1000 ML 500 ML 999 ML IV (18:43)
[2024-08-13] MEDS: INSULIN LISPRO (AdmeLOG) 1 UNIT/0.01 ML UNIT SC (18:58)
[2024-08-13] MEDS: SODIUM CHLORIDE RT 10% 15 ML NEBU 5 ML INH (19:09)
--- NOTE | 2024-08-13 19:29 | PC.RT ---
sputum induction at 1920, pt unable to produce sample
--- NOTE | 2024-08-13 19:30 | PC.RT ---
sputum induction attempted at 1920, unable to provide ample
[2024-08-13 19:48] LABS: Lactate (Lactic Acid) 1.8 mMol/L (0.4-2.0)
[2024-08-13] MEDS: Norepinephrine/D5W 8mg/250ml 8 MG/250 ML BAG 35.738 MG IV (20:01)
[2024-08-13] MEDS: INSULIN GLARGINE (Lantus) 5 UNIT/0.05 ML (PER 5 UNITS) SC (21:50)
--- NOTE | 2024-08-13 22:03 | PC.NURSE ---
21:20 Dr Clayton notified of cheeta results pre HR 121, SVI 26, CI 2.7/ post HR 106, SVI 37, CI 3.9. SVI 44.7%-Orders received to decrease fluids to 50ml/hr of LR. Also informed him-pts lungs sound crackles on left side.
[2024-08-13] MEDS: RINGERS LACTATED 1000 ML 1,000 ML 50 ML IV (22:10)
[2024-08-13] MEDS: ALBUTEROL/IPRATROPIUM (Duoneb) RT SOL 3 ML NEBU INH (22:22)
[2024-08-14] VITALS (47 sets, daily range): BP systolic 107–159; BP diastolic 54–103; PULSE 83–110; RESP 14–23; TEMP 36.5–37.2; O2SAT 91–100; BMI 28.5
[2024-08-14 05:24] LABS: Basophils % (Auto) 0 % (0-2.5); Eosinophils # (Auto) 0.1 Thou/mm3 (0.0-0.5); Eosinophils % (Auto) 1 % (0-10); Hematocrit 35.1 % (41.0-53.0); Hemoglobin 11.3 g/dL (13.5-16.0); Immature Granulocytes % (Auto) 0 % (0-0); Immature Granulocytes Auto 0.05 Thou/mm3 (0.00-0.00); Lymphocytes # (Auto) 1.1 Thou/mm3 (1.0-4.8); Lymphocytes % (Auto) 9 % (10-50); Mean Corpuscular HGB Conc 32.2 g/dl (31.0-37.0); Mean Corpuscular Hemoglobin 28.5 pg (25.0-35.0); Mean Corpuscular Volume 88 fL (80-100); Monocytes # (Auto) 0.7 Thou/mm3 (0.0-0.8); Monocytes % (Auto) 6 % (0-12); Neutrophils # (Auto) 9.8 Thou/mm3 (1.8-7.7); Neutrophils % (Auto) 84 % (37-80); Nucleated Red Blood Cell % 0 /100 WBC (0); Platelet Count 126 Thou/mm3 (140-440); Red Blood Count 3.97 Miln/mm3 (4.50-5.90); White Blood Count 11.8 Thou/mm3 (3.8-10.6)
[2024-08-14 05:56] LABS: Alanine Aminotransferase 17 U/L (10-49); Albumin, Serum 3.3 gm/dL (3.4-4.8); Albumin/Globulin Ratio 1.4 (1.2-2.2); Alkaline Phosphatase 103 U/L (46-116); Anion Gap 13 (7-16); Aspartate Amino Transferase 17 U/L (0-34); BUN/Creatinine Ratio 20 Ratio (12-20); Bilirubin,Total 0.4 mg/dL (0.3-1.2); Blood Urea Nitrogen 46 mg/dL (9-23); Calcium (Corrected) 8.6 mg/dL (8.5-10.1); Carbon Dioxide 21.6 mMol/L (20.0-31.0); Cardiac Risk Estimate 4.3 RATIO (4.0-6.7); Chloride 117 mMol/L (98-107); Cholesterol 103 mg/dL (132-200); Creatinine (Component) 2.3 mg/dL (0.6-1.3); Estimated Creatinine Clearance 31.7 mL/min (>60); Globulin 2.4 gm/dL (2.3-3.5); Glucose 123 mg/dL (74-106); HDL Cholesterol 24 mg/dL (40-60); LDL Cholesterol,Calculated 49 mg/dL (0-130); Magnesium 1.3 mg/dL (1.6-2.6); Osmolality,Calculated 314 (275-295); Potassium 3.4 mMol/L (3.4-5.1); Sodium 152 mMol/L (136-145); Thyroid Stimulating Hormone 0.94 uIU/mL (0.55-4.78); Total Protein 5.7 gm/dL (5.7-8.2); Triglycerides 151 mg/dL (30-150); eGFR 28 See Note
[2024-08-14] MEDS: ALBUTEROL/IPRATROPIUM (Duoneb) RT SOL 3 ML NEBU INH ×2 (06:24→23:13)
[2024-08-14] MEDS: Magnesium Sulfate 4 GM Ivpb 4 GM/50 ML BAG IV (07:33)
[2024-08-14] MEDS: POTASSIUM CHL 10 mEq IVPB 10 MEQ/100 ML BAG 100 MEQ IV ×4 (07:33→10:41)
[2024-08-14] MEDS: ENOXAPARIN SOD INJ 30 MG/0.3 ML SYRINGE SC (08:12)
[2024-08-14] MEDS: MEROPENEM INJ 1,000 MG in SODIUM CHLORIDE 0.9% (Popper) 50 ML 100 MG IV ×2 (08:12→20:16)
[2024-08-14] MEDS: PANTOPRAZOLE INJ 40 MG VIAL IVP (08:13)
[2024-08-14] MEDS: DEXTROSE 5%-0.45% NS 1,000 ML 100 ML IV ×2 (08:26→18:04)
--- NOTE | 2024-08-14 08:27 | ESPR_ITS ---
<Statement entered by Chasidy Uriarte MD - 08/14/24 09:17> TOTAL TIME: 45MINUTES ON DIRECT MEDICAL CARE, MANAGEMENT - COORDINATION AND COUNSELING > 50% OF TOTAL TIME I saw and evaluated the patient. I reviewed the resident?s note and agree with findings and plan as documented in the resident?s note. Glad to see that he is improving. Lactic acid is trending in the right direction. Blood pressure has improved and as needed midodrine has been ordered. Levophed has been off since midnight. He is more awake and is able to speak but still confused. We will continue meropenem and narrow as appropriate once final culture results are back. Documentation for date of: 08/14/24 Subjective Subjective Interval history: Patient confused and majority of history obtained from family at bedside and chart review. Patient is a 79-year-old male past medical history significant for Alzheimer's, CAD s/p stents, PVD, primary hypertension, paroxysmal atrial fibrillation on Eliquis, history of TAVR, s/p BINDERY PRODUCTION MANAGER D placement, heart failure reduced ejection fraction [40-45%] and ATN presented today with chief complaint of altered mental status. Patient is a resident [facility] Apparently earlier today at [facility] patient became confused, [baseline GCS 15?14] and less responsive and subsequently was B IBA to the emergency department. Patient had recent hospitalization from 07/28. Patient was treated for obstructive and contrast-induced nephropathy. Also treated with IV antibiotics for pneumonia. ED course: BP 85/54, pulse 115, RR 26, temp 102F, SpO2 99% on 15L OxyMask. WBC 15.5, CL 113, bicarb 19.3, BUN 5, CR 3.3. LA 4.4 downtrending 2.5. Phos 6.3, AG 17. Urinalysis leukocyte esterase positive. Chest x-ray showed moderate vascular congestion. In the ED patient received normal saline 4L IVF bolus, Tylenol IV x 1, hydrocortisone 100 Mg IV x 1, albumin 12.5 g x 1 and norepinephrine infusion. Patient will be admitted to ICU for vasopressors in setting of septic shock. 08/14/2024: Overnight Levophed was stopped at midnight. Patient A&O x 0, says nonsensical words. Hb decreased to 11.3 from 13.9, WBC decreased to 11.8 from 15.5, PLT decreased to 126 from 188, lactic acid decreased to 1.8 from 2.5, Mg 1.3, K3.4, NA 152, CR decreased to 2.3 from 3.2. Urine, blood and sputum cultures pending. Magnesium sulfate for will discontinue central line as patient no longer on Levophed, D5/half NS at 100 cc/hour, 0.45% NS IVF 1 hour bolus, magnesium sulfate 4G IV x 1, KCl 40 mEq IV x 1. Will de-escalate antibiotics once cultures result. Currently patient off of vasopressors and clinically stable for downgrade to telemetry. Exam Vital Signs Temp Pulse Resp BP Pulse Ox O2 Del Method O2 Flow Rate 97.8 F 89 18 129/67 99 Oxy Mask 5 08/14/24 04:00 08/14/24 06:25 08/14/24 06:08/14/24 06:00 08/14/24 06:25 08/13/24 16:00 08/14/24 06:25 Narrative Exam Constitutional Oriented to self only HEENT Vision grossly intact. Patent nares. Trachea midline Respiratory Chest normal on inspection, BINDERY PRODUCTION MANAGER-D noted left chest wall, and clear auscultation bilaterally on anterior lung crawford. Bilateral bibasilar crackles in posterior lung crawford. Cardiovascular S1 and S2 audible, RRR. No murmurs carotid bruit. No gross JVD. Abdominal Soft and non tender to palpation in all quadrants. BS + Genitourinary No bladder tenderness, no flank pain. Normal to palpation. Left femoral central line in situ, exit site clean Musculoskeletal Extremities tone within normal limits. No LE edema. Neurological CN II - XII grossly intact. Extremity motor and sensation grossly intact. Gait not assessed Skin Warm, dry and intact. Healed surgical scar over left knee Objective Labs 08/14/24 04:45 08/14/24 04:45 Labs: Laboratory Results - last 24 hr 08/13/24 08/13/24 08/13/24 08:29 10:47 13:59 WBC 15.5 H RBC 4.87 Hgb 13.9 Hct 43.1 MCV 89 MCH 28.5 MCHC 32.3 RDW Std Deviation 53.1 H Plt Count 188 Neut % (Auto) 82 H Lymph % (Auto) 12 Cochran % (Auto) 5 Eos % (Auto) 0 Baso % (Auto) 1 Neut # (Auto) 12.6 H Lymph # (Auto) 1.9 Cochran # (Auto) 0.8 Eos # (Auto) 0.0 Baso # (Auto) 0.1 Immature Gran # (Auto) 0.05 H Absolute Nucleated RBC 0.00 Immature Gran % 0 Nucleated RBC % 0 PT 14.0 H INR 1.3 APTT 27.3 D Sodium 149 H Potassium 4.4 Chloride 113 H Carbon Dioxide 19.3 L Anion Gap 17 H BUN 50 H Creatinine 3.3 H Estim Creat Clear Calc 22.1 L eGFR 18 L BUN/Creatinine Ratio 15 Glucose 174 H Calculated Osmolality 313 H Lactic Acid 4.4 H* 2.5 H Calcium 9.4 Corrected Calcium 9.4 Phosphorus 6.3 H Magnesium 1.6 Total Bilirubin 0.7 AST 20 ALT 24 Alkaline Phosphatase 124 H Troponin I 0.037 B-Natriuretic Peptide 94 Total Protein 7.0 Albumin 4.0 Globulin 3.0 Albumin/Globulin Ratio 1.3 Triglycerides Cholesterol LDL Cholesterol, Calc HDL Cholesterol Cholesterol/HDL Ratio Lipase 19 Procalcitonin 0.26 TSH Ur Collection Type Clean Catch Urine Color Yellow Urine Clarity Turbid A Urine pH 5.0 Ur Specific [place] 1.028 Urine Protein 1+ A Urine Glucose (UA) Trace Urine Ketones Negative Urine Blood 3+ A Urine Nitrite Negative Urine Bilirubin 1+ A Urine Urobilinogen (Auto) Negative Ur Leukocyte Esterase Positive Urine RBC 252 H Urine WBC 146 H Ur Squamous Epith Cells 18 H Ur Transition Epith Cell 3 Urine Bacteria None Hyaline Casts < 1 08/13/24 08/14/24 19:35 04:45 WBC 11.8 H RBC 3.97 L Hgb 11.3 L D Hct 35.1 L MCV 88 MCH 28.5 MCHC 32.2 RDW Std Deviation 53.0 H Plt Count 126 L D Neut % (Auto) 84 H Lymph % (Auto) 9 L Cochran % (Auto) 6 Eos % (Auto) 1 Baso % (Auto) 0 Neut # (Auto) 9.8 H Lymph # (Auto) 1.1 Cochran # (Auto) 0.7 Eos # (Auto) 0.1 Baso # (Auto) 0.0 Immature Gran # (Auto) 0.05 H Absolute Nucleated RBC 0.00 Immature Gran % 0 Nucleated RBC % 0 PT INR APTT Sodium 152 H Potassium 3.4 D Chloride 117 H Carbon Dioxide 21.6 Anion Gap 13 BUN 46 H Creatinine 2.3 H D Estim Creat Clear Calc 31.7 L eGFR 28 L BUN/Creatinine Ratio 20 Glucose 123 H D Calculated Osmolality 314 H Lactic Acid 1.8 Calcium 8.0 L Corrected Calcium 8.6 Phosphorus Magnesium 1.3 L Total Bilirubin 0.4 AST 17 ALT 17 Alkaline Phosphatase 103 D Troponin I B-Natriuretic Peptide Total Protein 5.7 Albumin 3.3 L D Globulin 2.4 Albumin/Globulin Ratio 1.4 Triglycerides 151 H Cholesterol 103 L LDL Cholesterol, Calc 49 HDL Cholesterol 24 L Cholesterol/HDL Ratio 4.3 Lipase Procalcitonin TSH 0.94 Ur Collection Type Urine Color Urine Clarity Urine pH Ur Specific [place] Urine Protein Urine Glucose (UA) Urine Ketones Urine Blood Urine Nitrite Urine Bilirubin Urine Urobilinogen (Auto) Ur Leukocyte Esterase Urine RBC Urine WBC Ur Squamous Epith Cells Ur Transition Epith Cell Urine Bacteria Hyaline Casts Quality Measures Quality Measures sepsis Current suspected stage: sepsis Possible source: genitourinary Blood cultures ordered: completed in ED Antibiotic ordered: Yes Advance care planning discussed with:: spouse and child Assessment & Plan Assessment Current Active Medications: Generic Name Dose Route Start Last Admin Trade Name Freq PRN Reason Stop Dose Admin Acetaminophen 1,000 mg 08/13/24 13:31 Acetaminophen 325 Mg Tablet PO 09/12/24 13:30 Q6H PRN Fever > 99.9 Albuterol/Ipratropium 3 ml 08/13/24 23:00 08/14/24 06:24 Albuterol/Ipratropium (Duoneb) Rt Ivanna 3 Ml Nebu INH 09/12/24 22:59 3 ml Q8HRRT CARLEEN Administration Dextrose 50 ml 08/13/24 17:47 Dextrose 50%-Water Inj 50 Ml Syringe IV 09/12/24 17:46 Q15MIN PRN BG <50 OR BG <70 & pt unresponsive Enoxaparin Sodium 30 mg 08/14/24 09:00 08/14/24 08:12 Enoxaparin Sod Inj 30 Mg/0.3 Ml Syringe SC 08/28/24 08:59 30 mg QDAY CARLEEN Administration Glucagon 1 mg 08/13/24 17:47 Glucagon Inj 1 Mg Vial IM Q15MIN PRN BG <70, and no IV access Norepinephrine/Dextrose 8 mg in 250 mls @ 8.934 mls/hr 08/13/24 10:22 08/14/24 00:00 Levophed In D5w 8mg/250ml IV 09/12/24 10:21 0 mcg/kg/min .Q24H PRN 0 mls/hr PER PROTOCOL Titration Protocol 0.05 MCG/KG/MIN Meropenem 1,000 mg/ Sodium 50 mls @ 100 mls/hr 08/13/24 21:00 08/14/24 08:12 Chloride IV 08/20/24 20:59 100 mls/hr Q12HR CARLEEN Administration Magnesium Sulfate 4 gm in 50 mls @ 12.5 mls/hr 08/14/24 07:09 08/14/24 07:33 Magnesium Sulfate Ivpb IV 08/14/24 11:08 12.5 mls/hr X1 ONE Administration Potassium Chloride 10 meq in 100 mls @ 100 mls/hr 08/14/24 07:09 08/14/24 08:20 Kcl Ivpb IV 08/14/24 11:08 100 mls/hr Q1H CARLEEN Administration Dextrose/Sodium Chloride 1,000 mls @ 100 mls/hr 08/14/24 08:15 D5-1/2ns IV 09/13/24 08:14 .Q10H CARLEEN Insulin Glargine 5 unit 08/13/24 21:00 08/13/24 21:50 Insulin Glargine (Lantus) 5 Unit/0.05 Ml (Per 5 Units) SC 09/12/24 20:59 5 unit HS CARLEEN Administration Insulin Human Lispro 0 unit 08/13/24 18:00 08/14/24 05:41 Insulin Lispro (Admelog) 1 Unit/0.01 Ml Unit SC 09/12/24 17:59 Not Given Q6HR CARLEEN Protocol Ondansetron HCl 4 mg 08/13/24 13:31 Ondansetron Inj 2 Mg/Ml Inj 2 Ml IVP 09/12/24 13:30 Q6H PRN NAUSEA OR VOMITING Protocol Pantoprazole Sodium 40 mg 08/14/24 09:00 08/14/24 08:13 Pantoprazole Inj 40 Mg Vial IVP 09/13/24 08:59 40 mg QDAY CARLEEN Administration Plan Patient is a 79-year-old male past medical history significant for Alzheimer's, CAD s/p stents, PVD, primary hypertension, paroxysmal atrial fibrillation on Eliquis, history of TAVR, s/p BINDERY PRODUCTION MANAGER D placement, heart failure reduced ejection fraction [40-45%] and ATN presented today with chief complaint of altered mental status. Patient will be admitted to ICU for vasopressors in setting of septic shock. NEURO Acute metabolic encephalopathy DDx: Sepsis, worsening alzeihmers Rx: Treat underlying cause Alzheimer's dementia Rx: Home medication memantine, Ropinirole on hold until patient passes swallow screen CVS Septic shock - resolved Dx: Patient's MAP <65 with temperature 102F on admission. Source unclear at this time. No pericardial effusion seen on bedside echo Rx: Discontinued RL IVF, Started on D5/0.45% NS @ 100cc/hr RRx: Repeat Renal panel @ 5pm. Follow up on Bllod, Urine and sputum cultures. Will tailor antibiotics to culture results Chronic systolic CHF with reduced EF [40 to 45%] Rx: GDMT on hold in setting of septic shock. Will do bedside echo to assess for B lines RRx: IF significant edema/B-lines on bedside echo, will give Lasix History of primary hypertension Antihypertensives on hold due to normotension CAD and PVD s/p stents Apixaban on hold for now Paroxysmal A-fib on Eliquis Rx: - Continue telemetry monitoring. - Apixaban on hold for now due to patient being somnolent and not properly following commands to swallow. Will continue Renally dosed Lovenox for now PULM Improving hypoxia secondary to poor respiratory effort DDx: Poor inspiratory effort, pulmonary edema Dx: Chest xray showed b/l vascular congestion and poor respiratory effort Rx: Continue chest physiotherapy and wean supplemental O2 as necessary GI/Hep Elevated ALP - resolved Dx: ALP 124 -> 103 RENAL [place] secondary to Acute tubular necrosis DDx: Contrast induced, obstructive Dx: CR 3.3 -> 2.3 Rx: - 0.4 0.5% normal saline 1L IVF bolus as per nephrology recommendations - Nephrology, Dr. Meyers consulted. Appreciate recommendations Hypernatremia DDx: Secondary to large volume Ringer's lactate IVF and dehydration DX: NA 152 Rx: D5/0.4 0.5% NS at 100 cc/hour. 0.4 0.5% NS 1L IVF bolus RRx: Repeat renal panel at 1600. Hypomagnesemia Dx: Mg 1.3 Rx: Magnesium sulfate 4 g IV x 1 given Lactic acidosis?resolved DDx: Likely type A secondary to shock Dx: LA 4.4 ->2.5 -> 1.8 H/O urinarry incontinence and retention Rx: - intermediate- chu catheter. Home medication trospium on hold for now - DO NOT REMOVE CHU CATHETER. As per urology Dr. Funes patient has chronic urinary incontinence and had a artificial sphincter implanted, however patient is demented and unable to control for himself ambulate therefore need a long- term indwelling Chu catheter. HEME/ONC Leukocytosis - resolved DDx: Sepsis, UTI, bacteremia, IE Dx: WBC 15.5 Rx: Pending blood, urine cultures. TTE ordered. RRX: Follow cultures and TTE. Normocytic anemia DDx: Dilutional Dx: Hb 11.3 Rx: Monitor for signs of bleeding and CBC Thrombocytopenia DDx: Dilution Dx: plt 126 Rx: Monitor for signs of bleeding on CBC. ENDO [id number] diabetes mellitus type 2 [7.5%] Rx: SSI Q6 hourly . glargine 5U SC at bedtime. HLD Home medication Atorvastatin on hold until passes swallow screen ID Septic Shock secondary to unknown source - resolving Rx: Continue meropenem IV, no right infusion. RRX: Follow-up on blood, urine cultures and sputum culture, will tailor antibiotics as appropriate. Follow-up on TTE MSK/DERM No active problems ICU Health maintenance: Dispo: Once patient clinically stable off of vasopressors will downgrade to medical floor today Diet: NPO Until passes swallow eval DVT ppx: Enoxaparin 30mg SC daily GI ppx: Protonix 40mg qD IV lines: 2 pIV Central line: Left Femoral CVC - Removed Arterial line: No Chu: Yes (started 08/13/24, Do not remove Code status: FULL CODE Plan of care discussed with Attending Dr.Malli Braxton Tim MD PGY 1 Disclaimer: This note was dictated by speech recognition. Minor errors in molding utility worker may be present due to voice recognition software.
[2024-08-14] MEDS: SODIUM CHLORIDE 0.45 % 1,000 ML 999 ML IV (08:37)
--- NOTE | 2024-08-14 13:35 | ECHO_ITS ---
Transthoracic Echo Report Ht (in): 72 Wt (lb): 210 Exam Location: Echo Lab Status: Inpatient Diesel Tractor Operator: Chantal Rai Indications: Procedure Performed: BP: 129 / 67 HR: 89 Technical Quality: Adequate MEASUREMENTS (Male / Female) Normal Values 2D ECHO LV Diastolic Diameter PLAX 5.5 cm 4.2 - 5.9 / 3.9 - 5.3 cm LV Systolic Diameter PLAX 4.1 cm IVS Diastolic Thickness 0.9 cm 0.6 - 1.0 / 0.6 - 0.9 cm LVPW Diastolic Thickness 0.9 cm 0.6 - 1.0 / 0.6 - 0.9 cm LV Relative Wall Thickness 0.3 LVOT Diameter 2.3 cm LV Ejection Fraction MOD BP 24.3 % >= 55 % LV Cardiac Index MOD BP 1444.6 cm?/min?m? LV Ejection Fraction MOD 4C 22.6 % LV Cardiac Index MOD 4C 1605.1 cm?/min?m? LV Ejection Fraction 4C AL 25.2 % LV Cardiac Index 4C AL 1850.4 cm?/min?m? LV Ejection Fraction MOD 2C 24.9 % LV Cardiac Index MOD 2C 1207.9 cm?/min?m? LV Ejection Fraction 2C AL 23.9 % LV Cardiac Index 2C AL 1102.9 cm?/min?m? LA Volume Index 47.2 cm?/m? 16 - 28 cm?/m? Ascending Aorta Diameter 3.2 cm DOPPLER AV Peak Velocity 321.0 cm/s AV Peak Gradient 41.2 mmHg AV Mean Gradient 24.0 mmHg AV Velocity Time Integral 54.8 cm LVOT Peak Velocity 123.0 cm/s LVOT Peak Gradient 6.1 mmHg LVOT Velocity Time Integral 21.1 cm LVOT Cardiac Index 3517.8 cm?/min?m? AV Area Cont Eq vti 1.6 cm? AV Area Cont Eq pk 1.6 cm? TR Peak Velocity 244.0 cm/s TR Peak Gradient 23.8 mmHg PV Peak Velocity 138.0 cm/s PV Peak Gradient 7.6 mmHg FINDINGS Left Ventricle The left ventricular cavity size is mildly increased. The left ventricular wall thickness is normal. Estimated ejection fraction per Samuel's of 22%. Diastology can not be assessed due to E/A are fused. Right Ventricle The right ventricle is normal in size and systolic function. The estimated right ventricular systolic pressure, 23mmHg. RAP 5mmHg. Left Atrium The left atrium is normal by two-dimensional, color flow and Doppler imaging with no structural abnormalities, no thrombus formation present. Right Atrium The right atrium is normal by two-dimensional imaging, color flow and Doppler imaging with no structural abnormalities, no thrombus formation present. Atrial Septum The interatrial septum appears normal with no evidence of a shunt. Aorta The aorta is normal by two-dimensional, color flow and Doppler interrogation. Mitral Valve The mitral valve posterior leaflet is moderately calcificed without stenosis. Trace mitral regurgitation. Aortic Valve Bioprosthetic valve well seated without rocking motion visualized. MPG of 41mmHg and V Max of 3.21m/s. Centralized aortic regurgitant jet noted. Tricuspid Valve The tricuspid valve is normal by two-dimensional, color flow and Doppler interrogation. There is trace tricuspid regurgitation. Pulmonic Valve The pulmonic valve is not well visualized. There is no significant pulmonic valve regurgitation. Vessels The pulmonary artery appears normal. The inferior vena cava pulmonary and hepatic veins appear normal. Pericardium The pericardium is normal by two-dimensional imaging. There is no significant pericardial effusion. CONCLUSIONS Indications: R/O CHF Normal LV size, wall thickness. Estimated EF around 40%. Global LV systolic function is mildly to moderately decreased. Septal Diastolic dysfunction present but cannot grade due to pacemaker. Septal and lateral wall dysnchrony. The RV is normal in size and systolic function. Pacer wire noted in RV and RA Normal functioning Bioprostehtic aortic valve TAVR. V max is 3.1 m/s and mean PG 23 mm hg. Consider Patient prosthesis mismatch. Trace MR and mild TR. Trace AI. No Pericardial Effusion. Zacarias Reyez (Electronically Signed) Final Date: 14 August 2024 18:34
--- NOTE | 2024-08-14 15:13 | PD.RESPRO ---
Documentation for date of: 08/14/24 Subjective Subjective Interval history: Limited HPI due to mental status. Most of the H&P completed with EMR review. Patient is a 79-year-old male with a past medical history of Alzheimer's dementia, history of prostate cancer status post radical prostatectomy status post AUS placement now with indwelling Ruth's catheter, CKD stage IV, obstructive uropathy, peripheral vascular disease, HFrEF, CAD, HTN, diabetes mellitus, anastomosis, who was brought in from rehab to emergency room for evaluation of altered mental status. This morning the patient was found to be hypoxic, and confused, saturating 87% on 4 L nasal cannula. The patient has a baseline GCS of 13/14, but was more agitated last night and this morning was found to be febrile and somnolent as well as hypoxic. In the ER, initial vitals Tmax 102F, pulse rate 115/min, respiratory 26/min, blood pressure 85/54, saturating 99% on 15 L oxy mask. Initial labs showed leukocytosis, [place], metabolic acidosis and lactic acidosis, hyperphosphatemia, urinalysis significant for UTI. WBC 15.5, hemoglobin 13.9, platelets 188, sodium 149, potassium 4.4, CO2 19.3, lactic acid 4.4, BUN 50, creatinine 3.3. Patient was diagnosed with septic shock given IV fluids per sepsis bolus, no improvement in blood pressure was noted, patient was starting on pressor support with Levophed and admitted to ICU for further management. Triple-lumen dialysis catheter was placed in anticipation of hemodialysis as well as central line access for pressors. 08/14/2024 the patient is seen in the ICU, with noted improvement in mental status, able to follow simple commands, received 4.7 L IV fluid since yesterday, urine output 955, net +3.7 L, noted some facial puffiness, but does seem intravascular volume depleted, as well as excess incomprehensible losses due to mouth breathing. Noted hypernatremia, serum sodium 152, 2.3 L free water deficit, will add IV fluids?D5 half NS at 125 cc/h. Continue monitoring urine output. Exam Vital Signs Temp Pulse Resp BP Pulse Ox O2 Del Method O2 Flow Rate 98.7 F 88 22 H 143/65 H 98 Oxy Mask 5 08/14/24 12:00 08/14/24 14:11 08/14/24 14:11 08/14/24 12:00 08/14/24 14:11 08/13/24 16:00 08/14/24 06:25 Narrative Exam GENERAL APPEARANCE: A&O x 2, arousable on verbal stimuli, sleepy but easily arousable. i NECK: Neck supple, no JVD or bruit CARDIOVASCULAR: Heart regular, no murmurs LUNGS/CHEST: Positive bilateral basal rales, rhonchi, ABDOMEN: Soft, nontender, nondistended. No masses. Normal bowel sounds. EXTREMITIES: No edema, clubbing or cyanosis. SKIN: Skin exam normal without any rashes. NEUROLOGICAL : Unable to assess due to mental status Objective Labs 08/15/24 04:16 08/15/24 15:00 Labs: Laboratory Results - last 24 hr 08/13/24 08/14/24 19:35 04:45 WBC 11.8 H RBC 3.97 L Hgb 11.3 L D Hct 35.1 L MCV 88 MCH 28.5 MCHC 32.2 RDW Std Deviation 53.0 H Plt Count 126 L D Neut % (Auto) 84 H Lymph % (Auto) 9 L [place] % (Auto) 6 Eos % (Auto) 1 Baso % (Auto) 0 Neut # (Auto) 9.8 H Lymph # (Auto) 1.1 [place] # (Auto) 0.7 Eos # (Auto) 0.1 Baso # (Auto) 0.0 Immature Gran # (Auto) 0.05 H Absolute Nucleated RBC 0.00 Immature Gran % 0 Nucleated RBC % 0 Sodium 152 H Potassium 3.4 D Chloride 117 H Carbon Dioxide 21.6 Anion Gap 13 BUN 46 H Creatinine 2.3 H D Estim Creat Clear Calc 31.7 L eGFR 28 L BUN/Creatinine Ratio 20 Glucose 123 H D Calculated Osmolality 314 H Lactic Acid 1.8 Calcium 8.0 L Corrected Calcium 8.6 Magnesium 1.3 L Total Bilirubin 0.4 AST 17 ALT 17 Alkaline Phosphatase 103 D Total Protein 5.7 Albumin 3.3 L D Globulin 2.4 Albumin/Globulin Ratio 1.4 Triglycerides 151 H Cholesterol 103 L LDL Cholesterol, Calc 49 HDL Cholesterol 24 L Cholesterol/HDL Ratio 4.3 TSH 0.94 Quality Measures Quality Measures sepsis Current suspected stage: sepsis Possible source: genitourinary Blood cultures ordered: completed in ED Antibiotic ordered: Yes Advance care planning discussed with:: patient and child Assessment & Plan Assessment Current Active Medications: Generic Name Dose Route Start Last Admin Trade Name Freq PRN Reason Stop Dose Admin Acetaminophen 1,000 mg 08/13/24 13:31 Acetaminophen 325 Mg Tablet PO 09/12/24 13:30 Q6H PRN Fever > 99.9 Albuterol/Ipratropium 3 ml 08/13/24 23:00 08/14/24 14:11 Albuterol/Ipratropium (Duoneb) Rt Ivanna 3 Ml Nebu INH 09/12/24 22:59 Not Given Q8HRRT CARLEEN Dextrose 50 ml 08/13/24 17:47 Dextrose 50%-Water Inj 50 Ml Syringe IV 09/12/24 17:46 Q15MIN PRN BG <50 OR BG <70 & pt unresponsive Enoxaparin Sodium 30 mg 08/14/24 09:00 08/14/24 08:12 Enoxaparin Sod Inj 30 Mg/0.3 Ml Syringe SC 08/28/24 08:59 30 mg QDAY CARLEEN Administration Glucagon 1 mg 08/13/24 17:47 Glucagon Inj 1 Mg Vial IM Q15MIN PRN BG <70, and no IV access Norepinephrine/Dextrose 8 mg in 250 mls @ 8.934 mls/hr 08/13/24 10:22 08/14/24 00:00 Levophed In D5w 8mg/250ml IV 09/12/24 10:21 0 mcg/kg/min .Q24H PRN 0 mls/hr PER PROTOCOL Titration Protocol 0.05 MCG/KG/MIN Meropenem 1,000 mg/ Sodium 50 mls @ 100 mls/hr 08/13/24 21:00 08/14/24 08:12 Chloride IV 08/20/24 20:59 100 mls/hr Q12HR CARLEEN Administration Dextrose/Sodium Chloride 1,000 mls @ 100 mls/hr 08/14/24 08:15 08/14/24 08:26 D5-1/2ns IV 09/13/24 08:14 100 mls/hr .Q10H CARLEEN Administration Insulin Glargine 5 unit 08/13/24 21:00 08/13/24 21:50 Insulin Glargine (Lantus) 5 Unit/0.05 Ml (Per 5 Units) SC 09/12/24 20:59 5 unit HS CARLEEN Administration Insulin Human Lispro 0 unit 08/13/24 18:00 08/14/24 12:31 Insulin Lispro (Admelog) 1 Unit/0.01 Ml Unit SC 09/12/24 17:59 Not Given Q6HR [facility] Protocol Midodrine 10 mg 08/14/24 10:22 Midodrine 5 Mg Tablet PO 09/13/24 13:59 TID PRN MAP <65 Ondansetron HCl 4 mg 08/13/24 13:31 Ondansetron Inj 2 Mg/Ml Inj 2 Ml IVP 09/12/24 13:30 Q6H PRN NAUSEA OR VOMITING Protocol Pantoprazole Sodium 40 mg 08/14/24 09:00 08/14/24 08:13 Pantoprazole Inj 40 Mg Vial IVP 09/13/24 08:59 40 mg QDAY CARLEEN Administration Plan #KY/ATN in the setting of septic shock #UTI #CKD stage IV/obstructive nephropathy Patient was recently admitted to the hospital due to acute encephalopathy obstructive uropathy, as patient was not able to operate his AUS/artificial ureteral sphincter, leading to obstructive uropathy and acute on chronic kidney injury. After passing Ruth's catheter and relief of obstruction as well as couple sessions of hemodialysis, patient's renal function improved, adequate urine output, and mental status returned to baseline. Patient was discharged from the hospital with indwelling Ruth's catheter per urology recommendations. Now patient has similar presentation with acute encephalopathy and worsening kidney function in the setting of UTI. UTI leading to septic shock, requiring IV pressors, nonresponsive to fluid resuscitation. KY likely secondary to acute tubular necrosis in the setting of septic shock. Triple-lumen dialysis catheter was placed in the femoral artery for central venous access as well as possible hemodialysis if needed. ? Continue antibiotics, renal dosing ? Avoid nephrotoxic agents ? Maintain MAP more than 65 for adequate renal perfusion ? Consider hemodialysis if no improvement in renal function ?Urine output almost 1000 mL overnight, still net positive fluid balance 3.7 L, noted improvement in BUN and creatinine, the patient continues to seem intravascularly volume depleted despite some facial puffiness, recommend IV fluid D5W half NS at 125 cc/h for 2 bags. #Hypernatremia Likely secondary to intravascular volume depletion, free water deficit 2.3 L, will add D5 half NS at 125 cc/h, encourage oral intake.?Repeat electrolytes and renal panel in the morning. #Acute hypoxic respiratory failure Chest x-ray shows vascular congestion, AHRF likely precipitated by volume overload. ? Strict intake and output ? Management per primary team #Acute toxic encephalopathy ? Likely secondary to sepsis, management per primary team #History of Alzheimer's dementia #History of prostate cancer #History of atrial fibrillation #History of CHF ? Management per primary team Plan of care discussed with attending Dr. Luigi Youssef [id number] Attending Provider Attestation/Addendum Patient seen and examined with resident physician Dr. Youssef. Note reviewed, agree with findings and recommendations. Patient with altered mental status, [place]. Agree with continuing on IV fluids. Today his creatinine and BUN improved markedly. Plan of care discussed with primary team
--- NOTE | 2024-08-14 16:28 | ESPR_ITS ---
<Statement entered by Parviz Watts MD - 08/15/24 00:12> 79-year-old male patient with significant medical history for Alzheimer's dementia, prostate cancer s/p radical prostatectomy and bilateral pelvic lymph node dissection, urinary incontinence s/p AUS (artificial urinary sphincter), CAD, severe PAD, aortic stenosis (underwent TAVR), HFrEF s/p aortic valve replacement (2021) and s/p MACHINE II TRIMMER-D was initially admitted to ICU (on 08/13/24) from [facility] for septic shock. In ICU patient required vasopressors for x 1 day after which he was stabilized and downgraded to floor team. I discussed with and supervised the paralegal internship physician involved in the care of this patient. Patient assessment and plan was discussed with entire medicine team, including my attending. I agree with the assessment and plan as documented by paralegal internship doctor. Patient care was discussed with my attending physician Dr. Bobo Watts, PGY-2 Documentation for date of: 08/14/24 Subjective Subjective Interval history: A 79-year-old male with significant past medical history of Alzheimer's, CAD s/p stents, PVD, primary hypertension, paroxysmal atrial fibrillation on Eliquis, history of TAVR, HFrEF status post MACHINE II TRIMMER, recent history of ATN presented with chief complaint of altered mental status and admitted into the ICU in view of septic shock. Patient was treated with antibiotics, vasopressors and downgraded on 08/14/2024 to floors for further management as patient vitals are stable. Patient is seen and examined with family at bedside Could not get much history from the patient in view of acute illness, almost dementia but patient is able to answer some questions appropriately Vitals are stable. On physical examination, noted MACHINE II TRIMMER and mild tenderness in the hypogastric area Will continue antibiotics and de-escalate antibiotics tomorrow based on patient's clinical condition Exam Vital Signs Temp Pulse Resp BP Pulse Ox O2 Del Method O2 Flow Rate 98.7 F 88 22 H 143/65 H 98 Oxy Mask 5 08/14/24 12:00 08/14/24 14:11 08/14/24 14:11 08/14/24 12:00 08/14/24 14:11 08/13/24 16:00 08/14/24 06:25 Narrative Exam General: Awake. HEENT: Normocephalic, atraumatic, mucous membranes moist. Heart: Regular rate and rhythm, no murmurs. noted MACHINE II TRIMMER Lungs: Clear to auscultation with no wheezing or crackles. Abdomen: Soft, nondistended, mild tenderness in the hypogastric area, positive bowel sounds. ?No guarding or rebound tenderness. Neurologic: Alert and oriented x3, no gross neurological deficit, and patient able to move all 4 extremities. Extremities: No edema. Skin: No rash or ecchymoses. Objective Labs 08/14/24 04:45 08/14/24 15:38 Labs: Laboratory Results - last 24 hr 08/13/24 08/14/24 19:35 04:45 WBC 11.8 H RBC 3.97 L Hgb 11.3 L D Hct 35.1 L MCV 88 MCH 28.5 MCHC 32.2 RDW Std Deviation 53.0 H Plt Count 126 L D Neut % (Auto) 84 H Lymph % (Auto) 9 L [place] % (Auto) 6 Eos % (Auto) 1 Baso % (Auto) 0 Neut # (Auto) 9.8 H Lymph # (Auto) 1.1 [place] # (Auto) 0.7 Eos # (Auto) 0.1 Baso # (Auto) 0.0 Immature Gran # (Auto) 0.05 H Absolute Nucleated RBC 0.00 Immature Gran % 0 Nucleated RBC % 0 Sodium 152 H Potassium 3.4 D Chloride 117 H Carbon Dioxide 21.6 Anion Gap 13 BUN 46 H Creatinine 2.3 H D Estim Creat Clear Calc 31.7 L eGFR 28 L BUN/Creatinine Ratio 20 Glucose 123 H D Calculated Osmolality 314 H Lactic Acid 1.8 Calcium 8.0 L Corrected Calcium 8.6 Magnesium 1.3 L Total Bilirubin 0.4 AST 17 ALT 17 Alkaline Phosphatase 103 D Total Protein 5.7 Albumin 3.3 L D Globulin 2.4 Albumin/Globulin Ratio 1.4 Triglycerides 151 H Cholesterol 103 L LDL Cholesterol, Calc 49 HDL Cholesterol 24 L Cholesterol/HDL Ratio 4.3 TSH 0.94 Quality Measures Quality Measures sepsis Current suspected stage: ruled out Possible source: genitourinary Blood cultures ordered: completed in ED Antibiotic ordered: Yes Advance care planning discussed with:: patient Assessment & Plan Assessment Current Active Medications: Generic Name Dose Route Start Last Admin Trade Name Freq PRN Reason Stop Dose Admin Acetaminophen 1,000 mg 08/13/24 13:31 Acetaminophen 325 Mg Tablet PO 09/12/24 13:30 Q6H PRN Fever > 99.9 Albuterol/Ipratropium 3 ml 08/13/24 23:00 08/14/24 14:11 Albuterol/Ipratropium (Duoneb) Rt Ivanna 3 Ml Nebu INH 09/12/24 22:59 Not Given Q8HRRT CARLEEN Dextrose 50 ml 08/13/24 17:47 Dextrose 50%-Water Inj 50 Ml Syringe IV 09/12/24 17:46 Q15MIN PRN BG <50 OR BG <70 & pt unresponsive Enoxaparin Sodium 30 mg 08/14/24 09:00 08/14/24 08:12 Enoxaparin Sod Inj 30 Mg/0.3 Ml Syringe SC 08/28/24 08:59 30 mg QDAY CARLEEN Administration Glucagon 1 mg 08/13/24 17:47 Glucagon Inj 1 Mg Vial IM Q15MIN PRN BG <70, and no IV access Norepinephrine/Dextrose 8 mg in 250 mls @ 8.934 mls/hr 08/13/24 10:22 08/14/24 00:00 Levophed In D5w 8mg/250ml IV 09/12/24 10:21 0 mcg/kg/min .Q24H PRN 0 mls/hr PER PROTOCOL Titration Protocol 0.05 MCG/KG/MIN Meropenem 1,000 mg/ Sodium 50 mls @ 100 mls/hr 08/13/24 21:00 08/14/24 08:12 Chloride IV 08/20/24 20:59 100 mls/hr Q12HR CARLEEN Administration Dextrose/Sodium Chloride 1,000 mls @ 100 mls/hr 08/14/24 08:15 08/14/24 08:26 D5-1/2ns IV 09/13/24 08:14 100 mls/hr .Q10H CARLEEN Administration Insulin Glargine 5 unit 08/13/24 21:00 08/13/24 21:50 Insulin Glargine (Lantus) 5 Unit/0.05 Ml (Per 5 Units) SC 09/12/24 20:59 5 unit HS CARLEEN Administration Insulin Human Lispro 0 unit 08/13/24 18:00 08/14/24 12:31 Insulin Lispro (Admelog) 1 Unit/0.01 Ml Unit SC 09/12/24 17:59 Not Given Q6HR CARLEEN Protocol Midodrine 10 mg 08/14/24 10:22 Midodrine 5 Mg Tablet PO 09/13/24 13:59 TID PRN MAP <65 Ondansetron HCl 4 mg 08/13/24 13:31 Ondansetron Inj 2 Mg/Ml Inj 2 Ml IVP 09/12/24 13:30 Q6H PRN NAUSEA OR VOMITING Protocol Pantoprazole Sodium 40 mg 08/14/24 09:00 08/14/24 08:13 Pantoprazole Inj 40 Mg Vial IVP 09/13/24 08:59 40 mg QDAY CARLEEN Administration Plan Patient is a 79-year-old male past medical history significant for Alzheimer's, CAD s/p stents, PVD, primary hypertension, paroxysmal atrial fibrillation on Eliquis, history of TAVR, s/p MACHINE II TRIMMER D placement, heart failure reduced ejection fraction [40-45%] and ATN presented today with chief complaint of altered mental status. Patient will be admitted to ICU for vasopressors in setting of septic shock. Acute infectious encephalopathy iso chronic Alzheimer's dementia Septic shock - resolved Hypernatremia - Presented to the hospital with chief complaints of altered sensorium since 2 days - Patient was brought from SNF, could not get much history as patient had dementia at baseline and is altered at the time of admission into the hospital - On admission, blood pressure is 85/54 mmHg, pulse rate 115 bpm, temperature 102 ?F - Chest x-ray did not show any significant infiltrates but patient needed oxygen, suspected underlying aspiration - Urine analysis showed turbid urine with 1+ proteinuria, 3+ ketonuria, and was bilirubin, 252 RBC, 146 WBC, 18 epithelial cells - Patient was treated with vasopressors and was downgraded to floors for further management on 08/14/2024 Plan - Will continue meropenem and reevaluate on 08/15 to down titrate the antibiotics - Radio Station Manager, Dr. Meyers is consulted in view of hypernatremia, will appreciate her recommendations - Will continue to monitor patient's mental status - Midodrine 10 Mg orally thrice daily as needed - Urology consulted, appreciate recommendations [place] secondary to Acute tubular necrosis - Patient was admitted on 07/28/2024 with [place] and underwent few dialysis sessions at the time - Later as patient's renal functions got improved, discharged home - Patient's baseline creatinine is 3 during last discharge - Presented to the hospital with creatinine of 3.3 Plan - Patient was treated with IV fluids and vasopressors - 0.5% normal saline 1L IVF bolus as per nephrology recommendations - Nephrology, Dr. Meyers consulted. Appreciate recommendations Hypernatremia Likely Secondary to large volume Ringer's lactate IVF and dehydration Plan D5/0.45% NS at 100 cc/hour. 0.45% NS 1L IVF bolus Hypomagnesemia Dx: Mg 1.3 Rx: Magnesium sulfate 4 g IV x 1 given Chronic systolic CHF with reduced EF [40 to 45%] GDMT on hold as of now, will restart once the patient clinical condition stabilizes History of primary hypertension Antihypertensives on hold due to normotension CAD and PVD s/p stents Apixaban on hold for now Paroxysmal A-fib on Eliquis Rx: - Continue telemetry monitoring. - Apixaban on hold for now H/O urinarry incontinence and retention Rx: - senior living- chu catheter. Home medication trospium on hold for now - DO NOT REMOVE CHU CATHETER. As per urology Dr. Funes patient has chronic urinary incontinence and had a artificial sphincter implanted, however patient is demented and unable to control for himself ambulate therefore need a long- term indwelling Chu catheter. Thrombocytopenia Rx: Monitor for signs of bleeding on CBC. [id number] diabetes mellitus type 2 [7.5%] Rx: SSI Q6 hourly . glargine 5U SC at bedtime. HLD Home medication Atorvastatin on hold until passes swallow screen History of Alzheimer's dementia Health maintenance: Dispo: Tele Diet: NPO Until passes swallow eval DVT ppx: Enoxaparin 30mg SC daily GI ppx: Protonix 40mg qD IV lines: 2 pIV Arterial line: No Chu: Yes (started 08/13/24, Do not remove Code status: FULL CODE Patient plan of care was discussed with the attending physician, Dr. Broussard and senior resident Dr. Stefanie Paige, PGY1 Disclaimer: This note was dictated by speech recognition. Minor errors in fan blade truer may be present due to voice recognition software. Attending Provider Attestation/Addendum I have discussed and was present for the essential components of the history, physical examination, diagnosis, and treatment plan with the resident. I agree with the patient's care as documented by the resident and amended herein by me. Carlos Broussard DO. Although this document has been carefully reviewed, there may still be some phonetic and other typographical errors. These errors are purely grammatical due to imperfections in the software program and should not be construed in any way to compromise the substance of the patient's medical care during this visit.
[2024-08-14 16:35] LABS: Albumin, Serum 3.2 gm/dL (3.4-4.8); Anion Gap 13 (7-16); BUN/Creatinine Ratio 20 Ratio (12-20); Blood Urea Nitrogen 36 mg/dL (9-23); Calcium 7.8 mg/dL (8.3-10.6); Calcium (Corrected) 8.4 mg/dL (8.5-10.1); Carbon Dioxide 21.5 mMol/L (20.0-31.0); Chloride 117 mMol/L (98-107); Creatinine (Component) 1.8 mg/dL (0.6-1.3); Estimated Creatinine Clearance 40.6 mL/min (>60); Glucose 130 mg/dL (74-106); Osmolality,Calculated 310 (275-295); Phosphorous 1.9 mg/dL (2.4-5.1); Potassium 3.5 mMol/L (3.4-5.1); Sodium 151 mMol/L (136-145); eGFR 38 See Note
[2024-08-14] MEDS: INSULIN GLARGINE (Lantus) 5 UNIT/0.05 ML (PER 5 UNITS) SC (20:18)
[2024-08-15] VITALS (14 sets, daily range): BP systolic 138–173; BP diastolic 76–90; PULSE 77–113; RESP 13–22; TEMP 36.4–37.7; O2SAT 91–98; BMI 30.7
[2024-08-15] MEDS: DEXTROSE 5%-0.45% NS 1,000 ML 100 ML IV (04:30)
[2024-08-15 05:44] LABS: Basophils # (Auto) 0.1 Thou/mm3 (0.0-0.2); Basophils % (Auto) 1 % (0-2.5); Eosinophils # (Auto) 0.3 Thou/mm3 (0.0-0.5); Eosinophils % (Auto) 3 % (0-10); Hematocrit 32.3 % (41.0-53.0); Hemoglobin 10.3 g/dL (13.5-16.0); Immature Granulocytes % (Auto) 1 % (0-0); Immature Granulocytes Auto 0.05 Thou/mm3 (0.00-0.00); Lymphocytes # (Auto) 1.3 Thou/mm3 (1.0-4.8); Lymphocytes % (Auto) 14 % (10-50); Mean Corpuscular HGB Conc 31.9 g/dl (31.0-37.0); Mean Corpuscular Hemoglobin 28.7 pg (25.0-35.0); Mean Corpuscular Volume 90 fL (80-100); Monocytes # (Auto) 0.8 Thou/mm3 (0.0-0.8); Monocytes % (Auto) 8 % (0-12); Neutrophils # (Auto) 6.8 Thou/mm3 (1.8-7.7); Neutrophils % (Auto) 74 % (37-80); Nucleated Red Blood Cell % 0 /100 WBC (0); Platelet Count 110 Thou/mm3 (140-440); RDW Standard Deviation 53.4 fL (35.1-43.9); Red Blood Count 3.59 Miln/mm3 (4.50-5.90); White Blood Count 9.3 Thou/mm3 (3.8-10.6)
[2024-08-15 06:08] LABS: Alanine Aminotransferase 16 U/L (10-49); Albumin, Serum 3.1 gm/dL (3.4-4.8); Albumin/Globulin Ratio 1.4 (1.2-2.2); Alkaline Phosphatase 103 U/L (46-116); Anion Gap 10 (7-16); Aspartate Amino Transferase 18 U/L (0-34); BUN/Creatinine Ratio 19 Ratio (12-20); Bilirubin,Total 0.5 mg/dL (0.3-1.2); Blood Urea Nitrogen 27 mg/dL (9-23); Calcium 7.7 mg/dL (8.3-10.6); Calcium (Corrected) 8.4 mg/dL (8.5-10.1); Carbon Dioxide 21.9 mMol/L (20.0-31.0); Chloride 117 mMol/L (98-107); Creatinine (Component) 1.4 mg/dL (0.6-1.3); Estimated Creatinine Clearance 53.9 mL/min (>60); Globulin 2.2 gm/dL (2.3-3.5); Glucose 169 mg/dL (74-106); Magnesium 1.4 mg/dL (1.6-2.6); Osmolality,Calculated 305 (275-295); Potassium 3.4 mMol/L (3.4-5.1); Sodium 149 mMol/L (136-145); Total Protein 5.3 gm/dL (5.7-8.2); eGFR 51 See Note
[2024-08-15] MEDS: ALBUTEROL/IPRATROPIUM (Duoneb) RT SOL 3 ML NEBU INH ×3 (06:32→22:45)
[2024-08-15] MEDS: PANTOPRAZOLE INJ 40 MG VIAL IVP (08:48)
[2024-08-15] MEDS: Magnesium Sulfate 4 GM Ivpb 4 GM/50 ML BAG IV (08:48)
[2024-08-15] MEDS: ENOXAPARIN SOD INJ 30 MG/0.3 ML SYRINGE SC (08:49)
[2024-08-15] MEDS: MEROPENEM INJ 1,000 MG in SODIUM CHLORIDE 0.9% (Popper) 50 ML 100 MG IV (08:49)
[2024-08-15] MEDS: DEXTROSE 5%-0.45% NS 1,000 ML 80 ML IV (08:54)
--- NOTE | 2024-08-15 09:10 | PD.RESPRO ---
Documentation for date of: 08/15/24 Subjective Subjective Interval history: Limited HPI due to mental status. Most of the H&P completed with EMR review. Patient is a 79-year-old male with a past medical history of Alzheimer's dementia, history of prostate cancer status post radical prostatectomy status post AUS placement now with indwelling Ruth's catheter, CKD stage IV, obstructive uropathy, peripheral vascular disease, HFrEF, CAD, HTN, diabetes mellitus, anastomosis, who was brought in from rehab to emergency room for evaluation of altered mental status. This morning the patient was found to be hypoxic, and confused, saturating 87% on 4 L nasal cannula. The patient has a baseline GCS of 13/14, but was more agitated last night and this morning was found to be febrile and somnolent as well as hypoxic. In the ER, initial vitals Tmax 102F, pulse rate 115/min, respiratory 26/min, blood pressure 85/54, saturating 99% on 15 L oxy mask. Initial labs showed leukocytosis, KY, metabolic acidosis and lactic acidosis, hyperphosphatemia, urinalysis significant for UTI. WBC 15.5, hemoglobin 13.9, platelets 188, sodium 149, potassium 4.4, CO2 19.3, lactic acid 4.4, BUN 50, creatinine 3.3. Patient was diagnosed with septic shock given IV fluids per sepsis bolus, no improvement in blood pressure was noted, patient was starting on pressor support with Levophed and admitted to ICU for further management. Triple-lumen dialysis catheter was placed in anticipation of hemodialysis as well as central line access for pressors. 08/14/2024 the patient is seen in the ICU, with noted improvement in mental status, able to follow simple commands, received 4.7 L IV fluid since yesterday, urine output 955, net +3.7 L, noted some facial puffiness, but does seem intravascular volume depleted, as well as excess insensible losses due to mouth breathing. Noted hypernatremia, serum sodium 152, 2.3 L free water deficit, will add IV fluids?D5 half NS at 125 cc/h. Continue monitoring urine output. 08/15/2024, patient seen in telemetry, continued broad mental status, patient still seems clinically dehydrated, sodium improved to 149, still net negative fluid balance -130 cc last 24 hours, poor p.o. intake, maintenance fluids based on body weight 140 cc/h, will increase maintenance fluid rate from 80 to 140 cc/h, repeat renal panel in the afternoon. Encourage p.o. hydration. Continued improvement in renal function, BUN 27, creatinine 1.4. The patient has history of CHF, currently does not seem to be in acute heart failure. Exam Vital Signs Temp Pulse Resp BP Pulse Ox O2 Del Method O2 Flow Rate 98.0 F 109 H 18 169/82 H 91 L Nasal Cannula 3 08/15/24 07:57 08/15/24 07:57 08/15/24 07:57 08/15/24 07:57 08/15/24 07:57 08/15/24 07:57 08/15/24 07:57 Narrative Exam GENERAL APPEARANCE: A&O x 2, hard to understand speech speech, dry mucous membranes. NECK: Neck supple, no JVD or bruit, CARDIOVASCULAR: Heart regular, no murmurs LUNGS/CHEST: Positive bilateral basal rales, rhonchi, ABDOMEN: Soft, nontender, nondistended. No masses. Normal bowel sounds. EXTREMITIES: No edema, clubbing or cyanosis. SKIN: Skin exam normal without any rashes. NEUROLOGICAL : No focal neurological deficit Objective Labs 08/15/24 04:16 08/16/24 04:27 Labs: Laboratory Results - last 24 hr 08/14/24 08/15/24 15:38 04:16 WBC 9.3 RBC 3.59 L Hgb 10.3 L Hct 32.3 L MCV 90 MCH 28.7 MCHC 31.9 RDW Std Deviation 53.4 H Plt Count 110 L Neut % (Auto) 74 Lymph % (Auto) 14 Grayson % (Auto) 8 Eos % (Auto) 3 Baso % (Auto) 1 Neut # (Auto) 6.8 Lymph # (Auto) 1.3 Grayson # (Auto) 0.8 Eos # (Auto) 0.3 Baso # (Auto) 0.1 Immature Gran # (Auto) 0.05 H Absolute Nucleated RBC 0.00 Immature Gran % 1 H Nucleated RBC % 0 Sodium 151 H 149 H Potassium 3.5 3.4 Chloride 117 H 117 H Carbon Dioxide 21.5 21.9 Anion Gap 13 10 BUN 36 H 27 H Creatinine 1.8 H D 1.4 H Estim Creat Clear Calc 40.6 L 53.9 L eGFR 38 L 51 L BUN/Creatinine Ratio 20 19 Glucose 130 H 169 H Calculated Osmolality 310 H 305 H Calcium 7.8 L 7.7 L Corrected Calcium 8.4 L 8.4 L Phosphorus 1.9 L Magnesium 1.4 L Total Bilirubin 0.5 AST 18 ALT 16 Alkaline Phosphatase 103 Total Protein 5.3 L Albumin 3.2 L 3.1 L Globulin 2.2 L Albumin/Globulin Ratio 1.4 Quality Measures Quality Measures sepsis Current suspected stage: sepsis Possible source: genitourinary Blood cultures ordered: completed in ED Antibiotic ordered: Yes Advance care planning discussed with:: patient Assessment & Plan Assessment Current Active Medications: Generic Name Dose Route Start Last Admin Trade Name Freq PRN Reason Stop Dose Admin Acetaminophen 1,000 mg 08/13/24 13:31 Acetaminophen 325 Mg Tablet PO 09/12/24 13:30 Q6H PRN Fever > 99.9 Albuterol/Ipratropium 3 ml 08/13/24 23:00 08/15/24 06:32 Albuterol/Ipratropium (Duoneb) Rt Ivanna 3 Ml Nebu INH 09/12/24 22:59 3 ml Q8HRRT CARLEEN Administration Dextrose 50 ml 08/13/24 17:47 Dextrose 50%-Water Inj 50 Ml Syringe IV 09/12/24 17:46 Q15MIN PRN BG <50 OR BG <70 & pt unresponsive Enoxaparin Sodium 30 mg 08/14/24 09:00 08/15/24 08:49 Enoxaparin Sod Inj 30 Mg/0.3 Ml Syringe SC 08/28/24 08:59 30 mg QDAY CARLEEN Administration Glucagon 1 mg 08/13/24 17:47 Glucagon Inj 1 Mg Vial IM Q15MIN PRN BG <70, and no IV access Meropenem 1,000 mg/ Sodium 50 mls @ 100 mls/hr 08/13/24 21:00 08/15/24 08:49 Chloride IV 08/20/24 20:59 100 mls/hr Q12HR CARLEEN Administration Magnesium Sulfate 4 gm in 50 mls @ 12.5 mls/hr 08/15/24 07:28 08/15/24 08:48 Magnesium Sulfate Ivpb IV 08/15/24 11:27 12.5 mls/hr X1 ONE Administration Potassium Phosphate 15 mmol in 250 mls @ 62.5 mls/hr 08/15/24 07:29 Pot Phos 15 Mmol In Ns 250 Ml IV 08/15/24 15:28 Q4H CARLEEN Insulin Glargine 5 unit 08/13/24 21:00 08/14/24 20:18 Insulin Glargine (Lantus) 5 Unit/0.05 Ml (Per 5 Units) SC 09/12/24 20:59 5 unit HS CRALEEN Administration Insulin Human Lispro 0 unit 08/13/24 18:00 08/15/24 05:09 Insulin Lispro (Admelog) 1 Unit/0.01 Ml Unit SC 09/12/24 17:59 Not Given Q6HR CARLEEN Protocol Midodrine 10 mg 08/14/24 10:22 Midodrine 5 Mg Tablet PO 09/13/24 13:59 TID PRN MAP <65 Ondansetron HCl 4 mg 08/13/24 13:31 Ondansetron Inj 2 Mg/Ml Inj 2 Ml IVP 09/12/24 13:30 Q6H PRN NAUSEA OR VOMITING Protocol Pantoprazole Sodium 40 mg 08/14/24 09:00 08/15/24 08:48 Pantoprazole Inj 40 Mg Vial IVP 09/13/24 08:59 40 mg QDAY CARLEEN Administration Plan #KY/ATN in the setting of septic shock?resolving #UTI #CKD stage IV/obstructive nephropathy Patient was recently admitted to the hospital due to acute encephalopathy obstructive uropathy, as patient was not able to operate his AUS/artificial ureteral sphincter, leading to obstructive uropathy and acute on chronic kidney injury. After passing Ruth's catheter and relief of obstruction as well as couple sessions of hemodialysis, patient's renal function improved, adequate urine output, and mental status returned to baseline. Patient was discharged from the hospital with indwelling Ruth's catheter per urology recommendations. Now patient has similar presentation with acute encephalopathy and worsening kidney function in the setting of UTI. UTI leading to septic shock, requiring IV pressors, nonresponsive to fluid resuscitation. KY likely secondary to acute tubular necrosis in the setting of septic shock. Triple-lumen dialysis catheter was placed in the femoral artery for central venous access as well as possible hemodialysis if needed. ? Continue antibiotics, renal dosing ? Avoid nephrotoxic agents ? Continued improvement in renal function, BUN 27, creatinine 1.4. The patient has history of CHF, currently does not seem to be in acute heart failure. #Hypernatremia Likely secondary to intravascular volume depletion, free water deficit 2.3 L, will add D5 half NS at 125 cc/h, encourage oral intake.?Repeat electrolytes and renal panel in the morning. ? sodium improved to 149, still net negative fluid balance -130 cc last 24 hours, poor p.o. intake, maintenance fluids based on body weight 140 cc/h, will increase maintenance fluid rate from 80 to 140 cc/h, repeat renal panel in the afternoon. Encourage p.o. hydration. #Acute hypoxic respiratory failure?resolving ? Management per primary team #Acute toxic encephalopathy?resolved ? Likely secondary to sepsis, management per primary team #History of Alzheimer's dementia #History of prostate cancer #History of atrial fibrillation #History of CHF ? Management per primary team Plan of care discussed with attending Dr. Luigi Youssef pgy2 Attending Provider Attestation/Addendum Patient seen and examined with resident physician Dr. Youssef. Note reviewed, agree with findings and recommendations. Patient with altered mental status, KY. Agree with continuing on IV fluids. Today his creatinine and BUN improved markedly. Patient has artificial urinary sphincter. Not being used. Dr. Vsos was consulted for p.o. antibiotics Plan of care discussed with primary team
[2024-08-15] MEDS: POT PHOS 15 mMol in NS 250 ML 15 MMOL/250 ML BAG 62.5 MMOL IV ×2 (09:12→11:45)
[2024-08-15] MEDS: DEXTROSE 5%-0.45% NS 1,000 ML 140 ML IV (09:16)
[2024-08-15] MEDS: CEFEPIME INJ 2 GM in SODIUM CHLORIDE 0.9% (Popper) 50 ML IV (11:32)
[2024-08-15] MEDS: metroNIDAZOLE/NS 500 MG IVPB 500 MG/100 ML BAG 200 MG IV (11:32)
--- NOTE | 2024-08-15 13:26 | ESPR_ITS ---
Subjective Subjective Interval history: febrile on admit but not since then. on cefepime w/o pos cx from any location at all. Exam Vital Signs Temp Pulse Resp BP Pulse Ox O2 Del Method O2 Flow Rate 98.0 F 91 18 169/82 H 91 L Nasal Cannula 3 08/15/24 07:57 08/15/24 08:00 08/15/24 07:57 08/15/24 07:57 08/15/24 07:57 08/15/24 07:57 08/15/24 07:57 Narrative Exam alert. confused. low ef noted. 22%. much lower than 07/28. so something may have happened there and that may account for his current problem. family convinced that infra-orbital swelling is a sign of infection for him and he has some infra orbital swelling present at the moment. had some recent haydee that has normalized. cxr noted . favors chf too, respecting family concerns and noting the full code status for him , will treat with different po agent for now Objective - Internal Medicine Labs 08/15/24 04:16 08/15/24 04:16 Labs: Laboratory Results - last 24 hr 08/14/24 08/15/24 15:38 04:16 WBC 9.3 RBC 3.59 L Hgb 10.3 L Hct 32.3 L MCV 90 MCH 28.7 MCHC 31.9 RDW Std Deviation 53.4 H Plt Count 110 L Neut % (Auto) 74 Lymph % (Auto) 14 Angelina % (Auto) 8 Eos % (Auto) 3 Baso % (Auto) 1 Neut # (Auto) 6.8 Lymph # (Auto) 1.3 Angelina # (Auto) 0.8 Eos # (Auto) 0.3 Baso # (Auto) 0.1 Immature Gran # (Auto) 0.05 H Absolute Nucleated RBC 0.00 Immature Gran % 1 H Nucleated RBC % 0 Sodium 151 H 149 H Potassium 3.5 3.4 Chloride 117 H 117 H Carbon Dioxide 21.5 21.9 Anion Gap 13 10 BUN 36 H 27 H Creatinine 1.8 H D 1.4 H Estim Creat Clear Calc 40.6 L 53.9 L eGFR 38 L 51 L BUN/Creatinine Ratio 20 19 Glucose 130 H 169 H Calculated Osmolality 310 H 305 H Calcium 7.8 L 7.7 L Corrected Calcium 8.4 L 8.4 L Phosphorus 1.9 L Magnesium 1.4 L Total Bilirubin 0.5 AST 18 ALT 16 Alkaline Phosphatase 103 Total Protein 5.3 L Albumin 3.2 L 3.1 L Globulin 2.2 L Albumin/Globulin Ratio 1.4 Assessment & Plan A&P Narrative haydee since 07/19. improved lately hyponatremia fever on admit 08/13 noted. origin uncertain hld dm II presumptive dementia based on home med list htn hcv neg as noted. on empiric cefepime per others presumably based on icu status although chest imaging favors chf and pts ef is only 22% by echo changed to cefuroxime empirically for 5d more. will see again prn. no pre treatment noted. more likely he had a coronary event, appreciate that with his dementia most would not want to intervene in any way. will see tuesday if still here, no objection if [place] leaves back to [place]. you may want to discuss his echo findings with him and work on goals of care before he leaves though Time Spent With Patient Time: Total time spent is greater than 50% in coordination of care (as documented) at patient's floor/unit and/or counseling patient:
--- NOTE | 2024-08-15 15:06 | ESPR_ITS ---
<Statement entered by Parviz Watts MD - 08/16/24 07:44> I discussed with and supervised the international editorial producer physician involved in the care of this patient. Patient assessment and plan was discussed with entire medicine team, including my attending. I agree with the assessment and plan as documented by international editorial producer doctor. Patient care was discussed with my attending physician Dr. Bobo Watts, PGY-2 Documentation for date of: 08/15/24 Subjective Subjective Interval history: Patient is seen and examined at bedside No acute overnight events. Patient still appears mildly confused but is answering most of the questions appropriately Per family, patient is not still at his baseline but seems to be improving from yesterday. Overall condition appears to be improving Patient is more alert and able to make conversation today Vitals are stable. On physical examination, patient is on oxygen through nasal cannula, 3 L without signs of fluid overload Patient had a decubitus ulcer, stage II per the wound nurse, saw the pictures in the chart does not appear to be infected or does not appear to be the source of infection Labs showed platelet count 110, sodium 149, BUN 27, creatinine 1.4 which is improving Patient is repleted with magnesium sulfate and potassium phosphate Will reevaluate patient medical condition tomorrow. Meropenem is discontinued and patient was started on cefuroxime as per Dr Voss's recommendation Family is at bedside and worried about patient's decreased oral intake, provided with options of feeding tube but family refused it Exam Vital Signs Temp Pulse Resp BP Pulse Ox O2 Del Method O2 Flow Rate 98.1 F 104 H 13 158/86 H 97 Nasal Cannula 3 08/15/24 12:00 08/15/24 14:32 08/15/24 14:32 08/15/24 12:00 08/15/24 14:32 08/15/24 12:00 08/15/24 14:32 Narrative Exam General: Awake. mildly confused HEENT: Normocephalic, atraumatic, mucous membranes dry Heart: Regular rate and rhythm, no murmurs. noted MASONRY INSTRUCTOR Lungs: Clear to auscultation with no wheezing or crackles. Abdomen: Soft, nondistended, nontender, positive bowel sounds. ?No guarding or rebound tenderness. Neurologic: Alert and omore awake, no gross neurological deficit, and patient able to move all 4 extremities. Extremities: No edema. still restrained Skin: No rash or ecchymoses. Objective Labs 08/15/24 04:16 08/15/24 15:00 Labs: Laboratory Results - last 24 hr 08/14/24 08/15/24 15:38 04:16 WBC 9.3 RBC 3.59 L Hgb 10.3 L Hct 32.3 L MCV 90 MCH 28.7 MCHC 31.9 RDW Std Deviation 53.4 H Plt Count 110 L Neut % (Auto) 74 Lymph % (Auto) 14 Chaves % (Auto) 8 Eos % (Auto) 3 Baso % (Auto) 1 Neut # (Auto) 6.8 Lymph # (Auto) 1.3 [place]aves # (Auto) 0.8 Eos # (Auto) 0.3 Baso # (Auto) 0.1 Immature Gran # (Auto) 0.05 H Absolute Nucleated RBC 0.00 Immature Gran % 1 H Nucleated RBC % 0 Sodium 151 H 149 H Potassium 3.5 3.4 Chloride 117 H 117 H Carbon Dioxide 21.5 21.9 Anion Gap 13 10 BUN 36 H 27 H Creatinine 1.8 H D 1.4 H Estim Creat Clear Calc 40.6 L 53.9 L eGFR 38 L 51 L BUN/Creatinine Ratio 20 19 Glucose 130 H 169 H Calculated Osmolality 310 H 305 H Calcium 7.8 L 7.7 L Corrected Calcium 8.4 L 8.4 L Phosphorus 1.9 L Magnesium 1.4 L Total Bilirubin 0.5 AST 18 ALT 16 Alkaline Phosphatase 103 Total Protein 5.3 L Albumin 3.2 L 3.1 L Globulin 2.2 L Albumin/Globulin Ratio 1.4 Quality Measures Quality Measures sepsis Current suspected stage: ruled out Possible source: genitourinary Blood cultures ordered: completed in ED Antibiotic ordered: Yes Advance care planning discussed with:: patient Assessment & Plan Assessment Current Active Medications: Generic Name Dose Route Start Last Admin Trade Name Freq PRN Reason Stop Dose Admin Acetaminophen 1,000 mg 08/13/24 13:31 Acetaminophen 325 Mg Tablet PO 09/12/24 13:30 Q6H PRN Fever > 99.9 Albuterol/Ipratropium 3 ml 08/13/24 23:00 08/15/24 14:29 Albuterol/Ipratropium (Duoneb) Rt Ivanna 3 Ml Nebu INH 09/12/24 22:59 3 ml Q8HRRT CARLEEN Administration Cefuroxime Axetil 500 mg 08/15/24 21:00 Cefuroxime Axetil 250 Mg Tablet PO 08/20/24 12:00 BID CARLEEN Dextrose 50 ml 08/13/24 17:47 Dextrose 50%-Water Inj 50 Ml Syringe IV 09/12/24 17:46 Q15MIN PRN BG <50 OR BG <70 & pt unresponsive Enoxaparin Sodium 30 mg 08/14/24 09:00 08/15/24 08:49 Enoxaparin Sod Inj 30 Mg/0.3 Ml Syringe SC 08/28/24 08:59 30 mg QDAY CARLEEN Administration Glucagon 1 mg 08/13/24 17:47 Glucagon Inj 1 Mg Vial IM Q15MIN PRN BG <70, and no IV access Potassium Phosphate 15 mmol in 250 mls @ 62.5 mls/hr 08/15/24 07:29 08/15/24 11:45 Pot Phos 15 Mmol In Ns 250 Ml IV 08/15/24 15:28 62.5 mls/hr Q4H CARLEEN Administration Dextrose/Sodium Chloride 1,000 mls @ 140 mls/hr 08/15/24 09:10 08/15/24 09:16 D5-1/2ns IV 08/15/24 16:17 140 mls/hr .Q7H9M CARLEEN Administration Insulin Glargine 5 unit 08/13/24 21:00 08/14/24 20:18 Insulin Glargine (Lantus) 5 Unit/0.05 Ml (Per 5 Units) SC 09/12/24 20:59 5 unit HS CARLEEN Administration Insulin Human Lispro 0 unit 08/13/24 18:00 08/15/24 11:58 Insulin Lispro (Admelog) 1 Unit/0.01 Ml Unit SC 09/12/24 17:59 Not Given Q6HR CARLEEN Protocol Midodrine 10 mg 08/14/24 10:22 Midodrine 5 Mg Tablet PO 09/13/24 13:59 TID PRN MAP <65 Ondansetron HCl 4 mg 08/13/24 13:31 Ondansetron Inj 2 Mg/Ml Inj 2 Ml IVP 09/12/24 13:30 Q6H PRN NAUSEA OR VOMITING Protocol Pantoprazole Sodium 40 mg 08/16/24 09:00 Pantoprazole 40 Mg Tablet PO 09/15/24 08:59 QDAY CARLEEN Plan Patient is a 79-year-old male past medical history significant for Alzheimer's, CAD s/p stents, PVD, primary hypertension, paroxysmal atrial fibrillation on Eliquis, history of TAVR, s/p MASONRY INSTRUCTOR D placement, heart failure reduced ejection fraction [40-45%] and ATN presented today with chief complaint of altered mental status. Patient will be admitted to ICU for vasopressors in setting of septic shock. Acute infectious encephalopathy on chronic Alzheimer's dementia, resolving Septic shock - resolved - likely aspiration versus UTI Hypernatremia, resolving - Presented to the hospital with chief complaints of altered sensorium since 2 days - Patient was brought from SNF, could not get much history as patient had dementia at baseline and is altered at the time of admission into the hospital - On admission, blood pressure is 85/54 mmHg, pulse rate 115 bpm, temperature 102 ?F - Chest x-ray did not show any significant infiltrates but patient needed oxygen during the hospital stay, suspected underlying aspiration - Urine analysis showed turbid urine with 1+ proteinuria, 3+ ketonuria, and was bilirubin, 252 RBC, 146 WBC, 18 epithelial cells - Patient was treated with vasopressors and was downgraded to floors for further management on 08/14/2024 Plan - Discontinued Meropenem as of 08/15 and started on cefuroxime 500 Mg p.o. twice daily as per Dr Voss's recommendation 08/15- - Tape Fastener Machine Operator, Dr. Meyers is consulted in view of hypernatremia, will appreciate her recommendations - Currently, patient is on D5 0.45% NS at 140 cc/h - will continue to monitor sodium levels and manage accordingly - Will continue to monitor patient's mental status - Midodrine 10 Mg orally thrice daily as needed - Urology consulted, will appreciate recommendations [place] secondary to Acute tubular necrosis, resolving - Patient was admitted on 07/28/2024 with KY and underwent few dialysis sessions at the time - Later as patient's renal functions got improved, discharged home - Patient's baseline creatinine is 3 during last discharge - Presented to the hospital with creatinine of 3.3, improved to 1.4 as of 08/15/2024 Plan - Patient was treated with IV fluids and vasopressors - D5-.45% normal saline at 140 cc/h - Nephrology, Dr. Meyers consulted. Appreciate recommendations - Will continue to monitor renal panel and renally dose medications Hypomagnesemia Likely due to poor oral intake Mg 1.4 Plan Magnesium sulfate 4 g IV x 1 given Hypernatremia, resolving Sodium is 149 as of today Likely Secondary to large volume Ringer's lactate IVF and dehydration Plan D5/0.45% NS at 140 cc/hour. Will continue to monitor renal panel and treat accordingly Chronic systolic CHF with reduced EF [40 to 45%] GDMT on hold as of now, will restart once the patient clinical condition stabilizes Repeat Echo done on 08/14/2024 - same findings, EF 40% History of primary hypertension Antihypertensives on hold due to normotension CAD and PVD s/p stents Apixaban on hold for now Paroxysmal A-fib on Eliquis Rx: - Continue telemetry monitoring. - Apixaban on hold for now H/O urinarry incontinence and retention Rx: - [facility]iary- chu catheter. Home medication trospium on hold for now - DO NOT REMOVE CHU CATHETER. As per urology Dr. Funes patient has chronic urinary incontinence and had a artificial sphincter implanted, however patient is demented and unable to control for himself ambulate therefore need a long- term indwelling Chu catheter. Thrombocytopenia Rx: Monitor for signs of bleeding on CBC. [id number] diabetes mellitus type 2 [7.5%] Rx: SSI Q6 hourly . glargine 5U SC at bedtime. HLD Home medication Atorvastatin on hold until passes swallow screen History of Alzheimer's dementia Recommended to follow-up with Dr. Alejandra on outpatient basis Per family, patient had an appointment next month with Dr. Alejandra Health maintenance: Dispo: Tele Diet: Dysphagia 1 DVT ppx: Enoxaparin 30mg SC daily GI ppx: Protonix 40mg qD IV lines: 2 pIV Chu: Yes (started 08/13/24, Do not remove Code status: FULL CODE Patient plan of care was discussed with the attending physician, Dr. Broussard and senior resident Dr. Stefanie Paige, PGY1 Disclaimer: This note was dictated by speech recognition. Minor errors in riprap placer may be present due to voice recognition software. Attending Provider Attestation/Addendum I have discussed and was present for the essential components of the history, physical examination, diagnosis, and treatment plan with the resident. I agree with the patient's care as documented by the resident and amended herein by me. Carlos Broussard DO. Patient seen and evaluated this AM. Patient's mentation significantly improved today however still not back to baseline. SBP 162, patient presently on 3 L via NC, 91%, I/O20 213/2410. WBC normal, hemoglobin stable at 10, sodium downtrending 149 today, down to 140 6 in the afternoon, chloride 117 in the morning. BUN 29, creatinine down to 1.4. Echo demonstrated Normal LV size and function, EF estimated at 40% with global LV systolic function mildly to moderately decreased. Blood cultures been negative, urine cultures surprisingly negative as well which does not give us a clear source of infection however we know the patient did improve with meropenem. Infectious disease consulted, recommending cefuroxime 500 mg p.o. twice daily. Urology also consulted, will see the patient this afternoon for additional recommendations. Per previous documentation earlier in the month, urology did recommend keeping Chu catheter in at this time in which she could remove it in the office. Will continue to monitor closely and reevaluate tomorrow. Although this document has been carefully reviewed, there may still be some phonetic and other typographical errors. These errors are purely grammatical due to imperfections in the software program and should not be construed in any way to compromise the substance of the patient's medical care during this visit.
--- NOTE | 2024-08-15 15:09 | PC.SS ---
LOAN DOCUMENTATION SPECIALIST conducted bedside contact with the patient conduct initial assessment and to discuss discharge planning.? At bedside with patient was spouse, Brayan Noriega .? Spouse provided information for assessment and discharge planning.? Patient is a resident of [facility].? Patient utilizes a wheelchair to assist with mobility. ?Patient utilizes oxygen at the facility.? Patient requires assistance with the completion of ADL?s.? Patient?s medical surrogate decision maker is spouse, Kathrandal Huffbrooke.? Facility PCP is Dr. Pepe.? The patient does not participate with dialysis.? Discharge plan is for the patient to return to [facility] at the time of discharge.? Patient does not possess coverage for transport.? accounting advisory services manager to assist family with transportation at the time of discharge.? No further intervention required at this time, forensic social worker will be available to address any further concerns.? Next of Kin: Brayan Noriega D/C Plan: SNF
[2024-08-15 15:25] LABS: Sodium 146 mMol/L (136-145)
--- NOTE | 2024-08-15 16:50 | PC.NURSE ---
at bedside to assess pt at this time
--- NOTE | 2024-08-15 17:57 | ESCONSULT_ITS ---
RE: IVAN GARCÍA : 1945 DATE OF CONSULTATION: 08/15/2024 REFERRING PHYSICIAN: Dr. Uriarte. REASON FOR CONSULTATION: Empiric antibiotics for supposed sepsis. HISTORY OF PRESENT ILLNESS: The patient was admitted with apparent sepsis. He has an echocardiogram that was done that shows an ejection fraction of 20%, which is down from 45% in late June. He is full code and has dementia and other problems. His family feels that eye swelling is associated with infection, so we may want to treat him anyway as a precaution. He did have a fever on arrival. His blood pressure was also rather low. MEDICAL PROBLEMS: Include hyperlipidemia and chronic kidney disease without dialysis. SURGERIES: Include cholecystectomy, neck and back surgery multiple times, right total knee arthroplasty and right total hip arthroplasty. He also has BPH and prostate cancer. ALLERGIES: PENICILLIN A CHILD. HE HAS NOT HAD IT TESTED SINCE THEN. IMMUNIZATIONS: Last tetanus not known. He does have flu shot every year. He has had three COVID vaccines and has had pneumococcal vaccine as well. FAMILY HISTORY: Positive for diabetes, hypertension, and cancer. SOCIAL HISTORY: Lives at skilled nursing, prior to that lives at home with his . He is retired. PHYSICAL EXAMINATION: The patient is on 3 liters of oxygen. Agitated at times and answered his questions in an unusual manner. This is consistent with his diagnosis of dementia. ASSESSMENT AND PLAN: His last surgery was an artificial sphincter put in by Dr. Funes about a year and a half ago and there are no noted problems with infection of late. There is also no plan to remove the device. His urinalysis has led to a dx of_ UTI, but I am not sure where that comes from. I cannot see any of his labs. The system is little goofy. He remains full code despite his obvious health problems. I will defer to the family in that regard, but ultimately some discussion about goals of care should be forthcoming. If they wish to remain in full code that is their choice. We will respect it. From a therapeutic standpoint, i will change his empiric iv antibiotics to an empiric oral antibiotic, so that he may return to the skilled nursing. I have no objection to that but they should be informed of his low ejection fraction as it may impact his care. DT: 14:27:32 TT: 16:47:00 Ref: [id number] - TID: [id number] MTDD
[2024-08-15] MEDS: cefuroxime axetiL 250 MG TABLET 500 MG PO (20:28)
[2024-08-15] MEDS: ACETAMINOPHEN 325 MG TABLET 1000 MG PO (20:29)
[2024-08-15] MEDS: METOPROLOL SUCCINATE XL 25 MG TABCR PO (20:41)
[2024-08-15] MEDS: INSULIN LISPRO (AdmeLOG) 1 UNIT/0.01 ML UNIT SC (20:56)
[2024-08-15] MEDS: INSULIN GLARGINE (Lantus) 5 UNIT/0.05 ML (PER 5 UNITS) SC (20:56)
[2024-08-16] VITALS (14 sets, daily range): BP systolic 123–173; BP diastolic 71–96; PULSE 85–136; RESP 14–30; TEMP 36–37.6; O2SAT 94–99; BMI 30.3
[2024-08-16 05:22] LABS: Basophils % (Auto) 0 % (0-2.5); Eosinophils # (Auto) 0.4 Thou/mm3 (0.0-0.5); Eosinophils % (Auto) 4 % (0-10); Hemoglobin 10.2 g/dL (13.5-16.0); Immature Granulocytes % (Auto) 1 % (0-0); Immature Granulocytes Auto 0.08 Thou/mm3 (0.00-0.00); Lymphocytes # (Auto) 1.1 Thou/mm3 (1.0-4.8); Lymphocytes % (Auto) 11 % (10-50); Mean Corpuscular HGB Conc 32.9 g/dl (31.0-37.0); Mean Corpuscular Hemoglobin 28.1 pg (25.0-35.0); Mean Corpuscular Volume 85 fL (80-100); Monocytes # (Auto) 0.7 Thou/mm3 (0.0-0.8); Monocytes % (Auto) 8 % (0-12); Neutrophils # (Auto) 7.1 Thou/mm3 (1.8-7.7); Neutrophils % (Auto) 75 % (37-80); Nucleated Red Blood Cell % 0 /100 WBC (0); Platelet Count 130 Thou/mm3 (140-440); RDW Standard Deviation 49.6 fL (35.1-43.9); Red Blood Count 3.63 Miln/mm3 (4.50-5.90); White Blood Count 9.4 Thou/mm3 (3.8-10.6)
[2024-08-16 05:55] LABS: Alanine Aminotransferase 14 U/L (10-49); Albumin, Serum 3.1 gm/dL (3.4-4.8); Albumin/Globulin Ratio 1.3 (1.2-2.2); Alkaline Phosphatase 113 U/L (46-116); Anion Gap 7 (7-16); Aspartate Amino Transferase 16 U/L (0-34); BUN/Creatinine Ratio 15 Ratio (12-20); Bilirubin,Total 0.7 mg/dL (0.3-1.2); Blood Urea Nitrogen 16 mg/dL (9-23); Calcium 7.8 mg/dL (8.3-10.6); Calcium (Corrected) 8.5 mg/dL (8.5-10.1); Carbon Dioxide 22.6 mMol/L (20.0-31.0); Chloride 116 mMol/L (98-107); Creatinine (Component) 1.1 mg/dL (0.6-1.3); Estimated Creatinine Clearance 68.2 mL/min (>60); Globulin 2.3 gm/dL (2.3-3.5); Glucose 147 mg/dL (74-106); LDH (Lactate Dehydrogenase) 349 U/L (120-246); Magnesium 1.6 mg/dL (1.6-2.6); Osmolality,Calculated 294 (275-295); Potassium 3.4 mMol/L (3.4-5.1); Sodium 146 mMol/L (136-145); Total Protein 5.4 gm/dL (5.7-8.2); eGFR > 60 See Note
[2024-08-16 06:12] LABS: Syphilis Nonreactive (Nonreactive)
[2024-08-16 06:20] LABS: B-Type Natriuretic Peptide 1391 pg/mL (0-100)
[2024-08-16] MEDS: ALBUTEROL/IPRATROPIUM (Duoneb) RT SOL 3 ML NEBU INH ×3 (06:53→22:35)
[2024-08-16] MEDS: POTASSIUM CHL 10 mEq IVPB 10 MEQ/100 ML BAG 100 MEQ IV ×4 (08:10→11:15)
[2024-08-16] MEDS: INSULIN LISPRO (AdmeLOG) 1 UNIT/0.01 ML UNIT SC ×2 (08:11→20:45)
[2024-08-16] MEDS: METOPROLOL SUCCINATE XL 25 MG TABCR PO (08:22)
[2024-08-16] MEDS: PANTOPRAZOLE 40 MG TABLET PO (08:23)
[2024-08-16] MEDS: cefuroxime axetiL 250 MG TABLET 500 MG PO ×2 (08:23→20:32)
[2024-08-16] MEDS: ENOXAPARIN SOD INJ 30 MG/0.3 ML SYRINGE SC (08:23)
[2024-08-16] MEDS: amLODIPine BESYLATE 5 MG TABLET PO (08:30)
[2024-08-16] MEDS: Magnesium Sulfate 2 GM Ivpb 2 GM/50 ML BAG IV ×2 (08:30→16:47)
[2024-08-16] MEDS: APIXABAN 2.5 MG TABLET PO ×2 (11:13→20:33)
[2024-08-16 12:09] LABS: Cocci Serology, IgM Negative (Negative)
--- NOTE | 2024-08-16 12:40 | ESPR_ITS ---
Documentation for date of: 08/16/24 Subjective Subjective Interval history: Patient is seen and examined at bedside No acute overnight events. Patient is still having irrelevant talk but able to answer some questions appropriately Vitals are stable and patient found to have mildly elevated blood pressure today. Labs showed hemoglobin 10.2, platelets 130, sodium 146, chloride 116, creatinine 1.1 Patient was taken off restraints initially, but as patient is pulling out the Chu catheter, patient was kept back on restraints Resume his home medications Eliquis, memantine, Entresto, metoprolol. Exam Vital Signs Temp Pulse Resp BP Pulse Ox O2 Del Method O2 Flow Rate 99.7 F 97 14 173/81 H 97 Nasal Cannula 3 08/16/24 08:00 08/16/24 08:30 08/16/24 08:00 08/16/24 08:30 08/16/24 08:00 08/16/24 08:00 08/16/24 08:00 Narrative Exam General: Awake. mildly confused HEENT: Normocephalic, atraumatic, mucous membranes dry Heart: Regular rate and rhythm, no murmurs. noted MERCHANDISING CONSULTANT Lungs: Clear to auscultation with no wheezing or crackles. Abdomen: Soft, nondistended, nontender, positive bowel sounds. ?No guarding or rebound tenderness. Neurologic: Alert and omore awake, no gross neurological deficit, and patient able to move all 4 extremities. Extremities: No edema. still restrained Skin: No rash or ecchymoses. Stage II decubitus ulcer noted on left buttock, appears clean and uninfected Objective Labs 08/16/24 04:27 08/16/24 04:27 Labs: Laboratory Results - last 24 hr 08/15/24 08/16/24 15:00 04:27 WBC 9.4 RBC 3.63 L Hgb 10.2 L Hct 31.0 L MCV 85 MCH 28.1 MCHC 32.9 RDW Std Deviation 49.6 H Plt Count 130 L Neut % (Auto) 75 Lymph % (Auto) 11 Woodruff % (Auto) 8 Eos % (Auto) 4 Baso % (Auto) 0 Neut # (Auto) 7.1 Lymph # (Auto) 1.1 Woodruff # (Auto) 0.7 Eos # (Auto) 0.4 Baso # (Auto) 0.0 Immature Gran # (Auto) 0.08 H Absolute Nucleated RBC 0.00 Immature Gran % 1 H Nucleated RBC % 0 Sodium 146 H 146 H Potassium 3.4 Chloride 116 H Carbon Dioxide 22.6 Anion Gap 7 BUN 16 Creatinine 1.1 Estim Creat Clear Calc 68.2 eGFR > 60 BUN/Creatinine Ratio 15 Glucose 147 H Calculated Osmolality 294 Calcium 7.8 L Corrected Calcium 8.5 Magnesium 1.6 Total Bilirubin 0.7 AST 16 ALT 14 Alkaline Phosphatase 113 Lactate Dehydrogenase 349 H B-Natriuretic Peptide 1391 H* Total Protein 5.4 L Albumin 3.1 L Globulin 2.3 Albumin/Globulin Ratio 1.3 Syphilis Serology Nonreactive Coccidioides IgM Ab Negative Quality Measures Quality Measures sepsis Current suspected stage: ruled out Possible source: genitourinary Blood cultures ordered: completed in ED Antibiotic ordered: Yes Advance care planning discussed with:: patient Assessment & Plan Assessment Current Active Medications: Generic Name Dose Route Start Last Admin Trade Name Freq PRN Reason Stop Dose Admin Acetaminophen 1,000 mg 08/16/24 11:28 Acetaminophen 500 Mg Tablet PO 09/12/24 13:30 Q6H PRN Fever > 99.9 Albuterol/Ipratropium 3 ml 08/13/24 23:00 08/16/24 06:53 Albuterol/Ipratropium (Duoneb) Rt Ivanna 3 Ml Nebu INH 09/12/24 22:59 3 ml Q8HRRT CARLEEN Administration Apixaban 2.5 mg 08/16/24 10:30 08/16/24 11:13 Apixaban 2.5 Mg Tablet PO 09/15/24 10:29 2.5 mg BID CARLEEN Administration Protocol Cefuroxime Axetil 500 mg 08/15/24 21:00 08/16/24 08:23 Cefuroxime Axetil 250 Mg Tablet PO 08/20/24 12:00 500 mg BID CARLEEN Administration Dextrose 50 ml 08/13/24 17:47 Dextrose 50%-Water Inj 50 Ml Syringe IV 09/12/24 17:46 Q15MIN PRN BG <50 OR BG <70 & pt unresponsive Glucagon 1 mg 08/13/24 17:47 Glucagon Inj 1 Mg Vial IM Q15MIN PRN BG <70, and no IV access Insulin Glargine 5 unit 08/13/24 21:00 08/15/24 20:56 Insulin Glargine (Lantus) 5 Unit/0.05 Ml (Per 5 Units) SC 09/12/24 20:59 5 unit HS CARLEEN Administration Insulin Human Lispro 0 unit 08/15/24 21:00 08/16/24 12:27 Insulin Lispro (Admelog) 1 Unit/0.01 Ml Unit SC 09/14/24 20:59 Not Given ACHS CARLEEN Protocol Metoprolol Succinate 200 mg 08/17/24 09:00 Metoprolol Succinate Xl 25 Mg Tabcr PO 09/16/24 08:59 QDAY CARLEEN Ondansetron HCl 4 mg 08/13/24 13:31 Ondansetron Inj 2 Mg/Ml Inj 2 Ml IVP 09/12/24 13:30 Q6H PRN NAUSEA OR VOMITING Protocol Pantoprazole Sodium 40 mg 08/16/24 09:00 08/16/24 08:23 Pantoprazole 40 Mg Tablet PO 09/15/24 08:59 40 mg QDAY CARLEEN Administration Sacubitril/Valsartan 0.5 tab 08/16/24 21:00 Sacubitril 24 Mg/Valsartan 26 Mg Tablet PO 09/15/24 20:59 BID CARLEEN Plan Patient is a 79-year-old male past medical history significant for Alzheimer's, CAD s/p stents, PVD, primary hypertension, paroxysmal atrial fibrillation on Eliquis, history of TAVR, s/p MERCHANDISING CONSULTANT D placement, heart failure reduced ejection fraction [40-45%] and ATN presented today with chief complaint of altered mental status. Patient will be admitted to ICU for vasopressors in setting of septic shock. Acute infectious encephalopathy on chronic Alzheimer's dementia, resolving Septic shock - resolved - likely aspiration versus UTI Hypernatremia, resolving - Presented to the hospital with chief complaints of altered sensorium since 2 days - Patient was brought from SNF, could not get much history as patient had dementia at baseline and is altered at the time of admission into the hospital - On admission, blood pressure is 85/54 mmHg, pulse rate 115 bpm, temperature 102 ?F - Chest x-ray did not show any significant infiltrates but patient needed oxygen during the hospital stay, suspected underlying aspiration - Urine analysis showed turbid urine with 1+ proteinuria, 3+ ketonuria, and was bilirubin, 252 RBC, 146 WBC, 18 epithelial cells - Patient was treated with vasopressors and was downgraded to floors for further management on 08/14/2024 Plan - Discontinued Meropenem as of 08/15 and started on cefuroxime 500 Mg p.o. twice daily as per Dr Voss's recommendation 08/15- - Table Saw Operator, Dr. Meyers is consulted in view of hypernatremia, will appreciate her recommendations - Will continue to monitor patient's mental status - Urology consulted, will appreciate recommendations [place] secondary to Acute tubular necrosis, resolved - Patient was admitted on 07/28/2024 with [place] and underwent few dialysis sessions at the time - Later as patient's renal functions got improved, discharged home - Patient's baseline creatinine is 3 during last discharge - Presented to the hospital with creatinine of 3.3, improved to 1.1 as of 08/16/2024, reached almost his baseline. Plan - Nephrology, Dr. Meyers consulted. Appreciate recommendations - Will continue to monitor renal panel and renally dose medications Hypomagnesemia, resolved Likely due to poor oral intake Mg 1.6 Plan Magnesium sulfate 2 g IV x 1 given Hypernatremia, resolving Sodium is 146 as of today Likely Secondary to large volume Ringer's lactate IVF and dehydration Plan Will continue to monitor renal panel and treat accordingly Chronic systolic CHF with reduced EF [40 to 45%] GDMT on hold as of now, will restart once the patient clinical condition stabilizes Repeat Echo done on 08/14/2024 - same findings, EF 40% History of primary hypertension Started his home metoprolol 100 Mg p.o. daily Started on Entresto half tablet twice daily Will add amlodipine as needed. Will continue to monitor blood pressures and manage accordingly CAD and PVD s/p stents Restarted his atorvastatin Paroxysmal A-fib on Eliquis Rx: - Continue telemetry monitoring. - Apixaban is restarted, 2.5 Mg twice daily which is his home dose H/O urinarry incontinence and retention Rx: - equipment operator intermodal yard- chu catheter. Home medication trospium on hold for now - DO NOT REMOVE CHU CATHETER. As per urology Dr. Funes patient has chronic urinary incontinence and had a artificial sphincter implanted, however patient is demented and unable to control for himself ambulate therefore need a long- term indwelling Chu catheter. Thrombocytopenia, resolving Rx: Monitor for signs of bleeding on CBC. [id number] diabetes mellitus type 2 [7.5%] Rx: SSI Q6 hourly . glargine 5U SC at bedtime. HLD Home medication Atorvastatin resumed History of Alzheimer's dementia Recommended to follow-up with Dr. Alejandra on outpatient basis Per family, patient had an appointment next month with Dr. Alejandra Health maintenance: Dispo: Tele Diet: Dysphagia 1 DVT ppx: Eliquis GI ppx: Protonix 40mg qD IV lines: 2 pIV Chu: Yes (started 08/13/24, Do not remove Code status: FULL CODE Patient plan of care was discussed with the attending physician, Dr. Broussard and senior resident Dr. Stefanie Paige, PGY1 Disclaimer: This note was dictated by speech recognition. Minor errors in earth science technical officer may be present due to voice recognition software. Attending Provider Attestation/Addendum Considering PCI was I have discussed and was present for the essential components of the history, physical examination, diagnosis, and treatment plan with the resident. I agree with the patient's care as documented by the resident and amended herein by me. Carlos Broussard, DO. Patient seen and evaluated this AM. 79-year-old male with significant past medical history of Alzheimer's dementia, CAD status post PCI, PVD, hypertension, A-fib on Eliquis, TAVR, HFrEF with an EF of 40%, presented to [facility] from [facility] for altered mental status and lethargy, subsequently admitted to the ICU for septic shock originally considered urological in origin, subsequently downgraded to the medicine team on 08/15. Today the patient's mentation is further improved however unclear if he is back to his baseline which I doubt. Patient is able to speak to us however is not very responsive to questions or commands. He is still restrained, not due to violence but because he was pulling out lines, we did attempt to unrestrained him today however he went right for the Chu catheter which urology recommended keeping in earlier in the month on his last admission. Tmax overnight was 99, patient presently on 3 L NC, SpO2 96%, I/O30 571/2600. Significant labs include a WBC of 9, hemoglobin stable at 10, sodium 146, potassium 3.4 and a chloride of 116. BNP 1391. Echocardiogram on 08/14 largely unchanged from previous study on 07/28, EF estimated at 40% with global LV with mild to moderate global systolic dysfunction with normal LV size. As far as micro is concerned, urine cultures were surprisingly negative and blood cultures were also negative. Plan for today, infectious disease was consulted in the ICU and recommended discontinuing IV antibiotics and treating him empirically with oral cefuroxime 500 mg twice daily for 5 days considering there is no clear source of infection. Patient was on meropenem and did improve in the ICU. The patient does have an artificial urinary sphincter which the family states has never worked and wanted removed however per Dr. Funes, this will not be done as it is very complicated the patient likely would not tolerate. With the patient's dementia, he is unable to activate the device regardless. He did recommend on his last admit earlier in the month that the Chu catheter remain in and he would remove later in the outpatient setting. We have the problem however of the patient's acute encephalopathy and the patient attempting to pull this out which is keeping him on restraints. Dr Funes is supposed to evaluate the patient sometime today and give us further recommendations which we appreciate. Will continue to monitor closely, for the patient's HFrEF he is on metoprolol, we will restart Eliquis and his Entresto. Will continue to monitor closely while he is here Although this document has been carefully reviewed, there may still be some phonetic and other typographical errors. These errors are purely grammatical due to imperfections in the software program and should not be construed in any way to compromise the substance of the patient's medical care during this visit.
[2024-08-16] MEDS: METOPROLOL SUCCINATE XL 25 MG TABCR 100 MG PO (14:51)
--- NOTE | 2024-08-16 15:39 | PD.RESPRO ---
Documentation for date of: 08/16/24 Subjective Subjective Interval history: Limited HPI due to mental status. Most of the H&P completed with EMR review. Patient is a 79-year-old male with a past medical history of Alzheimer's dementia, history of prostate cancer status post radical prostatectomy status post AUS placement now with indwelling Ruth's catheter, CKD stage IV, obstructive uropathy, peripheral vascular disease, HFrEF, CAD, HTN, diabetes mellitus, anastomosis, who was brought in from rehab to emergency room for evaluation of altered mental status. This morning the patient was found to be hypoxic, and confused, saturating 87% on 4 L nasal cannula. The patient has a baseline GCS of 13/14, but was more agitated last night and this morning was found to be febrile and somnolent as well as hypoxic. In the ER, initial vitals Tmax 102F, pulse rate 115/min, respiratory 26/min, blood pressure 85/54, saturating 99% on 15 L oxy mask. Initial labs showed leukocytosis, KY, metabolic acidosis and lactic acidosis, hyperphosphatemia, urinalysis significant for UTI. WBC 15.5, hemoglobin 13.9, platelets 188, sodium 149, potassium 4.4, CO2 19.3, lactic acid 4.4, BUN 50, creatinine 3.3. Patient was diagnosed with septic shock given IV fluids per sepsis bolus, no improvement in blood pressure was noted, patient was starting on pressor support with Levophed and admitted to ICU for further management. Triple-lumen dialysis catheter was placed in anticipation of hemodialysis as well as central line access for pressors. 08/14/2024 the patient is seen in the ICU, with noted improvement in mental status, able to follow simple commands, received 4.7 L IV fluid since yesterday, urine output 955, net +3.7 L, noted some facial puffiness, but does seem intravascular volume depleted, as well as excess insensible losses due to mouth breathing. Noted hypernatremia, serum sodium 152, 2.3 L free water deficit, will add IV fluids?D5 half NS at 125 cc/h. Continue monitoring urine output. 08/15/2024, patient seen in telemetry, noted improved mental status, patient still seems clinically dehydrated, sodium improved to 149, still net negative fluid balance -130 cc last 24 hours, poor p.o. intake, maintenance fluids based on body weight 140 cc/h, will increase maintenance fluid rate from 80 to 140 cc/h, repeat renal panel in the afternoon. Encourage p.o. hydration. Continued improvement in renal function, BUN 27, creatinine 1.4. The patient has history of CHF, currently does not seem to be in acute heart failure. 08/16/2024, patient seen in telemetry, mental status at baseline, alert oriented x 3,Noted improvement in sodium and renal function, 146 and morning labs, BUN 16, creatinine 1.1. Adequate urine output, but still remains in net positive fluid balance. Of note, patient's echocardiogram EF reported by nursing techn 22% by Samuel method, but per track moving machine operator patient has estimated EF 40 %. Chest x-ray reported as moderate vascular congestion, though poor inspiratory effort by patient, patient clinically does not have respiratory distress or any worsening oxygen requirements. Patient can be discharged from nephrology standpoint. Encourage per oral fluid intake. Keep Ruth's catheter per urology recommendations. Follow-up outpatient with urology and primary care physician. Exam Vital Signs Temp Pulse Resp BP Pulse Ox O2 Del Method O2 Flow Rate 99.3 F 130 H 20 172/96 H 97 Nasal Cannula 2 08/16/24 12:00 08/16/24 15:31 08/16/24 15:31 08/16/24 14:51 08/16/24 15:31 08/16/24 12:00 08/16/24 15:31 Narrative Exam General: Awake. And alert, patient has dementia, mental status at baseline. HEENT: Normocephalic, atraumatic, mucous membranes dry Heart: Regular rate and rhythm, no murmurs. 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 Abdomen: Soft, nondistended, nontender, positive bowel sounds. ?No guarding or rebound tenderness. Neurologic: no gross neurological deficit, and patient able to move all 4 extremities. Extremities: No edema. still restrained Skin: No rash or ecchymoses. Stage II decubitus ulcer noted on left buttock, appears clean and uninfected Objective Labs 08/16/24 04:27 08/16/24 04:27 Labs: Laboratory Results - last 24 hr 08/16/24 04:27 WBC 9.4 RBC 3.63 L Hgb 10.2 L Hct 31.0 L MCV 85 MCH 28.1 MCHC 32.9 RDW Std Deviation 49.6 H Plt Count 130 L Neut % (Auto) 75 Lymph % (Auto) 11 [place] % (Auto) 8 Eos % (Auto) 4 Baso % (Auto) 0 Neut # (Auto) 7.1 Lymph # (Auto) 1.1 [place] # (Auto) 0.7 Eos # (Auto) 0.4 Baso # (Auto) 0.0 Immature Gran # (Auto) 0.08 H Absolute Nucleated RBC 0.00 Immature Gran % 1 H Nucleated RBC % 0 Sodium 146 H Potassium 3.4 Chloride 116 H Carbon Dioxide 22.6 Anion Gap 7 BUN 16 Creatinine 1.1 Estim Creat Clear Calc 68.2 eGFR > 60 BUN/Creatinine Ratio 15 Glucose 147 H Calculated Osmolality 294 Calcium 7.8 L Corrected Calcium 8.5 Magnesium 1.6 Total Bilirubin 0.7 AST 16 ALT 14 Alkaline Phosphatase 113 Lactate Dehydrogenase 349 H B-Natriuretic Peptide 1391 H* Total Protein 5.4 L Albumin 3.1 L Globulin 2.3 Albumin/Globulin Ratio 1.3 Syphilis Serology Nonreactive Coccidioides IgM Ab Negative Quality Measures Quality Measures sepsis Current suspected stage: sepsis Possible source: genitourinary Blood cultures ordered: completed in ED Antibiotic ordered: Yes Advance care planning discussed with:: patient Assessment & Plan Assessment Current Active Medications: Generic Name Dose Route Start Last Admin Trade Name Freq PRN Reason Stop Dose Admin Acetaminophen 1,000 mg 08/16/24 11:28 Acetaminophen 500 Mg Tablet PO 09/12/24 13:30 Q6H PRN Fever > 99.9 Albuterol/Ipratropium 3 ml 08/13/24 23:00 08/16/24 15:27 Albuterol/Ipratropium (Duoneb) Rt Ivanna 3 Ml Nebu INH 09/12/24 22:59 3 ml Q8HRRT CARLEEN Administration Allopurinol 100 mg 08/17/24 09:00 Allopurinol 100 Mg Tablet PO 09/16/24 08:59 QDAY CARLEEN Apixaban 2.5 mg 08/16/24 10:30 08/16/24 11:13 Apixaban 2.5 Mg Tablet PO 09/15/24 10:29 2.5 mg BID CARLEEN Administration Protocol Atorvastatin Calcium 80 mg 08/17/24 09:00 Atorvastatin Calcium 20 Mg Tablet PO 09/16/24 08:59 QDAY CARLEEN Cefuroxime Axetil 500 mg 08/15/24 21:00 08/16/24 08:23 Cefuroxime Axetil 250 Mg Tablet PO 08/20/24 12:00 500 mg BID CARLEEN Administration Dextrose 50 ml 08/13/24 17:47 Dextrose 50%-Water Inj 50 Ml Syringe IV 09/12/24 17:46 Q15MIN PRN BG <50 OR BG <70 & pt unresponsive Glucagon 1 mg 08/13/24 17:47 Glucagon Inj 1 Mg Vial IM Q15MIN PRN BG <70, and no IV access Insulin Glargine 5 unit 08/13/24 21:00 08/15/24 20:56 Insulin Glargine (Lantus) 5 Unit/0.05 Ml (Per 5 Units) SC 09/12/24 20:59 5 unit HS [facility] Administration Insulin Human Lispro 0 unit 08/15/24 21:00 08/16/24 12:27 Insulin Lispro (Admelog) 1 Unit/0.01 Ml Unit SC 09/14/24 20:59 Not Given ACHS [facility] Protocol Memantine 5 mg 08/16/24 21:00 Memantine Hcl 5 Mg Tablet PO 09/15/24 20:59 BID CARLEEN Metoprolol Succinate 100 mg 08/17/24 09:00 Metoprolol Succinate Xl 25 Mg Tabcr PO 09/16/24 08:59 QDAY [facility] Ondansetron HCl 4 mg 08/13/24 13:31 Ondansetron Inj 2 Mg/Ml Inj 2 Ml IVP 09/12/24 13:30 Q6H PRN NAUSEA OR VOMITING Protocol Pantoprazole Sodium 40 mg 08/16/24 09:00 08/16/24 08:23 Pantoprazole 40 Mg Tablet PO 09/15/24 08:59 40 mg QDAY CARLEEN Administration Ropinirole HCl 0.5 mg 08/17/24 09:00 Ropinirole Hcl 0.25 Mg Tablet PO 09/16/24 08:59 QDAY CRALEEN Sacubitril/Valsartan 0.5 tab 08/16/24 21:00 Sacubitril 24 Mg/Valsartan 26 Mg Tablet PO 09/15/24 20:59 BID CARLEEN Plan #KY/ATN in the setting of septic shock?resolving #UTI #CKD stage IV/obstructive nephropathy Patient was recently admitted to the hospital due to acute encephalopathy obstructive uropathy, as patient was not able to operate his AUS/artificial ureteral sphincter, leading to obstructive uropathy and acute on chronic kidney injury. After passing Ruth's catheter and relief of obstruction as well as couple sessions of hemodialysis, patient's renal function improved, adequate urine output, and mental status returned to baseline. Patient was discharged from the hospital with indwelling Ruth's catheter per urology recommendations. Now patient has similar presentation with acute encephalopathy and worsening kidney function in the setting of UTI. UTI leading to septic shock, requiring IV pressors, nonresponsive to fluid resuscitation. KY likely secondary to acute tubular necrosis in the setting of septic shock. Triple-lumen dialysis catheter was placed in the femoral artery for central venous access as well as possible hemodialysis if needed. ? Continue antibiotics, renal dosing ? Avoid nephrotoxic agents ? Continued improvement in renal function, BUN 16, creatinine 1.1. The patient has history of CHF, currently does not seem to be in acute heart failure. - 08/16/2024 Noted improvement in sodium and renal function, 146 and morning labs, BUN 16, creatinine 1.1. Adequate urine output, but still remains in net positive fluid balance. Of note, patient's echocardiogram EF reported by nursing techn 22% by Samuel method, but per track moving machine operator patient has estimated EF 40 %. Chest x-ray reported as moderate vascular congestion, though poor inspiratory effort by patient, patient clinically does not have respiratory distress or any worsening oxygen requirements. Patient can be discharged from nephrology standpoint. Encourage per oral fluid intake. Keep Ruth's catheter per urology recommendations. Follow-up outpatient with urology and primary care physician. #Hypernatremia Likely secondary to intravascular volume depletion, free water deficit 2.3 L, will add D5 half NS at 125 cc/h, encourage oral intake.?Repeat electrolytes and renal panel in the morning. ? sodium improved to 146 , net positive fluid balance . #Acute hypoxic respiratory failure?resolving ? Management per primary team #Acute toxic encephalopathy?resolved ? Likely secondary to sepsis, management per primary team #History of Alzheimer's dementia #History of prostate cancer #History of atrial fibrillation #History of CHF ? Management per primary team Plan of care discussed with attending Dr. Luigi Youssef pgy2 Attending Provider Attestation/Addendum Patient seen and examined with resident physician Dr. Youssef. Note reviewed, agree with findings and recommendations. Continue with gentle fluids. Creatinine better
--- NOTE | 2024-08-16 15:51 | PC.SS ---
Follow up note: SS spoke to Dorota @ [facility] to update that patient is on restraints and will return once off. Facility needs patient off restraints for 24 hours and can return. [facility].
--- NOTE | 2024-08-16 16:01 | EKG_ITS ---
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
--- NOTE | 2024-08-16 18:43 | UCCONSULT_ITS ---
RE: IVAN GARCÍA : 1945 DATE OF CONSULTATION: 08/16/2024 CHIEF COMPLAINT: 1. Confusion. 2. Alzheimer. 3. Urinary incontinence, status post placement of AUS. 4. Urosepsis. COMORBID CONDITIONS: 1. Hypertension. 2. Diabetes mellitus. 3. Coronary artery disease, status post placement of stents. 4. Congestive heart failure. 5. Dementia. HISTORY OF PRESENT ILLNESS: This is a 79-year-old gentleman. He was admitted in the hospital through the emergency room. The patient has paroxysmal atrial fibrillation on Eliquis. The patient had a history of dementia. He became confused at home and less responsive and subsequently was on BIBA to the emergency room. Past medical history, family history, review of the system, personal history, please refer to the patient's history form dated 08/16/2024. It is in HPI in EMR. When I saw the patient with RN, there was nobody in the room with the patient. His family had left and I was told the patient had been cursing the family members. That is the reason his family member left. On examination, the patient is confused. Vital signs are stable. They are is an HPI in EMR and the patient has indwelling Ruth catheter. His serum creatinine is 3.3, BUN is 50. RECOMMENDATIONS: Urine for culture sensitivity, continue treatment with antibiotics. He needs change of catheter once a month. DT: 14:46:32 TT: 18:41:00 Ref: - TID: [id number]
[2024-08-16] MEDS: SACUBITRIL 24 MG/VALSARTAN 26 MG TABLET 0.5 TAB PO (20:32)
[2024-08-16] MEDS: ACETAMINOPHEN 500 MG TABLET 1000 MG PO (20:32)
[2024-08-16] MEDS: traZODone HCL 50 MG TABLET PO (20:32)
[2024-08-16] MEDS: MEMANTINE HCL 5 MG TABLET PO (20:33)
[2024-08-16] MEDS: INSULIN GLARGINE (Lantus) 5 UNIT/0.05 ML (PER 5 UNITS) SC (20:46)
[2024-08-17] VITALS (13 sets, daily range): BP systolic 128–157; BP diastolic 72–94; PULSE 78–110; RESP 14–22; TEMP 36.1–36.9; O2SAT 94–100; BMI 29.4; BMI 30.5
[2024-08-17 06:41] LABS: Basophils # (Auto) 0.1 Thou/mm3 (0.0-0.2); Basophils % (Auto) 1 % (0-2.5); Eosinophils # (Auto) 0.4 Thou/mm3 (0.0-0.5); Eosinophils % (Auto) 4 % (0-10); Hematocrit 35.2 % (41.0-53.0); Hemoglobin 11.5 g/dL (13.5-16.0); Immature Granulocytes % (Auto) 1 % (0-0); Lymphocytes # (Auto) 1.3 Thou/mm3 (1.0-4.8); Lymphocytes % (Auto) 13 % (10-50); Mean Corpuscular HGB Conc 32.7 g/dl (31.0-37.0); Mean Corpuscular Hemoglobin 28.3 pg (25.0-35.0); Mean Corpuscular Volume 87 fL (80-100); Monocytes # (Auto) 0.7 Thou/mm3 (0.0-0.8); Monocytes % (Auto) 7 % (0-12); Neutrophils # (Auto) 7.5 Thou/mm3 (1.8-7.7); Neutrophils % (Auto) 75 % (37-80); Nucleated Red Blood Cell % 0 /100 WBC (0); Platelet Count 156 Thou/mm3 (140-440); RDW Standard Deviation 49.5 fL (35.1-43.9); Red Blood Count 4.06 Miln/mm3 (4.50-5.90); White Blood Count 10.1 Thou/mm3 (3.8-10.6)
[2024-08-17] MEDS: ALBUTEROL/IPRATROPIUM (Duoneb) RT SOL 3 ML NEBU INH ×3 (06:47→22:44)
[2024-08-17 07:09] LABS: Alanine Aminotransferase 12 U/L (10-49); Albumin, Serum 3.3 gm/dL (3.4-4.8); Albumin/Globulin Ratio 1.3 (1.2-2.2); Alkaline Phosphatase 137 U/L (46-116); Anion Gap 8 (7-16); Aspartate Amino Transferase 15 U/L (0-34); BUN/Creatinine Ratio 10 Ratio (12-20); Bilirubin,Total 0.9 mg/dL (0.3-1.2); Blood Urea Nitrogen 10 mg/dL (9-23); Calcium (Corrected) 8.6 mg/dL (8.5-10.1); Carbon Dioxide 24.3 mMol/L (20.0-31.0); Chloride 111 mMol/L (98-107); Globulin 2.6 gm/dL (2.3-3.5); Glucose 147 mg/dL (74-106); Osmolality,Calculated 286 (275-295); Potassium 3.6 mMol/L (3.4-5.1); Sodium 143 mMol/L (136-145); Total Protein 5.9 gm/dL (5.7-8.2); eGFR > 60 See Note
[2024-08-17] MEDS: METOPROLOL SUCCINATE XL 25 MG TABCR 100 MG PO (09:03)
[2024-08-17] MEDS: POTASSIUM CHLORIDE 20 mEq TABCR 40 MEQ PO (09:04)
[2024-08-17] MEDS: PANTOPRAZOLE 40 MG TABLET PO (09:04)
[2024-08-17] MEDS: amLODIPine BESYLATE 5 MG TABLET PO (09:04)
[2024-08-17] MEDS: MEMANTINE HCL 5 MG TABLET PO ×2 (09:04→21:02)
[2024-08-17] MEDS: APIXABAN 2.5 MG TABLET PO ×2 (09:04→21:02)
[2024-08-17] MEDS: rOPINIRole HCL 0.25 MG TABLET 0.5 MG PO (09:04)
[2024-08-17] MEDS: SACUBITRIL 24 MG/VALSARTAN 26 MG TABLET 0.5 TAB PO ×2 (09:04→21:02)
[2024-08-17] MEDS: ATORVASTATIN CALCIUM 20 MG TABLET 80 MG PO (09:04)
[2024-08-17] MEDS: allopurinoL 100 MG TABLET PO (09:05)
[2024-08-17] MEDS: INSULIN LISPRO (AdmeLOG) 1 UNIT/0.01 ML UNIT SC ×3 (09:05→20:59)
--- NOTE | 2024-08-17 09:24 | ESPR_ITS ---
Documentation for date of: 08/17/24 Subjective Subjective Interval history: Limited HPI due to mental status. Most of the H&P completed with EMR review. Patient is a 79-year-old male with a past medical history of Alzheimer's dementia, history of prostate cancer status post radical prostatectomy status post AUS placement now with indwelling Ruth's catheter, CKD stage IV, obstructive uropathy, peripheral vascular disease, HFrEF, CAD, HTN, diabetes mellitus, anastomosis, who was brought in from rehab to emergency room for evaluation of altered mental status. This morning the patient was found to be hypoxic, and confused, saturating 87% on 4 L nasal cannula. The patient has a baseline GCS of 13/14, but was more agitated last night and this morning was found to be febrile and somnolent as well as hypoxic. In the ER, initial vitals Tmax 102F, pulse rate 115/min, respiratory 26/min, blood pressure 85/54, saturating 99% on 15 L oxy mask. Initial labs showed leukocytosis, KY, metabolic acidosis and lactic acidosis, hyperphosphatemia, urinalysis significant for UTI. WBC 15.5, hemoglobin 13.9, platelets 188, sodium 149, potassium 4.4, CO2 19.3, lactic acid 4.4, BUN 50, creatinine 3.3. Patient was diagnosed with septic shock given IV fluids per sepsis bolus, no improvement in blood pressure was noted, patient was starting on pressor support with Levophed and admitted to ICU for further management. Triple-lumen dialysis catheter was placed in anticipation of hemodialysis as well as central line access for pressors. 08/14/2024 the patient is seen in the ICU, with noted improvement in mental status, able to follow simple commands, received 4.7 L IV fluid since yesterday, urine output 955, net +3.7 L, noted some facial puffiness, but does seem intravascular volume depleted, as well as excess insensible losses due to mouth breathing. Noted hypernatremia, serum sodium 152, 2.3 L free water deficit, will add IV fluids?D5 half NS at 125 cc/h. Continue monitoring urine output. 08/15/2024, patient seen in telemetry, noted improved mental status, patient still seems clinically dehydrated, sodium improved to 149, still net negative fluid balance -130 cc last 24 hours, poor p.o. intake, maintenance fluids based on body weight 140 cc/h, will increase maintenance fluid rate from 80 to 140 cc/h, repeat renal panel in the afternoon. Encourage p.o. hydration. Continued improvement in renal function, BUN 27, creatinine 1.4. The patient has history of CHF, currently does not seem to be in acute heart failure. 08/16/2024, patient seen in telemetry, mental status at baseline, alert oriented x 3,Noted improvement in sodium and renal function, 146 and morning labs, BUN 16, creatinine 1.1. Adequate urine output, but still remains in net positive fluid balance. Of note, patient's echocardiogram EF reported by residential pest control technician 22% by Samuel method, but per latex thread machine operator patient has estimated EF 40 %. Chest x- ray reported as moderate vascular congestion, though poor inspiratory effort by patient, patient clinically does not have respiratory distress or any worsening oxygen requirements. Patient can be discharged from nephrology standpoint. Encourage per oral fluid intake. Keep Ruth's catheter per urology recommendations. Follow-up outpatient with urology and primary care physician. 08/17/2024 patient evaluated bedside, seen with bilateral wrist restraints applied, patient noted to be alert but speech is confused, able to follow simple and relay commands, requesting for his bed to be lowered as his back is hurting. But unable to get detailed information. Noted improvement with labs, sodium 143, potassium 3.6, chloride 111, carbon oxide 24.3, lactic acid 1.8, BUN 10, creatinine 1.0, renal function now seems to be at baseline. Keep Ruth's catheter per urology recommendations and follow-up with urologist on outpatient basis, recommend changing Ruth's catheter once a month. Nephrology will sign off of the case, please do not hesitate to reach out to us for any further queries. Exam Vital Signs Temp Pulse Resp BP Pulse Ox O2 Del Method O2 Flow Rate 97.5 F 100 14 155/87 H 94 L Nasal Cannula 2 08/17/24 07:40 08/17/24 09:04 08/17/24 07:40 08/17/24 09:04 08/17/24 07:40 08/17/24 07:40 08/17/24 07:40 Narrative Exam General: Awake. Alert but confused speech, currently seen with bilateral wrist restraints HEENT: Normocephalic, atraumatic, mucous membranes dry Heart: Regular rate and rhythm, no murmurs. 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 Abdomen: Soft, nondistended, nontender, positive bowel sounds. ?No guarding or rebound tenderness. Neurologic: no gross neurological deficit, and patient able to move all 4 extremities. Confused speech Extremities: No edema. still restrained Skin: No rash or ecchymoses. Stage II decubitus ulcer noted on left buttock, appears clean and uninfected Objective Labs 08/19/24 05:17 08/19/24 05:17 Labs: Laboratory Results - last 24 hr 08/16/24 08/17/24 04:27 06:22 WBC 10.1 RBC 4.06 L Hgb 11.5 L Hct 35.2 L MCV 87 MCH 28.3 MCHC 32.7 RDW Std Deviation 49.5 H Plt Count 156 Neut % (Auto) 75 Lymph % (Auto) 13 Bee % (Auto) 7 Eos % (Auto) 4 Baso % (Auto) 1 Neut # (Auto) 7.5 Lymph # (Auto) 1.3 Bee # (Auto) 0.7 Eos # (Auto) 0.4 Baso # (Auto) 0.1 Immature Gran # (Auto) 0.10 H Absolute Nucleated RBC 0.00 Immature Gran % 1 H Nucleated RBC % 0 Sodium 143 Potassium 3.6 Chloride 111 H Carbon Dioxide 24.3 Anion Gap 8 BUN 10 Creatinine 1.0 Estim Creat Clear Calc 74.0 eGFR > 60 BUN/Creatinine Ratio 10 L Glucose 147 H Calculated Osmolality 286 Calcium 8.0 L Corrected Calcium 8.6 Total Bilirubin 0.9 AST 15 ALT 12 Alkaline Phosphatase 137 H D Total Protein 5.9 Albumin 3.3 L Globulin 2.6 Albumin/Globulin Ratio 1.3 Coccidioides IgM Ab Negative Quality Measures Quality Measures sepsis Current suspected stage: sepsis Possible source: genitourinary Blood cultures ordered: completed in ED Antibiotic ordered: Yes Advance care planning discussed with:: patient Assessment & Plan Assessment Current Active Medications: Generic Name Dose Route Start Last Admin Trade Name Freq PRN Reason Stop Dose Admin Acetaminophen 1,000 mg 08/16/24 11:28 08/16/24 20:32 Acetaminophen 500 Mg Tablet PO 09/12/24 13:30 1,000 mg Q6H PRN Administration Fever > 99.9 Albuterol/Ipratropium 3 ml 08/13/24 23:00 08/17/24 06:47 Albuterol/Ipratropium (Duoneb) Rt Ivanna 3 Ml Nebu INH 09/12/24 22:59 3 ml Q8HRRT CARLEEN Administration Allopurinol 100 mg 08/17/24 09:00 08/17/24 09:05 Allopurinol 100 Mg Tablet PO 09/16/24 08:59 100 mg QDAY CARLEEN Administration Amlodipine Besylate 5 mg 08/17/24 09:00 08/17/24 09:04 Amlodipine Besylate 5 Mg Tablet PO 09/16/24 08:59 5 mg QDAY CRALEEN Administration Apixaban 2.5 mg 08/16/24 10:30 08/17/24 09:04 Apixaban 2.5 Mg Tablet PO 09/15/24 10:29 2.5 mg BID CARLEEN Administration Protocol Atorvastatin Calcium 80 mg 08/17/24 09:00 08/17/24 09:04 Atorvastatin Calcium 20 Mg Tablet PO 09/16/24 08:59 80 mg QDAY CARLEEN Administration Cefuroxime Axetil 500 mg 08/15/24 21:00 08/16/24 20:32 Cefuroxime Axetil 250 Mg Tablet PO 08/20/24 12:00 500 mg BID CARLEEN Administration Dextrose 50 ml 08/13/24 17:47 Dextrose 50%-Water Inj 50 Ml Syringe IV 09/12/24 17:46 Q15MIN PRN BG <50 OR BG <70 & pt unresponsive Glucagon 1 mg 08/13/24 17:47 Glucagon Inj 1 Mg Vial IM Q15MIN PRN BG <70, and no IV access Insulin Glargine 5 unit 08/13/24 21:00 08/16/24 20:46 Insulin Glargine (Lantus) 5 Unit/0.05 Ml (Per 5 Units) SC 09/12/24 20:59 5 unit HS CARLEEN Administration Insulin Human Lispro 0 unit 08/15/24 21:00 08/17/24 09:05 Insulin Lispro (Admelog) 1 Unit/0.01 Ml Unit SC 09/14/24 20:59 1 unit ACHS CARLEEN Administration Protocol Memantine 5 mg 08/16/24 21:00 08/17/24 09:04 Memantine Hcl 5 Mg Tablet PO 09/15/24 20:59 5 mg BID CARLEEN Administration Metoprolol Succinate 100 mg 08/17/24 09:00 08/17/24 09:03 Metoprolol Succinate Xl 25 Mg Tabcr PO 09/16/24 08:59 100 mg QDAY CARLEEN Administration Ondansetron HCl 4 mg 08/13/24 13:31 Ondansetron Inj 2 Mg/Ml Inj 2 Ml IVP 09/12/24 13:30 Q6H PRN NAUSEA OR VOMITING Protocol Pantoprazole Sodium 40 mg 08/16/24 09:00 08/17/24 09:04 Pantoprazole 40 Mg Tablet PO 09/15/24 08:59 40 mg QDAY CARLEEN Administration Ropinirole HCl 0.5 mg 08/17/24 09:00 08/17/24 09:04 Ropinirole Hcl 0.25 Mg Tablet PO 09/16/24 08:59 0.5 mg QDAY CARLEEN Administration Sacubitril/Valsartan 0.5 tab 08/16/24 21:00 08/17/24 09:04 Sacubitril 24 Mg/Valsartan 26 Mg Tablet PO 09/15/24 20:59 0.5 tab BID CARLEEN Administration Trazodone HCl 50 mg 08/16/24 21:00 08/16/24 20:32 Trazodone Hcl 50 Mg Tablet PO 09/15/24 20:59 50 mg HS CARLEEN Administration Plan #KY/ATN in the setting of septic shock?resolving #UTI #CKD stage IV/obstructive nephropathy Patient was recently admitted to the hospital due to acute encephalopathy obstructive uropathy, as patient was not able to operate his AUS/artificial ureteral sphincter, leading to obstructive uropathy and acute on chronic kidney injury. After passing Ruth's catheter and relief of obstruction as well as couple sessions of hemodialysis, patient's renal function improved, adequate urine output, and mental status returned to baseline. Patient was discharged from the hospital with indwelling Ruth's catheter per urology recommendations. Now patient has similar presentation with acute encephalopathy and worsening kidney function in the setting of UTI. UTI leading to septic shock, requiring IV pressors, nonresponsive to fluid resuscitation. KY likely secondary to acute tubular necrosis in the setting of septic shock. Triple-lumen dialysis catheter was placed in the femoral artery for central venous access as well as possible hemodialysis if needed. ? Continue antibiotics, renal dosing ? Avoid nephrotoxic agents ? Continued improvement in renal function, BUN 16, creatinine 1.1. The patient has history of CHF, currently does not seem to be in acute heart failure. - 08/16/2024 Noted improvement in sodium and renal function, 146 and morning labs, BUN 16, creatinine 1.1. Adequate urine output, but still remains in net positive fluid balance. Of note, patient's echocardiogram EF reported by residential pest control technician 22% by Samuel method, but per latex thread machine operator patient has estimated EF 40 %. Chest x-ray reported as moderate vascular congestion, though poor inspiratory effort by patient, patient clinically does not have respiratory distress or any worsening oxygen requirements. Patient can be discharged from nephrology standpoint. Encourage per oral fluid intake. Keep Ruth's catheter per urology recommendations. Follow-up outpatient with urology and primary care physician. ? patient evaluated bedside, seen with bilateral wrist restraints applied, patient noted to be alert but speech is confused, able to follow simple and relay commands, requesting for his bed to be lowered as his back is hurting. But unable to get detailed information. Noted improvement with labs, sodium 143, potassium 3.6, chloride 111, carbon oxide 24.3, lactic acid 1.8, BUN 10, creatinine 1.0, renal function now seems to be at baseline. Keep Ruth's catheter per urology recommendations and follow-up with urologist on outpatient basis, recommend changing Ruth's catheter once a month. #Hypernatremia?now resolved Likely secondary to intravascular volume depletion, free water deficit 2.3 L on admission ? sodium improved to 143, #Acute hypoxic respiratory failure?resolving ? Management per primary team #Acute toxic encephalopathy?resolved ? Likely secondary to sepsis, management per primary team #History of Alzheimer's dementia #History of prostate cancer #History of atrial fibrillation #History of CHF ? Management per primary team Plan of care discussed with attending Dr. Meyers. Nephrology will sign off of the case at this point, please do not hesitate to contact us for any further queries. Thank you for allowing us to participate in the care of Mr. Noriega. Mikael [email or web address] Attending Provider Attestation/Addendum Patient seen and examined with resident physician Dr. Youssef. Note reviewed, agree with findings and recommendations. Continue with gentle fluids. Creatinine better--renal will standby. Thank you for the consult
--- NOTE | 2024-08-17 09:25 | PD.IDPROG ---
Subjective Subjective Interval history: cx neg picture of chf flare makes more sense. abx remain empirical as cx are neg. bnp is >1000 on 08/16 Exam Vital Signs Temp Pulse Resp BP Pulse Ox O2 Del Method O2 Flow Rate 97.5 F 100 14 155/87 H 94 L Nasal Cannula 2 08/17/24 07:40 08/17/24 09:04 08/17/24 07:40 08/17/24 09:04 08/17/24 07:40 08/17/24 07:40 08/17/24 07:40 Objective - Internal Medicine Labs 08/17/24 06:22 08/17/24 06:22 Labs: Laboratory Results - last 24 hr 08/16/24 08/17/24 04:27 06:22 WBC 10.1 RBC 4.06 L Hgb 11.5 L Hct 35.2 L MCV 87 MCH 28.3 MCHC 32.7 RDW Std Deviation 49.5 H Plt Count 156 Neut % (Auto) 75 Lymph % (Auto) 13 [place] % (Auto) 7 Eos % (Auto) 4 Baso % (Auto) 1 Neut # (Auto) 7.5 Lymph # (Auto) 1.3 [place] # (Auto) 0.7 Eos # (Auto) 0.4 Baso # (Auto) 0.1 Immature Gran # (Auto) 0.10 H Absolute Nucleated RBC 0.00 Immature Gran % 1 H Nucleated RBC % 0 Sodium 143 Potassium 3.6 Chloride 111 H Carbon Dioxide 24.3 Anion Gap 8 BUN 10 Creatinine 1.0 Estim Creat Clear Calc 74.0 eGFR > 60 BUN/Creatinine Ratio 10 L Glucose 147 H Calculated Osmolality 286 Calcium 8.0 L Corrected Calcium 8.6 Total Bilirubin 0.9 AST 15 ALT 12 Alkaline Phosphatase 137 H D Total Protein 5.9 Albumin 3.3 L Globulin 2.6 Albumin/Globulin Ratio 1.3 Coccidioides IgM Ab Negative Assessment & Plan A&P Narrative haydee since 07/19. improved lately hypernatremia fever on admit 08/13 noted. origin uncertain there is an entity known as admission fever. but will treat empirically anyway hld dm II presumptive dementia based on home med list htn hcv neg as noted. probable chf exacerbation, bnp 08/16 >1000 (normal <100) on empiric cefepime per others presumably based on icu status although chest imaging favors chf and pts ef is only 22% by echo changed to cefuroxime on tue empirically for 3d more. will see again prn. no pre treatment noted. more likely he had a coronary event high LDH is consistent with that, appreciate that with his dementia most would not want to intervene in any way. will review again prn, no objection if he leaves back to [place]. you may want to discuss his echo findings with him and work on goals of care before he leaves though cocci IgM neg. hep c neg. Time Spent With Patient Time: Total time spent is greater than 50% in coordination of care (as documented) at patient's floor/unit and/or counseling patient:
--- NOTE | 2024-08-17 09:36 | PC.SS ---
Follow up note: Patient is pending a d/c back to facility. However, he's still on restraints. SS confirmed with floor nurse this morning. Patient has to be off restraints for 24 hours.
[2024-08-17] MEDS: cefuroxime axetiL 250 MG TABLET 500 MG PO ×2 (10:40→21:02)
[2024-08-17 13:54] LABS: Cocci Serology, IgG Negative (Negative)
--- NOTE | 2024-08-17 17:37 | ESPR_ITS ---
<Statement entered by Parviz Watts MD - 08/18/24 14:35> I discussed with and supervised the continuous improvement intern physician involved in the care of this patient. Patient assessment and plan was discussed with entire medicine team, including my attending. I agree with the assessment and plan as documented by continuous improvement intern doctor. Patient care was discussed with my attending physician Dr. Duarte Watts, PGY-2 Documentation for date of: 08/17/24 Subjective Subjective Interval history: Patient is seen and examined at bedside Still having irregular talk but able to respond to some questions appropriately Vitals are stable. Labs showed sodium levels within normal limits, potassium is 3.6 Repleted with 40 mill equivalents of oral potassium Dr. Alejandra was consulted in view of ongoing progressive dementia Patient is still on restraints to prevent him from pulling of the restraints Planning to discharge back to SNF tomorrow if patient is cleared from Dr. Alejandra and if he is clinically stable. Exam Vital Signs Temp Pulse Resp BP Pulse Ox O2 Del Method O2 Flow Rate 97.7 F 92 17 128/75 96 Nasal Cannula 1 08/17/24 16:00 08/17/24 16:00 08/17/24 16:00 08/17/24 16:00 08/17/24 16:00 08/17/24 07:40 08/17/24 14:56 Narrative Exam General: Awake. mildly confused HEENT: Normocephalic, atraumatic, mucous membranes dry Heart: Regular rate and rhythm, no murmurs. 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 Abdomen: Soft, nondistended, nontender, positive bowel sounds. ?No guarding or rebound tenderness. Neurologic: Alert and omore awake, no gross neurological deficit, and patient able to move all 4 extremities. Extremities: No edema. still restrained Skin: No rash or ecchymoses. Stage II decubitus ulcer noted on left buttock, appears clean and uninfected Objective Labs 08/18/24 05:30 08/18/24 05:30 Labs: Laboratory Results - last 24 hr 08/16/24 08/17/24 04:27 06:22 WBC 10.1 RBC 4.06 L Hgb 11.5 L Hct 35.2 L MCV 87 MCH 28.3 MCHC 32.7 RDW Std Deviation 49.5 H Plt Count 156 Neut % (Auto) 75 Lymph % (Auto) 13 [place] % (Auto) 7 Eos % (Auto) 4 Baso % (Auto) 1 Neut # (Auto) 7.5 Lymph # (Auto) 1.3 [place] # (Auto) 0.7 Eos # (Auto) 0.4 Baso # (Auto) 0.1 Immature Gran # (Auto) 0.10 H Absolute Nucleated RBC 0.00 Immature Gran % 1 H Nucleated RBC % 0 Sodium 143 Potassium 3.6 Chloride 111 H Carbon Dioxide 24.3 Anion Gap 8 BUN 10 Creatinine 1.0 Estim Creat Clear Calc 74.0 eGFR > 60 BUN/Creatinine Ratio 10 L Glucose 147 H Calculated Osmolality 286 Calcium 8.0 L Corrected Calcium 8.6 Total Bilirubin 0.9 AST 15 ALT 12 Alkaline Phosphatase 137 H D Total Protein 5.9 Albumin 3.3 L Globulin 2.6 Albumin/Globulin Ratio 1.3 Coccidioides IgG Ab Negative Quality Measures Quality Measures sepsis Current suspected stage: ruled out Possible source: genitourinary Blood cultures ordered: completed in ED Antibiotic ordered: Yes Advance care planning discussed with:: patient Assessment & Plan Assessment Current Active Medications: Generic Name Dose Route Start Last Admin Trade Name Freq PRN Reason Stop Dose Admin Acetaminophen 1,000 mg 08/16/24 11:28 08/16/24 20:32 Acetaminophen 500 Mg Tablet PO 09/12/24 13:30 1,000 mg Q6H PRN Administration Fever > 99.9 Albuterol/Ipratropium 3 ml 08/13/24 23:00 08/17/24 14:56 Albuterol/Ipratropium (Duoneb) Rt Ivanna 3 Ml Nebu INH 09/12/24 22:59 3 ml Q8HRRT CARLEEN Administration Allopurinol 100 mg 08/17/24 09:00 08/17/24 09:05 Allopurinol 100 Mg Tablet PO 09/16/24 08:59 100 mg QDAY CARLEEN Administration Amlodipine Besylate 5 mg 08/17/24 09:00 08/17/24 09:04 Amlodipine Besylate 5 Mg Tablet PO 09/16/24 08:59 5 mg QDAY CARLEEN Administration Apixaban 2.5 mg 08/16/24 10:30 08/17/24 09:04 Apixaban 2.5 Mg Tablet PO 09/15/24 10:29 2.5 mg BID CARLEEN Administration Protocol Atorvastatin Calcium 80 mg 08/17/24 09:00 08/17/24 09:04 Atorvastatin Calcium 20 Mg Tablet PO 09/16/24 08:59 80 mg QDAY CARLEEN Administration Cefuroxime Axetil 500 mg 08/15/24 21:00 08/17/24 10:40 Cefuroxime Axetil 250 Mg Tablet PO 08/20/24 12:00 500 mg BID CARLEEN Administration Dextrose 50 ml 08/13/24 17:47 Dextrose 50%-Water Inj 50 Ml Syringe IV 09/12/24 17:46 Q15MIN PRN BG <50 OR BG <70 & pt unresponsive Glucagon 1 mg 08/13/24 17:47 Glucagon Inj 1 Mg Vial IM Q15MIN PRN BG <70, and no IV access Insulin Glargine 5 unit 08/13/24 21:00 08/16/24 20:46 Insulin Glargine (Lantus) 5 Unit/0.05 Ml (Per 5 Units) SC 09/12/24 20:59 5 unit HS CARLEEN Administration Insulin Human Lispro 0 unit 08/15/24 21:00 08/17/24 16:53 Insulin Lispro (Admelog) 1 Unit/0.01 Ml Unit SC 09/14/24 20:59 Not Given ACHS CARLEEN Protocol Memantine 5 mg 08/16/24 21:00 08/17/24 09:04 Memantine Hcl 5 Mg Tablet PO 09/15/24 20:59 5 mg BID CARLEEN Administration Metoprolol Succinate 100 mg 08/17/24 09:00 08/17/24 09:03 Metoprolol Succinate Xl 25 Mg Tabcr PO 09/16/24 08:59 100 mg QDAY CARLEEN Administration Ondansetron HCl 4 mg 08/13/24 13:31 Ondansetron Inj 2 Mg/Ml Inj 2 Ml IVP 09/12/24 13:30 Q6H PRN NAUSEA OR VOMITING Protocol Pantoprazole Sodium 40 mg 08/16/24 09:00 08/17/24 09:04 Pantoprazole 40 Mg Tablet PO 09/15/24 08:59 40 mg QDAY CARLEEN Administration Ropinirole HCl 0.5 mg 08/17/24 09:00 08/17/24 09:04 Ropinirole Hcl 0.25 Mg Tablet PO 09/16/24 08:59 0.5 mg QDAY CARLEEN Administration Sacubitril/Valsartan 0.5 tab 08/16/24 21:00 08/17/24 09:04 Sacubitril 24 Mg/Valsartan 26 Mg Tablet PO 09/15/24 20:59 0.5 tab BID CARLEEN Administration Trazodone HCl 50 mg 08/16/24 21:00 08/16/24 20:32 Trazodone Hcl 50 Mg Tablet PO 09/15/24 20:59 50 mg HS CARLEEN Administration Plan Patient is a 79-year-old male past medical history significant for Alzheimer's, CAD s/p stents, PVD, primary hypertension, paroxysmal atrial fibrillation on Eliquis, history of TAVR, s/p HELICOPTER MECHANIC D placement, heart failure reduced ejection fraction [40-45%] and ATN presented today with chief complaint of altered mental status. Patient will be admitted to ICU for vasopressors in setting of septic shock. Acute infectious encephalopathy on chronic Alzheimer's dementia, resolving Septic shock - resolved - likely aspiration versus UTI Hypernatremia, resolved - Presented to the hospital with chief complaints of altered sensorium since 2 days - Patient was brought from SNF, could not get much history as patient had dementia at baseline and is altered at the time of admission into the hospital - On admission, blood pressure is 85/54 mmHg, pulse rate 115 bpm, temperature 102 ?F - Chest x-ray did not show any significant infiltrates but patient needed oxygen during the hospital stay, suspected underlying aspiration - Urine analysis showed turbid urine with 1+ proteinuria, 3+ ketonuria, and was bilirubin, 252 RBC, 146 WBC, 18 epithelial cells - Patient was treated with vasopressors and was downgraded to floors for further management on 08/14/2024 Plan - Discontinued Meropenem as of 08/15 and started on cefuroxime 500 Mg p.o. twice daily as per Dr Voss's recommendation 08/15- - Information Systems Audit Manager, Dr. Meyers is consulted in view of hypernatremia, will appreciate her recommendations - Will continue to monitor patient's mental status - Urology consulted, will appreciate recommendations [place] secondary to Acute tubular necrosis, resolved - Patient was admitted on 07/28/2024 with [place] and underwent few dialysis sessions at the time - Later as patient's renal functions got improved, discharged home - Patient's baseline creatinine is 3 during last discharge - Presented to the hospital with creatinine of 3.3, improved to 1.1 as of 08/16/2024, reached almost his baseline. Plan - Nephrology, Dr. Meyers consulted. Appreciate recommendations - Will continue to monitor renal panel and renally dose medications Hypomagnesemia, resolved Likely due to poor oral intake Will monitor and replete as needed Hypernatremia, resoled Sodium is 143 as of today Likely Secondary to large volume Ringer's lactate IVF and dehydration Plan Will continue to monitor renal panel and treat accordingly Chronic systolic CHF with reduced EF [40 to 45%] GDMT on hold as of now, will restart once the patient clinical condition stabilizes Repeat Echo done on 08/14/2024 - same findings, EF 40% History of primary hypertension Started his home metoprolol 100 Mg p.o. daily Started on Entresto half tablet twice daily Will add amlodipine as needed. Will continue to monitor blood pressures and manage accordingly CAD and PVD s/p stents Restarted his atorvastatin Paroxysmal A-fib on Eliquis Rx: - Continue telemetry monitoring. - Apixaban is restarted, 2.5 Mg twice daily which is his home dose H/O urinarry incontinence and retention Rx: - [facility]- chu catheter. Home medication trospium on hold for now - DO NOT REMOVE CHU CATHETER. As per urology Dr. Funes patient has chronic urinary incontinence and had a artificial sphincter implanted, however patient is demented and unable to control for himself ambulate therefore need a long- term indwelling Chu catheter. Thrombocytopenia, resolved will monitor cbc [id number] diabetes mellitus type 2 [7.5%] Rx: SSI Q6 hourly . glargine 5U SC at bedtime. HLD Home medication Atorvastatin resumed History of Alzheimer's dementia Recommended to follow-up with Dr. Alejandra on outpatient basis Per family, patient had an appointment next month with Dr. Alejandar Consulted Dr. Alejandra in view of progressive dementia Health maintenance: Dispo: Tele Diet: Dysphagia 1 DVT ppx: Eliquis GI ppx: Protonix 40mg qD IV lines: 2 pIV Chu: Yes (started 08/13/24, Do not remove Code status: FULL CODE Patient plan of care was discussed with the attending physician, Dr. Ramachandran and senior resident Dr. Stefanie Paige, PGY1 Disclaimer: This note was dictated by speech recognition. Minor errors in lard tub washer may be present due to voice recognition software. Attending Provider Attestation/Addendum I, Hina Ramachandran DO, attest that I was physically present for the kil[place] portions of the service and evaluated the patient with the resident and I reviewed and discussed the case with the resident and agree with the resident's findings and plans of care as documented above Patient seen and evaluated this AM. He remains in restraints as patient remains confused due to rapidly progressive dementia and has been attempting to remove chu catheter. Will have neurology assess patient due to rapidly progressing dementia. Patient must keep chu in place as per Urology recommendations. Will f/u with neurology recommendations. Renal function is back at baseline at this time. If patient remains stable, anticipate dc within next 24-48h
[2024-08-17] MEDS: INSULIN GLARGINE (Lantus) 5 UNIT/0.05 ML (PER 5 UNITS) SC (20:58)
[2024-08-17] MEDS: traZODone HCL 50 MG TABLET PO (21:02)
--- NOTE | 2024-08-17 23:31 | PD.NEUROPROG ---
Documentation for date of: 08/17/24 Exam - Neurology Vital Signs Temp Pulse Resp BP Pulse Ox O2 Del Method O2 Flow Rate 98.5 F 101 H 22 H 147/75 H 99 Nasal Cannula 1 08/17/24 20:00 08/17/24 22:45 08/17/24 22:45 08/17/24 20:00 08/17/24 22:45 08/17/24 20:00 08/17/24 22:45 Objective Labs 08/17/24 06:22 08/17/24 06:22 Labs: Laboratory Results - last 24 hr 08/16/24 08/17/24 04:27 06:22 WBC 10.1 RBC 4.06 L Hgb 11.5 L Hct 35.2 L MCV 87 MCH 28.3 MCHC 32.7 RDW Std Deviation 49.5 H Plt Count 156 Neut % (Auto) 75 Lymph % (Auto) 13 [place] % (Auto) 7 Eos % (Auto) 4 Baso % (Auto) 1 Neut # (Auto) 7.5 Lymph # (Auto) 1.3 [place] # (Auto) 0.7 Eos # (Auto) 0.4 Baso # (Auto) 0.1 Immature Gran # (Auto) 0.10 H Absolute Nucleated RBC 0.00 Immature Gran % 1 H Nucleated RBC % 0 Sodium 143 Potassium 3.6 Chloride 111 H Carbon Dioxide 24.3 Anion Gap 8 BUN 10 Creatinine 1.0 Estim Creat Clear Calc 74.0 eGFR > 60 BUN/Creatinine Ratio 10 L Glucose 147 H Calculated Osmolality 286 Calcium 8.0 L Corrected Calcium 8.6 Total Bilirubin 0.9 AST 15 ALT 12 Alkaline Phosphatase 137 H D Total Protein 5.9 Albumin 3.3 L Globulin 2.6 Albumin/Globulin Ratio 1.3 Coccidioides IgG Ab Negative
[2024-08-18] VITALS (12 sets, daily range): BP systolic 141–171; BP diastolic 66–88; PULSE 81–104; RESP 16–24; TEMP 36.4–37.1; O2SAT 93–100
[2024-08-18] MEDS: ALBUTEROL/IPRATROPIUM (Duoneb) RT SOL 3 ML NEBU INH ×3 (06:18→23:02)
[2024-08-18 06:20] LABS: Basophils % (Auto) 0 % (0-2.5); Eosinophils # (Auto) 0.4 Thou/mm3 (0.0-0.5); Eosinophils % (Auto) 4 % (0-10); Hematocrit 31.8 % (41.0-53.0); Hemoglobin 10.7 g/dL (13.5-16.0); Immature Granulocytes % (Auto) 1 % (0-0); Lymphocytes # (Auto) 1.3 Thou/mm3 (1.0-4.8); Lymphocytes % (Auto) 13 % (10-50); Mean Corpuscular HGB Conc 33.6 g/dl (31.0-37.0); Mean Corpuscular Hemoglobin 28.5 pg (25.0-35.0); Mean Corpuscular Volume 85 fL (80-100); Monocytes # (Auto) 0.8 Thou/mm3 (0.0-0.8); Monocytes % (Auto) 8 % (0-12); Neutrophils # (Auto) 7.4 Thou/mm3 (1.8-7.7); Neutrophils % (Auto) 74 % (37-80); Nucleated Red Blood Cell % 0 /100 WBC (0); Platelet Count 157 Thou/mm3 (140-440); RDW Standard Deviation 47.8 fL (35.1-43.9); Red Blood Count 3.76 Miln/mm3 (4.50-5.90)
[2024-08-18 07:03] LABS: Alanine Aminotransferase 9 U/L (10-49); Albumin/Globulin Ratio 1.3 (1.2-2.2); Alkaline Phosphatase 122 U/L (46-116); Anion Gap 12 (7-16); Aspartate Amino Transferase 11 U/L (0-34); BUN/Creatinine Ratio 10 Ratio (12-20); Bilirubin,Total 0.6 mg/dL (0.3-1.2); Blood Urea Nitrogen 10 mg/dL (9-23); Calcium 7.8 mg/dL (8.3-10.6); Calcium (Corrected) 8.6 mg/dL (8.5-10.1); Carbon Dioxide 22.8 mMol/L (20.0-31.0); Chloride 110 mMol/L (98-107); Estimated Creatinine Clearance 74.1 mL/min (>60); Globulin 2.4 gm/dL (2.3-3.5); Glucose 164 mg/dL (74-106); Osmolality,Calculated 291 (275-295); Potassium 3.5 mMol/L (3.4-5.1); Sodium 145 mMol/L (136-145); Total Protein 5.4 gm/dL (5.7-8.2); eGFR > 60 See Note
[2024-08-18] MEDS: allopurinoL 100 MG TABLET PO (08:22)
[2024-08-18] MEDS: rOPINIRole HCL 0.25 MG TABLET 0.5 MG PO (08:23)
[2024-08-18] MEDS: APIXABAN 2.5 MG TABLET PO ×2 (08:24→20:07)
[2024-08-18] MEDS: ATORVASTATIN CALCIUM 20 MG TABLET 80 MG PO (08:25)
[2024-08-18] MEDS: METOPROLOL SUCCINATE XL 25 MG TABCR 150 MG PO (08:28)
[2024-08-18] MEDS: SACUBITRIL 24 MG/VALSARTAN 26 MG TABLET 0.5 TAB PO ×2 (08:32→20:07)
[2024-08-18] MEDS: PANTOPRAZOLE 40 MG TABLET PO (08:33)
[2024-08-18] MEDS: POLYETHYLENE GLYCOL 17 GM PACKET PO (08:34)
[2024-08-18] MEDS: cefuroxime axetiL 250 MG TABLET 500 MG PO ×2 (09:43→20:07)
[2024-08-18] MEDS: amLODIPine BESYLATE 5 MG TABLET PO (09:43)
[2024-08-18] MEDS: MEMANTINE HCL 5 MG TABLET PO ×2 (09:44→20:07)
--- NOTE | 2024-08-18 10:02 | PC.SS ---
Addendum entered by Fely Harper 08/18/24 14:55: SS informed by [facility] patient cannot return until he is off of restraints for 24hrs. Original Note: SS attempted to contact [facility] to confirm if patient can return to [facility] SNF today. Patient remains on restraints due to being severely demented and continues to remove catheter. SS awaiting response.
[2024-08-18] MEDS: INSULIN LISPRO (AdmeLOG) 1 UNIT/0.01 ML UNIT SC ×3 (11:50→20:06)
--- NOTE | 2024-08-18 16:20 | ESPR_ITS ---
Documentation for date of: 08/18/24 Subjective Subjective Interval history: Patient is seen and examined at bedside No acute overnight events. Patient is still having irrelevant talk but able to answer some questions appropriately Vitals are stable. Physical examination remains unchanged Patient was taken off restraints and kept on one-to-one sitter Planning to discharge if patient is off restraints and is not pulling at his Chu catheter to back to his SNF Explained about patient's condition to his youngest daughter at the bedside Exam Vital Signs Temp Pulse Resp BP Pulse Ox O2 Del Method O2 Flow Rate 98.8 F 82 17 142/66 H 96 Room Air 1 08/18/24 16:00 08/18/24 16:00 08/18/24 16:00 08/18/24 16:00 08/18/24 16:00 08/18/24 16:00 08/18/24 06:19 Narrative Exam General: Awake. mildly confused HEENT: Normocephalic, atraumatic, mucous membranes dry Heart: Regular rate and rhythm, no murmurs. 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 Abdomen: Soft, nondistended, nontender, positive bowel sounds. ?No guarding or rebound tenderness. Neurologic: Alert and omore awake, no gross neurological deficit, and patient able to move all 4 extremities. Extremities: No edema. still restrained Skin: No rash or ecchymoses. Stage II decubitus ulcer noted on left buttock, appears clean and uninfected Objective Labs 08/19/24 05:17 08/19/24 05:17 Labs: Laboratory Results - last 24 hr 08/18/24 05:30 WBC 10.0 RBC 3.76 L Hgb 10.7 L Hct 31.8 L MCV 85 MCH 28.5 MCHC 33.6 RDW Std Deviation 47.8 H Plt Count 157 Neut % (Auto) 74 Lymph % (Auto) 13 [place] % (Auto) 8 Eos % (Auto) 4 Baso % (Auto) 0 Neut # (Auto) 7.4 Lymph # (Auto) 1.3 [place] # (Auto) 0.8 Eos # (Auto) 0.4 Baso # (Auto) 0.0 Immature Gran # (Auto) 0.10 H Absolute Nucleated RBC 0.00 Immature Gran % 1 H Nucleated RBC % 0 Sodium 145 Potassium 3.5 Chloride 110 H Carbon Dioxide 22.8 Anion Gap 12 BUN 10 Creatinine 1.0 Estim Creat Clear Calc 74.1 eGFR > 60 BUN/Creatinine Ratio 10 L Glucose 164 H Calculated Osmolality 291 Calcium 7.8 L Corrected Calcium 8.6 Total Bilirubin 0.6 AST 11 ALT 9 L Alkaline Phosphatase 122 H Total Protein 5.4 L Albumin 3.0 L Globulin 2.4 Albumin/Globulin Ratio 1.3 Quality Measures Quality Measures sepsis Current suspected stage: ruled out Possible source: genitourinary Blood cultures ordered: completed in ED Antibiotic ordered: Yes Advance care planning discussed with:: patient Assessment & Plan Assessment Current Active Medications: Generic Name Dose Route Start Last Admin Trade Name Freq PRN Reason Stop Dose Admin Acetaminophen 1,000 mg 08/16/24 11:28 08/16/24 20:32 Acetaminophen 500 Mg Tablet PO 09/12/24 13:30 1,000 mg Q6H PRN Administration Fever > 99.9 Albuterol/Ipratropium 3 ml 08/13/24 23:00 08/18/24 14:28 Albuterol/Ipratropium (Duoneb) Rt Ivanna 3 Ml Nebu INH 09/12/24 22:59 3 ml Q8HRRT CARLEEN Administration Allopurinol 100 mg 08/17/24 09:00 08/18/24 08:22 Allopurinol 100 Mg Tablet PO 09/16/24 08:59 100 mg QDAY CARLEEN Administration Amlodipine Besylate 5 mg 08/17/24 09:00 08/18/24 09:43 Amlodipine Besylate 5 Mg Tablet PO 09/16/24 08:59 5 mg QDAY CARLEEN Administration Apixaban 2.5 mg 08/16/24 10:30 08/18/24 08:24 Apixaban 2.5 Mg Tablet PO 09/15/24 10:29 2.5 mg BID CARLEEN Administration Protocol Atorvastatin Calcium 80 mg 08/17/24 09:00 08/18/24 08:25 Atorvastatin Calcium 20 Mg Tablet PO 09/16/24 08:59 80 mg QDAY CARLEEN Administration Cefuroxime Axetil 500 mg 08/15/24 21:00 08/18/24 09:43 Cefuroxime Axetil 250 Mg Tablet PO 08/20/24 12:00 500 mg BID CARLEEN Administration Dextrose 50 ml 08/13/24 17:47 Dextrose 50%-Water Inj 50 Ml Syringe IV 09/12/24 17:46 Q15MIN PRN BG <50 OR BG <70 & pt unresponsive Glucagon 1 mg 08/13/24 17:47 Glucagon Inj 1 Mg Vial IM Q15MIN PRN BG <70, and no IV access Insulin Glargine 6 unit 08/18/24 21:00 Insulin Glargine (Lantus) 5 Unit/0.05 Ml (Per 5 Units) SC 09/17/24 20:59 HS CARLEEN Insulin Human Lispro 0 unit 08/15/24 21:00 08/18/24 11:50 Insulin Lispro (Admelog) 1 Unit/0.01 Ml Unit SC 09/14/24 20:59 1 unit ACHS CARLEEN Administration Protocol Memantine 5 mg 08/16/24 21:00 08/18/24 09:44 Memantine Hcl 5 Mg Tablet PO 09/15/24 20:59 5 mg BID CARLEEN Administration Metoprolol Succinate 150 mg 08/18/24 09:00 08/18/24 08:28 Metoprolol Succinate Xl 25 Mg Tabcr PO 09/17/24 08:59 150 mg QDAY CARLEEN Administration Ondansetron HCl 4 mg 08/13/24 13:31 Ondansetron Inj 2 Mg/Ml Inj 2 Ml IVP 09/12/24 13:30 Q6H PRN NAUSEA OR VOMITING Protocol Pantoprazole Sodium 40 mg 08/16/24 09:00 08/18/24 08:33 Pantoprazole 40 Mg Tablet PO 09/15/24 08:59 40 mg QDAY CARLEEN Administration Polyethylene Glycol 17 gm 08/18/24 09:00 08/18/24 08:34 Polyethylene Glycol 17 Gm Packet PO 09/17/24 08:59 17 gm QDAY CARLEEN Administration Ropinirole HCl 0.5 mg 08/17/24 09:00 08/18/24 08:23 Ropinirole Hcl 0.25 Mg Tablet PO 09/16/24 08:59 0.5 mg QDAY CARLEEN Administration Sacubitril/Valsartan 0.5 tab 08/16/24 21:00 08/18/24 08:32 Sacubitril 24 Mg/Valsartan 26 Mg Tablet PO 09/15/24 20:59 0.5 tab BID CARLEEN Administration Trazodone HCl 50 mg 08/16/24 21:00 08/17/24 21:02 Trazodone Hcl 50 Mg Tablet PO 09/15/24 20:59 50 mg HS CARLEEN Administration Plan Patient is a 79-year-old male past medical history significant for Alzheimer's, CAD s/p stents, PVD, primary hypertension, paroxysmal atrial fibrillation on Eliquis, history of TAVR, s/p LEAD INVESTIGATOR D placement, heart failure reduced ejection fraction [40-45%] and ATN presented today with chief complaint of altered mental status. Patient will be admitted to ICU for vasopressors in setting of septic shock. Acute infectious encephalopathy on chronic Alzheimer's dementia, resolving Septic shock - resolved - likely aspiration versus UTI Hypernatremia, resolved - Presented to the hospital with chief complaints of altered sensorium since 2 days - Patient was brought from SNF, could not get much history as patient had dementia at baseline and is altered at the time of admission into the hospital - On admission, blood pressure is 85/54 mmHg, pulse rate 115 bpm, temperature 102 ?F - Chest x-ray did not show any significant infiltrates but patient needed oxygen during the hospital stay, suspected underlying aspiration - Urine analysis showed turbid urine with 1+ proteinuria, 3+ ketonuria, and was bilirubin, 252 RBC, 146 WBC, 18 epithelial cells - Patient was treated with vasopressors and was downgraded to floors for further management on 08/14/2024 Plan - Discontinued Meropenem as of 08/15 and started on cefuroxime 500 Mg p.o. twice daily as per Dr Voss's recommendation 08/15 - 08/20 - Pin Pusher, Dr. Meyers is consulted in view of hypernatremia, will appreciate her recommendations - Will continue to monitor patient's mental status - Urology consulted, will appreciate recommendations [place] secondary to Acute tubular necrosis, resolved - Patient was admitted on 07/28/2024 with [place] and underwent few dialysis sessions at the time - Later as patient's renal functions got improved, discharged home - Patient's baseline creatinine is 3 during last discharge - Presented to the hospital with creatinine of 3.3, improved to 1.0 as of 08/17/2024, reached almost his baseline. Plan - Nephrology, Dr. Meyers consulted. Appreciate recommendations - Will continue to monitor renal panel and renally dose medications Hypomagnesemia, resolved Likely due to poor oral intake Will monitor and replete as needed Hypernatremia, resolved Sodium is 145 as of today Likely Secondary to large volume Ringer's lactate IVF and dehydration Plan Will continue to monitor renal panel and treat accordingly Chronic systolic CHF with reduced EF [40 to 45%] GDMT on hold as of now, will restart once the patient clinical condition stabilizes Repeat Echo done on 08/14/2024 - same findings, EF 40% History of primary hypertension Started his home metoprolol 100 Mg p.o. daily Started on Entresto half tablet twice daily Will add amlodipine as needed. Will continue to monitor blood pressures and manage accordingly CAD and PVD s/p stents Restarted his atorvastatin Paroxysmal A-fib on Eliquis Rx: - Continue telemetry monitoring. - Apixaban is restarted, 2.5 Mg twice daily which is his home dose H/O urinarry incontinence and retention Rx: - skilled nursing- chu catheter. Home medication trospium on hold for now - DO NOT REMOVE CHU CATHETER. As per urology Dr. Funes patient has chronic urinary incontinence and had a artificial sphincter implanted, however patient is demented and unable to control for himself ambulate therefore need a long- term indwelling Chu catheter. Thrombocytopenia, resolved will monitor cbc [id number] diabetes mellitus type 2 [7.5%] Rx: SSI Q6 hourly . glargine 5U SC at bedtime. HLD Home medication Atorvastatin resumed History of Alzheimer's dementia Recommended to follow-up with Dr. Alejandra on outpatient basis Per family, patient had an appointment next month with Dr. Alejandra Consulted Dr. Alejandra in view of progressive dementia Health maintenance: Dispo: Tele Diet: Dysphagia 1 DVT ppx: Eliquis GI ppx: Protonix 40mg qD IV lines: 2 pIV Chu: Yes (started 08/13/24, Do not remove Code status: FULL CODE Patient plan of care was discussed with the attending physician, Dr. Duarte Paige, PGY1 Disclaimer: This note was dictated by speech recognition. Minor errors in telephone advice nurse may be present due to voice recognition software. Attending Provider Attestation/Addendum Hina Ross DO, attest that I was physically present for the kilgore portions of the service and evaluated the patient with the resident and I reviewed and discussed the case with the resident and agree with the resident's findings and plans of care as documented above Patient seen and evaluated this a.m. Patient is much [place] and asking for restraints to be removed. Patient is alert and oriented x 1. He is asking for his . No family at bedside at this time. Due to restraints, patient cannot be discharged to SNF until off restraints. However, there is concern that he may pull out his Chu catheter. Will remove restraints and have one-to-one sitter. Will continue with current management otherwise. Patient can be discharged back to the SNF once he is off restraints.
[2024-08-18] MEDS: INSULIN GLARGINE (Lantus) 5 UNIT/0.05 ML (PER 5 UNITS) 6 UNIT SC (20:06)
[2024-08-18] MEDS: traZODone HCL 50 MG TABLET PO (20:07)
--- NOTE | 2024-08-18 23:27 | PD.VPROG1 ---
Telemedicine visit statement This visit was conducted with the use of interactive audio and video telecommunications system that permits real time communication between the patient and the provider. Patient's verbal consent for virtual visit was obtained on 08/18/24 at 2327. Documentation for date of: 08/18/24 Subjective Subjective Interval history: Patient is in medsurg, intermittently confused still Virtual exam Vital Signs Temp Pulse Resp BP Pulse Ox O2 Del Method O2 Flow Rate 98.8 F 95 20 142/66 H 99 Room Air 1 08/18/24 16:00 08/18/24 23:02 08/18/24 23:02 08/18/24 16:00 08/18/24 23:02 08/18/24 16:00 08/18/24 06:19 Objective Labs 08/18/24 05:30 08/18/24 05:30 Labs: Laboratory Results - last 24 hr 08/18/24 05:30 WBC 10.0 RBC 3.76 L Hgb 10.7 L Hct 31.8 L MCV 85 MCH 28.5 MCHC 33.6 RDW Std Deviation 47.8 H Plt Count 157 Neut % (Auto) 74 Lymph % (Auto) 13 [place] % (Auto) 8 Eos % (Auto) 4 Baso % (Auto) 0 Neut # (Auto) 7.4 Lymph # (Auto) 1.3 [place] # (Auto) 0.8 Eos # (Auto) 0.4 Baso # (Auto) 0.0 Immature Gran # (Auto) 0.10 H Absolute Nucleated RBC 0.00 Immature Gran % 1 H Nucleated RBC % 0 Sodium 145 Potassium 3.5 Chloride 110 H Carbon Dioxide 22.8 Anion Gap 12 BUN 10 Creatinine 1.0 Estim Creat Clear Calc 74.1 eGFR > 60 BUN/Creatinine Ratio 10 L Glucose 164 H Calculated Osmolality 291 Calcium 7.8 L Corrected Calcium 8.6 Total Bilirubin 0.6 AST 11 ALT 9 L Alkaline Phosphatase 122 H Total Protein 5.4 L Albumin 3.0 L Globulin 2.4 Albumin/Globulin Ratio 1.3 Assessment & Plan Problem List (1) UTI (urinary tract infection): Status: Acute
[2024-08-19] VITALS (14 sets, daily range): BP systolic 138–163; BP diastolic 75–92; PULSE 77–130; RESP 13–19; TEMP 36.1–37.2; O2SAT 95–98
[2024-08-19 05:33] LABS: Basophils # (Auto) 0.1 Thou/mm3 (0.0-0.2); Basophils % (Auto) 1 % (0-2.5); Eosinophils # (Auto) 0.5 Thou/mm3 (0.0-0.5); Eosinophils % (Auto) 5 % (0-10); Hematocrit 32.4 % (41.0-53.0); Hemoglobin 10.9 g/dL (13.5-16.0); Immature Granulocytes % (Auto) 1 % (0-0); Lymphocytes # (Auto) 1.5 Thou/mm3 (1.0-4.8); Lymphocytes % (Auto) 15 % (10-50); Mean Corpuscular HGB Conc 33.6 g/dl (31.0-37.0); Mean Corpuscular Hemoglobin 28.5 pg (25.0-35.0); Mean Corpuscular Volume 85 fL (80-100); Monocytes # (Auto) 0.8 Thou/mm3 (0.0-0.8); Monocytes % (Auto) 8 % (0-12); Neutrophils % (Auto) 70 % (37-80); Nucleated Red Blood Cell % 0 /100 WBC (0); Platelet Count 188 Thou/mm3 (140-440); RDW Standard Deviation 48.2 fL (35.1-43.9); Red Blood Count 3.82 Miln/mm3 (4.50-5.90); White Blood Count 9.9 Thou/mm3 (3.8-10.6)
[2024-08-19 06:03] LABS: Alanine Aminotransferase 8 U/L (10-49); Albumin, Serum 3.2 gm/dL (3.4-4.8); Albumin/Globulin Ratio 1.4 (1.2-2.2); Alkaline Phosphatase 119 U/L (46-116); Anion Gap 10 (7-16); Aspartate Amino Transferase 12 U/L (0-34); BUN/Creatinine Ratio 9 Ratio (12-20); Bilirubin,Total 0.5 mg/dL (0.3-1.2); Blood Urea Nitrogen 9 mg/dL (9-23); Calcium (Corrected) 8.6 mg/dL (8.5-10.1); Carbon Dioxide 25.2 mMol/L (20.0-31.0); Chloride 109 mMol/L (98-107); Estimated Creatinine Clearance 73.6 mL/min (>60); Globulin 2.3 gm/dL (2.3-3.5); Glucose 156 mg/dL (74-106); Osmolality,Calculated 288 (275-295); Potassium 3.8 mMol/L (3.4-5.1); Sodium 144 mMol/L (136-145); Total Protein 5.5 gm/dL (5.7-8.2); eGFR > 60 See Note
[2024-08-19] MEDS: ALBUTEROL/IPRATROPIUM (Duoneb) RT SOL 3 ML NEBU INH ×2 (07:20→14:42)
[2024-08-19] MEDS: POLYETHYLENE GLYCOL 17 GM PACKET PO (10:02)
[2024-08-19] MEDS: cefuroxime axetiL 250 MG TABLET 500 MG PO ×2 (10:02→20:19)
[2024-08-19] MEDS: METOPROLOL SUCCINATE XL 25 MG TABCR 150 MG PO (10:03)
[2024-08-19] MEDS: ATORVASTATIN CALCIUM 20 MG TABLET 80 MG PO (10:04)
[2024-08-19] MEDS: rOPINIRole HCL 0.25 MG TABLET 0.5 MG PO (10:06)
[2024-08-19] MEDS: allopurinoL 100 MG TABLET PO (10:06)
[2024-08-19] MEDS: PANTOPRAZOLE 40 MG TABLET PO (10:06)
[2024-08-19] MEDS: amLODIPine BESYLATE 5 MG TABLET PO (10:06)
[2024-08-19] MEDS: SACUBITRIL 24 MG/VALSARTAN 26 MG TABLET 0.5 TAB PO ×2 (10:07→20:19)
[2024-08-19] MEDS: APIXABAN 2.5 MG TABLET PO ×2 (10:07→20:19)
[2024-08-19] MEDS: MEMANTINE HCL 5 MG TABLET PO ×2 (10:07→20:19)
--- NOTE | 2024-08-19 11:18 | PC.SS ---
SS informed medical team of auth needed SS spoke with Brayan, informed of discharge, went over medicare information SS informed [facility] must authorize before pt can be discharged to [facility] SS contacted [facility] Level 2 clearance SS learned pt to discharge; SS spoke with Genie Roldan [facility], sent over packet for return
--- NOTE | 2024-08-19 11:23 | PC.SS ---
Addendum entered by Emmanuel Mcfadden 08/19/24 14:42: SS spoke with VALERIE Meyer, cleared Lvl 2 SS LM with VALERIE Original Note: SS informed medical team of auth needed SS spoke with Brayan, informed of discharge, went over medicare information SS informed [facility] must authorize before pt can be discharged to [facility] SS contacted VALERIE Level 2 clearance SS learned pt to discharge; SS spoke with Genie Roldan [facility], sent over packet for return to facility via [facility]
[2024-08-19] MEDS: INSULIN LISPRO (AdmeLOG) 1 UNIT/0.01 ML UNIT SC ×2 (11:30→20:18)
--- NOTE | 2024-08-19 15:31 | ESPR_ITS ---
Documentation for date of: 08/19/24 Subjective Subjective Interval history: Patient is seen and examined at the bedside No acute overnight events. Patient is off restraints since yesterday afternoon and is not pulling at his lines and tubes Vitals are stable. No significant abnormality in the lab work Patient is supposed to get discharged today, pending insurance authorization and SNF placement Exam Vital Signs Temp Pulse Resp BP Pulse Ox O2 Del Method O2 Flow Rate 98.2 F 78 18 138/90 H 95 Nasal Cannula 1 08/19/24 11:57 08/19/24 14:43 08/19/24 14:43 08/19/24 11:57 08/19/24 14:43 08/19/24 11:57 08/19/24 11:57 Narrative Exam General: Awake. mildly confused HEENT: Normocephalic, atraumatic, mucous membranes dry Heart: Regular rate and rhythm, no murmurs. noted COMPENSATION AND BENEFITS ADMINISTRATOR Lungs: Clear to auscultation with no wheezing or crackles. Abdomen: Soft, nondistended, nontender, positive bowel sounds. ?No guarding or rebound tenderness. Neurologic: Alert and omore awake, no gross neurological deficit, and patient able to move all 4 extremities. Extremities: No edema. Skin: No rash or ecchymoses. Stage II decubitus ulcer noted on left buttock, appears clean and uninfected Objective Labs 08/20/24 05:03 08/20/24 05:03 Labs: Laboratory Results - last 24 hr 08/19/24 05:17 WBC 9.9 RBC 3.82 L Hgb 10.9 L Hct 32.4 L MCV 85 MCH 28.5 MCHC 33.6 RDW Std Deviation 48.2 H Plt Count 188 D Neut % (Auto) 70 Lymph % (Auto) 15 [place] % (Auto) 8 Eos % (Auto) 5 Baso % (Auto) 1 Neut # (Auto) 7.0 Lymph # (Auto) 1.5 [place] # (Auto) 0.8 Eos # (Auto) 0.5 Baso # (Auto) 0.1 Immature Gran # (Auto) 0.10 H Absolute Nucleated RBC 0.00 Immature Gran % 1 H Nucleated RBC % 0 Sodium 144 Potassium 3.8 Chloride 109 H Carbon Dioxide 25.2 Anion Gap 10 BUN 9 Creatinine 1.0 Estim Creat Clear Calc 73.6 eGFR > 60 BUN/Creatinine Ratio 9 L Glucose 156 H Calculated Osmolality 288 Calcium 8.0 L Corrected Calcium 8.6 Total Bilirubin 0.5 AST 12 ALT 8 L Alkaline Phosphatase 119 H Total Protein 5.5 L Albumin 3.2 L Globulin 2.3 Albumin/Globulin Ratio 1.4 Quality Measures Quality Measures sepsis Current suspected stage: ruled out Possible source: genitourinary Blood cultures ordered: completed in ED Antibiotic ordered: Yes Advance care planning discussed with:: patient Assessment & Plan Assessment Current Active Medications: Generic Name Dose Route Start Last Admin Trade Name Freq PRN Reason Stop Dose Admin Acetaminophen 1,000 mg 08/16/24 11:28 08/16/24 20:32 Acetaminophen 500 Mg Tablet PO 09/12/24 13:30 1,000 mg Q6H PRN Administration Fever > 99.9 Albuterol/Ipratropium 3 ml 08/13/24 23:00 08/19/24 14:42 Albuterol/Ipratropium (Duoneb) Rt Ivanna 3 Ml Nebu INH 09/12/24 22:59 3 ml Q8HRRT CARLEEN Administration Allopurinol 100 mg 08/17/24 09:00 08/19/24 10:06 Allopurinol 100 Mg Tablet PO 09/16/24 08:59 100 mg QDAY CARLEEN Administration Amlodipine Besylate 5 mg 08/17/24 09:00 08/19/24 10:06 Amlodipine Besylate 5 Mg Tablet PO 09/16/24 08:59 5 mg QDAY CARLEEN Administration Apixaban 2.5 mg 08/16/24 10:30 08/19/24 10:07 Apixaban 2.5 Mg Tablet PO 09/15/24 10:29 2.5 mg BID CARLEEN Administration Protocol Atorvastatin Calcium 80 mg 08/17/24 09:00 08/19/24 10:04 Atorvastatin Calcium 20 Mg Tablet PO 09/16/24 08:59 80 mg QDAY CARLEEN Administration Cefuroxime Axetil 500 mg 08/15/24 21:00 08/19/24 10:02 Cefuroxime Axetil 250 Mg Tablet PO 08/20/24 12:00 500 mg BID CARLEEN Administration Dextrose 50 ml 08/13/24 17:47 Dextrose 50%-Water Inj 50 Ml Syringe IV 09/12/24 17:46 Q15MIN PRN BG <50 OR BG <70 & pt unresponsive Glucagon 1 mg 08/13/24 17:47 Glucagon Inj 1 Mg Vial IM Q15MIN PRN BG <70, and no IV access Insulin Glargine 6 unit 08/18/24 21:00 08/18/24 20:06 Insulin Glargine (Lantus) 5 Unit/0.05 Ml (Per 5 Units) SC 09/17/24 20:59 6 unit HS CARLEEN Administration Insulin Human Lispro 0 unit 08/15/24 21:00 08/19/24 11:30 Insulin Lispro (Admelog) 1 Unit/0.01 Ml Unit SC 09/14/24 20:59 1 unit ACHS CARLEEN Administration Protocol Memantine 5 mg 08/16/24 21:00 08/19/24 10:07 Memantine Hcl 5 Mg Tablet PO 09/15/24 20:59 5 mg BID CARLEEN Administration Metoprolol Succinate 150 mg 08/18/24 09:00 08/19/24 10:03 Metoprolol Succinate Xl 25 Mg Tabcr PO 09/17/24 08:59 150 mg QDAY CARLEEN Administration Ondansetron HCl 4 mg 08/13/24 13:31 Ondansetron Inj 2 Mg/Ml Inj 2 Ml IVP 09/12/24 13:30 Q6H PRN NAUSEA OR VOMITING Protocol Pantoprazole Sodium 40 mg 08/16/24 09:00 08/19/24 10:06 Pantoprazole 40 Mg Tablet PO 09/15/24 08:59 40 mg QDAY CARLEEN Administration Polyethylene Glycol 17 gm 08/18/24 09:00 08/19/24 10:02 Polyethylene Glycol 17 Gm Packet PO 09/17/24 08:59 17 gm QDAY CARLEEN Administration Ropinirole HCl 0.5 mg 08/17/24 09:00 08/19/24 10:06 Ropinirole Hcl 0.25 Mg Tablet PO 09/16/24 08:59 0.5 mg QDAY CARLEEN Administration Sacubitril/Valsartan 0.5 tab 08/16/24 21:00 08/19/24 10:07 Sacubitril 24 Mg/Valsartan 26 Mg Tablet PO 09/15/24 20:59 0.5 tab BID CARLEEN Administration Trazodone HCl 50 mg 08/16/24 21:00 08/18/24 20:07 Trazodone Hcl 50 Mg Tablet PO 09/15/24 20:59 50 mg HS CARLEEN Administration Plan Patient is a 79-year-old male past medical history significant for Alzheimer's, CAD s/p stents, PVD, primary hypertension, paroxysmal atrial fibrillation on Eliquis, history of TAVR, s/p COMPENSATION AND BENEFITS ADMINISTRATOR D placement, heart failure reduced ejection fraction [40-45%] and ATN presented today with chief complaint of altered mental status. Patient will be admitted to ICU for vasopressors in setting of septic shock. Acute infectious encephalopathy on chronic Alzheimer's dementia, resolving Septic shock - resolved - likely aspiration versus UTI Hypernatremia, resolved - Presented to the hospital with chief complaints of altered sensorium since 2 days - Patient was brought from SNF, could not get much history as patient had dementia at baseline and is altered at the time of admission into the hospital - On admission, blood pressure is 85/54 mmHg, pulse rate 115 bpm, temperature 102 ?F - Chest x-ray did not show any significant infiltrates but patient needed oxygen during the hospital stay, suspected underlying aspiration - Urine analysis showed turbid urine with 1+ proteinuria, 3+ ketonuria, and was bilirubin, 252 RBC, 146 WBC, 18 epithelial cells - Patient was treated with vasopressors and was downgraded to floors for further management on 08/14/2024 Plan - Discontinued Meropenem as of 08/15 and started on cefuroxime 500 Mg p.o. twice daily as per Dr Voss's recommendation 08/15 - 08/20 - Will continue to monitor patient's mental status - Urology consulted, recommended to continue Dr. Ahmadi [place] secondary to Acute tubular necrosis, resolved - Patient was admitted on 07/28/2024 with [place] and underwent few dialysis sessions at the time - Later as patient's renal functions got improved, discharged home - Patient's baseline creatinine is 3 during last discharge - Presented to the hospital with creatinine of 3.3, improved to 1.0 as of 08/17/2024, reached almost his baseline. Plan - Will continue to monitor renal panel and renally dose medications Hypomagnesemia, resolved Likely due to poor oral intake Will monitor and replete as needed Hypernatremia, resolved Sodium is 145 as of today Likely Secondary to large volume Ringer's lactate IVF and dehydration Plan Will continue to monitor renal panel and treat accordingly Chronic systolic CHF with reduced EF [40 to 45%] GDMT on hold as of now, will restart once the patient clinical condition stabilizes Repeat Echo done on 08/14/2024 - same findings, EF 40% History of primary hypertension Started his home metoprolol 100 Mg p.o. daily Started on Entresto half tablet twice daily Will add amlodipine as needed. Will continue to monitor blood pressures and manage accordingly CAD and PVD s/p stents Restarted his atorvastatin Paroxysmal A-fib on Eliquis Rx: - Continue telemetry monitoring. - Apixaban is restarted, 2.5 Mg twice daily which is his home dose H/O urinarry incontinence and retention Rx: - prison- chu catheter. Home medication trospium on hold for now - DO NOT REMOVE CHU CATHETER. As per urology Dr. Funes patient has chronic urinary incontinence and had a artificial sphincter implanted, however patient is demented and unable to control for himself ambulate therefore need a long- term indwelling Chu catheter. Thrombocytopenia, resolved will monitor cbc Nin-[id number] diabetes mellitus type 2 [7.5%] Rx: SSI ACHS glargine 6U SC at bedtime. HLD Home medication Atorvastatin resumed History of Alzheimer's dementia Recommended to follow-up with Dr. Alejandra on outpatient basis Per family, patient had an appointment next month with Dr. Alejandra Consulted Dr. Alejandra in view of progressive dementia Health maintenance: Dispo: Tele Diet: Dysphagia 1 DVT ppx: Eliquis GI ppx: Protonix 40mg qD IV lines: 2 pIV Chu: Yes (started 08/13/24, Do not remove Code status: FULL CODE Patient plan of care was discussed with the attending physician, Dr. Duarte Paige, PGY1 Disclaimer: This note was dictated by speech recognition. Minor errors in compensation and benefits administrator may be present due to voice recognition software. Attending Provider Attestation/Addendum Hina Ross DO, attest that I was physically present for the [place] portions of the service and evaluated the patient with the resident and I reviewed and discussed the case with the resident and agree with the resident's findings and plans of care as documented above Patient seen and eval this a.m. Patient remains at baseline mental status and has not required any restraints. No acute events overnight. Pending placement. Patient stable to be discharged back to shelter facility.
[2024-08-19] MEDS: ACETAMINOPHEN 500 MG TABLET 1000 MG PO (20:18)
[2024-08-19] MEDS: INSULIN GLARGINE (Lantus) 5 UNIT/0.05 ML (PER 5 UNITS) 6 UNIT SC (20:18)
[2024-08-19] MEDS: traZODone HCL 50 MG TABLET PO (20:19)
--- NOTE | 2024-08-19 21:26 | ESPR_ITS ---
Documentation for date of: 08/19/24 Subjective Subjective Interval history: Seen in [facility] today with one on one sitter at the bedside, intermittently confused. Not able to recognize people. No new symptoms reported in the last 24 hours Exam - Neurology Vital Signs Temp Pulse Resp BP Pulse Ox O2 Del Method O2 Flow Rate 96.9 F 97 19 157/83 H 97 Room Air 1 08/19/24 20:00 08/19/24 20:00 08/19/24 20:00 08/19/24 20:00 08/19/24 20:00 08/19/24 20:00 08/19/24 11:57 Narrative Exam GENERAL APPEARANCE: Well hydrated, well-nourished in no acute distress. HEENT: Normocephalic, atraumatic, extraocular movements intact. Pupils: Equal reacting to light. NECK: Supple, no JVD or bruits. CARDIOVASULAR: Heart: S1, S2 heard, regular without S3-S4 or murmur no rubs or gallops. LUNGS/CHEST: Clear to auscultation bilaterally. No rails, rhonchi, or wheezing. Normal inspection. ABDOMEN: Soft, nontender, with normal bowel sounds. No pulsatile masses. No rebound, rigidity, or guarding. Normal inspection and palpation. EXTREMITIES: Normal inspection and palpation. No edema, clubbing or cyanosis. SKIN: Warm and dry without rashes. Normal inspection. MUSCULOSKELETAL: No cervical, thoracic, lumbar or midline bony tenderness. Normal inspection. NEURO: Alert, awake and oriented x1. Cranial nerves: II through XII grossly intact. Speech and language: hypophonic speech noted. Motor system: Tone and bulk: Normal: Strength: moves all 4 extremities; No pronator drift noted. Deep tendon reflexes: 1+ bilaterally symmetrical. Plantar reflex: Downgoing bilaterally. Sensory system: Intact to pin prick sensation bilaterally. Rest of the exam: limited. No signs of meningeal irritation noted. PSYCHIATRIC: Normal mood and affect. Objective Labs 08/19/24 05:17 08/19/24 05:17 Labs: Laboratory Results - last 24 hr 08/19/24 05:17 WBC 9.9 RBC 3.82 L Hgb 10.9 L Hct 32.4 L MCV 85 MCH 28.5 MCHC 33.6 RDW Std Deviation 48.2 H Plt Count 188 D Neut % (Auto) 70 Lymph % (Auto) 15 [place] % (Auto) 8 Eos % (Auto) 5 Baso % (Auto) 1 Neut # (Auto) 7.0 Lymph # (Auto) 1.5 [place] # (Auto) 0.8 Eos # (Auto) 0.5 Baso # (Auto) 0.1 Immature Gran # (Auto) 0.10 H Absolute Nucleated RBC 0.00 Immature Gran % 1 H Nucleated RBC % 0 Sodium 144 Potassium 3.8 Chloride 109 H Carbon Dioxide 25.2 Anion Gap 10 BUN 9 Creatinine 1.0 Estim Creat Clear Calc 73.6 eGFR > 60 BUN/Creatinine Ratio 9 L Glucose 156 H Calculated Osmolality 288 Calcium 8.0 L Corrected Calcium 8.6 Total Bilirubin 0.5 AST 12 ALT 8 L Alkaline Phosphatase 119 H Total Protein 5.5 L Albumin 3.2 L Globulin 2.3 Albumin/Globulin Ratio 1.4 Assessment & Plan Assessment and plan (1) Altered mental status: Status: Acute Assessment and plan: some improvement noted lately Secondary to metabolic encephalopathy with baseline dementia. continue to monitor him closely (2) Generalized weakness: Status: Acute Assessment and plan: continue with ROM exercises and PT as tolerated (3) Sepsis: Status: Acute Assessment and plan: continue with antibiotics
[2024-08-20] VITALS (12 sets, daily range): BP systolic 152–177; BP diastolic 77–83; PULSE 72–96; RESP 15–22; TEMP 36.2–36.7; O2SAT 96–100
[2024-08-20] MEDS: hydrALAZINE INJ 20 MG/ML VIAL 10 MG IVP (00:12)
[2024-08-20 05:54] LABS: Basophils # (Auto) 0.1 Thou/mm3 (0.0-0.2); Basophils % (Auto) 1 % (0-2.5); Eosinophils # (Auto) 0.5 Thou/mm3 (0.0-0.5); Eosinophils % (Auto) 5 % (0-10); Hematocrit 33.5 % (41.0-53.0); Hemoglobin 11.3 g/dL (13.5-16.0); Immature Granulocytes % (Auto) 1 % (0-0); Immature Granulocytes Auto 0.12 Thou/mm3 (0.00-0.00); Lymphocytes # (Auto) 1.5 Thou/mm3 (1.0-4.8); Lymphocytes % (Auto) 14 % (10-50); Mean Corpuscular HGB Conc 33.7 g/dl (31.0-37.0); Mean Corpuscular Hemoglobin 28.3 pg (25.0-35.0); Mean Corpuscular Volume 84 fL (80-100); Monocytes # (Auto) 0.8 Thou/mm3 (0.0-0.8); Monocytes % (Auto) 8 % (0-12); Neutrophils # (Auto) 7.2 Thou/mm3 (1.8-7.7); Neutrophils % (Auto) 71 % (37-80); Nucleated Red Blood Cell % 0 /100 WBC (0); Platelet Count 184 Thou/mm3 (140-440); RDW Standard Deviation 46.5 fL (35.1-43.9); Red Blood Count 3.99 Miln/mm3 (4.50-5.90); White Blood Count 10.1 Thou/mm3 (3.8-10.6)
[2024-08-20 06:25] LABS: Anion Gap 12 (7-16); BUN/Creatinine Ratio 9 Ratio (12-20); Blood Urea Nitrogen 8 mg/dL (9-23); Calcium 8.1 mg/dL (8.3-10.6); Carbon Dioxide 24.5 mMol/L (20.0-31.0); Chloride 107 mMol/L (98-107); Creatinine (Component) 0.9 mg/dL (0.6-1.3); Estimated Creatinine Clearance 81.7 mL/min (>60); Glucose 150 mg/dL (74-106); Osmolality,Calculated 286 (275-295); Potassium 3.3 mMol/L (3.4-5.1); Sodium 143 mMol/L (136-145); eGFR > 60 See Note
[2024-08-20] MEDS: ALBUTEROL/IPRATROPIUM (Duoneb) RT SOL 3 ML NEBU INH ×2 (07:11→15:31)
[2024-08-20] MEDS: ATORVASTATIN CALCIUM 20 MG TABLET 80 MG PO (09:08)
[2024-08-20] MEDS: POLYETHYLENE GLYCOL 17 GM PACKET PO (09:08)
[2024-08-20] MEDS: amLODIPine BESYLATE 5 MG TABLET PO (09:09)
[2024-08-20] MEDS: MEMANTINE HCL 5 MG TABLET PO (09:09)
[2024-08-20] MEDS: rOPINIRole HCL 0.25 MG TABLET 0.5 MG PO (09:09)
[2024-08-20] MEDS: allopurinoL 100 MG TABLET PO (09:09)
[2024-08-20] MEDS: PANTOPRAZOLE 40 MG TABLET PO (09:09)
[2024-08-20] MEDS: APIXABAN 2.5 MG TABLET PO (09:09)
[2024-08-20] MEDS: SACUBITRIL 24 MG/VALSARTAN 26 MG TABLET 0.5 TAB PO (09:09)
[2024-08-20] MEDS: METOPROLOL SUCCINATE XL 25 MG TABCR 150 MG PO (09:10)
--- NOTE | 2024-08-20 10:36 | PC.SS ---
Addendum entered by Fely Harper 08/20/24 16:47: Patient's spouse Brayan stated she is unable provide transportation. SS contacted [facility] and transportation is scheduled for 1829 with [place]. CHRIS Rothman, [facility], and patient's spouse Brayan informed of transport ETA 1829. Addendum entered by Fely Harper 08/20/24 15:49: SS informed by [facility] patient can return today and auth from the [facility] was obtained. SS informed patient and spouse. Spouse Brayan stated it would be best for her to meet patient at [facility]. [facility] stated they do not have transportation for the rest of the afternoon. [facility] was contacted and waiting to confirm transportation availability. Original Note: SS consulted and confirmed with CHRIS Rothman patient has been off of restraints for the last 48hrs. SS contacted [facility] to confirm if auth. from the [facility] has been recieved for patient to return. [facility] stated she has submitted all requested documents to the [facility] and is waiting for a verbal confirmation. SS to follow up with [facility].
--- NOTE | 2024-08-20 11:25 | PD.RESPRO ---
Documentation for date of: 08/20/24 Exam Vital Signs Temp Pulse Resp BP Pulse Ox O2 Del Method O2 Flow Rate 98.1 F 90 15 154/83 H 97 Room Air 1 08/20/24 07:50 08/20/24 09:10 08/20/24 07:50 08/20/24 09:10 08/20/24 07:50 08/20/24 07:50 08/19/24 11:57 Objective Labs 08/20/24 05:03 08/20/24 05:03 Labs: Laboratory Results - last 24 hr 08/20/24 05:03 WBC 10.1 RBC 3.99 L Hgb 11.3 L Hct 33.5 L MCV 84 MCH 28.3 MCHC 33.7 RDW Std Deviation 46.5 H Plt Count 184 Neut % (Auto) 71 Lymph % (Auto) 14 [place] % (Auto) 8 Eos % (Auto) 5 Baso % (Auto) 1 Neut # (Auto) 7.2 Lymph # (Auto) 1.5 [place] # (Auto) 0.8 Eos # (Auto) 0.5 Baso # (Auto) 0.1 Immature Gran # (Auto) 0.12 H Absolute Nucleated RBC 0.00 Immature Gran % 1 H Nucleated RBC % 0 Sodium 143 Potassium 3.3 L D Chloride 107 Carbon Dioxide 24.5 Anion Gap 12 BUN 8 L Creatinine 0.9 Estim Creat Clear Calc 81.7 eGFR > 60 BUN/Creatinine Ratio 9 L Glucose 150 H Calculated Osmolality 286 Calcium 8.1 L Quality Measures Quality Measures sepsis Possible source: genitourinary Blood cultures ordered: completed in ED Assessment & Plan Assessment Current Active Medications: Generic Name Dose Route Start Last Admin Trade Name Freq PRN Reason Stop Dose Admin Acetaminophen 1,000 mg 08/16/24 11:28 08/19/24 20:18 Acetaminophen 500 Mg Tablet PO 09/12/24 13:30 1,000 mg Q6H PRN Administration Fever > 99.9 Albuterol/Ipratropium 3 ml 08/13/24 23:00 08/20/24 07:11 Albuterol/Ipratropium (Duoneb) Rt Ivanna 3 Ml Nebu INH 09/12/24 22:59 3 ml Q8HRRT CARLEEN Administration Allopurinol 100 mg 08/17/24 09:00 08/20/24 09:09 Allopurinol 100 Mg Tablet PO 09/16/24 08:59 100 mg QDAY CARLEEN Administration Amlodipine Besylate 5 mg 08/17/24 09:00 08/20/24 09:09 Amlodipine Besylate 5 Mg Tablet PO 09/16/24 08:59 5 mg QDAY CARLEEN Administration Apixaban 2.5 mg 08/16/24 10:30 08/20/24 09:09 Apixaban 2.5 Mg Tablet PO 09/15/24 10:29 2.5 mg BID CARLEEN Administration Protocol Atorvastatin Calcium 80 mg 08/17/24 09:00 08/20/24 09:08 Atorvastatin Calcium 20 Mg Tablet PO 09/16/24 08:59 80 mg QDAY CARLEEN Administration Cefuroxime Axetil 500 mg 08/15/24 21:00 08/20/24 10:44 Cefuroxime Axetil 250 Mg Tablet PO 08/20/24 12:00 Not Given BID CARLEEN Dextrose 50 ml 08/13/24 17:47 Dextrose 50%-Water Inj 50 Ml Syringe IV 09/12/24 17:46 Q15MIN PRN BG <50 OR BG <70 & pt unresponsive Glucagon 1 mg 08/13/24 17:47 Glucagon Inj 1 Mg Vial IM Q15MIN PRN BG <70, and no IV access Insulin Glargine 6 unit 08/18/24 21:00 08/19/24 20:18 Insulin Glargine (Lantus) 5 Unit/0.05 Ml (Per 5 Units) SC 09/17/24 20:59 6 unit HS CARLEEN Administration Insulin Human Lispro 0 unit 08/15/24 21:00 08/20/24 07:12 Insulin Lispro (Admelog) 1 Unit/0.01 Ml Unit SC 09/14/24 20:59 Not Given ACHS [facility] Protocol Memantine 5 mg 08/16/24 21:00 08/20/24 09:09 Memantine Hcl 5 Mg Tablet PO 09/15/24 20:59 5 mg BID CARLEEN Administration Metoprolol Succinate 150 mg 08/18/24 09:00 08/20/24 09:10 Metoprolol Succinate Xl 25 Mg Tabcr PO 09/17/24 08:59 150 mg QDAY CARLEEN Administration Ondansetron HCl 4 mg 08/13/24 13:31 Ondansetron Inj 2 Mg/Ml Inj 2 Ml IVP 09/12/24 13:30 Q6H PRN NAUSEA OR VOMITING Protocol Pantoprazole Sodium 40 mg 08/16/24 09:00 08/20/24 09:09 Pantoprazole 40 Mg Tablet PO 09/15/24 08:59 40 mg QDAY CARLEEN Administration Polyethylene Glycol 17 gm 08/18/24 09:00 08/20/24 09:08 Polyethylene Glycol 17 Gm Packet PO 09/17/24 08:59 17 gm QDAY CARLEEN Administration Ropinirole HCl 0.5 mg 08/17/24 09:00 08/20/24 09:09 Ropinirole Hcl 0.25 Mg Tablet PO 09/16/24 08:59 0.5 mg QDAY CARLEEN Administration Sacubitril/Valsartan 0.5 tab 08/16/24 21:00 08/20/24 09:09 Sacubitril 24 Mg/Valsartan 26 Mg Tablet PO 09/15/24 20:59 0.5 tab BID CARLEEN Administration Trazodone HCl 50 mg 08/16/24 21:00 08/19/24 20:19 Trazodone Hcl 50 Mg Tablet PO 09/15/24 20:59 50 mg HS CARLEEN Administration
[2024-08-20] MEDS: INSULIN LISPRO (AdmeLOG) 1 UNIT/0.01 ML UNIT SC (11:33)
--- NOTE | 2024-08-20 15:10 | ESDS_ITS ---
<Statement entered by Hina Ramachandran DO - 08/21/24 16:13> I, Hina Ramachandran DO, attest that I was physically present for the [place] portions of the service and evaluated the patient with the resident and I reviewed and discussed the case with the resident and agree with the resident's findings and plans of care as documented above Planned Discharge Date 08/20/24 DS: Providers Provider Date of admission: 08/13/24 13:31 Primary care physician: Nicholas Clark MD Admitting Provider: Chasidy Uriarte MD Attending Provider on Admission: Hina Ramachandran DO Consults: 08/13/24 10:58 Consult to Infectious Diseases Routine Comment: Consulting Provider: José Miguel Voss 08/13/24 13:36 Consult to Nephrology Urgent Comment: Consulting Provider: Chely Meyers 08/14/24 06:39 Referral Wound Care Stat Comment: wound to buttock 08/14/24 17:13 Consult to Urology Routine Comment: for suspected uti Consulting Provider: Tg Funes 08/15/24 03:44 Referral Speech Therapy Routine Comment: 08/17/24 09:58 Consult to Neurology / Tele-Neurology Routine Comment: For progressive dementia Consulting Provider: Vivek Alejandra Attending Provider on DC: Parviz Watts MD Discharging Provider: Parviz Watts MD DS: Diagnosis Problem List Completed Was Problem List Reviewed/Reconciled?: Yes Hospital Course Hospital Course Hospital course: Mr. Noriega a 79 year old male patient with significant medical history of Alzheimer's dementia, urinary incontinence s/p AUS, CAD s/p PCI, CHF, peripheral vascular disease, atrial fibrillation (on Eliquis), TAVR s/p [employer], HTN, DM2 and history of prostate cancer was brought in from SNF to [facility] (on 08/13/24) for altered mental status. In ED, patient was found to be tachycardic, tachypneic with elevated WBC and hypotensive with BP 85/54. Patient was upgraded to ICU requiring vasopressors for septic shock for a day. In hospital, patient completed IV antibiotic course for complicated UTI. While in hospital patient was followed by ID Dr. Voss, urologist Dr. Funes, neurologist Dr. Alejandra and gift packer Dr. Meyers. Over time, patient received physical therapy and his symptoms improved and he was deemed safe to be discharged to [facility]. Parviz Watts PGY2, MD Time Spent with Patient Time attestation: Total time spent providing and/or coordinating discharge services: Time spent: Greater than 30 minutes Exam Vital Signs Temp Pulse Resp BP Pulse Ox O2 Del Method O2 Flow Rate 97.4 F 81 19 154/83 H 97 Room Air 1 08/20/24 11:53 08/20/24 12:00 08/20/24 11:53 08/20/24 11:53 08/20/24 11:53 08/20/24 11:53 08/19/24 11:57 Narrative Exam General: Awake. mildly confused HEENT: Normocephalic, atraumatic, mucous membranes dry Heart: Regular rate and rhythm, no murmurs. noted [employer] Lungs: Clear to auscultation with no wheezing or crackles. Abdomen: Soft, nondistended, nontender, positive bowel sounds. ?No guarding or rebound tenderness. Neurologic: Alert and omore awake, no gross neurological deficit, and patient able to move all 4 extremities. Extremities: No edema. Skin: No rash or ecchymoses. Stage II decubitus ulcer noted on left buttock, appears clean and uninfected Discharge Plan Plan Patient Disposition: Xfer Skilled [facility] (SNF) Patient condition on transfer: Stable Care Plan Goals: Continue home meds as prescribed Please see your PCP within x1 week of discharge If symptoms worsen, please go to your nearest hospital / ED Please follow up with urology. Exchange tse at least once a month Prescriptions/Referrals Prescriptions/Med Rec: Continued ropinirole 0.5 mg tablet 0.5 mg PO QDAY gabapentin 300 MG capsule 300 mg PO TID Qty: 60 allopurinol 100 mg tablet 100 mg PO QDAY Patient Comments: TK 1 T PO QD atorvastatin 80 mg Tablet 80 mg PO QDAY metformin 1,000 mg tablet 1,000 mg PO BID Patient Comments: TAKE 1 TABLET BY MOUTH TWICE DAILY WITH MEAL metoprolol succinate 200 mg tablet extended release 24 hr 200 mg PO QDAY pantoprazole 40 mg tablet,delayed release (DR/EC) 40 mg PO QDAY Patient Comments: TAKE 1 TABLET BY MOUTH EVERY DAY duloxetine 30 mg capsule,delayed release(DR/EC) 30 mg PO BID Patient Comments: TAKE 1 CAPSULE BY MOUTH FOR ONE WEEK THEN TWICE DAILY folic acid 1 mg Tablet 1 mg PO QDAY midodrine 5 mg Tablet 5 mg PO TID PRN (Reason: SBP<100) 30 Days Qty: 90 0RF Rx Instructions: do not give last dose of day after 6PM or within 4 hrs of bedtime Entresto 24-26 mg Tablet 0.5 tab PO BID 30 Days Qty: 15 0RF memantine 5 mg tablet 5 mg PO BID insulin lispro 100 unit/mL insulin pen 1 sliding scale dose subcut USEASDIRECTD melatonin 3 mg capsule 6 mg PO HS bisacodyl 10 mg suppository 10 mg [place] DAILY PRN (Reason: constipation) Patient Comments: INSERT ONE SUPPOSITORY RECTALLY ONCE DAILY NEEDED FOR CONSTIPATION Rx Instructions: give if MOM is ineffective magnesium hydroxide [Milk of Magnesia] 400 mg/5 mL suspension 30 ml PO .Q3Day PRN (Reason: constipation) Rx Instructions: if no BM for 3 days Eliquis 2.5 mg Tablet 2.5 mg PO BID 30 Days Qty: 60 0RF Discontinued trospium 20 mg Tablet 20 mg PO BID mirabegron [Myrbetriq] 50 mg tablet extended release 24 hr 50 mg PO QDAY Referrals: Nicholas Clark MD [Primary Care Provider] - Patient/Caregiver Discharge Instructions Other Discharge Activity Instructions:: Continue home meds as prescribed Please see your PCP within x1 week of discharge If symptoms worsen, please go to your nearest hospital / ED Please f/u with urology. Exchange tse at least once a month Education Materials: Understanding Post Sepsis Syndrome, Heart Failure Meds, Acute Kidney Failure Dc, Understanding Sepsis, ED Confusion Print Language: Lebanese Stand Alone Forms: Ofe Award Info., Patient Portal Info Letter Discharge Order Discharge Orders: Discharge (Routine); Ordered 08/20/24 Ordered By: Parviz Watts Quality Discharge Quality Measures VTE prophylaxis
== END 2024-08-20 18:33 | disposition skilled nursing facility (03) | DRG 871 ==
LOC: SERX 12:01 → SERHOLD 13:59 → S2SX 14:31 → S2NX 08-14 13:27 → S3NX 08-17 07:33
PROVIDERS: Internal Medicine Infectious Disease; Student in an Organized Health Care Education/Training Program; Admitting Provider Internal Medicine; Emergency Provider Family Medicine; PCP Family Medicine; Visit Provider Internal Medicine
DX: A41.9 Sepsis, unspecified organism (principal); G92.8 Other toxic encephalopathy; J96.01 Acute respiratory failure with hypoxia; R65.21 Severe sepsis with septic shock; J18.9 Pneumonia, unspecified organism; N17.0 Acute kidney failure with tubular necrosis; E87.20 Acidosis, unspecified; I13.0 Hypertensive heart and chronic kidney disease with heart failure and stage 1 through stage 4 chronic kidney disease, or unspecified chronic kidney disease; I50.22 Chronic systolic (congestive) heart failure; N39.0 Urinary tract infection, site not specified; N18.4 Chronic kidney disease, stage 4 (severe); E87.0 Hyperosmolality and hypernatremia; N13.8 Other obstructive and reflux uropathy; E11.22 Type 2 diabetes mellitus with diabetic chronic kidney disease; Z90.79 Acquired absence of other genital organ(s); N13.9 Obstructive and reflux uropathy, unspecified; I25.10 Atherosclerotic heart disease of native coronary artery without angina pectoris; G30.9 Alzheimer's disease, unspecified; F02.80 Dementia in other diseases classified elsewhere, unspecified severity, without behavioral disturbance, psychotic disturbance, mood disturbance, and anxiety; E11.51 Type 2 diabetes mellitus with diabetic peripheral angiopathy without gangrene; E83.39 Other disorders of phosphorus metabolism; Z85.46 Personal history of malignant neoplasm of prostate; D63.1 Anemia in chronic kidney disease; E78.5 Hyperlipidemia, unspecified; E83.42 Hypomagnesemia; I35.0 Nonrheumatic aortic (valve) stenosis; I48.0 Paroxysmal atrial fibrillation; C61 Malignant neoplasm of prostate; J45.909 Unspecified asthma, uncomplicated; L89.92 Pressure ulcer of unspecified site, stage 2; N40.0 Benign prostatic hyperplasia without lower urinary tract symptoms; R32 Unspecified urinary incontinence; D69.6 Thrombocytopenia, unspecified; Z78.1 Physical restraint status; E86.0 Dehydration; Z79.01 Long term (current) use of anticoagulants; Z79.4 Long term (current) use of insulin; Z79.84 Long term (current) use of oral hypoglycemic drugs; Z79.899 Other long term (current) drug therapy; Z95.2 Presence of prosthetic heart valve; Z95.5 Presence of coronary angioplasty implant and graft; Z96.641 Presence of right artificial hip joint; Z96.651 Presence of right artificial knee joint; Z88.0 Allergy status to penicillin; Z88.8 Allergy status to other drugs, medicaments and biological substances
CPT/HCPCS: 36415; 71045; 76770; 80048; 80053; 80061; 80069; 81001; 83605; 83615; 83690; 83735; 83880; 84100; 84145; 84295; 84443; 84484; 85025; 85610; 85730; 86331; 86635; 86780; 87040; 87081; 87086; 87400; 87811; 89220; 92526; 92610; 93005; 93225; 93306; 94640; 94664; 94667; 96365; 96366; 96367; 99291; 99292; A4314; A9270; J0131; J0360; J0692; J0696; J1642; J1650; J1720; J1815; J2185; J2470; J3475; J3480; J3490; J7030; J7042; J7050; J7120; J7999; P9047; J1836